=== PATIENT | male | born 1940 | race Caucasian/White ===

== ENCOUNTER → 2017-04-05 05:00 | Outpatient (REF) | payer SELFPAY ==
[2017-04-05 08:23] LABS: Hemoglobin 13.3 g/dl (13.0-16.5); Mean Corp Hgb Conc 31.7 g/gl (32-36); Mean Corpuscular Hgb 29.7 pg (27.0-32.0); Mean Corpuscular Volume 93.8 fL (80-94); Mean Platelet Vol. 12.3 fl (6.2-12.0); Platelet Count 166 K/mm3 (150-450); RBC Distribution Width CV 14.7 % (11.6-14.6); RBC Distribution Width SD 49.9 fl (35.1-43.9); Red Blood Count 4.48 M/mm3 (4.6-6.2); White Blood Count 7.1 K/mm3 (4.4-11.0)
[2017-04-05 08:24] LABS: Scan Indicated on CBC? Y/N NO
[2017-04-05 08:31] LABS: AST(SGOT) 10 U/L (15-37); Alanine Aminotransfer ALT/SGPT 22 U/L (16-61); Albumin, Serum 3.3 g/dL (3.2-5.0); Alkaline Phosphatase 69 U/L (45-117); Anion Gap 9 (5-15); BUN 22 mg/dL (7-18); BUN/Creat Ratio 21.8 RATIO (10-20); Bilirubin, Direct 0.09 mg/dL (0.00-0.30); Calcium,Total 8.2 mg/dL (8.5-10.1); Chloride 111 mmol/L (98-107); Creatinine, Serum 1.01 mg/dL (0.70-1.30); EST Glomerular Filtration Rate 76 mL/min (>60); Est Glom Filt Rate - Afr Amer 92 mL/min (>60); Globulin 3.5 g/dL (2.2-4.2); Glucose 91 mg/dL (74-106); Potassium 4.3 mmol/L (3.5-5.1); Protein, Total 6.8 g/dL (6.4-8.2); Sodium Level 148 mmol/L (136-145)
== END ==
LOC: OLS.DANBUR 05:00
DX: E78.5 Hyperlipidemia, unspecified (principal); F03.90 Unspecified dementia, unspecified severity, without behavioral disturbance, psychotic disturbance, mood disturbance, and anxiety
CPT/HCPCS: 36415; 80048; 80076; 85027

== ENCOUNTER → 2017-07-03 15:34 | Outpatient (CLI) | payer MEDICARE, SELFPAY ==
[2017-07-03 17:10] LABS: Absolute Lymphocyte Count 1.98 X10^3/ul (0.83-4.51); Absolute Neutrophil Count 6.4 X10^3/uL (2.0-7.7); Basophil# 0.02 X10^3/uL; Basophil% 0.2 % (0-1); Eosinophil# 0.03 X10^3/uL; Eosinophils% 0.3 % (0-5); Hematocrit 42.7 % (40-54); Hemoglobin 14.2 g/dl (13.0-16.5); Lymphocyte # 1.98 X10^3/ul (4.0); Lymphocyte % 20.5 % (19-41); Mean Corp Hgb Conc 33.3 g/gl (32-36); Mean Corpuscular Hgb 30.5 pg (27.0-32.0); Mean Corpuscular Volume 91.8 fL (80-94); Mean Platelet Vol. 12.1 fl (6.2-12.0); Monocyte# 1.21 X10^3/uL; Monocyte% 12.5 % (0-10); Neutrophil # 6.43 X10^3/uL (2.7-7.7); Neutrophil % 66.4 % (47-70); Platelet Count 186 K/mm3 (150-450); RBC Distribution Width CV 14.7 % (11.6-14.6); RBC Distribution Width SD 49.2 fl (35.1-43.9); Red Blood Count 4.65 M/mm3 (4.6-6.2); White Blood Count 9.7 K/mm3 (4.4-11.0)
[2017-07-03 17:23] LABS: POSITIVE COUNT NO; POSITIVE DIFFERENTIAL NO; POSITIVE MORPHOLOGY NO
[2017-07-03 18:37] LABS: ALB/GLOB Ratio 0.9 RATIO (0.9-2.4); AST(SGOT) 17 U/L (15-37); Alanine Aminotransfer ALT/SGPT 24 U/L (16-61); Albumin, Serum 3.6 g/dL (3.2-5.0); Alkaline Phosphatase 83 U/L (45-117); Anion Gap 9 (5-15); BUN 22 mg/dL (7-18); BUN/Creat Ratio 18.2 RATIO (10-20); Calcium,Total 8.8 mg/dL (8.5-10.1); Chloride 108 mmol/L (98-107); Creatinine, Serum 1.21 mg/dL (0.70-1.30); EST Glomerular Filtration Rate 62 mL/min (>60); Est Glom Filt Rate - Afr Amer 75 mL/min (>60); Globulin 3.9 g/dL (2.2-4.2); Glucose 98 mg/dL (74-106); Potassium 3.4 mmol/L (3.5-5.1); Protein, Total 7.5 g/dL (6.4-8.2); Sodium Level 144 mmol/L (136-145); Thyroid Stim Hormone (TSH) 1.14 uIU/mL (0.358-3.74)
[2017-07-04 08:50] LABS: Vitamin B12 409 pg/mL (211-911); Vitamin D,25 Hydroxy 25.1 ng/mL (29.95-100.01)
[2017-07-06 01:13] LABS: Rapid Plasmin Reagin (RPR) NONREACTIVE (NONREACTIVE)
== END ==
PROVIDERS: Visit Provider Family Medicine Geriatric Medicine
DX: E55.9 Vitamin D deficiency, unspecified (principal); F05 Delirium due to known physiological condition; R53.83 Other fatigue
CPT/HCPCS: 36415; 80053; 82306; 82607; 82746; 84443; 85025; 86592

== ENCOUNTER → 2017-07-12 05:00 | Outpatient (REF) | payer MEDICARE, SELFPAY ==
[2017-07-12 09:11] LABS: Anion Gap 8 (5-15); BUN 25 mg/dL (7-18); BUN/Creat Ratio 22.5 RATIO (10-20); Calcium,Total 8.5 mg/dL (8.5-10.1); Chloride 107 mmol/L (98-107); Creatinine, Serum 1.11 mg/dL (0.70-1.30); EST Glomerular Filtration Rate 69 mL/min (>60); Est Glom Filt Rate - Afr Amer 83 mL/min (>60); Glucose 89 mg/dL (74-106); Sodium Level 144 mmol/L (136-145)
== END ==
LOC: OLS.DANBUR 05:00
PROVIDERS: Visit Provider Family Medicine Geriatric Medicine
DX: E78.5 Hyperlipidemia, unspecified (principal)
CPT/HCPCS: 36415; 80048

== ENCOUNTER → 2018-03-19 17:00 | Outpatient (REF) | payer MEDICARE, SELFPAY ==
[2018-03-20 09:06] LABS: Color, Urine Yellow (Yellow); Glucose, Dipstick Normal (Normal); Ketone-Dipstick Negative (Negative); Leukocyte Esterase-Dipstick 500 /ul (Negative); Nitrite-Dipstick Positive (Negative); Occult Blood-Urine 25 /ul (Negative); Protein-Dipstick Negative (Negative); Urine Bilirubin Dipstick Negative (Negative); Urine Clarity Clear (Clear); Urine Urobilinogen Normal (Normal); Urine pH 6.5 (5.0 - 8.0)
--- OUTSIDE RECORDS SUMMARY | 2018-05-22 04:52 | XMS RPT_ITS ---
:1940 Author Organization OHIP Care Team Providers Name Role Phone Pavan, Eleazar Chi Attending Unavailable Oswaldo Crowder Attending Unavailable Pavan, Eleazar Chi Attending Unavailable Pavan, Eleazar Chi Attending Unavailable Pavan, Eleazar Chi Attending Unavailable PROBLEMS PROBLEMS DATE TYPE CONDITION / CODE ATTENDING STATUS SOURCE 09/21/2017 Unknown E78.5 - Pavan, Eleazar Chi Active [place] Hyperlipidemia, Community unspecified / Hospital E78.5(ICD-10) Repository 06/22/2017 Unknown F03.90 - Oswaldo Crowder Active [place] Unspecified Community dementia without Hospital behavioral Repository disturbance / F03.90(ICD-10) PROCEDURES PROCEDURES No Procedure Records FoundRESULTS RESULTS URINALYSIS, ROUTINE Collected: 03/19/2018 Status: F Source: [place] (DIPSTICK) 5:00 PM [facility] REPOSITORY Order Comment: How was Urine Obtained? CLEAN CATCH TYPE CODE TESTS RESULT OUT OF RANGE REFERENCE UNITS LAB L400.3000 Yellow COLOR Normal Yellow LAB L400.3050 Clear Normal CLARITY Clear LAB L400.3200 Normal mg/dl Normal GLUCOSE, UR Normal LAB L400.3300 Negative mg/dL Normal BILIRUBIN URINE Negative LAB L400.3400 Negative mg/dl Normal KETONE UR Negative LAB L400.3465 1.002-1.030 Normal SP.GR. DIPSTX 1.010 LAB L400.3550 5.0 - 8.0 pH UR Normal 6.5 LAB L400.3600 Negative mg/dl PROT Normal DIPSTX Negative LAB L400.3700 Normal mg/dl Normal UROBILI Normal LAB L400.3750 Negative High NITRITE UR Positive LAB L400.3780 Negative /ul High 25 OCCULT BLOOD-UR LAB L400.3800 Negative /ul High LEUK ESTERASE 500 Performed By: #### L400.2010 #### [facility] [address] [place], [address] Observed: 03/19/2018 Status: F Source: ZELIENOPLE CULTURE, URINE 5:00 PM [facility] REPOSITORY VERIFIED COLLECTION METHOD WITH NURSE Urine Culture Copy of report sent to Infection Control Printer [id number] 03/23/18 0651 RAHNUBIA. ORGANISM 1: Meth. resistant Staph. aureus Stephan Count 80,000-100,000 Meth. resistant Staph. aureus: REACTION Cefoxitin *NF POS Doxycline <=0.5 S Daptomycin $$ 0.25 S Inducable Clindamycin Resistan POS Gentamicin $ <=0.5 S Levofloxacin $ >=8 R Linezolid $$$$ 2 S Moxifloxicin *NF >=8 R Nitrofurantoin $ <=16 S Oxacillin NF R Rifampin $$ <=0.5 S Tetracycline NF <=1 S Trimethoprim/Sulfametho $ <=10 S Vancomycin $ <=0.5 S (NF) indicates non-formulary drug at [facility]. Approval by Infectious Disease Specialist required before non-formulary drugs may be ordered and/or dispensed. * CLSI guidelines does not recommend testing of cephalosporins. This interpretation is deduced from Beta-lactam/penicillin results. Performed By: #### M100.0650 #### [facility] [address] [place], [address] BASIC METABOLIC Collected: 07/12/2017 Status: F Source: [place] PROFILE (BMP) 7:10 AM [facility] REPOSITORY Order Comment: 273 TYPE CODE TESTS RESULT OUT OF RANGE REFERENCE UNITS LAB L501.0100 74-106 mg/dL Normal GLU 89 Result Comment: Please note revised GLUCOSE reference range effective 2017. LAB L501.1000 7-18 mg/dL High BUN 25 LAB L501.1100 0.70-1.30 mg/dL Normal CREAT,SERUM 1.11 Result Comment: The validity of the calculated GFR AND GFRAA in patients over 70 years has not been determined. Clinical correlation is essential. LAB L501.1110 >60 mL/min Normal EST GFR 69 Result Comment: Non- GFR Calc LAB L501.1115 >60 mL/min Normal EST GFR - AA 83 Result Comment: GFR Calc LAB L501.1300 10-20 RATIO High BUN/CRE 22.5 LAB L501.2200 8.5-10.1 mg/dL CA Normal 8.5 LAB L501.5300 136-145 mmol/L NA Normal 144 LAB L501.5600 3.5-5.1 mmol/L K Normal 4.0 LAB L501.5900 98-107 mmol/L CL Normal 107 LAB L501.6100 21.0-32.0 mmol/L Normal CO2 29.0 LAB L501.6200 5-15 Normal GAP 8 Performed By: #### L500.2500 #### [facility] [address] [place], [place], [id number] CBC W/DIFF, AUTOMATED Collected: 07/03/2017 Status: F Source: ZELIENOPLE 3:40 PM [facility] REPOSITORY TYPE CODE TESTS RESULT OUT OF RANGE REFERENCE UNITS LAB L100.1000 4.4-11.0 K/mm3 Normal WBC 9.7 LAB L100.1200 4.6-6.2 M/mm3 Normal RBC 4.65 LAB L100.1300 13.0-16.5 g/dl Normal HGB 14.2 LAB L100.1400 40-54 % Normal HCT 42.7 LAB L100.1500 80-94 fL Normal MCV 91.8 LAB L100.1600 27.0-32.0 pg Normal MCH 30.5 LAB L100.1700 32-36 g/gl Normal MCHC 33.3 LAB L100.1810 11.6-14.6 % High RDW CV 14.7 LAB L100.1820 35.1-43.9 fl High RDW SD 49.2 LAB L100.1900 150-450 K/mm3 Normal PLT 186 LAB L100.2000 6.2-12.0 fl High MPV 12.1 LAB L100.2100 47-70 % Normal NEUT% 66.4 LAB L100.2200 19-41 % Normal LY% 20.5 LAB L100.2300 0-10 % High MONO% 12.5 LAB L100.2400 0-5 % Normal EO% 0.3 LAB L100.2500 0-1 % Normal BASO% 0.2 LAB L100.2550 0.0-0.9 % Normal IM GRAN % 0.100 Result Comment: IG% - Immature Granulocytes (promyelocytes, myelocytes and metamyelocytes) > 1% indicates that a LEFT SHIFT is Present. LAB L100.2620 2.0-7.7 X10 3/uL Normal Absolute Neut 6.4 LAB L100.2720 0.83-4.51 X10 3/ul Normal Absolute Lymph 1.98 Performed By: #### L100.0100 #### [facility] [place], [address] COMPREHENSIVE METABOLIC Collected: 07/03/2017 Status: F Source: [place] WARREN 3:40 PM [facility] REPOSITORY Order Comment: Is Patient Taking Vitamins or Folic Acid Supplements? N TYPE CODE TESTS RESULT OUT OF RANGE REFERENCE UNITS LAB L501.0100 74-106 mg/dL Normal GLU 98 Result Comment: Please note revised GLUCOSE reference range effective 2017. LAB L501.1000 7-18 mg/dL High BUN 22 LAB L501.1100 0.70-1.30 mg/dL Normal CREAT,SERUM 1.21 Result Comment: The validity of the calculated GFR AND GFRAA in patients over 70 years has not been determined. Clinical correlation is essential. LAB L501.1110 >60 mL/min Normal EST GFR 62 Result Comment: Non- GFR Calc LAB L501.1115 >60 mL/min Normal EST GFR - AA 75 Result Comment: GFR Calc LAB L501.1300 10-20 RATIO Normal BUN/CRE 18.2 LAB L501.1500 6.4-8.2 g/dL T Normal PROT 7.5 LAB L501.1800 3.2-5.0 g/dL Normal ALB 3.6 LAB L501.1950 2.2-4.2 g/dL Normal GLOB 3.9 LAB L501.2000 0.9-2.4 RATIO Normal A/G 0.9 LAB L501.2200 8.5-10.1 mg/dL CA Normal 8.8 LAB L501.4100 15-37 U/L Normal AST 17 LAB L501.4305 45-117 U/L Normal ALK P 83 LAB L501.4405 16-61 U/L Normal ALT 24 LAB L501.4600 0.20-1.00 mg/dL T Normal BILI 0.40 LAB L501.5300 136-145 mmol/L NA Normal 144 LAB L501.5600 3.5-5.1 mmol/L Low K 3.4 LAB L501.5900 98-107 mmol/L High CL 108 LAB L501.6100 21.0-32.0 mmol/L Normal CO2 27.0 LAB L501.6200 5-15 Normal GAP 9 Performed By: #### L500.4050, L501.9520, L506.0250 #### [facility] [address] [place], [address] THYROID STIM HORMONE Collected: 07/03/2017 Status: F Source: [place] (TSH) 3:40 PM [facility] REPOSITORY Order Comment: Is Patient Taking Vitamins or Folic Acid Supplements? N TYPE CODE TESTS RESULT OUT OF RANGE REFERENCE UNITS LAB L501.9520 0.358-3.74 uIU/mL Normal TSH 1.14 Performed By: #### L500.4050, L501.9520, L506.0250 #### [facility] [address] [place], [address] FOLATES, (FOLIC ACID) Collected: 07/03/2017 Status: F Source: ZELIENOPLE 3:40 PM [facility] RE[facility]ITORY Order Comment: Is Patient Taking Vitamins or Folic Acid Supplements? N TYPE CODE TESTS RESULT OUT OF RANGE REFERENCE UNITS LAB L506.0250 3.1-55.4 ng/mL Normal FOLATES 35.40 Performed By: #### L500.4050, L501.9520, L506.0250 #### [facility] [address] [place], [address] VITAMIN B12 Collected: 07/03/2017 Status: F Source: ZELIENOPLE 3:40 PM [facility] RE[facility]ORY TYPE CODE TESTS RESULT OUT OF RANGE REFERENCE UNITS LAB L503.0105 211-911 pg/mL Normal Vitamin B12 409 Performed By: #### L503.0105, L506.1000 #### [facility] [address] [place], [address] VITAMIN D,25 HYDROXY Collected: 07/03/2017 Status: F Source: [place] 3:40 PM [facility] RE[facility]ORY TYPE CODE TESTS RESULT OUT OF REFERENCE UNITS RANGE LAB L506.1000 29.95-100.01 ng/mL Low Vitamin D 25.1 25-OH Result Comment: Vitamin D 25(OH) Status Range Deficiency <20 ng/mL (50nmol/L) Insuffciency 20 - 30 ng/mL (50 - 75 nmol/L) Sufficiency 30 - 100 ng/mL (75 - 250 nmol/L) Toxicity >100 ng/mL (>250 nmol/L) Performed By: #### L503.0105, L506.1000 #### [facility] [address] [place], [place], [address] RAPID PLASMIN REAGIN Collected: 07/03/2017 Status: F Source: [place] (RPR) 3:40 PM [facility] REPOSITORY TYPE CODE TESTS RESULT OUT OF REFERENCE UNITS RANGE LAB L700.5000 NONREACTIVE NONREACTIVE Normal RPR Performed By: #### L700.5000 #### [facility] [address] [place], [address] CBC-COMPLETE BLOOD CNT Collected: 04/05/2017 Status: F Source: [place] NO DIFF 7:10 AM [facility] REPOSITORY Order Comment: 273 TYPE CODE TESTS RESULT OUT OF RANGE REFERENCE UNITS LAB L100.1000 4.4-11.0 K/mm3 Normal WBC 7.1 LAB L100.1200 4.6-6.2 M/mm3 Low RBC 4.48 LAB L100.1300 13.0-16.5 g/dl Normal HGB 13.3 LAB L100.1400 40-54 % Normal HCT 42.0 LAB L100.1500 80-94 fL Normal MCV 93.8 LAB L100.1600 27.0-32.0 pg Normal MCH 29.7 LAB L100.1700 32-36 g/gl Low MCHC 31.7 LAB L100.1810 11.6-14.6 % High RDW CV 14.7 LAB L100.1820 35.1-43.9 fl High RDW SD 49.9 LAB L100.1900 150-450 K/mm3 Normal PLT 166 LAB L100.2000 6.2-12.0 fl High MPV 12.3 Performed By: #### L100.0500 #### [facility] [address] [place], [place], [id number] BASIC METABOLIC Collected: 04/05/2017 Status: F Source: [place] PROFILE (BMP) 7:10 AM [facility] REPOS[facility]ORY Order Comment: 273 TYPE CODE TESTS RESULT OUT OF RANGE REFERENCE UNITS LAB L501.0100 74-106 mg/dL Normal GLU 91 Result Comment: Please note revised GLUCOSE reference range effective 2017. LAB L501.1000 7-18 mg/dL High BUN 22 LAB L501.1100 0.70-1.30 mg/dL Normal CREAT,SERUM 1.01 Result Comment: The validity of the calculated GFR AND GFRAA in patients over 70 years has not been determined. Clinical correlation is essential. LAB L501.1110 >60 mL/min Normal EST GFR 76 Result Comment: Non- GFR Calc LAB L501.1115 >60 mL/min Normal EST GFR - AA 92 Result Comment: GFR Calc LAB L501.1300 10-20 RATIO High BUN/CRE 21.8 LAB L501.2200 8.5-10.1 mg/dL Low CA 8.2 LAB L501.5300 136-145 mmol/L High NA 148 LAB L501.5600 3.5-5.1 mmol/L K Normal 4.3 LAB L501.5900 98-107 mmol/L High CL 111 LAB L501.6100 21.0-32.0 mmol/L Normal CO2 28.0 LAB L501.6200 5-15 Normal GAP 9 Performed By: #### L500.2500, L500.3400 #### [facility] [address] [place], [address] LIVER PROFILE Collected: 04/05/2017 Status: F Source: [place] 7:10 AM [facility] REPOSITORY Order Comment: 273 TYPE CODE TESTS RESULT OUT OF RANGE REFERENCE UNITS LAB L501.1500 6.4-8.2 g/dL Normal T PROT 6.8 LAB L501.1800 3.2-5.0 g/dL Normal ALB 3.3 LAB L501.1950 2.2-4.2 g/dL Normal GLOB 3.5 LAB L501.4100 15-37 U/L Low AST 10 LAB L501.4305 45-117 U/L Normal ALK P 69 LAB L501.4405 16-61 U/L Normal ALT 22 Result Comment: Please note revised ALT reference range effective 2017. LAB L501.4600 0.20-1.00 mg/dL Normal T BILI 0.60 LAB L501.4700 0.00-0.30 mg/dL Normal D BILI 0.09 Performed By: #### L500.2500, L500.3400 #### [facility] [address] [place], [address] ALLERGIES ALLERGIES No Allergies Records FoundENCOUNTERS ENCOUNTERS ADMIT/DISCHARGE ACCOUNT ADMITTING ENCOUNTER LOCATION SOURCE NUMBER CLASS 03/19/[id number] ing:OLS.DANBU Repository R 07/12/[id number] ing:OLS.DANBU Repository R 07/12/[id number] ing:LAB.FUTUR Repository E 07/03/[id number] ing:POLAB3 Repository 04/05/[id number] ing:OLS.DANBU Repository R PAYERS PAYERS ENCOUNTER GUARANTOR PAYER SUBSCRIBER SOURCE 03/19/2018 ISAI [id number] [facility] [place] [facility]:SELF PAY [facility] [address]Oij: (330) Number: Effective Repository [phone] () Date:2018-03-19 07/12/2017 ISAI [id number] Primary [facility] [place] Insurance:AECALI ADAMSONOB: [facility] Number: [id number] Hospital [id number]: [phone]) [id number] Repository [phone] () Date:[id number] LEIGHANN 783629XEZACHARY LEROY [address]SR: 07/12/2017 Secondary NOT GIVENUNK [place] Insurance:SELF PAY [facility] Number: Effective Repository Date:2017-07-12 07/12/2017 Primary ISAI [place] Insurance:AETNA JUAN DIEGOOB: [facility] Number: [id number] Hospital [id number] Repository Date:[id number] [place] [address]UO: 07/12/2017 Secondary NOT GIVENUNK [place] Insurance:SELF PAY [facility] Number: Effective Repository Date:2017-07-10 07/03/2017 [id number] ISAI [place] Insurance:AETLELAND ASCENCIOSDOB: [facility] Number: [id number] Hospital [id number]: [phone]) [id number] Repository [phone] () Date:[id number] [address] [address]QL: 07/03/2017 Secondary NOT GIVENUNK [place] Insurance:SELF PAY [facility] Number: Effective Repository Date:2017-07-03 04/05/2017 [id number] NOT GIVENUNK [place] Insurance:SELF PAY [facility] [id number]: [phone]) Number: Effective Repository [phone] () Date:2017-04-05
== END ==
LOC: OLS.DANBUR 17:00
PROVIDERS: Visit Provider Family Medicine Geriatric Medicine
DX: N39.0 Urinary tract infection, site not specified (principal)
CPT/HCPCS: 81002; 87077; 87086; 87088; 87186

== ENCOUNTER 2018-05-25 22:44 | Inpatient (IN) | payer MEDICARE, SELFPAY ==
[2018-05-25 22:45] VITALS: BP 132/80; PULSE 107; RESP 18; TEMP 37.3; O2SAT 90; BMI 23.7
--- NOTE | 2018-05-25 23:28 | ED.RN ---
RN CALLED FOR EKG, NO OLD EKGS IN MUSE
--- NOTE | 2018-05-25 23:29 | RAD_ITS ---
STUDY: X-RAY CHEST REASON FOR EXAM: Male, 77 years old. Cough. TECHNIQUE: Single AP portable view of the chest. COMPARISON: Prior comparison studies are not available for review at this time. FINDINGS: The lungs are clear and expanded. There is no demonstrated pleural abnormality. There is borderline cardiomegaly. Normal mediastinum and alicia. Normal visualized pulmonary arteries. There is atherosclerotic calcification of the aortic arch with tortuosity. There are diffuse degenerative changes of the visualized thoracic spine. Normal visualized ribs, clavicles, and shoulders. There is no demonstrated abnormality of the visualized soft tissue structures of the upper abdomen. RAD/Chest 1 View (Portable) IMPRESSION: Borderline cardiomegaly without evidence of acute cardiopulmonary disease. Electronically Signed: Ariadna Deng MD at 0:34 EDT , Service support ,
--- NOTE | 2018-05-25 23:29 | EKG12_ITS ---
Test Reason : FALL Blood Pressure : / mmHG Vent. Rate : 084 BPM Atrial Rate : 084 BPM P-R Int : 176 ms QRS Dur : 124 ms QT Int : 360 ms P-R-T Axes : 046 -46 070 degrees QTc Int : 425 ms Normal sinus rhythm Left axis deviation Left ventricular hypertrophy with QRS widening and repolarization abnormality Anteroseptal infarct , age undetermined Abnormal ECG Confirmed by SHELBY HOPPER, SUDHAKAR ([id number]), make up editor CECY PAULA ([id number]) on 05/28/2018 1:11:26 PM Referred By: ALMAS Confirmed By:SUDHAKAR RYAN MD
[2018-05-25 23:58] LABS: Absolute Lymphocyte Count 0.59 X10^3/ul (0.83-4.51); Absolute Neutrophil Count 16.7 X10^3/uL (2.0-7.7); Basophil# 0.01 X10^3/uL; Hematocrit 38.2 % (40-54); Hemoglobin 12.9 g/dl (13.0-16.5); Lymphocyte # 0.59 X10^3/ul (4.0); Lymphocyte % 2.9 % (19-41); Mean Corp Hgb Conc 33.8 g/gl (32-36); Mean Corpuscular Hgb 30.5 pg (27.0-32.0); Mean Corpuscular Volume 90.3 fL (80-94); Mean Platelet Vol. 11.9 fl (6.2-12.0); Monocyte# 3.01 X10^3/uL; Monocyte% 14.8 % (0-10); Neutrophil # 16.66 X10^3/uL (2.7-7.7); Platelet Count 119 K/mm3 (150-450); RBC Distribution Width CV 15.4 % (11.6-14.6); RBC Distribution Width SD 50.3 fl (35.1-43.9); Red Blood Count 4.23 M/mm3 (4.6-6.2); White Blood Count 20.3 K/mm3 (4.4-11.0)
[2018-05-25 23:59] LABS: Differential Indicated SCAN CRITERIA MET; POSITIVE COUNT NO; POSITIVE DIFFERENTIAL YES; POSITIVE MORPHOLOGY YES
[2018-05-26] VITALS (10 sets, daily range): BP systolic 110–143; BP diastolic 54–83; PULSE 57–110; RESP 16–29; TEMP 36.8–38.3; O2SAT 91–97; BMI 24.4; BMI 24.5
[2018-05-26 00:07] LABS: International Normalized Ratio 1.2; Prothrombin Time (Protime)PT. 15.2 SECONDS (11.7-14.9)
[2018-05-26 00:16] LABS: ALB/GLOB Ratio 0.7 RATIO (0.9-2.4); AST(SGOT) 52 U/L (15-37); Alanine Aminotransfer ALT/SGPT 50 U/L (16-61); Albumin, Serum 2.9 g/dL (3.2-5.0); Alkaline Phosphatase 66 U/L (45-117); Anion Gap 5 (5-15); BUN 39 mg/dL (7-18); BUN/Creat Ratio 24.4 RATIO (10-20); Calcium,Total 8.1 mg/dL (8.5-10.1); Chloride 113 mmol/L (98-107); EST Glomerular Filtration Rate 45 mL/min (>60); Est Glom Filt Rate - Afr Amer 54 mL/min (>60); Estimated Creatinine Clearance 45.67 ml/min; Glucose 138 mg/dL (74-106); Potassium 4.3 mmol/L (3.5-5.1); Protein, Total 6.9 g/dL (6.4-8.2); Sodium Level 142 mmol/L (136-145)
[2018-05-26 00:29] LABS: Lactic Acid 1.3 mmol/L (0.4-2.0)
--- NOTE | 2018-05-26 00:57 | ED.RN ---
UNABLE TO OBTAIN URINE WITH A STRAIGHT CATH.
[2018-05-26] MEDS: 0.9% Normal Saline 1,000 ML 999 ML IV (01:43)
--- NOTE | 2018-05-26 02:11 | ED.VISSUMM ---
- ER Visit Summary Date of Service: 05/26/18 Chief Complaint: Fall History of Present Illness: The patient is a 77 M who presents after a fall. This is presumed to be a same level fall. It was not witnessed. He is from a nursing facility. They got him ready for bed when they went to check on him he was found laying on his back. He was also found to have fever elevated heart rate and low oxygen saturation. Family states that he had some weakness yesterday. However family otherwise is unaware of any recent illness. He has not been complaining of any pain. No nausea vomiting diarrhea. He was recently treated for a UTI. He does have a history of dementia. Physical Examination: Heart rate 107 pulse ox 90% on room air Heart is regular rhythm tachycardia Lungs clear Abdomen soft nontender Active full range of motion x4 extremities without pain Alert No focal or lateralizing neurological deficit Normal strength and sensation Test Results: EKG shows sinus rhythm at a rate of 84 with LVH. Labs are notable for white blood cell count 20.3, hemoglobin 12.9, platelets 119. BUN 39 and creatinine of 1.6 which is up from prior labs of 1.1. Hepatic function shows AST 52. INR normal 1.2. Lactic acid normal. Chest x-ray shows cardiomegaly. CT of the head shows chronic changes only. Urine and blood cultures were sent. Emergency Department Course and Treatment: Workup as above. We attempted straight catheterization but the patient's bladder is empty. Given that no urine output and elevated creatinine he does appear to have an acute kidney injury. Patient with history of recent UTI urine may be his source. We will hydrate with IV fluids and await urine output. He was empirically treated with IV Zosyn given fever and leukocytosis. Patient to be discussed with the hospitalist and admitted. Treatment Plan: [] Disposition: Admit Impression: Fever Acute kidney injury Leukocytosis This note was generated with [employer] dictation software. It may contain incorrect words, spelling, and punctuation that were not noted in review of the chart prior to signing ED Disposition - Plan for ED Patient: Referrals: Eleazar Browne Chi, MD [Primary Care Provider] -
--- NOTE | 2018-05-26 03:15 | ED.RN ---
vanc ordered by dr. cisneros, per dr. colin he doesnt not want vanc hung in the er due to ordering medication issues. Pharmacy made aware
[2018-05-26] MEDS: 0.9% Normal Saline 1,000 ML 100 ML IV ×2 (04:45→18:53)
--- NOTE | 2018-05-26 05:01 | PCM.HP.STD ---
Problem List (1) Fever Status: Acute Qualifiers: Fever type: unspecified Qualified Code(s): R50.9 - Fever, unspecified (2) Tachycardia Status: Acute (3) Change in mental status Status: Acute Qualifiers: Altered mental status type: somnolence Qualified Code(s): R40.0 - Somnolence History of Present Illness Date of Admission: 05/26/18 Chief Complaint: Fever, tachycardia, change of mental status The patient is a 77 year old M was seen in the emergency room at [facility] after being transported from an assisted living facility with change in mental status, fever, and tachycardia which started on 05/25/18. Patient has a history of Alzheimer's dementia and is unable to provide any information to this examiner, patient's family was in the room today in the emergency room during the time of my examination and provided medical information. They stated that the patient normally is active and today he was very inactive and seemed lethargic, it was noted by the assisted living staff that the patient was running a temperature today (daughter could not tell me how high the patient's temperature was) and that his heart rate had increased. Daughter states the patient is not having any diarrhea or cough. Workup in the emergency room included a chest x-ray which showed no acute pulmonary process, labs were drawn and the patient had an elevated white blood cell count at 20.3, hemoglobin was 12.9, platelet count was 119,000. Chemistry panel was abnormal for a creatinine of 1.6, BUN of 39, and glucose of 138. Patient's lactic acid was not elevated, AST was slightly elevated at 52. Urinalysis could not be obtained due to the fact that no urine was obtained on the patient's straight cath. Patient has a history of urinary tract infections, a urine culture on 03/19/18 grew out methicillin-resistant staph aureus. Blood cultures were obtained in the emergency room, patient had an influenza screen that was negative. Patient was given IV Zosyn and the patient was admitted to [place] [address] for acute sepsis felt to be secondary to acute cystitis and dehydration. Patient's antibiotic coverage will be changed to Rocephin and vancomycin. I talked to the patient's daughter and confirmed that the patient is a DNR CC arrest Past Medical History Allergies No Known Allergies Allergy (Verified 05/25/18 22:48) Home Medications: Ambulatory Orders Medication Instructions Recorded Acetaminophen [Tylenol] 650 mg PO Q8H PRN PRN 05/25/18 Aspirin [Aspirin, Baby] 81 mg PO DAILY@0800 05/25/18 Donepezil HCl 10 mg PO DAILY 05/25/18 Escitalopram Oxalate [Lexapro] 10 mg PO DAILY 05/25/18 Fexofenadine HCl [Lisbeth Allergy] 180 mg PO DAILY 05/25/18 Memantine HCl [Namenda] 10 mg PO BID 05/25/18 Multivitamin [Daily Multiple 1 each PO DAILY 05/25/18 Vitamin] Potassium Chloride [K-Dur] 10 meq PO DAILY 05/25/18 Surgical History: noncontributory Psychiatric History: - - Alzheimer's dementia Lives: - - Patient lives in assisted living Smoking Status: Never smoker Tobacco Use: Non-smoker Alcohol: None Drugs: None - *Family History Maternal History Items: No pertinent history Paternal History Items: No pertinent history Review of Systems Comment: Review of systems was unobtainable due to patient's dementia, medical information was obtained from the patient's family who were present during the time of my examination VTE Information - Inpt Only VTE Present on Admission: No VTE Mechan Device Prophylaxis: None VTE Pharm Prophylaxis ordered?: Yes Patient Problems: Active and Suspected Problems Fever (Acute) Tachycardia (Acute) Change in mental status (Acute) - Physical Exam General: Alert, No apparent distress, Well developed, Lethargic HEENT: Atraumatic, PERRLA, EOMI, Normocephalic Oral: Moist Mucosa Neck: Supple, No JVD, Negative Carotid Bruits, No Nuchal Rigidity, Trachea Midline, Thyroid Normal Size and Texture Lungs: Clear to auscultation, Normal air movement, No rhonchi, No wheeze, No rales Cardiovascular: Regular rate, Regular Rhythm, Normal S1, Normal S2, No murmurs, PMI Normal, No rub noted, No Gallop, - - Occasional ectopic beats were noted Abdomen: Bowel Sounds Present, Soft, Non Tender, Non-Distended, No hernias noted Extremities: No clubbing, No cyanosis, No edema, Capillary Refill Less than 3 Seconds Skin: No rashes Neurological: Cranial nerves II-XII grossly intact, Neuro grossly intact, Sensory exam intact to light touch and pain Psych/Mental Status: Flat Affect, - - Patient lethargic, he responds to some commands appropriately Vital Signs Temp Pulse Resp BP Pulse Ox 98.3 F 88 24 H 143/83 H 97 05/26/18 04:38 05/26/18 04:38 05/26/18 04:38 05/26/18 04:38 05/26/18 04:38 Oxygen Delivery Method Room Air Weight: 86.4 kg Body Mass Index (BMI) 24.4 Microbiology Past 72 Hours 05/25/18 23:35 Influenza Types A,B Direct FA (DELROY) - Final Mucosa - Nasopharyngeal Laboratory Tests Past 24 Hrs 05/25/18 05/25/18 05/25/18 23:45 23:45 23:45 WBC 20.3 H RBC 4.23 L Hgb 12.9 L Hct 38.2 L MCV 90.3 MCH 30.5 MCHC 33.8 RDW 15.4 H RDW Differential 50.3 H Plt Count 119 L MPV 11.9 Immature Gran % (Auto) 0.300 Neut % (Auto) 82.0 H Lymph % (Auto) 2.9 L Desha % (Auto) 14.8 H Eos % (Auto) 0.0 Baso % (Auto) 0.0 Absolute Neuts (auto) 16.7 H Absolute Lymphs (auto) 0.59 L Total Counted Not Reportable Diff Path Review May foll PT 15.2 H INR 1.2 Sodium 142 Potassium 4.3 Chloride 113 H Carbon Dioxide 24.0 Anion Gap 5 BUN 39 H Creatinine 1.60 H Estim Creat Clear Calc 45.67 Est GFR (MDRD) Af Amer 54 L Est GFR (MDRD) Non-Af 45 L BUN/Creatinine Ratio 24.4 H Glucose 138 H Lactic Acid Calcium 8.1 L Total Bilirubin 0.80 AST 52 H ALT 50 Alkaline Phosphatase 66 Total Protein 6.9 Albumin 2.9 L Globulin 4.0 Albumin/Globulin Ratio 0.7 L 05/25/18 23:45 WBC RBC Hgb Hct MCV MCH MCHC RDW RDW Differential Plt Count MPV Immature Gran % (Auto) Neut % (Auto) Lymph % (Auto) Desha % (Auto) Eos % (Auto) Baso % (Auto) Absolute Neuts (auto) Absolute Lymphs (auto) Total Counted Diff Path Review PT INR Sodium Potassium Chloride Carbon Dioxide Anion Gap BUN Creatinine Estim Creat Clear Calc Est GFR (MDRD) Af Amer Est GFR (MDRD) Non-Af BUN/Creatinine Ratio Glucose Lactic Acid 1.3 Calcium Total Bilirubin AST ALT Alkaline Phosphatase Total Protein Albumin Globulin Albumin/Globulin Ratio Assessment/Plan All Active Problems Fever (Acute) Tachycardia (Acute) Change in mental status (Acute) #1 acute sepsis-most likely secondary to acute cystitis-patient will be admitted to [facility], he will be placed on IV Rocephin and vancomycin, follow-up labs will be obtained. Urinalysis will be obtained. PT and OT will see the patient. #2 dehydration-patient will be given IV fluids #3 metabolic encephalopathy on a backdrop of Alzheimer's dementia #4 Alzheimer's dementia Patient is a DNR CC arrest Code Visit Inpatient E&M: 01108 Init Hosp L3
--- NOTE | 2018-05-26 05:53 | PCM.RX.CS ---
Consult Pharmacy has been consulted to manage selected antiobiotic: Vancomycin Type of Consult: New start Suspected Infection: Sepsis Labs: Sodium 142 mmol/L (136-145) 05/25/18 23:45 Potassium 4.3 mmol/L (3.5-5.1) 05/25/18 23:45 Chloride 113 mmol/L (98-107) H 05/25/18 23:45 Carbon Dioxide 24.0 mmol/L (21.0-32.0) 05/25/18 23:45 Anion Gap 5 (5-15) 05/25/18 23:45 BUN 39 mg/dL (7-18) H 05/25/18 23:45 Creatinine 1.60 mg/dL (0.70-1.30) H 05/25/18 23:45 Est GFR (MDRD) Af Amer 54 mL/min (>60) L 05/25/18 23:45 Est GFR (MDRD) Non-Af 45 mL/min (>60) L 05/25/18 23:45 BUN/Creatinine Ratio 24.4 RATIO (10-20) H 05/25/18 23:45 Glucose 138 mg/dL (74-106) H 05/25/18 23:45 Microbiology: Microbiology 05/25/18 23:35 Mucosa - Nasopharyngeal Influenza Types A,B Direct FA (DELROY) - Final Weight used for dosin.4 kg Estimated Creatinine Clearance: 45.67 Goal Trough: 10-15 mcg/mL Pharmacy Plan for Drug Dosing: Pharmacy Service will continue to monitor and adjust dosing as required. Medications Vancomycin HCl 1,250 mg/ (Sodium Chloride) 275 mls @ 167 mls/hr IV X1 ONE Stop: 05/26/18 06:38 Last Admin: 05/26/18 05:45 Dose: 167 mls/hr Vancomycin HCl 1,250 mg/ (Sodium Chloride) 275 mls @ 167 mls/hr IV Q24H [facility] Follow-Up Labs: Trough Vancomycin Labs to be done on [date and time ordered]: 05/28 @ 1625
--- NOTE | 2018-05-26 07:16 | PCM.PN.HOSP ---
Patient Problems: Active and Suspected Problems Fever (Acute) Tachycardia (Acute) Change in mental status (Acute) Subjective: The patient is a 77 y/o M w/ PMHx: Alzheimer's disease, Anxiety and Depression, Allergic Rhinitis who presents to the [facility] ED on 05/26/18 with history of fever, tachycardia and lethargy starting the day prior. Admitted to [place], UA requested immediately as not obtained in the ED and straight catheterized sample notable, pending UCx, CXR and CT Head unremarkable, LA normal, admission CBC w/ WBC 20.3 with L shift, continue IVFs, monitor I/Os, continued IV Rocephin and Vanc given history of MRSA UTIs w/ transition as able pending sensitivities and speciation. Bld cx x 2 obtained in the ED. Acute kidney injury, secondary to #1. Admission BUN/Cr 39/1.60, prior baseline creatinine noted to be 1.1. Will hydrate, hold nephrotoxic medications and repeat chemistry in AM. Patient with no acute events overnight since admission per nursing staff. Patient has severe dementia and oriented to self only. He is calm, seated upright in the bed, denies any acute complaints at this time. Patient had catheterized urine sample this morning and was remarkable therefore septic presentation felt secondary to acute completed urinary tract infection. Reviewed urine cultures prior and did have evidence of prior MRSA urine infection this year. Patient denies fevers, chills, nausea, emesis, abdominal pain, chest pain or dyspnea. Objective: Physical Examination: General: awake, alert, oriented to self only, calm, cooperative, seated upright in bed in no apparent distress. Skin: normal color, turgor, no icterus, cyanosis. HEENT: AT/NC, EOMI, PERRLA, mildly dry MM. Lungs: CTA bilaterally, moderate effort, mild decrease BL bases, no rales, ronchi or wheezing. Heart: Improved, regular rate and rhythm; no gallop, rub audible. Abdomen: soft, NTTP, no suprapubic TTP, ND, normal BS. Extremities: no cyanosis, clubbing, or edema. Neurological: patient awake, alert, oriented to self only; cognitive function ppor baseline, currently appears baseline intact; pupils equally reactive to light and accomodation; cranial nerves II-XII grossly normal, moving all 4 extremities, strength moderately to severely globally decreased secondary to acute presentation. Psychiatric: affect appears flat, no acute evidence of depressive or anxiety feelings. Vitals/I&O's: Vital Signs Temp Pulse Resp BP Pulse Ox 98.3 F 70 24 H 143/83 H 97 05/26/18 04:38 05/26/18 05:01 05/26/18 04:38 05/26/18 04:38 05/26/18 04:38 Oxygen Delivery Method Room Air Weight: 190 lb 7.67 oz Body Mass Index (BMI) 24.4 Microbiology Past 72 Hours 05/25/18 23:35 Mucosa - Nasopharyngeal Influenza Types A,B Direct FA (DELROY) - Final Laboratory Results 05/25/18 23:45: WBC 20.3 H, RBC 4.23 L, Hgb 12.9 L, Hct 38.2 L, MCV 90.3, MCH 30.5, MCHC 33.8, RDW 15.4 H, RDW Differential 50.3 H, Plt Count 119 L, MPV 11.9, Immature Gran % (Auto) 0.300, Neut % (Auto) 82.0 H, Lymph % (Auto) 2.9 L, [place] % (Auto) 14.8 H, Eos % (Auto) 0.0, Baso % (Auto) 0.0, Absolute Neuts (auto) 16.7 H, Absolute Lymphs (auto) 0.59 L, Total Counted Not Reportable, Diff Path Review June05/25/18 23:45: PT 15.2 H, INR 1.2 05/25/18 23:45: Sodium 142, Potassium 4.3, Chloride 113 H, Carbon Dioxide 24.0, Anion Gap 5, BUN 39 H, Creatinine 1.60 H, Estim Creat Clear Calc 45.67, Est GFR (MDRD) Af Amer 54 L, Est GFR (MDRD) Non-Af 45 L, BUN/Creatinine Ratio 24.4 H, Glucose 138 H, Calcium 8.1 L, Total Bilirubin 0.80, AST 52 H, ALT 50, Alkaline Phosphatase 66, Total Protein 6.9, Albumin 2.9 L, Globulin 4.0, Albumin/Globulin Ratio 0.7 L 05/25/18 23:45: Lactic Acid 1.3 Current Medications Acetaminophen (Tylenol) 650 mg PO Q6H PRN PRN PRN Reason: Mild Pain (1-3)/Temp > 100.7 F Aspirin (Aspirin, Baby) 81 mg PO DAILY@0800 [facility] Donepezil HCl (Aricept) 10 mg PO DAILY [facility] Enoxaparin Sodium (Lovenox) 40 mg SC DAILY@1000 [facility] Escitalopram Oxalate (Lexapro) 10 mg PO DAILY [facility] Sodium Chloride () 1,000 mls @ 100 mls/hr IV .Q10H [facility] Last Admin: 05/26/18 04:45 Dose: 100 mls/hr Ceftriaxone Sodium (Rocephin) 1 gm in 50 mls @ 100 mls/hr IV Q24 [facility] Vancomycin HCl 1,250 mg/ (Sodium Chloride) 275 mls @ 167 mls/hr IV PRN PRN; Protocol Vancomycin HCl 1,250 mg/ (Sodium Chloride) 275 mls @ 167 mls/hr IV Q24H [facility] Memantine (Namenda) 10 mg PO BID [facility] Multivitamins (Multivitamin) 1 tablet PO DAILY@0800 [facility] Nutritional Formula (Lactose Free) (Ensure Enlive) 120 ml PO 4X/DAY [facility] Potassium Chloride (K-Dur) 10 meq PO DAILY [facility] Sodium Chloride () 5 - 15 ml IV UD PRN PRN Reason: SALINE FLUSH Medical Necessity - Tobacco Use Smoking Status: Never smoker Tobacco Use: Non-smoker Assessment/Plan All Active Problems Fever (Acute) Tachycardia (Acute) Change in mental status (Acute) The patient is a 77 y/o M w/ PMHx: Alzheimer's disease, Anxiety and Depression, Allergic Rhinitis who presents to the [facility] ED on 05/26/18 with history of fever, tachycardia and lethargy starting the day prior. (1) Acute Encephalopathy (Metabolic, Infectious) secondary to Sepsis secondary to Acute Complicated Urinary Tract Infection: Admitted to [place], UA requested immediately as not obtained in the ED and straight catheterized sample notable, pending UCx, CXR and CT Head unremarkable, LA normal, admission CBC w/ WBC 20.3 with L shift, continue IVFs, monitor I/Os, continued IV Rocephin and Vanc given history of MRSA UTIs w/ transition as able pending sensitivities and speciation. Bld cx x 2 obtained in the ED. (2) Acute kidney injury: Secondary to #1. Admission BUN/Cr 39/1.60, prior baseline creatinine noted to be 1.1. Will hydrate, hold nephrotoxic medications and repeat chemistry in AM. If no improvement would plan FeNa and renal US assessment. (3) Alzheimer's disease: Complicates presentation, unclear behavioral disturbance history and onset history timeline, maintain on home namenda and donepezil. (4) Anxiety and Depression: Continue home lexapro, adjust dosing if renal function not improving. (5) DVT Prophylaxis: SCDs, lovenox renally dosed. (6) CODE status: DNR-CCA, no intubation. Code Visit Inpatient E&M: 00742 Subs Hosp L2
--- NOTE | 2018-05-26 07:23 | PN_ITS ---
Patient Problems: Active and Suspected Problems Fever (Acute) Tachycardia (Acute) Change in mental status (Acute) Subjective: The patient is a 77 y/o M w/ PMHx: Alzheimer's disease, Anxiety and Depression, Allergic Rhinitis who presents to the [facility] ED on 05/26/18 with history of fever, tachycardia and lethargy starting the day prior. Admitted to [place], UA requested immediately as not obtained in the ED and straight catheterized sample notable, pending UCx, CXR and CT Head unremarkable, LA normal, admission CBC w/ WBC 20.3 with L shift, continue IVFs, monitor I/Os, continued IV Rocephin and Vanc given history of MRSA UTIs w/ transition as able pending sensitivities and speciation. Bld cx x 2 obtained in the ED. Acute kidney injury, secondary to #1. Admission BUN/Cr 39/1.60, prior baseline creatinine noted to be 1.1. Will hydrate, hold nephrotoxic medications and repeat chemistry in AM. Patient with no acute events overnight since admission per nursing staff. Patient has severe dementia and oriented to self only. He is calm, seated upright in the bed, denies any acute complaints at this time. Patient had catheterized urine sample this morning and was remarkable therefore septic presentation felt secondary to acute completed urinary tract infection. Reviewed urine cultures prior and did have evidence of prior MRSA urine infection this year. Patient denies fevers, chills, nausea, emesis, abdominal pain, chest pain or dyspnea. Objective: Physical Examination: General: awake, alert, oriented to self only, calm, cooperative, seated upright in bed in no apparent distress. Skin: normal color, turgor, no icterus, cyanosis. HEENT: AT/NC, EOMI, PERRLA, mildly dry MM. Lungs: CTA bilaterally, moderate effort, mild decrease BL bases, no rales, ronchi or wheezing. Heart: Improved, regular rate and rhythm; no gallop, rub audible. Abdomen: soft, NTTP, no suprapubic TTP, ND, normal BS. Extremities: no cyanosis, clubbing, or edema. Neurological: patient awake, alert, oriented to self only; cognitive function ppor baseline, currently appears baseline intact; pupils equally reactive to light and accomodation; cranial nerves II-XII grossly normal, moving all 4 extremities, strength moderately to severely globally decreased secondary to acute presentation. Psychiatric: affect appears flat, no acute evidence of depressive or anxiety feelings. Vitals/I&O's: Vital Signs Temp Pulse Resp BP Pulse Ox 98.3 F 70 24 H 143/83 H 97 05/26/18 04:38 05/26/18 05:01 05/26/18 04:38 05/26/18 04:38 05/26/18 04:38 Oxygen Delivery Method Room Air Weight: 190 lb 7.67 oz Body Mass Index (BMI) 24.4 Microbiology Past 72 Hours 05/25/18 23:35 Mucosa - Nasopharyngeal Influenza Types A,B Direct FA (DELROY) - Final Laboratory Results 05/25/18 23:45: WBC 20.3 H, RBC 4.23 L, Hgb 12.9 L, Hct 38.2 L, MCV 90.3, MCH 30.5, MCHC 33.8, RDW 15.4 H, RDW Differential 50.3 H, Plt Count 119 L, MPV 11.9, Immature Gran % (Auto) 0.300, Neut % (Auto) 82.0 H, Lymph % (Auto) 2.9 L, [place] % (Auto) 14.8 H, Eos % (Auto) 0.0, Baso % (Auto) 0.0, Absolute Neuts (auto) 16.7 H , Absolute Lymphs (auto) 0.59 L, Total Counted Not Reportable, Diff Path Review June05/25/18 23:45: PT 15.2 H, INR 1.2 05/25/18 23:45: Sodium 142, Potassium 4.3, Chloride 113 H, Carbon Dioxide 24.0, Anion Gap 5, BUN 39 H, Creatinine 1.60 H, Estim Creat Clear Calc 45.67, Est GFR (MDRD) Af Amer 54 L, Est GFR (MDRD) Non-Af 45 L, BUN/Creatinine Ratio 24.4 H, Glucose 138 H, Calcium 8.1 L, Total Bilirubin 0.80, AST 52 H, ALT 50, Alkaline Phosphatase 66, Total Protein 6.9, Albumin 2.9 L, Globulin 4.0, Albumin/Globulin Ratio 0.7 L 05/25/18 23:45: Lactic Acid 1.3 Current Medications Acetaminophen (Tylenol) 650 mg PO Q6H PRN PRN PRN Reason: Mild Pain (1-3)/Temp > 100.7 F Aspirin (Aspirin, Baby) 81 mg PO DAILY@0800 [facility] Donepezil HCl (Aricept) 10 mg PO DAILY [facility] Enoxaparin Sodium (Lovenox) 40 mg SC DAILY@1000 [facility] Escitalopram Oxalate (Lexapro) 10 mg PO DAILY [facility] Sodium Chloride () 1,000 mls @ 100 mls/hr IV .Q10H [facility] Last Admin: 05/26/18 04:45 Dose: 100 mls/hr Ceftriaxone Sodium (Rocephin) 1 gm in 50 mls @ 100 mls/hr IV Q24 [facility] Vancomycin HCl 1,250 mg/ (Sodium Chloride) 275 mls @ 167 mls/hr IV PRN PRN; Protocol Vancomycin HCl 1,250 mg/ (Sodium Chloride) 275 mls @ 167 mls/hr IV Q24H [facility] Memantine (Namenda) 10 mg PO BID [facility] Multivitamins (Multivitamin) 1 tablet PO DAILY@0800 [facility] Nutritional Formula (Lactose Free) (Ensure Enlive) 120 ml PO 4X/DAY [facility] Potassium Chloride (K-Dur) 10 meq PO DAILY [facility] Sodium Chloride () 5 - 15 ml IV UD PRN PRN Reason: SALINE FLUSH Medical Necessity - Tobacco Use Smoking Status: Never smoker Tobacco Use: Non-smoker Assessment/Plan All Active Problems Fever (Acute) Tachycardia (Acute) Change in mental status (Acute) The patient is a 77 y/o M w/ PMHx: Alzheimer's disease, Anxiety and Depression, Allergic Rhinitis who presents to the [facility] ED on 05/26/18 with history of fever, tachycardia and lethargy starting the day prior. (1) Acute Encephalopathy (Metabolic, Infectious) secondary to Sepsis secondary to Acute Complicated Urinary Tract Infection: Admitted to [place], UA requested immediately as not obtained in the ED and straight catheterized sample notable, pending UCx, CXR and CT Head unremarkable, LA normal, admission CBC w/ WBC 20.3 with L shift, continue IVFs, monitor I/Os, continued IV Rocephin and Vanc given history of MRSA UTIs w/ transition as able pending sensitivities and speciation. Bld cx x 2 obtained in the ED. (2) Acute kidney injury: Secondary to #1. Admission BUN/Cr 39/1.60, prior baseline creatinine noted to be 1.1. Will hydrate, hold nephrotoxic medications and repeat chemistry in AM. If no improvement would plan FeNa and renal US assessment. (3) Alzheimer's disease: Complicates presentation, unclear behavioral disturbance history and onset history timeline, maintain on home namenda and donepezil. (4) Anxiety and Depression: Continue home lexapro, adjust dosing if renal function not improving. (5) DVT Prophylaxis: SCDs, lovenox renally dosed. (6) CODE status: DNR-CCA, no intubation. Code Visit Inpatient E&M: 42742 Subs Hosp L2
[2018-05-26 07:42] LABS: Absolute Lymphocyte Count 2.05 X10^3/ul (0.83-4.51); Absolute Neutrophil Count 16.1 X10^3/uL (2.0-7.7); Basophil# 0.02 X10^3/uL; Basophil% 0.1 % (0-1); Hematocrit 40.5 % (40-54); Hemoglobin 13.3 g/dl (13.0-16.5); Lymphocyte # 2.05 X10^3/ul (4.0); Lymphocyte % 10.2 % (19-41); Mean Corp Hgb Conc 32.8 g/gl (32-36); Mean Corpuscular Hgb 30.4 pg (27.0-32.0); Mean Corpuscular Volume 92.5 fL (80-94); Mean Platelet Vol. 11.9 fl (6.2-12.0); Monocyte# 1.93 X10^3/uL; Monocyte% 9.6 % (0-10); Neutrophil % 79.9 % (47-70); Platelet Count 122 K/mm3 (150-450); RBC Distribution Width CV 15.4 % (11.6-14.6); RBC Distribution Width SD 52.2 fl (35.1-43.9); Red Blood Count 4.38 M/mm3 (4.6-6.2); White Blood Count 20.1 K/mm3 (4.4-11.0)
[2018-05-26 07:43] LABS: POSITIVE COUNT NO; POSITIVE DIFFERENTIAL YES; POSITIVE MORPHOLOGY YES
[2018-05-26 07:44] LABS: Differential Indicated SCAN CRITERIA MET
[2018-05-26 07:56] LABS: Anion Gap 7 (5-15); BUN 33 mg/dL (7-18); Calcium,Total 8.1 mg/dL (8.5-10.1); Chloride 115 mmol/L (98-107); EST Glomerular Filtration Rate 48 mL/min (>60); Est Glom Filt Rate - Afr Amer 58 mL/min (>60); Estimated Creatinine Clearance 48.71 ml/min; Glucose 113 mg/dL (74-106); Magnesium 2.4 mg/dL (1.6-2.6); Potassium 3.8 mmol/L (3.5-5.1); Sodium Level 145 mmol/L (136-145)
[2018-05-26 08:03] LABS: Atypical Lymphocyte RARE %; Platelet Estimate ADEQUATE (ADEQ); Platelet Morphology LARGE
[2018-05-26 08:06] LABS: Mucous, Urine 0 SEEN /hpf (<or=2+); Squamous Epithelial Cells - UA 0 SEEN /hpf (0-5)
[2018-05-26 08:07] LABS: Color, Urine Yellow (Yellow); Glucose, Dipstick Normal (Normal); Ketone-Dipstick Negative (Negative); Leukocyte Esterase-Dipstick 500 /ul (Negative); Nitrite-Dipstick Positive (Negative); Occult Blood-Urine 250 /ul (Negative); Protein-Dipstick 100 mg/dl (Negative); Specific Gravity, Urine 1.015 (1.002-1.030); Urine Bilirubin Dipstick Negative (Negative); Urine Clarity Cloudy (Clear); Urine Urobilinogen Normal (Normal)
[2018-05-26 08:14] LABS: Amorphous Sediment 1+; Bacteria 2+ /hpf (None Seen); Red Blood Cells-Urine 5-10 SEEN /hpf (0-5); White Blood Cells 10-25 SEEN /hpf (0-5)
--- NOTE | 2018-05-26 08:48 | NURSING ---
Incont, changed and set up for breakfast.
[2018-05-26] MEDS: Ceftriaxone 1 GM/50 ML BAG IV (10:32)
[2018-05-26] MEDS: Aspirin 81 MG TAB.CHEW PO (10:35)
[2018-05-26] MEDS: Memantine Hydrochloride 10 MG Tablet PO ×2 (10:35→21:14)
[2018-05-26] MEDS: Escitalopram Oxalate 10 MG Tablet PO (10:35)
[2018-05-26] MEDS: Multivitamins,Therapeutic Tablet 1 TABLET PO (10:35)
[2018-05-26] MEDS: Donepezil HCl 10 MG Tablet PO (10:36)
[2018-05-26] MEDS: Acetaminophen 325 MG Tablet 650 MG PO (11:11)
[2018-05-26] MEDS: Enoxaparin 30 MG/0.3 ML Syringe SC (11:14)
[2018-05-26] MEDS: 0.9% NaCl Peripheral Flush Adult/Peds IV ×2 (18:53→21:16)
--- NOTE | 2018-05-26 23:29 | CT_ITS ---
STUDY: CT BRAIN WITHOUT CONTRAST REASON FOR EXAM: Male, 77 years old. Patient has history of dementia. Patient has a fever with recent fall. RADIATION DOSAGE (If Supplied By Facility): CTDIvol = ( 44.99 ) mGy, DLP = ( 880.47 ) mGycm TECHNIQUE: Transaxial CT imaging of the brain was performed without administration of intravenous contrast material. Multiplanar reformations are submitted for interpretation. Individualized dose optimization techniques were used for this CT. COMPARISON: No relevant priors. FINDINGS: Normal soft tissue structures. Normal calvarium. There is moderate cerebral atrophy with widening of the extra-axial spaces and ventricular dilatation. There are areas of decreased attenuation within the white matter tracts of the supratentorial brain, consistent with microvascular disease changes. Normal basal ganglia and thalami. Normal brainstem. There is mild cerebellar atrophy. There is no intracranial hemorrhage. There are no findings of an acute ischemic infarction. There is a large amount of soft tissue in the right maxillary sinus associated with thickened oconnell suggesting sequela of chronic infectious or inflammatory process. The paranasal sinuses are otherwise clear. CT/Brain/Head without Contrast IMPRESSION: 1. Chronic involutional changes of the brain. 2. No CT evidence of acute intracranial hemorrhage. Electronically Signed: Ariadna Deng MD at 1:16 EDT , Service support ,
[2018-05-27 03:05] VITALS: BP 137/74; PULSE 63; RESP 18; TEMP 36.9; O2SAT 95
[2018-05-27] MEDS: 0.9% Normal Saline 1,000 ML 100 ML IV ×3 (04:56→20:01)
[2018-05-27 06:17] LABS: Absolute Lymphocyte Count 1.38 X10^3/ul (0.83-4.51); Absolute Neutrophil Count 7.8 X10^3/uL (2.0-7.7); Basophil# 0.02 X10^3/uL; Basophil% 0.2 % (0-1); Eosinophil# 0.06 X10^3/uL; Eosinophils% 0.5 % (0-5); Hematocrit 34.6 % (40-54); Hemoglobin 11.6 g/dl (13.0-16.5); Lymphocyte # 1.38 X10^3/ul (4.0); Lymphocyte % 12.2 % (19-41); Mean Corp Hgb Conc 33.5 g/gl (32-36); Mean Corpuscular Hgb 30.3 pg (27.0-32.0); Mean Corpuscular Volume 90.3 fL (80-94); Mean Platelet Vol. 12.1 fl (6.2-12.0); Monocyte# 2.03 X10^3/uL; Monocyte% 17.9 % (0-10); Neutrophil # 7.83 X10^3/uL (2.7-7.7); Neutrophil % 68.9 % (47-70); Platelet Count 127 K/mm3 (150-450); RBC Distribution Width CV 15.3 % (11.6-14.6); RBC Distribution Width SD 50.2 fl (35.1-43.9); Red Blood Count 3.83 M/mm3 (4.6-6.2); White Blood Count 11.4 K/mm3 (4.4-11.0)
[2018-05-27 06:28] LABS: Differential Indicated SCAN CRITERIA MET; POSITIVE COUNT NO; POSITIVE DIFFERENTIAL YES; POSITIVE MORPHOLOGY NO
[2018-05-27 06:30] LABS: Anion Gap 5 (5-15); BUN 32 mg/dL (7-18); BUN/Creat Ratio 28.3 RATIO (10-20); Calcium,Total 7.6 mg/dL (8.5-10.1); Chloride 119 mmol/L (98-107); Creatinine, Serum 1.13 mg/dL (0.70-1.30); EST Glomerular Filtration Rate 67 mL/min (>60); Est Glom Filt Rate - Afr Amer 81 mL/min (>60); Estimated Creatinine Clearance 64.66 ml/min; Glucose 97 mg/dL (74-106); Potassium 3.6 mmol/L (3.5-5.1); Sodium Level 148 mmol/L (136-145)
[2018-05-27 07:00] LABS: Differential Comment SCANNED
[2018-05-27] MEDS: Aspirin 81 MG TAB.CHEW PO (07:43)
[2018-05-27] MEDS: Multivitamins,Therapeutic Tablet 1 TABLET PO (07:43)
[2018-05-27 07:47] VITALS: BP 122/65; PULSE 66; RESP 16; TEMP 37.2; O2SAT 93
[2018-05-27 07:48] VITALS: RESP 16
[2018-05-27] MEDS: Donepezil HCl 10 MG Tablet PO (10:04)
[2018-05-27] MEDS: Escitalopram Oxalate 10 MG Tablet PO (10:05)
[2018-05-27] MEDS: Memantine Hydrochloride 10 MG Tablet PO ×2 (10:06→21:01)
[2018-05-27] MEDS: Ceftriaxone 1 GM/50 ML BAG IV (10:06)
--- NOTE | 2018-05-27 10:07 | CASEMGMT ---
Addendum entered by Carol Hays 05/27/18 10:49: GAVIN reviewed notes. Pt has Alzheimer's Dementia and is alert to self only. GAVIN placed a call to pt's daughter May who confirms pt is from [facility] and the plan is for pt to return to [facility] once medically cleared. Original Note: Social Work Note Pt is listed as being from [facility]. GAVIN faxed updated clinicals to [facility]. Carol Hays MAIL MESSENGER, BELT MAKER HELPER
[2018-05-27] MEDS: Enoxaparin 30 MG/0.3 ML Syringe SC (10:14)
--- NOTE | 2018-05-27 10:42 | PCM.RX.CS ---
Consult Pharmacy has been consulted to manage selected antiobiotic: Vancomycin Type of Consult: Follow-up Suspected Infection: Sepsis Prior Doses of Antibiotics Received/Current Regimen: Vancomycin 1250mg IV on 05/26/18 at 0545, and on 05/27/18 at 0530. Labs: Sodium 148 mmol/L (136-145) H 05/27/18 05:40 Potassium 3.6 mmol/L (3.5-5.1) 05/27/18 05:40 Chloride 119 mmol/L (98-107) H 05/27/18 05:40 Carbon Dioxide 24.0 mmol/L (21.0-32.0) 05/27/18 05:40 Anion Gap 5 (5-15) 05/27/18 05:40 BUN 32 mg/dL (7-18) H 05/27/18 05:40 Creatinine 1.13 mg/dL (0.70-1.30) 05/27/18 05:40 Est GFR (MDRD) Af Amer 81 mL/min (>60) 05/27/18 05:40 Est GFR (MDRD) Non-Af 67 mL/min (>60) 05/27/18 05:40 BUN/Creatinine Ratio 28.3 RATIO (10-20) H 05/27/18 05:40 Glucose 97 mg/dL (74-106) 05/27/18 05:40 Microbiology: Microbiology 05/25/18 23:59 Blood Culture (Wb) - Right Hand Blood Culture - Preliminary Gram Positive Cocci 05/25/18 23:45 Blood Culture (Wb) - Left Forearm Bacteria Detection (PCR) - Final Staphylococcus aureus mecA Resistance Marker 05/25/18 23:45 Blood Culture (Wb) - Left Forearm Blood Culture - Preliminary Gram Positive Cocci 05/25/18 23:35 Mucosa - Nasopharyngeal Influenza Types A,B Direct FA (DELROY) - Final Weight used for dosin kg Estimated Creatinine Clearance: 64ml/min Goal Trough: 10-15 mcg/mL Pharmacy Plan for Drug Dosing: Pt had an initial SrCr of 1.60, which resulted in initial dosing of Vancomycin 1250mg IV q24h. Pt's SrCr has since improved, and is now 1.13 (CrCl of approx 64). The dose will be changed to 750mg IV q12h starting 05/27/18 at 1800. Trough level will be drawn on 05/28/18 at 1730. Pharmacy Service will continue to monitor and adjust dosing as required. Follow-Up Labs: Trough Vancomycin - 05/28/18 at 1730 Labs to be done on [date and time ordered]: vanc trough 05/27/18 at 1730
--- NOTE | 2018-05-27 11:07 | PCM.HP.ID ---
Reason for Consult: MRSA bacteremia History of Present Illness: The patient is a 77 year old M [] This is a 77-year-old gentleman with known history of Alzheimer's dementia who resides at an extended care facility and was admitted overnight with acute fever and tachycardia. Interestingly his admission blood cultures are growing MRSA. Patient is responsive but has underlying dementia and unable to give an adequate and reasonable history. Unfortunately the family is not in the room. History is obtained through review of the records. Patient is currently on parenteral vancomycin. Repeat blood cultures were being drawn this morning. Currently patient appears comfortable in no acute distress no cardiopulmonary distress. - Medical History Allergies/Adverse Reactions: Allergies No Known Allergies Allergy (Verified 05/25/18 22:48) Home Medications: Ambulatory Orders Medication Instructions Recorded Acetaminophen [Tylenol] 650 mg PO Q8H PRN PRN 05/25/18 Aspirin [Aspirin, Baby] 81 mg PO DAILY@0800 05/25/18 Donepezil HCl 10 mg PO DAILY 05/25/18 Escitalopram Oxalate [Lexapro] 10 mg PO DAILY 05/25/18 Fexofenadine HCl [Lisbeth Allergy] 180 mg PO DAILY 05/25/18 Memantine HCl [Namenda] 10 mg PO BID 05/25/18 Multivitamin [Daily Multiple 1 each PO DAILY 05/25/18 Vitamin] Potassium Chloride [K-Dur] 10 meq PO DAILY 05/25/18 Review of Systems Comment: Unable to be obtained because of the patient's underlying dementia Vital Signs Temp Pulse Resp BP Pulse Ox 99.0 F 66 16 122/65 H 93 05/27/18 07:47 05/27/18 07:47 05/27/18 07:48 05/27/18 07:47 05/27/18 07:47 Oxygen Delivery Method Room Air Weight: 86.4 kg Body Mass Index (BMI) 24.4 Microbiology Past 72 Hours 05/26/18 07:50 Urine Culture - Preliminary Urine Catheter - Catheter Gram positive organism 05/25/18 23:59 Blood Culture - Preliminary Blood Culture (Wb) - Right Hand Gram Positive Cocci 05/25/18 23:45 Bacteria Detection (PCR) - Final Blood Culture (Wb) - Left Forearm Staphylococcus aureus mecA Resistance Marker Blood Culture - Preliminary Gram Positive Cocci 05/25/18 23:35 Influenza Types A,B Direct FA (DELROY) - Final Mucosa - Nasopharyngeal Laboratory Tests Past 24 Hrs 05/27/18 05/27/18 05:40 05:40 WBC 11.4 H RBC 3.83 L Hgb 11.6 L Hct 34.6 L MCV 90.3 MCH 30.3 MCHC 33.5 RDW 15.3 H RDW Differential 50.2 H Plt Count 127 L MPV 12.1 H Immature Gran % (Auto) 0.300 Neut % (Auto) 68.9 Lymph % (Auto) 12.2 L [place] % (Auto) 17.9 H Eos % (Auto) 0.5 Baso % (Auto) 0.2 Absolute Neuts (auto) 7.8 H Absolute Lymphs (auto) 1.38 Total Counted Not Reportable Differential Comment SCANNED Sodium 148 H Potassium 3.6 Chloride 119 H Carbon Dioxide 24.0 Anion Gap 5 BUN 32 H Creatinine 1.13 Estim Creat Clear Calc 64.66 Est GFR (MDRD) Af Amer 81 Est GFR (MDRD) Non-Af 67 BUN/Creatinine Ratio 28.3 H Glucose 97 Calcium 7.6 L - Other Studies Radiology: [] Other Studies: [] Route of nutrition/ use of supplements: [] Nutritional Intake: [] IV Site: [] Welch Catheter: [] Patient appears comfortable. Lungs are clear heart exam S1-S2 I did not appreciate a murmur abdomen soft nontender. Rheumatological exam is unremarkable. No peripheral skin lesions noted. Conjunctival is pale but no hemorrhage. Oral mucosa is dry - Assessment/Plan Antibiotics: [] Assessment/Plan: [] Active and Suspected Problems Fever (Acute) Tachycardia (Acute) Change in mental status (Acute) MRSA bacteremia and an older gentleman from an extended care facility with underlying dementia. Source of his bacteremia is unclear. Patient does have a positive urine culture for Staphylococcus aureus and most likely hematogenously seeded his system. I agree with parenteral vancomycin and closely follow his repeat blood cultures and his clinical course. Most likely will need a 2D echocardiogram to further assess his heart valves.
--- NOTE | 2018-05-27 11:34 | PCM.PN.HOSP ---
Patient Problems: Active and Suspected Problems Fever (Acute) Tachycardia (Acute) Change in mental status (Acute) Subjective: States that he is doing well, but is extremely confused cannot tell me where he is or what year it is insistent with his baseline dementia Vitals/I&O's: Vital Signs Temp Pulse Resp BP Pulse Ox 99.0 F 66 16 122/65 H 93 05/27/18 07:47 05/27/18 07:47 05/27/18 07:48 05/27/18 07:47 05/27/18 07:47 Oxygen Delivery Method Room Air Weight: 190 lb 7.67 oz Body Mass Index (BMI) 24.4 Intake and Output for Last 24 Hours 05/25/18 05/26/18 05/27/18 23:59 23:59 23:59 Intake Total 2590 / 2590 712 / 712 Output Total 50 / 50 Balance 2540 / 2540 712 / 712 General: Cooperative, No apparent distress, Confused, Disoriented HEENT: Atraumatic, PERRLA, EOMI, Normocephalic Oral: Moist Mucosa Neck: Supple, No JVD Lungs: Clear to auscultation, Normal air movement, No rhonchi, No wheeze, No rales Cardiovascular: Regular rate, Regular Rhythm, Normal S1, Normal S2, No murmurs Abdomen: Soft, Non Tender, Non-Distended, No Hepato-splenomegaly Extremities: No edema, Capillary Refill Less than 3 Seconds Skin: No rashes, No breakdown Neurological: Neuro grossly intact, Sensory exam intact to light touch and pain Psych/Mental Status: Normal Affect, Appropriate Microbiology Past 72 Hours 05/26/18 07:50 Urine Catheter - Catheter Urine Culture - Preliminary Gram positive organism 05/25/18 23:59 Blood Culture (Wb) - Right Hand Blood Culture - Preliminary Gram Positive Cocci 05/25/18 23:45 Blood Culture (Wb) - Left Forearm Bacteria Detection (PCR) - Final Staphylococcus aureus mecA Resistance Marker 05/25/18 23:45 Blood Culture (Wb) - Left Forearm Blood Culture - Preliminary Gram Positive Cocci 05/25/18 23:35 Mucosa - Nasopharyngeal Influenza Types A,B Direct FA (DELROY) - Final Laboratory Results 05/27/18 05:40: Sodium 148 H, Potassium 3.6, Chloride 119 H, Carbon Dioxide 24.0, Anion Gap 5, BUN 32 H, Creatinine 1.13, Estim Creat Clear Calc 64.66, Est GFR (MDRD) Af Amer 81, Est GFR (MDRD) Non-Af 67, BUN/Creatinine Ratio 28.3 H, Glucose 97, Calcium 7.6 L 05/27/18 05:40: WBC 11.4 H, RBC 3.83 L, Hgb 11.6 L, Hct 34.6 L, MCV 90.3, MCH 30.3, MCHC 33.5, RDW 15.3 H, RDW Differential 50.2 H, Plt Count 127 L, MPV 12.1 H, Immature Gran % (Auto) 0.300, Neut % (Auto) 68.9, Lymph % (Auto) 12.2 L, [place] % (Auto) 17.9 H, Eos % (Auto) 0.5, Baso % (Auto) 0.2, Absolute Neuts (auto) 7.8 H, Absolute Lymphs (auto) 1.38, Total Counted Not Reportable, Differential Comment SCANNED Current Medications Acetaminophen (Tylenol) 650 mg PO Q6H PRN PRN PRN Reason: Mild Pain (1-3)/Temp > 100.7 F Last Admin: 05/26/18 11:11 Dose: 650 mg Aspirin (Aspirin, Baby) 81 mg PO DAILY@0800 [facility] Last Admin: 05/27/18 07:43 Dose: 81 mg Donepezil HCl (Aricept) 10 mg PO DAILY [facility] Last Admin: 05/27/18 10:04 Dose: 10 mg Enoxaparin Sodium (Lovenox) 30 mg SC DAILY@1000 [facility] Last Admin: 05/27/18 10:14 Dose: 30 mg Escitalopram Oxalate (Lexapro) 10 mg PO DAILY [facility] Last Admin: 05/27/18 10:05 Dose: 10 mg Sodium Chloride () 1,000 mls @ 100 mls/hr IV .Q10H [facility] Last Admin: 05/27/18 07:43 Dose: 100 mls/hr Vancomycin HCl 1,250 mg/ (Sodium Chloride) 275 mls @ 167 mls/hr IV PRN PRN; Protocol Vancomycin HCl 750 mg/ Sodium (Chloride) 265 mls @ 250 mls/hr IV Q12H [facility] Memantine (Namenda) 10 mg PO BID [facility] Last Admin: 05/27/18 10:06 Dose: 10 mg Multivitamins (Multivitamin) 1 tablet PO DAILY@0800 [facility] Last Admin: 05/27/18 07:43 Dose: 1 tablet Nutritional Formula (Lactose Free) (Ensure Enlive) 120 ml PO 4X/DAY [facility] Last Admin: 05/27/18 10:15 Dose: 120 ml Potassium Chloride (K-Dur) 10 meq PO DAILY [facility] Last Admin: 05/27/18 10:05 Dose: 10 meq Sodium Chloride () 5 - 15 ml IV UD PRN PRN Reason: SALINE FLUSH Last Admin: 05/26/18 21:16 Dose: 10 ml Medical Necessity - Tobacco Use Smoking Status: Never smoker Tobacco Use: Non-smoker Assessment/Plan All Active Problems Fever (Acute) Tachycardia (Acute) Change in mental status (Acute) 1. Sepsis secondary to urinary tract infection/metabolic encephalopathy/AK I -Urine is growing gram-positive cocci, and his blood is growing MRSA -Continue with IV vancomycin, consult to infectious disease for outpatient Vanco management -Repeat blood cultures today -We will obtain a transthoracic echo for evaluation of his valves -We will DC Rocephin -His AK I has resolved 2. Alzheimer's disease/anxiety/depression -Unsure if he is at baseline for his Alzheimer's disease but given the sepsis -Tinea with his home donepezil and Namenda -Continue with Lexapro DVT: Lovenox Code Visit Inpatient E&M: 95566 Subs Hosp L2
--- NOTE | 2018-05-27 11:39 | PN_ITS ---
Patient Problems: Active and Suspected Problems Fever (Acute) Tachycardia (Acute) Change in mental status (Acute) Subjective: States that he is doing well, but is extremely confused cannot tell me where he is or what year it is insistent with his baseline dementia Vitals/I&O's: Vital Signs Temp Pulse Resp BP Pulse Ox 99.0 F 66 16 122/65 H 93 05/27/18 07:47 05/27/18 07:47 05/27/18 07:48 05/27/18 07:47 05/27/18 07:47 Oxygen Delivery Method Room Air Weight: 190 lb 7.67 oz Body Mass Index (BMI) 24.4 Intake and Output for Last 24 Hours 05/25/18 05/26/18 05/27/18 23:59 23:59 23:59 Intake Total 2590 / 2590 712 / 712 Output Total 50 / 50 Balance 2540 / 2540 712 / 712 General: Cooperative, No apparent distress, Confused, Disoriented HEENT: Atraumatic, PERRLA, EOMI, Normocephalic Oral: Moist Mucosa Neck: Supple, No JVD Lungs: Clear to auscultation, Normal air movement, No rhonchi, No wheeze, No rales Cardiovascular: Regular rate, Regular Rhythm, Normal S1, Normal S2, No murmurs Abdomen: Soft, Non Tender, Non-Distended, No Hepato-splenomegaly Extremities: No edema, Capillary Refill Less than 3 Seconds Skin: No rashes, No breakdown Neurological: Neuro grossly intact, Sensory exam intact to light touch and pain Psych/Mental Status: Normal Affect, Appropriate Microbiology Past 72 Hours 05/26/18 07:50 Urine Catheter - Catheter Urine Culture - Preliminary Gram positive organism 05/25/18 23:59 Blood Culture (Wb) - Right Hand Blood Culture - Preliminary Gram Positive Cocci 05/25/18 23:45 Blood Culture (Wb) - Left Forearm Bacteria Detection (PCR) - Final Staphylococcus aureus mecA Resistance Marker 05/25/18 23:45 Blood Culture (Wb) - Left Forearm Blood Culture - Preliminary Gram Positive Cocci 05/25/18 23:35 Mucosa - Nasopharyngeal Influenza Types A,B Direct FA (DELROY) - Final Laboratory Results 05/27/18 05:40: Sodium 148 H, Potassium 3.6, Chloride 119 H, Carbon Dioxide 24.0, Anion Gap 5, BUN 32 H, Creatinine 1.13, Estim Creat Clear Calc 64.66, Est GFR (MDRD) Af Amer 81, Est GFR (MDRD) Non-Af 67, BUN/Creatinine Ratio 28.3 H, Glucose 97, Calcium 7.6 L 05/27/18 05:40: WBC 11.4 H, RBC 3.83 L, Hgb 11.6 L, Hct 34.6 L, MCV 90.3, MCH 30.3, MCHC 33.5, RDW 15.3 H, RDW Differential 50.2 H, Plt Count 127 L, MPV 12.1 H, Immature Gran % (Auto) 0.300, Neut % (Auto) 68.9, Lymph % (Auto) 12.2 L, [place] % (Auto) 17.9 H, Eos % (Auto) 0.5, Baso % (Auto) 0.2, Absolute Neuts (auto) 7.8 H, Absolute Lymphs (auto) 1.38, Total Counted Not Reportable, Differential Comment SCANNED Current Medications Acetaminophen (Tylenol) 650 mg PO Q6H PRN PRN PRN Reason: Mild Pain (1-3)/Temp > 100.7 F Last Admin: 05/26/18 11:11 Dose: 650 mg Aspirin (Aspirin, Baby) 81 mg PO DAILY@0800 [facility] Last Admin: 05/27/18 07:43 Dose: 81 mg Donepezil HCl (Aricept) 10 mg PO DAILY [facility] Last Admin: 05/27/18 10:04 Dose: 10 mg Enoxaparin Sodium (Lovenox) 30 mg SC DAILY@1000 [facility] Last Admin: 05/27/18 10:14 Dose: 30 mg Escitalopram Oxalate (Lexapro) 10 mg PO DAILY [facility] Last Admin: 05/27/18 10:05 Dose: 10 mg Sodium Chloride () 1,000 mls @ 100 mls/hr IV .Q10H [facility] Last Admin: 05/27/18 07:43 Dose: 100 mls/hr Vancomycin HCl 1,250 mg/ (Sodium Chloride) 275 mls @ 167 mls/hr IV PRN PRN; Protocol Vancomycin HCl 750 mg/ Sodium (Chloride) 265 mls @ 250 mls/hr IV Q12H [facility] Memantine (Namenda) 10 mg PO BID [facility] Last Admin: 05/27/18 10:06 Dose: 10 mg Multivitamins (Multivitamin) 1 tablet PO DAILY@0800 [facility] Last Admin: 05/27/18 07:43 Dose: 1 tablet Nutritional Formula (Lactose Free) (Ensure Enlive) 120 ml PO 4X/DAY [facility] Last Admin: 05/27/18 10:15 Dose: 120 ml Potassium Chloride (K-Dur) 10 meq PO DAILY [facility] Last Admin: 05/27/18 10:05 Dose: 10 meq Sodium Chloride () 5 - 15 ml IV UD PRN PRN Reason: SALINE FLUSH Last Admin: 05/26/18 21:16 Dose: 10 ml Medical Necessity - Tobacco Use Smoking Status: Never smoker Tobacco Use: Non-smoker Assessment/Plan All Active Problems Fever (Acute) Tachycardia (Acute) Change in mental status (Acute) 1. Sepsis secondary to urinary tract infection/metabolic encephalopathy/AK I -Urine is growing gram-positive cocci, and his blood is growing MRSA -Continue with IV vancomycin, consult to infectious disease for outpatient Vanco management -Repeat blood cultures today -We will obtain a transthoracic echo for evaluation of his valves -We will DC Rocephin -His AK I has resolved 2. Alzheimer's disease/anxiety/depression -Unsure if he is at baseline for his Alzheimer's disease but given the sepsis -Tinea with his home donepezil and Namenda -Continue with Lexapro DVT: Lovenox Code Visit Inpatient E&M: 88562 Subs Hosp L2
--- NOTE | 2018-05-27 11:40 | ECHOD_ITS ---
Reason For Study: Bacteremia Procedure This was a 2D Doppler, Color Flow transthoracic echocardiogram. Exam performed portable in patient room. Left Ventricle Normal LV size. Left ventricular systolic function is normal. The estimated ejection fraction is 55 %. Stage 1 diastolic dysfunction. No regional wall motion abnormalities noted. Right Ventricle Normal RV size. Normal systolic function. Atria The left atrium is mildly enlarged. Normal right atrium. Mitral Valve Normal mitral valve. Tricuspid Valve Normal tricuspid valve. Mild (1+) tricuspid valve insufficiency. Pulmonary artery systolic pressure is 36 mmHg. Aortic Valve The aortic valve is not well visualized. Pulmonic Valve The pulmonic valve is not well visualized. Great Vessels Normal aortic root. The pulmonary artery is normal size. Normal inferior vena cava. Pericardium/Pleural No pericardial effusion. MMode/2D Measurements & Calculations LVIDd: 5.7 cm IVSd: 1.2 cm Ao root diam: 3.9 cm LVIDs: 4.0 cm LVPWd: 0.72 cm LA dimension: 4.5 cm FS: 30.0 % LAV(MOD-bp): 73.2 ml LA A4 area: 22.1 cm2 RA A4 area: 18.1 cm2 LAV(MOD-sp2): 79.9 ml LAV(MOD-sp4): 67.6 ml Time Measurements MV dec time: 0.22 sec Doppler Measurements & Calculations MV E max tony: 74.6 cm/sec Lat Peak E' Tony: 9.4 cm/sec Med Peak E' Tony: 6.5 cm/sec MV A max tony: 96.0 cm/sec E/E' lat: 8.0 E/E' med: 11.4 MV E/A: 0.78 MV V2 max: 108.8 cm/sec MV P1/2t max tony: 78.0 cm/sec Ao V2 max: 154.8 cm/sec MV max P.7 mmHg MV P1/2t: 125.1 msec Ao max P.6 mmHg MV V2 mean: 55.7 cm/sec MV mean P.4 mmHg MV dec slope: 182.6 cm/sec2 MV V2 VTI: 37.9 cm MVA(P1/2t): 1.8 cm2 LV V1 max: 117.8 cm/sec PA V2 max: 86.4 cm/sec TR max tony: 283.0 cm/sec LV V1 max P.6 mmHg TR max P.0 mmHg Interpretation Summary Normal LV size. Left ventricular systolic function is normal. The estimated ejection fraction is 55 %. Stage 1 diastolic dysfunction. The left atrium is mildly enlarged. Mild (1+) tricuspid valve insufficiency. There is no evidence of a mass or vegetation. This does not rule out endocarditis. Ordering Physician: Maicol Ross Performed By: Trung Barnes RCS
--- NOTE | 2018-05-27 12:15 | CASEMGMT ---
Social Work Note Pt will likely need IV antibiotics at discharge. Due to likely needing IV antibiotics, pt will likely need SNF at discharge and need will be too great to return to [facility] from discharge at [facility]. SW will update pt's daughter May once it is confirmed pt will need IV antibiotics. Plan: Pt will likely need SNF at discharge if IV antibiotics are needed as needs will be too great to return [facility]. SW to continue to follow along to assist with discharge planning. Carol Hays [employer], [employer]
[2018-05-27 13:33] LABS: Pathologist Review Reviewed
[2018-05-27 13:34] LABS: Pathologist Review Reviewed
[2018-05-27 13:55] VITALS: BP 132/74; PULSE 61; RESP 16; TEMP 36.7; O2SAT 94
[2018-05-27] MEDS: 0.9% NaCl Peripheral Flush Adult/Peds IV (21:01)
[2018-05-27 21:07] VITALS: BP 147/73; PULSE 82; RESP 18; TEMP 36.2; O2SAT 97
[2018-05-28 03:00] VITALS: BP 133/88; PULSE 69; RESP 18; TEMP 36.8; O2SAT 94
[2018-05-28] MEDS: 0.9% Normal Saline 1,000 ML 100 ML IV (05:38)
[2018-05-28] MEDS: Multivitamins,Therapeutic Tablet 1 TABLET PO (08:02)
[2018-05-28] MEDS: Aspirin 81 MG TAB.CHEW PO (08:02)
[2018-05-28] MEDS: Donepezil HCl 10 MG Tablet PO (08:02)
[2018-05-28] MEDS: Escitalopram Oxalate 10 MG Tablet PO (08:03)
[2018-05-28] MEDS: Memantine Hydrochloride 10 MG Tablet PO ×2 (08:03→21:45)
--- NOTE | 2018-05-28 08:06 | PCA ---
RN IN WITH PT GETTING PT CLEANED UP
[2018-05-28] MEDS: Enoxaparin 30 MG/0.3 ML Syringe SC (08:07)
[2018-05-28 08:12] VITALS: BP 138/82; PULSE 61; RESP 16; TEMP 37.1; O2SAT 94
--- NOTE | 2018-05-28 10:31 | PCM.PN.HOSP ---
Patient Problems: Active and Suspected Problems Fever (Acute) Tachycardia (Acute) Change in mental status (Acute) Subjective: No issues overnight, still confused and appears to be at his baseline dementia Vitals/I&O's: Vital Signs Temp Pulse Resp BP Pulse Ox 98.7 F 61 16 138/82 H 94 05/28/18 08:12 05/28/18 08:12 05/28/18 08:12 05/28/18 08:12 05/28/18 08:12 Oxygen Delivery Method Room Air Weight: 190 lb 7.67 oz Body Mass Index (BMI) 24.4 Intake and Output for Last 24 Hours 05/26/18 05/27/18 05/28/18 23:59 23:59 23:59 Intake Total 2590 / 2590 2579 / 2579 554 / 554 Output Total 50 / 50 Balance 2540 / 2540 2579 / 2579 554 / 554 General: Cooperative, No apparent distress, Confused, Disoriented HEENT: Atraumatic, PERRLA, EOMI, Normocephalic Oral: Moist Mucosa Neck: Supple, No JVD Lungs: Clear to auscultation, Normal air movement, No rhonchi, No wheeze, No rales Cardiovascular: Regular rate, Regular Rhythm, Normal S1, Normal S2, No murmurs Abdomen: Soft, Non Tender, Non-Distended, No Hepato-splenomegaly Extremities: No edema, Capillary Refill Less than 3 Seconds Skin: No rashes, No breakdown Neurological: Neuro grossly intact, Sensory exam intact to light touch and pain Psych/Mental Status: Normal Affect, Appropriate Microbiology Past 72 Hours 05/26/18 07:50 Urine Catheter - Catheter Urine Culture - Final Meth. resistant Staph. aureus 05/25/18 23:59 Blood Culture (Wb) - Right Hand Blood Culture - Final Staphylococcus aureus 05/25/18 23:45 Blood Culture (Wb) - Left Forearm Bacteria Detection (PCR) - Final Staphylococcus aureus mecA Resistance Marker 05/25/18 23:45 Blood Culture (Wb) - Left Forearm Blood Culture - Final Meth. resistant Staph. aureus 05/25/18 23:35 Mucosa - Nasopharyngeal Influenza Types A,B Direct FA (DELROY) - Final Laboratory Results 05/25/18 23:45: Diff Path Review Reviewed 05/26/18 07:27: Diff Path Review Reviewed Current Medications Acetaminophen (Tylenol) 650 mg PO Q6H PRN PRN PRN Reason: Mild Pain (1-3)/Temp > 100.7 F Last Admin: 05/26/18 11:11 Dose: 650 mg Aspirin (Aspirin, Baby) 81 mg PO DAILY@0800 [facility] Last Admin: 05/28/18 08:02 Dose: 81 mg Donepezil HCl (Aricept) 10 mg PO DAILY [facility] Last Admin: 05/28/18 08:02 Dose: 10 mg Enoxaparin Sodium (Lovenox) 30 mg SC DAILY@1000 [facility] Last Admin: 05/28/18 08:07 Dose: 30 mg Escitalopram Oxalate (Lexapro) 10 mg PO DAILY [facility] Last Admin: 05/28/18 08:03 Dose: 10 mg Sodium Chloride () 1,000 mls @ 100 mls/hr IV .Q10H [facility] Last Admin: 05/28/18 05:38 Dose: 100 mls/hr Vancomycin HCl 1,250 mg/ (Sodium Chloride) 275 mls @ 167 mls/hr IV PRN PRN; Protocol Vancomycin HCl 750 mg/ Sodium (Chloride) 265 mls @ 250 mls/hr IV Q12H [facility] Last Admin: 05/28/18 05:38 Dose: 250 mls/hr Memantine (Namenda) 10 mg PO BID [facility] Last Admin: 05/28/18 08:03 Dose: 10 mg Multivitamins (Multivitamin) 1 tablet PO DAILY@0800 [facility] Last Admin: 05/28/18 08:02 Dose: 1 tablet Nutritional Formula (Lactose Free) (Ensure Enlive) 120 ml PO 4X/DAY [facility] Last Admin: 05/28/18 08:07 Dose: 120 ml Potassium Chloride (K-Dur) 10 meq PO DAILY [facility] Last Admin: 05/28/18 08:02 Dose: 10 meq Sodium Chloride () 5 - 15 ml IV UD PRN PRN Reason: SALINE FLUSH Last Admin: 05/27/18 21:01 Dose: 10 ml Medical Necessity - Tobacco Use Smoking Status: Never smoker Tobacco Use: Non-smoker Assessment/Plan All Active Problems Fever (Acute) Tachycardia (Acute) Change in mental status (Acute) 1. Sepsis secondary to urinary tract infection/metabolic encephalopathy/AK I -Urine is growing gram-positive cocci, and his blood is growing MRSA, repeat blood cultures pending, once clear can be discharged with IV vancomycin -Continue with IV vancomycin, consult to infectious disease for outpatient Vanco management -Repeat blood cultures today -Echo evaluation of his valves are unremarkable 2. Alzheimer's disease/anxiety/depression -Unsure if he is at baseline for his Alzheimer's disease but given the sepsis -Continue with his home donepezil and Namenda -Continue with Lexapro DVT: Lovenox Code Visit Inpatient E&M: 87185 Subs Hosp L2
--- NOTE | 2018-05-28 10:35 | PN_ITS ---
Patient Problems: Active and Suspected Problems Fever (Acute) Tachycardia (Acute) Change in mental status (Acute) Subjective: No issues overnight, still confused and appears to be at his baseline dementia Vitals/I&O's: Vital Signs Temp Pulse Resp BP Pulse Ox 98.7 F 61 16 138/82 H 94 05/28/18 08:12 05/28/18 08:12 05/28/18 08:12 05/28/18 08:12 05/28/18 08:12 Oxygen Delivery Method Room Air Weight: 190 lb 7.67 oz Body Mass Index (BMI) 24.4 Intake and Output for Last 24 Hours 05/26/18 05/27/18 05/28/18 23:59 23:59 23:59 Intake Total 2590 / 2590 2579 / 2579 554 / 554 Output Total 50 / 50 Balance 2540 / 2540 2579 / 2579 554 / 554 General: Cooperative, No apparent distress, Confused, Disoriented HEENT: Atraumatic, PERRLA, EOMI, Normocephalic Oral: Moist Mucosa Neck: Supple, No JVD Lungs: Clear to auscultation, Normal air movement, No rhonchi, No wheeze, No rales Cardiovascular: Regular rate, Regular Rhythm, Normal S1, Normal S2, No murmurs Abdomen: Soft, Non Tender, Non-Distended, No Hepato-splenomegaly Extremities: No edema, Capillary Refill Less than 3 Seconds Skin: No rashes, No breakdown Neurological: Neuro grossly intact, Sensory exam intact to light touch and pain Psych/Mental Status: Normal Affect, Appropriate Microbiology Past 72 Hours 05/26/18 07:50 Urine Catheter - Catheter Urine Culture - Final Meth. resistant Staph. aureus 05/25/18 23:59 Blood Culture (Wb) - Right Hand Blood Culture - Final Staphylococcus aureus 05/25/18 23:45 Blood Culture (Wb) - Left Forearm Bacteria Detection (PCR) - Final Staphylococcus aureus mecA Resistance Marker 05/25/18 23:45 Blood Culture (Wb) - Left Forearm Blood Culture - Final Meth. resistant Staph. aureus 05/25/18 23:35 Mucosa - Nasopharyngeal Influenza Types A,B Direct FA (DELROY) - Final Laboratory Results 05/25/18 23:45: Diff Path Review Reviewed 05/26/18 07:27: Diff Path Review Reviewed Current Medications Acetaminophen (Tylenol) 650 mg PO Q6H PRN PRN PRN Reason: Mild Pain (1-3)/Temp > 100.7 F Last Admin: 05/26/18 11:11 Dose: 650 mg Aspirin (Aspirin, Baby) 81 mg PO DAILY@0800 [facility] Last Admin: 05/28/18 08:02 Dose: 81 mg Donepezil HCl (Aricept) 10 mg PO DAILY [facility] Last Admin: 05/28/18 08:02 Dose: 10 mg Enoxaparin Sodium (Lovenox) 30 mg SC DAILY@1000 [facility] Last Admin: 05/28/18 08:07 Dose: 30 mg Escitalopram Oxalate (Lexapro) 10 mg PO DAILY [facility] Last Admin: 05/28/18 08:03 Dose: 10 mg Sodium Chloride () 1,000 mls @ 100 mls/hr IV .Q10H [facility] Last Admin: 05/28/18 05:38 Dose: 100 mls/hr Vancomycin HCl 1,250 mg/ (Sodium Chloride) 275 mls @ 167 mls/hr IV PRN PRN; Protocol Vancomycin HCl 750 mg/ Sodium (Chloride) 265 mls @ 250 mls/hr IV Q12H [facility] Last Admin: 05/28/18 05:38 Dose: 250 mls/hr Memantine (Namenda) 10 mg PO BID [facility] Last Admin: 05/28/18 08:03 Dose: 10 mg Multivitamins (Multivitamin) 1 tablet PO DAILY@0800 [facility] Last Admin: 05/28/18 08:02 Dose: 1 tablet Nutritional Formula (Lactose Free) (Ensure Enlive) 120 ml PO 4X/DAY [facility] Last Admin: 05/28/18 08:07 Dose: 120 ml Potassium Chloride (K-Dur) 10 meq PO DAILY [facility] Last Admin: 05/28/18 08:02 Dose: 10 meq Sodium Chloride () 5 - 15 ml IV UD PRN PRN Reason: SALINE FLUSH Last Admin: 05/27/18 21:01 Dose: 10 ml Medical Necessity - Tobacco Use Smoking Status: Never smoker Tobacco Use: Non-smoker Assessment/Plan All Active Problems Fever (Acute) Tachycardia (Acute) Change in mental status (Acute) 1. Sepsis secondary to urinary tract infection/metabolic encephalopathy/AK I -Urine is growing gram-positive cocci, and his blood is growing MRSA, repeat blood cultures pending, once clear can be discharged with IV vancomycin -Continue with IV vancomycin, consult to infectious disease for outpatient Vanco management -Repeat blood cultures today -Echo evaluation of his valves are unremarkable 2. Alzheimer's disease/anxiety/depression -Unsure if he is at baseline for his Alzheimer's disease but given the sepsis -Continue with his home donepezil and Namenda -Continue with Lexapro DVT: Lovenox Code Visit Inpatient E&M: 60183 Subs Hosp L2
[2018-05-28 11:43] VITALS: BP 141/77; PULSE 69; RESP 16; TEMP 36.8; O2SAT 96
--- NOTE | 2018-05-28 14:05 | CASEMGMT ---
Social Work Note GAVIN placed a call to [facility] and spoke with RN Marti who states they are unable to do IV antibiotics at [facility]. GAVIN informed Marti that pt will need IV antibiotics at discharge and will need to go to SNF then to receive IV antibiotics. GAVIN placed a call to pt's daughter May and updated that pt will need IV antibiotics at discharge and [facility] is unable to do those at facility. GAVIN informed May that pt will need SNF at discharge for IV antibiotics. Neisha states that [facility] or [facility] or any facility in [place]. GAVIN informed Hermelinda that this worker will check with [facility] and [facility] first and if unable to accept will look into other facilities in [place]. Hermelinda states understanding. GAVIN placed a call to Maricarmen at [facility] who states she is able to accept [facility] pending the plan that the pt has and requests referral be faxed over. GAVIN faxed referral to [facility]. Plan: [facility] pending acceptance and pre-cert Carol Hays COMMUNITY DEVELOPMENT DIRECTOR, TAX ASSOCIATE
[2018-05-28 16:19] VITALS: BP 152/75; PULSE 71; RESP 16; TEMP 36.8; O2SAT 96
--- NOTE | 2018-05-28 16:47 | CASEMGMT ---
Social Work Note SW received call from Maricarmen at [facility] who states they are not in network with pt's insurance. SW placed a call to Rain at [facility] who also states they are not in network with pt's insurance. SW placed a call to Lisbeth in TCU and left her a message providing referral. GAVIN will follow up with TCU tomorrow to determine if they are able to accept pt. Plan: SNF pending acceptance and pre-cert Carol Hays INSURANCE PRODUCER, PAIL TESTER
--- NOTE | 2018-05-28 19:22 | PCM.RX.CS ---
Consult Pharmacy has been consulted to manage selected antiobiotic: Vancomycin Type of Consult: Follow-up Suspected Infection: Sepsis, Other Prior Doses of Antibiotics Received/Current Regimen: Currently on vancomycin 750mg IV q12h with doses last given this morning at 0538 and this evening at 1802 Labs: Sodium 148 mmol/L (136-145) H 05/27/18 05:40 Potassium 3.6 mmol/L (3.5-5.1) 05/27/18 05:40 Chloride 119 mmol/L (98-107) H 05/27/18 05:40 Carbon Dioxide 24.0 mmol/L (21.0-32.0) 05/27/18 05:40 Anion Gap 5 (5-15) 05/27/18 05:40 BUN 32 mg/dL (7-18) H 05/27/18 05:40 Creatinine 1.13 mg/dL (0.70-1.30) 05/27/18 05:40 Est GFR (MDRD) Af Amer 81 mL/min (>60) 05/27/18 05:40 Est GFR (MDRD) Non-Af 67 mL/min (>60) 05/27/18 05:40 BUN/Creatinine Ratio 28.3 RATIO (10-20) H 05/27/18 05:40 Glucose 97 mg/dL (74-106) 05/27/18 05:40 Vancomycin Trough 10.0 ug/mL (5.0-15.0) 05/28/18 17:30 Microbiology: Microbiology 05/28/18 08:00 Stool C. difficile DNA Amplification - Final 05/26/18 07:50 Urine Catheter - Catheter Urine Culture - Final Meth. resistant Staph. aureus 05/25/18 23:59 Blood Culture (Wb) - Right Hand Blood Culture - Final Staphylococcus aureus 05/25/18 23:45 Blood Culture (Wb) - Left Forearm Bacteria Detection (PCR) - Final Staphylococcus aureus mecA Resistance Marker 05/25/18 23:45 Blood Culture (Wb) - Left Forearm Blood Culture - Final Meth. resistant Staph. aureus 05/25/18 23:35 Mucosa - Nasopharyngeal Influenza Types A,B Direct FA (DELROY) - Final Estimated Creatinine Clearance: 65 ml/min Goal Trough: 10-15 mcg/mL Pharmacy Plan for Drug Dosing: Trough drawn (12 hours after the previous dose) before this evening's dose came back as 10.0 mg/L which is within goal range. Plan to continue same dosage regimen, and obtain another trough on 05/30/18 to make sure it does not get any lower out of the desired range of 10-15. Also note that, upon the hospitalist's request, the solution for further doses was changed to D5W from normal saline due to the patient's Na increasing. Pharmacy Service will continue to monitor and adjust dosing as required. Follow-Up Labs: Trough Vancomycin Labs to be done on [date and time ordered]: 05/30/18 17:30
[2018-05-28 20:54] VITALS: BP 143/80; PULSE 65; RESP 16; TEMP 37.4; O2SAT 94
[2018-05-29 03:00] VITALS: BP 139/78; PULSE 68; RESP 16; TEMP 37.3; O2SAT 96
[2018-05-29 05:49] LABS: Absolute Neutrophil Count 6.7 X10^3/uL (2.0-7.7); Basophil# 0.08 X10^3/uL; Basophil% 0.8 % (0-1); Eosinophil# 0.24 X10^3/uL; Eosinophils% 2.3 % (0-5); Hematocrit 36.8 % (40-54); Hemoglobin 12.4 g/dl (13.0-16.5); Lymphocyte % 17.5 % (19-41); Mean Corp Hgb Conc 33.7 g/gl (32-36); Mean Corpuscular Hgb 30.5 pg (27.0-32.0); Mean Corpuscular Volume 90.4 fL (80-94); Mean Platelet Vol. 11.7 fl (6.2-12.0); Monocyte# 1.41 X10^3/uL; Monocyte% 13.7 % (0-10); Neutrophil # 6.73 X10^3/uL (2.7-7.7); Neutrophil % 65.2 % (47-70); Platelet Count 166 K/mm3 (150-450); RBC Distribution Width CV 15.1 % (11.6-14.6); RBC Distribution Width SD 49.9 fl (35.1-43.9); Red Blood Count 4.07 M/mm3 (4.6-6.2); White Blood Count 10.3 K/mm3 (4.4-11.0)
[2018-05-29 05:56] LABS: Anion Gap 7 (5-15); BUN 25 mg/dL (7-18); BUN/Creat Ratio 25.3 RATIO (10-20); Calcium,Total 8.2 mg/dL (8.5-10.1); Chloride 114 mmol/L (98-107); Creatinine, Serum 0.99 mg/dL (0.70-1.30); EST Glomerular Filtration Rate 78 mL/min (>60); Est Glom Filt Rate - Afr Amer 95 mL/min (>60); Glucose 95 mg/dL (74-106); Potassium 3.7 mmol/L (3.5-5.1); Sodium Level 146 mmol/L (136-145)
[2018-05-29 06:09] LABS: POSITIVE COUNT NO; POSITIVE DIFFERENTIAL NO; POSITIVE MORPHOLOGY NO
[2018-05-29 07:33] VITALS: BP 136/75; PULSE 60; RESP 15; TEMP 37.1; O2SAT 95
[2018-05-29] MEDS: Memantine Hydrochloride 10 MG Tablet PO ×2 (07:44→19:57)
[2018-05-29] MEDS: Multivitamins,Therapeutic Tablet 1 TABLET PO (07:44)
[2018-05-29] MEDS: Donepezil HCl 10 MG Tablet PO (07:44)
[2018-05-29] MEDS: Aspirin 81 MG TAB.CHEW PO (07:44)
[2018-05-29] MEDS: Escitalopram Oxalate 10 MG Tablet PO (07:44)
[2018-05-29] MEDS: Enoxaparin 30 MG/0.3 ML Syringe SC (07:45)
[2018-05-29 08:23] VITALS: PULSE 60; RESP 15; O2SAT 94
--- NOTE | 2018-05-29 10:08 | PCM.PN.ID ---
Patient Problems: Active and Suspected Problems Fever (Acute) Tachycardia (Acute) Change in mental status (Acute) Subjective: Patient appears to have an uneventful night. No fevers. Appears to be tolerating parenteral vancomycin. Patient does have underlying dementia. No cardiopulmonary distress. Echocardiogram report reviewed no valvular pathology noted Objective: Does not appear toxic lungs are clear heart exam S1-S2 abdomen soft nontender no peripheral skin lesions noted - Physical Exam Vital Signs Temp Pulse Resp BP Pulse Ox 98.7 F 60 15 136/75 H 94 05/29/18 07:33 05/29/18 08:23 05/29/18 08:23 05/29/18 07:33 05/29/18 08:23 Oxygen Delivery Method Room Air Weight: 86.4 kg Body Mass Index (BMI) 24.4 Intake and Output for Last 24 Hours 05/27/18 05/28/18 05/29/18 23:59 23:59 23:59 Intake Total 2579 / 2579 1804 / 1804 1412 / 1412 Balance 2579 / 2579 1804 / 1804 1412 / 1412 Microbiology Past 72 Hours 05/28/18 08:00 C. difficile DNA Amplification - Final Stool 05/26/18 07:50 Urine Culture - Final Urine Catheter - Catheter Meth. resistant Staph. aureus 05/25/18 23:59 Blood Culture - Final Blood Culture (Wb) - Right Hand Staphylococcus aureus 05/25/18 23:45 Bacteria Detection (PCR) - Final Blood Culture (Wb) - Left Forearm Staphylococcus aureus mecA Resistance Marker Blood Culture - Final Meth. resistant Staph. aureus Laboratory Tests Past 24 Hrs 05/28/18 05/29/18 05/29/18 17:30 05:15 05:15 WBC 10.3 RBC 4.07 L Hgb 12.4 L Hct 36.8 L MCV 90.4 MCH 30.5 MCHC 33.7 RDW 15.1 H RDW Differential 49.9 H Plt Count 166 MPV 11.7 Immature Gran % (Auto) 0.500 Neut % (Auto) 65.2 Lymph % (Auto) 17.5 L Alexander % (Auto) 13.7 H Eos % (Auto) 2.3 Baso % (Auto) 0.8 Absolute Neuts (auto) 6.7 Absolute Lymphs (auto) 1.80 Total Counted Not Reportable Sodium 146 H Potassium 3.7 Chloride 114 H Carbon Dioxide 25.0 Anion Gap 7 BUN 25 H Creatinine 0.99 Estim Creat Clear Calc 73.80 Est GFR (MDRD) Af Amer 95 Est GFR (MDRD) Non-Af 78 BUN/Creatinine Ratio 25.3 H Glucose 95 Calcium 8.2 L Vancomycin Trough 10.0 Medical Necessity - Tobacco Use Smoking Status: Never smoker Tobacco Use: Non-smoker Route of nutrition/ use of supplements: [] Nutritional Intake: [] IV Site: [] Welch Catheter: [] - Assessment/Plan MRSA bacteremia in an elderly man from an extended care facility. Repeat blood cultures remain sterile. Patient remains on parenteral vancomycin. Plan is 14-day course of IV vancomycin.
--- NOTE | 2018-05-29 10:26 | CASEMGMT ---
Social Work Note SW placed a call to [facility] in [facility]CU and left message asking if she is able to accept pt. Per ID notes, pt will be on IV vanco 14 days. Lisbeth in TCU updated on this. Plan: TCU pending acceptance and pre-cert Carol Hays RANGER AIDE, DOCTOR OF NURSING PRACTICE
--- NOTE | 2018-05-29 10:52 | PCM.PN.HOSP ---
Patient Problems: Active and Suspected Problems Fever (Acute) Tachycardia (Acute) Change in mental status (Acute) Subjective: Doing well, no issues overnight. His dementia appears to be at baseline Vitals/I&O's: Vital Signs Temp Pulse Resp BP Pulse Ox 98.7 F 60 15 136/75 H 94 05/29/18 07:33 05/29/18 08:23 05/29/18 08:23 05/29/18 07:33 05/29/18 08:23 Oxygen Delivery Method Room Air Weight: 190 lb 7.67 oz Body Mass Index (BMI) 24.4 Intake and Output for Last 24 Hours 05/27/18 05/28/18 05/29/18 23:59 23:59 23:59 Intake Total 2579 / 2579 1804 / 1804 1412 / 1412 Balance 2579 / 2579 1804 / 1804 1412 / 1412 General: Cooperative, No apparent distress, Confused, Disoriented HEENT: Atraumatic, PERRLA, EOMI, Normocephalic Oral: Moist Mucosa Neck: Supple, No JVD Lungs: Clear to auscultation, Normal air movement, No rhonchi, No wheeze, No rales Cardiovascular: Regular rate, Regular Rhythm, Normal S1, Normal S2, No murmurs Abdomen: Soft, Non Tender, Non-Distended, No Hepato-splenomegaly Extremities: No edema, Capillary Refill Less than 3 Seconds Skin: No rashes, No breakdown Neurological: Neuro grossly intact, Sensory exam intact to light touch and pain Psych/Mental Status: Normal Affect, Appropriate Microbiology Past 72 Hours 05/28/18 08:00 Stool C. difficile DNA Amplification - Final 05/26/18 07:50 Urine Catheter - Catheter Urine Culture - Final Meth. resistant Staph. aureus 05/25/18 23:59 Blood Culture (Wb) - Right Hand Blood Culture - Final Staphylococcus aureus 05/25/18 23:45 Blood Culture (Wb) - Left Forearm Bacteria Detection (PCR) - Final Staphylococcus aureus mecA Resistance Marker 05/25/18 23:45 Blood Culture (Wb) - Left Forearm Blood Culture - Final Meth. resistant Staph. aureus Laboratory Results 05/28/18 17:30: Vancomycin Trough 10.0 05/29/18 05:15: WBC 10.3, RBC 4.07 L, Hgb 12.4 L, Hct 36.8 L, MCV 90.4, MCH 30.5, MCHC 33.7, RDW 15.1 H, RDW Differential 49.9 H, Plt Count 166, MPV 11.7, Immature Gran % (Auto) 0.500, Neut % (Auto) 65.2, Lymph % (Auto) 17.5 L, [place] % (Auto) 13.7 H, Eos % (Auto) 2.3, Baso % (Auto) 0.8, Absolute Neuts (auto) 6.7, Absolute Lymphs (auto) 1.80, Total Counted Not Reportable 05/29/18 05:15: Sodium 146 H, Potassium 3.7, Chloride 114 H, Carbon Dioxide 25.0, Anion Gap 7, BUN 25 H, Creatinine 0.99, Estim Creat Clear Calc 73.80, Est GFR (MDRD) Af Amer 95, Est GFR (MDRD) Non-Af 78, BUN/Creatinine Ratio 25.3 H, Glucose 95, Calcium 8.2 L Current Medications Acetaminophen (Tylenol) 650 mg PO Q6H PRN PRN PRN Reason: Mild Pain (1-3)/Temp > 100.7 F Last Admin: 05/26/18 11:11 Dose: 650 mg Aspirin (Aspirin, Baby) 81 mg PO DAILY@0800 [facility] Last Admin: 05/29/18 07:44 Dose: 81 mg Donepezil HCl (Aricept) 10 mg PO DAILY [facility] Last Admin: 05/29/18 07:44 Dose: 10 mg Enoxaparin Sodium (Lovenox) 30 mg SC DAILY@1000 [facility] Last Admin: 05/29/18 07:45 Dose: 30 mg Escitalopram Oxalate (Lexapro) 10 mg PO DAILY [facility] Last Admin: 05/29/18 07:44 Dose: 10 mg Vancomycin HCl 1,250 mg/ (Sodium Chloride) 275 mls @ 167 mls/hr IV PRN PRN; Protocol Vancomycin HCl 750 mg/ (Dextrose) 265 mls @ 250 mls/hr IV Q12H [facility] Last Admin: 05/29/18 05:51 Dose: 250 mls/hr Memantine (Namenda) 10 mg PO BID [facility] Last Admin: 05/29/18 07:44 Dose: 10 mg Multivitamins (Multivitamin) 1 tablet PO DAILY@0800 [facility] Last Admin: 05/29/18 07:44 Dose: 1 tablet Nutritional Formula (Lactose Free) (Ensure Enlive) 120 ml PO 4X/DAY [facility] Last Admin: 05/29/18 07:44 Dose: 120 ml Potassium Chloride (K-Dur) 10 meq PO DAILY [facility] Last Admin: 05/29/18 07:44 Dose: 10 meq Sodium Chloride () 5 - 15 ml IV UD PRN PRN Reason: SALINE FLUSH Last Admin: 05/27/18 21:01 Dose: 10 ml Medical Necessity - Tobacco Use Smoking Status: Never smoker Tobacco Use: Non-smoker Assessment/Plan All Active Problems Fever (Acute) Tachycardia (Acute) Change in mental status (Acute) 1. Sepsis secondary to urinary tract infection/metabolic encephalopathy/AK I -Urine is growing gram-positive cocci, and his blood is growing MRSA, repeat blood cultures pending, once clear can be discharged with IV vancomycin -Continue with IV vancomycin, -Appreciate ID assistance -Repeat blood cultures pending, if negative then will dose vancomycin for 14 days after negative blood cultures -He will need PICC line placed -Echo evaluation of his valves are unremarkable 2. Alzheimer's disease/anxiety/depression -Unsure if he is at baseline for his Alzheimer's disease but given the sepsis -Continue with his home donepezil and Namenda -Continue with Lexapro DVT: Lovenox Code Visit Inpatient E&M: 67789 Subs Hosp L2
--- NOTE | 2018-05-29 10:55 | PN_ITS ---
Patient Problems: Active and Suspected Problems Fever (Acute) Tachycardia (Acute) Change in mental status (Acute) Subjective: Doing well, no issues overnight. His dementia appears to be at baseline Vitals/I&O's: Vital Signs Temp Pulse Resp BP Pulse Ox 98.7 F 60 15 136/75 H 94 05/29/18 07:33 05/29/18 08:23 05/29/18 08:23 05/29/18 07:33 05/29/18 08:23 Oxygen Delivery Method Room Air Weight: 190 lb 7.67 oz Body Mass Index (BMI) 24.4 Intake and Output for Last 24 Hours 05/27/18 05/28/18 05/29/18 23:59 23:59 23:59 Intake Total 2579 / 2579 1804 / 1804 1412 / 1412 Balance 2579 / 2579 1804 / 1804 1412 / 1412 General: Cooperative, No apparent distress, Confused, Disoriented HEENT: Atraumatic, PERRLA, EOMI, Normocephalic Oral: Moist Mucosa Neck: Supple, No JVD Lungs: Clear to auscultation, Normal air movement, No rhonchi, No wheeze, No rales Cardiovascular: Regular rate, Regular Rhythm, Normal S1, Normal S2, No murmurs Abdomen: Soft, Non Tender, Non-Distended, No Hepato-splenomegaly Extremities: No edema, Capillary Refill Less than 3 Seconds Skin: No rashes, No breakdown Neurological: Neuro grossly intact, Sensory exam intact to light touch and pain Psych/Mental Status: Normal Affect, Appropriate Microbiology Past 72 Hours 05/28/18 08:00 Stool C. difficile DNA Amplification - Final 05/26/18 07:50 Urine Catheter - Catheter Urine Culture - Final Meth. resistant Staph. aureus 05/25/18 23:59 Blood Culture (Wb) - Right Hand Blood Culture - Final Staphylococcus aureus 05/25/18 23:45 Blood Culture (Wb) - Left Forearm Bacteria Detection (PCR) - Final Staphylococcus aureus mecA Resistance Marker 05/25/18 23:45 Blood Culture (Wb) - Left Forearm Blood Culture - Final Meth. resistant Staph. aureus Laboratory Results 05/28/18 17:30: Vancomycin Trough 10.0 05/29/18 05:15: WBC 10.3, RBC 4.07 L, Hgb 12.4 L, Hct 36.8 L, MCV 90.4, MCH 30.5, MCHC 33.7, RDW 15.1 H, RDW Differential 49.9 H, Plt Count 166, MPV 11.7, Immature Gran % (Auto) 0.500, Neut % (Auto) 65.2, Lymph % (Auto) 17.5 L, Cobb % (Auto) 13.7 H, Eos % (Auto) 2.3, Baso % (Auto) 0.8, Absolute Neuts (auto) 6.7, Absolute Lymphs (auto) 1.80, Total Counted Not Reportable 05/29/18 05:15: Sodium 146 H, Potassium 3.7, Chloride 114 H, Carbon Dioxide 25.0, Anion Gap 7, BUN 25 H, Creatinine 0.99, Estim Creat Clear Calc 73.80, Est GFR (MDRD) Af Amer 95, Est GFR (MDRD) Non-Af 78, BUN/Creatinine Ratio 25.3 H, Glucose 95, Calcium 8.2 L Current Medications Acetaminophen (Tylenol) 650 mg PO Q6H PRN PRN PRN Reason: Mild Pain (1-3)/Temp > 100.7 F Last Admin: 05/26/18 11:11 Dose: 650 mg Aspirin (Aspirin, Baby) 81 mg PO DAILY@0800 [facility] Last Admin: 05/29/18 07:44 Dose: 81 mg Donepezil HCl (Aricept) 10 mg PO DAILY [facility] Last Admin: 05/29/18 07:44 Dose: 10 mg Enoxaparin Sodium (Lovenox) 30 mg SC DAILY@1000 [facility] Last Admin: 05/29/18 07:45 Dose: 30 mg Escitalopram Oxalate (Lexapro) 10 mg PO DAILY [facility] Last Admin: 05/29/18 07:44 Dose: 10 mg Vancomycin HCl 1,250 mg/ (Sodium Chloride) 275 mls @ 167 mls/hr IV PRN PRN; Protocol Vancomycin HCl 750 mg/ (Dextrose) 265 mls @ 250 mls/hr IV Q12H [facility] Last Admin: 05/29/18 05:51 Dose: 250 mls/hr Memantine (Namenda) 10 mg PO BID [facility] Last Admin: 05/29/18 07:44 Dose: 10 mg Multivitamins (Multivitamin) 1 tablet PO DAILY@0800 [facility] Last Admin: 05/29/18 07:44 Dose: 1 tablet Nutritional Formula (Lactose Free) (Ensure Enlive) 120 ml PO 4X/DAY [facility] Last Admin: 05/29/18 07:44 Dose: 120 ml Potassium Chloride (K-Dur) 10 meq PO DAILY [facility] Last Admin: 05/29/18 07:44 Dose: 10 meq Sodium Chloride () 5 - 15 ml IV UD PRN PRN Reason: SALINE FLUSH Last Admin: 05/27/18 21:01 Dose: 10 ml Medical Necessity - Tobacco Use Smoking Status: Never smoker Tobacco Use: Non-smoker Assessment/Plan All Active Problems Fever (Acute) Tachycardia (Acute) Change in mental status (Acute) 1. Sepsis secondary to urinary tract infection/metabolic encephalopathy/AK I -Urine is growing gram-positive cocci, and his blood is growing MRSA, repeat blood cultures pending, once clear can be discharged with IV vancomycin -Continue with IV vancomycin, -Appreciate ID assistance -Repeat blood cultures pending, if negative then will dose vancomycin for 14 days after negative blood cultures -He will need PICC line placed -Echo evaluation of his valves are unremarkable 2. Alzheimer's disease/anxiety/depression -Unsure if he is at baseline for his Alzheimer's disease but given the sepsis -Continue with his home donepezil and Namenda -Continue with Lexapro DVT: Lovenox Code Visit Inpatient E&M: 67020 Subs Hosp L2
[2018-05-29 11:32] VITALS: BP 110/55; PULSE 68; RESP 16; TEMP 36.5; O2SAT 92
--- NOTE | 2018-05-29 14:14 | CASEMGMT ---
Social Work Note SW received message from Lisbeth in TCU stating she doesn't have any beds until Sunday. Per previous conversation with pt's daughter, pt is ok with any facility in [place]. GAVIN placed a call to Estefania at [facility] and faxed referral. GAVIN spoke with Estefania at [facility] who states she is able to accept pt pending pre-cert. GAVIN explained that [facility] [employer] requires this worker to fax initial referral to get approval for the level of care and then Estefania at [facility] will need to submit for pre-cert. Estefania states understanding. GAVIN placed a call to pt's daughter May and updated her on acceptance to [facility] pending pre-cert. GAVIN faxed referral to [facility] and placed a call to [facility] [employer] in regards to referral. GAVIN waiting to hear from [facility] Medicare. Plan: [facility] pending pre-cert Carol Hays GAS MANAGER, IMPREGNATOR AND DRIER
--- NOTE | 2018-05-29 14:16 | NURSING ---
charting for student Nurse reviewed for educational learning purposes.
[2018-05-29 15:25] VITALS: BP 118/58; PULSE 65; RESP 16; TEMP 36.6; O2SAT 94
--- NOTE | 2018-05-29 15:35 | CASEMGMT ---
Social Work Note SW received message from Josselyn Marion at [facility] stating she is agreeable to pt going to SNF at discharge and the agreement is good for 4 days. GAVIN placed a call to [facility] and spoke with Davida and updated her on this. [facility] states she will submit for pre-cert. Plan: [facility] pending pre-cert Carol Hays QUALITY ASSURANCE/R&D LAB TECHNICIAN, SAFE DEPOSIT BOX RENTAL CLERK
[2018-05-29] MEDS: 0.9% NaCl Peripheral Flush Adult/Peds IV (18:04)
--- NOTE | 2018-05-29 18:21 | NURSING ---
Pt set off chair alarm- upon entry pt had pulled out his PICC line and peripherally IV. PICC line length did match insertion length of 45cm. No bleeding noted- small scabs over each insertion site. Pt instructed to sit in chair-- will attempt another IV.
[2018-05-29 19:59] VITALS: BP 143/91; PULSE 63; RESP 18; TEMP 37.1; O2SAT 96
[2018-05-30 06:03] VITALS: BP 141/71; PULSE 72; RESP 16; TEMP 37.2; O2SAT 97
[2018-05-30] MEDS: 0.9% NaCl Peripheral Flush Adult/Peds IV (06:05)
[2018-05-30] MEDS: Aspirin 81 MG TAB.CHEW PO (08:18)
[2018-05-30] MEDS: Multivitamins,Therapeutic Tablet 1 TABLET PO (08:18)
[2018-05-30] MEDS: Donepezil HCl 10 MG Tablet PO (08:35)
[2018-05-30] MEDS: Enoxaparin 30 MG/0.3 ML Syringe SC (08:37)
[2018-05-30] MEDS: Escitalopram Oxalate 10 MG Tablet PO (08:37)
[2018-05-30] MEDS: Memantine Hydrochloride 10 MG Tablet PO (08:37)
--- NOTE | 2018-05-30 09:55 | PCM.PN.ID ---
Patient Problems: Active and Suspected Problems Fever (Acute) Tachycardia (Acute) Change in mental status (Acute) Subjective: Patient is out of bed to a chair. Overall clinically stable with no fevers. Unfortunately because of his underlying dementia patient pulled his PICC line shortly after being placed yesterday. He is also pulled multiple peripheral IVs. His cardiopulmonary status appears stable. Repeat blood cultures are sterile currently on IV vancomycin. Objective: Alert does not appear toxic lungs are clear heart exam S1-S2 abdomen soft nontender - Physical Exam Vital Signs Temp Pulse Resp BP Pulse Ox 98.9 F 72 16 141/71 H 97 05/30/18 06:03 05/30/18 06:03 05/30/18 06:03 05/30/18 06:03 05/30/18 06:03 Oxygen Delivery Method Room Air Weight: 86.4 kg Body Mass Index (BMI) 24.4 Intake and Output for Last 24 Hours 05/28/18 05/29/18 05/30/18 23:59 23:59 23:59 Intake Total 1804 / 1804 1412 / 1412 Balance 1804 / 1804 1412 / 1412 Microbiology Past 72 Hours 05/27/18 11:00 Blood Culture - Preliminary Blood Culture (Wb) - Right Hand No growth in 48 hours. 05/27/18 10:55 Blood Culture - Preliminary Blood Culture (Wb) - Anticubital Right No growth in 48 hours. 05/28/18 08:00 C. difficile DNA Amplification - Final Stool 05/26/18 07:50 Urine Culture - Final Urine Catheter - Catheter Meth. resistant Staph. aureus 05/25/18 23:59 Blood Culture - Final Blood Culture (Wb) - Right Hand Staphylococcus aureus 05/25/18 23:45 Bacteria Detection (PCR) - Final Blood Culture (Wb) - Left Forearm Staphylococcus aureus mecA Resistance Marker Blood Culture - Final Meth. resistant Staph. aureus Medical Necessity - Tobacco Use Smoking Status: Never smoker Tobacco Use: Non-smoker Route of nutrition/ use of supplements: [] Nutritional Intake: [] IV Site: [] Welch Catheter: [] - Assessment/Plan MRSA bacteremia in an elderly man with underlying dementia. Repeat blood cultures were sterile. Clinically stable on parenteral vancomycin. 14-day course of antimicrobial therapy will be reasonable. Unfortunately the patient pulls his IVs and also pulled his PICC line yesterday. Another option will be Zyvox 600 mg p.o. twice daily as an alternative drug to vancomycin given his underlying dementia and pulling his IV access.
[2018-05-30 10:00] VITALS: BP 133/76; PULSE 92; RESP 16; TEMP 37; O2SAT 94
--- NOTE | 2018-05-30 10:58 | CASEMGMT ---
Addendum entered by Carol Hays 05/30/18 11:01: GAVIN spoke with Davida at [facility] and updated her that pt will now be going back to [facility]. Original Note: Social Work Note Per Physician pt is going to be discharged on PO antibiotics now and not IV. Since pt is able to discharge on PO antibiotics he is able to return to [facility] today. GAVIN placed a call to [facility] and spoke to IONA Simpson and updated her on PO antibiotics and that pt will be discharged back to [facility] today. GAVIN attempted to call pt's daughter May, there was no answer. This SW left message for May to give this worker a call when she is available. Plan: Return to [facility] today Carol Hays RN LABOR AND DELIVERY, CHAIRMAN [employer]
--- NOTE | 2018-05-30 11:26 | DCINST_ITS ---
- Discharge Diagnoses Current Active Problems: Current Active and Chronic Problems Fever (Acute) Tachycardia (Acute) Change in mental status (Acute) You will use the following diet at home:: Regular Your food should be the consistency of: Regular Your liquids should be the consistency of: Regular/Thin Discharge Activity: Return to Normal Activity Call your doctor if you observe: Fever of 101 or Higher, Shortness of breath, Dizziness, Fainting spells, Swelling in the ankles, Chest pain, Increased palpitations (irregular heartbeat) Allergies/Adverse Reactions: Allergies No Known Allergies Allergy (Verified 05/25/18 22:48) Medications to take at Discharge Acetaminophen [Tylenol] 650 mg PO Q8H PRN PRN 05/25/18 Aspirin [Aspirin, Baby] 81 mg PO DAILY@0800 05/25/18 Donepezil HCl 10 mg PO DAILY 05/25/18 Escitalopram Oxalate [Lexapro] 10 mg PO DAILY 05/25/18 Fexofenadine HCl [Lisbeth Allergy] 180 mg PO DAILY 05/25/18 Memantine HCl [Namenda] 10 mg PO BID 05/25/18 Multivitamin [Daily Multiple Vitamin] 1 each PO DAILY 05/25/18 Potassium Chloride [K-Dur] 10 meq PO DAILY 05/25/18 Linezolid [Zyvox] 600 mg PO Q12H #20 tablet 05/30/18 The following prescriptions were given: Linezolid [Zyvox] 600 mg PO Q12H #20 tablet Primary Care Physician: Eleazar Browne Chi, MD [Primary Care Provider] - Please follow up with your Primary Care Physician in: 3-5 days Test Results: Test results from this visit will be discussed in further detail at your follow- up appointment, if applicable.
--- NOTE | 2018-05-30 11:51 | DS.PCM_ITS ---
Discharge Date and Diagnosis - Problem List Patient Problems: Active and Suspected Problems Fever (Acute) Tachycardia (Acute) Change in mental status (Acute) Date of Admission: 05/26/18 Date of Discharge: 05/30/18 - Primary Discharge Diagnosis Active and Suspected Problems Fever (Acute) Tachycardia (Acute) Change in mental status (Acute) Hospital Course and Treatment Imaging Results: CT Brain: IMPRESSION: 1. Chronic involutional changes of the brain. 2. No CT evidence of acute intracranial hemorrhage. Consults: ID Procedures: 2-D Echocardiogram - Interpretation Summary Normal LV size. Left ventricular systolic function is normal. The estimated ejection fraction is 55 %. Stage 1 diastolic dysfunction. The left atrium is mildly enlarged. Mild (1+) tricuspid valve insufficiency. There is no evidence of a mass or vegetation. This does not rule out endocarditis. Summary of Care Provided: Per HPI: The patient is a 77 year old M was seen in the emergency room at [facility] after being transported from an assisted living facility with change in mental status, fever, and tachycardia which started on 05/25/18. Patient has a history of Alzheimer's dementia and is unable to provide any information to this examiner, patient's family was in the room today in the emergency room during the time of my examination and provided medical information. They stated that the patient normally is active and today he was very inactive and seemed lethargic, it was noted by the assisted living staff that the patient was running a temperature today (daughter could not tell me how high the patient's temperature was) and that his heart rate had increased. Daughter states the patient is not having any diarrhea or cough. Workup in the emergency room included a chest x-ray which showed no acute pulmonary process, labs were drawn and the patient had an elevated white blood cell count at 20.3, hemoglobin was 12.9, platelet count was 119,000. Chemistry panel was abnormal for a creatinine of 1.6, BUN of 39, and glucose of 138. Patient's lactic acid was not elevated, AST was slightly elevated at 52. Urinalysis could not be obtained due to the fact that no urine was obtained on the patient's straight cath. Patient has a history of urinary tract infections, a urine culture on 03/19/18 grew out methicillin-resistant staph aureus. Blood cultures were obtained in the emergency room, patient had an influenza screen that was negative. Patient was given IV Zosyn and the patient was admitted to [place] [id number] for acute sepsis felt to be secondary to acute cystitis and dehydration. Patient's antibiotic coverage will be changed to Rocephin and vancomycin. I talked to the patient's daughter and confirmed that the patient is a DNR CC arrest Hospital Course: 1. Sepsis secondary to urinary tract infection/metabolic encephalopathy/AK I- 77-year-old male living in a assisted secondary to dementia, presented to ER because of lethargy, and an elevated temperature. He was found to have a urinary tract infection that ultimately cultured out MRSA. He was on vancomycin at the time and his blood cultures also presented with MRSA. They did clear very quickly and an echo was obtained to rule out any valvular abnormalities. Unfortunately, he has removed over 7 IVs in the last 4 days and remove the PICC line within an hour or 2 of having it placed. Therefore in discussion with infectious disease we have decided to proceed with Zyvox 600 mg p.o. twice daily for the remaining 10 days of treatment. Of note he is on Lexapro and this will have to be decreased in dose by about 50% during his treatment course with Zyvox. He does have a baseline of Alzheimer's disease and it does appear that his metabolic encephalopathy has improved and his AK I has resolved. 2. His other medical diagnoses were evaluated and his home medications were continued where appropriate Patient Problems: Active and Suspected Problems Fever (Acute) Tachycardia (Acute) Change in mental status (Acute) Objective: General: Cooperative, No apparent distress, Confused, Disoriented HEENT: Atraumatic, PERRLA, EOMI, Normocephalic Oral: Moist Mucosa Neck: Supple, No JVD Lungs: Clear to auscultation, Normal air movement, No rhonchi, No wheeze, No rales Cardiovascular: Regular rate, Regular Rhythm, Normal S1, Normal S2, No murmurs Abdomen: Soft, Non Tender, Non-Distended, No Hepato-splenomegaly Extremities: No edema, Capillary Refill Less than 3 Seconds Skin: No rashes, No breakdown Neurological: Neuro grossly intact, Sensory exam intact to light touch and pain Psych/Mental Status: Normal Affect, Appropriate - Physical Exam Vital Signs Temp Pulse Resp BP Pulse Ox 98.6 F 92 16 133/76 H 94 05/30/18 10:00 05/30/18 10:00 05/30/18 10:00 05/30/18 10:00 05/30/18 10:00 Oxygen Delivery Method Room Air Weight: 190 lb 7.67 oz Body Mass Index (BMI) 24.4 Intake and Output for Last 24 Hours 05/28/18 05/29/18 05/30/18 23:59 23:59 23:59 Intake Total 1804 / 1804 1412 / 1412 Balance 1804 / 1804 1412 / 1412 Microbiology Past 72 Hours 05/27/18 11:00 Blood Culture - Preliminary Blood Culture (Wb) - Right Hand No growth in 48 hours. 05/27/18 10:55 Blood Culture - Preliminary Blood Culture (Wb) - Anticubital Right No growth in 48 hours. 05/28/18 08:00 C. difficile DNA Amplification - Final Stool 05/26/18 07:50 Urine Culture - Final Urine Catheter - Catheter Meth. resistant Staph. aureus 05/25/18 23:59 Blood Culture - Final Blood Culture (Wb) - Right Hand Staphylococcus aureus 05/25/18 23:45 Bacteria Detection (PCR) - Final Blood Culture (Wb) - Left Forearm Staphylococcus aureus mecA Resistance Marker Blood Culture - Final Meth. resistant Staph. aureus Discharge Activity: Return to Normal Activity Call your doctor if you observe: Fever of 101 or Higher, Shortness of breath, Dizziness, Fainting spells, Swelling in the ankles, Chest pain, Increased palpitations (irregular heartbeat) Home Medications: Medications to take at Discharge Acetaminophen [Tylenol] 650 mg PO Q8H PRN PRN 05/25/18 Aspirin [Aspirin, Baby] 81 mg PO DAILY@0800 05/25/18 Donepezil HCl 10 mg PO DAILY 05/25/18 Escitalopram Oxalate [Lexapro] 10 mg PO DAILY 05/25/18 Fexofenadine HCl [Lisbeth Allergy] 180 mg PO DAILY 05/25/18 Memantine HCl [Namenda] 10 mg PO BID 05/25/18 Multivitamin [Daily Multiple Vitamin] 1 each PO DAILY 05/25/18 Potassium Chloride [K-Dur] 10 meq PO DAILY 05/25/18 Linezolid [Zyvox] 600 mg PO Q12H #20 tablet 05/30/18 Following Prescrptions Were Given to Patient: Linezolid [Zyvox] 600 mg PO Q12H #20 tablet Primary Care Physician: Eleazar Browne Chi, MD [Primary Care Provider] - Please follow up with your Primary Care Physician in: 3-5 days Disposition: Asstd Living/Non-Skill NH Minutes spent on discharge:: 35 Patient Condition:: Stable Medical Necessity - Tobacco Use Smoking Status: Never smoker Tobacco Use: Non-smoker Meaningful Use Info Meaningful Use Diagnoses (Choose all that apply): None applicable Code Visit Inpatient E&M: 76503 Disch Hosp
--- NOTE | 2018-05-30 12:15 | CASEMGMT ---
Social Work Note Pt is being discharged back to [facility] today. GAVIN faxed discharge instructions and medication list to [facility]. GAVIN arranged transportation via cot through [facility] for 1:30pm. Transportation form on SNF folder and copy on pt's chart. GAVIN placed a call to pt's daughter May and updated her that pt will be discharged on PO antibiotics now and is able to return to [facility]. May states she will be able to transport pt. GAVIN placed a call to [place] and canceled transportation. GAVIN placed a call to [facility] and updated staff that pt will be discharged back to [place] and pt's daughter will be transported. Plan: Return to [facility] today with pt's daughter transporting Carol Hays DIRECTOR INVESTMENT BANKING, THREAD MARKER
== END 2018-05-30 13:06 | disposition home or self-care (01) | DRG 871 ==
LOC: ED 05-26 02:54 → MS3 05-26 04:05
PROVIDERS: Family Medicine; Admitting Provider Internal Medicine; Emergency Provider Emergency Medicine; Family Provider Family Medicine Geriatric Medicine; PCP Family Medicine Geriatric Medicine; Visit Provider Family Medicine
DX: A41.02 Sepsis due to Methicillin resistant Staphylococcus aureus (principal); G93.41 Metabolic encephalopathy; N39.0 Urinary tract infection, site not specified; N17.9 Acute kidney failure, unspecified; E86.0 Dehydration; G30.9 Alzheimer's disease, unspecified; F02.80 Dementia in other diseases classified elsewhere, unspecified severity, without behavioral disturbance, psychotic disturbance, mood disturbance, and anxiety; Z66 Do not resuscitate; Z86.14 Personal history of Methicillin resistant Staphylococcus aureus infection; Z87.440 Personal history of urinary (tract) infections
CPT/HCPCS: 36415; 36569; 70450; 71045; 80048; 80053; 80202; 81001; 83605; 83735; 85025; 85610; 87040; 87077; 87086; 87088; 87149; 87186; 87493; 87804; 93005; 93306; 97110; 97162; 97166; 97530; 97535; 97802; 99283; J7030; J7050; Q9957; A4216

== ENCOUNTER → 2018-06-24 20:00 | Outpatient (REF) | payer MEDICARE, SELFPAY ==
[2018-05-26 04:38] VITALS: BMI 24.4
[2018-06-25 08:24] LABS: Color, Urine Yellow (Yellow); Glucose, Dipstick Normal (Normal); Ketone-Dipstick Negative (Negative); Leukocyte Esterase-Dipstick 500 /ul (Negative); Nitrite-Dipstick Positive (Negative); Occult Blood-Urine 250 /ul (Negative); Protein-Dipstick 100 mg/dl (Negative); Urine Bilirubin Dipstick Negative (Negative); Urine Clarity Cloudy (Clear); Urine Urobilinogen 1 mg/dl (Normal)
== END ==
LOC: OLS.DANBUR 20:00
PROVIDERS: Visit Provider Family Medicine Geriatric Medicine
DX: N39.0 Urinary tract infection, site not specified (principal)
CPT/HCPCS: 81002; 87086; 87088; 87186

== ENCOUNTER → 2018-07-11 | Outpatient (CLI) | payer MEDICARE, SELFPAY ==
[2018-05-26 04:38] VITALS: BMI 24.4
[2018-07-11 12:47] LABS: Absolute Lymphocyte Count 1.51 X10^3/ul (0.83-4.51); Absolute Neutrophil Count 2.9 X10^3/uL (2.0-7.7); Basophil# 0.05 X10^3/uL; Basophil% 0.9 % (0-1); Eosinophils% 1.8 % (0-5); Hemoglobin 14.1 g/dl (13.0-16.5); Lymphocyte # 1.51 X10^3/ul (4.0); Lymphocyte % 27.1 % (19-41); Mean Corp Hgb Conc 32.8 g/gl (32-36); Mean Corpuscular Hgb 29.7 pg (27.0-32.0); Mean Corpuscular Volume 90.7 fL (80-94); Mean Platelet Vol. 11.8 fl (6.2-12.0); Monocyte# 0.99 X10^3/uL; Monocyte% 17.8 % (0-10); Neutrophil # 2.91 X10^3/uL (2.7-7.7); Neutrophil % 52.2 % (47-70); POSITIVE COUNT NO; POSITIVE DIFFERENTIAL NO; POSITIVE MORPHOLOGY NO; Platelet Count 204 K/mm3 (150-450); RBC Distribution Width CV 16.1 % (11.6-14.6); RBC Distribution Width SD 52.2 fl (35.1-43.9); Red Blood Count 4.74 M/mm3 (4.6-6.2); White Blood Count 5.6 K/mm3 (4.4-11.0)
[2018-07-11 13:02] LABS: Vitamin D,25 Hydroxy 20.1 ng/mL (29.95-100.01)
[2018-07-11 13:08] LABS: BUN 20 mg/dL (7-18); Creatinine, Serum 1.24 mg/dL (0.70-1.30); Glucose 69 mg/dL (74-106)
[2018-07-11 13:09] LABS: ALB/GLOB Ratio 0.7 RATIO (0.9-2.4); AST(SGOT) 16 U/L (15-37); Alanine Aminotransfer ALT/SGPT 27 U/L (16-61); Albumin, Serum 3.4 g/dL (3.2-5.0); Alkaline Phosphatase 120 U/L (45-117); Anion Gap 3 (5-15); BUN/Creat Ratio 16.1 RATIO (10-20); Calcium,Total 8.7 mg/dL (8.5-10.1); Chloride 110 mmol/L (98-107); EST Glomerular Filtration Rate 60 mL/min (>60); Est Glom Filt Rate - Afr Amer 73 mL/min (>60); Globulin 4.6 g/dL (2.2-4.2); Potassium 4.1 mmol/L (3.5-5.1); Sodium Level 142 mmol/L (136-145); Thyroid Stim Hormone (TSH) 1.04 uIU/mL (0.358-3.74)
== END | disposition home or self-care (01) ==
PROVIDERS: Family Provider Family Medicine Geriatric Medicine; PCP Family Medicine Geriatric Medicine; Visit Provider Family Medicine Geriatric Medicine
DX: E55.9 Vitamin D deficiency, unspecified (principal); R53.83 Other fatigue
CPT/HCPCS: 36415; 80053; 82306; 84443; 85025

== ENCOUNTER → 2019-08-14 06:15 | Outpatient (REF) | payer MEDICARE, SELFPAY ==
[2018-05-26 04:38] VITALS: BMI 24.4
[2019-08-14 07:39] LABS: Hemoglobin 14.2 g/dL (13.0-16.5); Mean Corp Hgb Conc 31.6 g/dL (32-36); Mean Corpuscular Hgb 30.1 pg (27.0-32.0); Mean Corpuscular Volume 95.3 fL (80-94); Mean Platelet Vol. 11.5 fl (6.2-12.0); Platelet Count 159 K/mm3 (150-450); RBC Distribution Width CV 14.6 % (11.6-14.6); RBC Distribution Width SD 51.3 fl (35.1-43.9); Red Blood Count 4.72 M/mm3 (4.6-6.2); White Blood Count 7.9 K/mm3 (4.4-11.0)
[2019-08-14 08:06] LABS: ALB/GLOB Ratio 0.8 RATIO (0.9-2.4); AST(SGOT) 14 U/L (15-37); Alanine Aminotransfer ALT/SGPT 30 U/L (16-61); Alkaline Phosphatase 79 U/L (45-117); Anion Gap 7 (5-15); BUN 30 mg/dL (7-18); BUN/Creat Ratio 25.6 RATIO (10-20); Calcium,Total 8.4 mg/dL (8.5-10.1); Chloride 110 mmol/L (98-107); Cholesterol 167 mg/dL (200); Creatinine, Serum 1.17 mg/dL (0.70-1.30); EST Glomerular Filtration Rate 64 mL/min (>60); Est Glom Filt Rate - Afr Amer 78 mL/min (>60); Glucose 84 mg/dL (74-106); High Density Lipoprotein 42 mg/dL; Potassium 4.2 mmol/L (3.5-5.1); Sodium Level 143 mmol/L (136-145); Thyroid Stim Hormone (TSH) 1.38 uIU/mL (0.358-3.74); Triglycerides 86 mg/dL; Very Low Density Lipoprotein 17 mg/dL (5-40)
== END ==
LOC: OLS.DANBUR 06:15
PROVIDERS: PCP Family Medicine Geriatric Medicine; Visit Provider Family Medicine Geriatric Medicine
DX: E78.5 Hyperlipidemia, unspecified (principal); G30.9 Alzheimer's disease, unspecified; E87.6 Hypokalemia
CPT/HCPCS: 36415; 80053; 80061; 84443; 85027

== ENCOUNTER → 2019-09-12 10:30 | Outpatient (REF) | payer MEDICARE, SELFPAY ==
[2018-05-26 04:38] VITALS: BMI 24.4
[2019-09-12 13:30] LABS: Color, Urine Yellow (Yellow); Glucose, Dipstick Normal (Normal); Ketone-Dipstick Negative (Negative); Leukocyte Esterase-Dipstick 500 /ul (Negative); Nitrite-Dipstick Negative (Negative); Occult Blood-Urine 250 /ul (Negative); Protein-Dipstick 100 mg/dl (Negative); Specific Gravity, Urine 1.015 (1.002-1.030); Urine Bilirubin Dipstick 1 mg/dL (Negative); Urine Clarity Sl. Cloudy (Clear); Urine Urobilinogen Normal (Normal); Urine pH 6.5 (5.0 - 8.0)
== END ==
LOC: OLS.DANBUR 10:30
PROVIDERS: PCP Family Medicine Geriatric Medicine; Visit Provider Family Medicine Geriatric Medicine
DX: N39.0 Urinary tract infection, site not specified (principal)
CPT/HCPCS: 81002; 87086; 87088; 87186

== ENCOUNTER → 2019-10-14 05:00 | Outpatient (REF) | payer MEDICARE, SELFPAY ==
[2018-05-26 04:38] VITALS: BMI 24.4
[2019-10-14 09:26] LABS: Color, Urine Yellow (Yellow); Glucose, Dipstick Normal (Normal); Ketone-Dipstick Negative (Negative); Leukocyte Esterase-Dipstick 500 /ul (Negative); Nitrite-Dipstick Positive (Negative); Occult Blood-Urine 25 /ul (Negative); Protein-Dipstick 15 mg/dl (Negative); Urine Bilirubin Dipstick Negative (Negative); Urine Clarity Sl. Cloudy (Clear); Urine Urobilinogen 1 mg/dl (Normal)
== END ==
LOC: OLS.DANBUR 05:00
PROVIDERS: PCP Family Medicine Geriatric Medicine; Visit Provider Family Medicine Geriatric Medicine
DX: N39.0 Urinary tract infection, site not specified (principal)
CPT/HCPCS: 81002; 87086; 87088; 87186

== ENCOUNTER → 2020-08-25 19:28 | Emergency (ER) | payer MEDICARE, SELFPAY ==
[2018-05-26 04:38] VITALS: BMI 24.4
[2020-08-25 19:28] VITALS: BP 93/71; PULSE 93; RESP 18; TEMP 37.1; O2SAT 94; BMI 25.0
--- NOTE | 2020-08-25 21:11 | EDS_ITS ---
HPI History of Present Illness Chief Complaint: Fall Narrative Narrative: [place] he apparently was trying to reach for something during a game he slid and fell forward into the chair in front of him injuring his chin. No neck pain head injury or any other injuries. Patient has dementia and cannot tell me a review of systems or any complaints. [facility] Medical History (Updated 08/25/20 @ 21:[address] lEier Blanco MD) Dementia Depression Home Medications acetaminophen [Tylenol] 650 mg PO Q8H PRN PRN 05/25/18 [History Last Taken Unknown] aspirin 81 mg PO DAILY@0800 05/25/18 [History Last Taken Unknown] donepezil 10 mg PO DAILY 05/25/18 [History Last Taken Unknown] escitalopram oxalate 10 mg PO DAILY 05/25/18 [History Last Taken Unknown] fexofenadine [Lisbeth Allergy] 180 mg PO DAILY 05/25/18 [History Last Taken Unknown] memantine [Namenda] 10 mg PO BID 05/25/18 [History Last Taken Unknown] multivitamin [Daily Multiple] 1 ea PO DAILY 05/25/18 [History Last Taken Unknown] potassium chloride 10 meq PO DAILY 05/25/18 [History Last Taken Unknown] linezolid 600 mg PO Q12H #20 tablet 05/30/18 [Rx Last Taken Unknown] linezolid 600 mg PO Q12H #20 tablet 05/30/18 [Rx Last Taken Unknown] Allergy/AdvReac Type Severity Reaction Status Date / Time No Known Allergies Allergy Verified 08/25/20 19:30 Social History Smoking Status: Never smoker ROS ROS ED ROS Narrative Past medical history: Reviewed, includes dementia, history of tachycardia otherwise overall unremarkable past history Medications: Reviewed Social history: ECF patient Review of systems: Unable secondary to patient's dementia EXAM Physical Exam Narrative Exam Narrative: Physical exam Vitals reviewed General: Does not appear in significant distress, no obvious injuries. He is pleasantly demented. HEENT: 4 cm chin laceration. He has a normal dental bite. He has a strong bite with no pain. No nasal septal hematoma or other signs of facial injury. Head: No head injury Eyes: Extraocular movements intact Neck: No C-spine tenderness with full range of motion Heart: Regular rate normal pulses Chest wall: No chest wall pain Lungs clear lungs bilaterally with normal inspiration and expiration without tachypnea GI: Abdomen is soft and nontender there is no mass no guarding no abdominal wall contusion : Stable pelvis Musculoskeletal: Moves all extremities without any signs of trauma Skin: No abrasions or laceration Neurological: Patient is alert, oriented to person only, with no focal deficits normal strength of the upper extremities. Normal sensation Const Vital Signs: 08/25/20 19:28 Temperature 98.7 F Temperature Source Temporal Pulse Rate 93 Respiratory Rate 18 Blood Pressure 93/71 Blood Pressure Mean 78 Pulse Ox 94 Oxygen Delivery Method Room Air PROC Procedures Lacerations Chin laceration: Comment: Verbal consent obtained from daughter. 1% lidocaine about 5 mL Total of 6 of the 5-0 nylon sutures were placed with good wound approximation. Patient tolerated procedure well. MDM MDM MDM Narrative Medical decision making narrative: Patient had a very short fall less than a foot, he did not fall on the ground he hit the chair in front of him therefore I do not believe he had any significant trauma to warrant any kind of imaging. He appears well he was sutured and I will discharge him in stable condition. Discharge Plan Triage Chief Complaint: Fall ED Provider: Elier Blanco Dx/Rx/DC Orders Clinical Impression: Chin laceration Instructions: ED Laceration Face Suture or ... Prescriptions: No Action multivitamin [Daily Multiple] 1 EACH tablet 1 ea PO DAILY RF: 0 donepezil 10 MG tablet 10 mg PO DAILY RF: 0 fexofenadine [Lisbeth Allergy] 180 MG tablet 180 mg PO DAILY RF: 0 aspirin 81 MG Tab.Chew 81 mg PO DAILY@0800 RF: 0 escitalopram oxalate 10 MG tablet 10 mg PO DAILY RF: 0 potassium chloride 10 MEQ tablet 10 meq PO DAILY RF: 0 memantine [Namenda] 10 MG tablet 10 mg PO BID RF: 0 acetaminophen [Tylenol] 325 MG capsule 650 mg PO Q8H PRN PRN (Reason: Pain) RF: 0 linezolid 600 MG tablet 600 mg PO Q12H Qty: 20 RF: 0 linezolid 600 MG tablet 600 mg PO Q12H Qty: 20 RF: 0 Primary Care Provider: Madhu Coughlin Referrals: Madhu Coughlin MD [Primary Care Provider] - (5 days for suture removal) Disposition Disposition: Home, Self Care
--- NOTE | 2020-08-25 21:55 | ED.RN ---
REPORT CALLED TO ANKIT ANGELO EDISON
== END | disposition home or self-care (01) ==
PROVIDERS: Emergency Provider Emergency Medicine; PCP Family Medicine
DX: S01.81XA Laceration without foreign body of other part of head, initial encounter (principal); F03.90 Unspecified dementia, unspecified severity, without behavioral disturbance, psychotic disturbance, mood disturbance, and anxiety; F32.9 Major depressive disorder, single episode, unspecified; Z79.899 Other long term (current) drug therapy; W26.8XXA Contact with other sharp object(s), not elsewhere classified, initial encounter; Y93.89 Activity, other specified; Y92.129 Unspecified place in nursing home as the place of occurrence of the external cause; Y99.8 Other external cause status
CPT/HCPCS: 12013; 99282

== ENCOUNTER → 2021-01-03 05:00 | Outpatient (REF) | payer MEDICARE, SELFPAY ==
[2021-01-03 07:36] LABS: Absolute Lymphocyte Count 1.75 X10^3/uL (0.83-4.51); Absolute Neutrophil Count 4.3 X10^3/uL (2.0-7.7); Basophil# 0.05 X10^3/uL; Basophil% 0.7 % (0-1); Eosinophils% 2.7 % (0-5); Hematocrit 42.4 % (40-54); Hemoglobin 13.9 g/dL (13.0-16.5); Lymphocyte # 1.75 X10^3/ul (0.83-4.51); Lymphocyte % 23.6 % (19-41); Mean Corp Hgb Conc 32.8 g/dL (32-36); Mean Corpuscular Hgb 29.9 pg (27.0-32.0); Mean Corpuscular Volume 91.2 fL (80-94); Mean Platelet Vol. 11.7 fl (6.2-12.0); Monocyte# 1.07 X10^3/uL; Monocyte% 14.5 % (0-10); NRBC Flagged by Analyzer 0 % (0-5); Neutrophil # 4.32 X10^3/uL (2.7-7.7); Neutrophil % 58.4 % (47-70); Platelet Count 158 K/mm3 (150-450); RBC Distribution Width CV 14.2 % (11.6-14.6); Red Blood Count 4.65 M/mm3 (4.6-6.2); White Blood Count 7.4 K/mm3 (4.4-11.0)
[2021-01-03 07:48] LABS: ALB/GLOB Ratio 0.7 RATIO (0.9-2.4); AST(SGOT) 18 U/L (15-37); Alanine Aminotransfer ALT/SGPT 30 U/L (16-61); Albumin, Serum 2.7 g/dL (3.2-5.0); Alkaline Phosphatase 82 U/L (45-117); Anion Gap 4 (5-15); BUN 16 mg/dL (7-18); BUN/Creat Ratio 14.2 RATIO (10-20); Calcium,Total 8.3 mg/dL (8.5-10.1); Chloride 113 mmol/L (98-107); Creatinine, Serum 1.13 mg/dL (0.70-1.30); EST Glomerular Filtration Rate 67 mL/min (>60); Est Glom Filt Rate - Afr Amer 80 mL/min (>60); Globulin 4.1 g/dL (2.2-4.2); Glucose 84 mg/dL (74-106); Potassium 4.4 mmol/L (3.5-5.1); Protein, Total 6.8 g/dL (6.4-8.2); Sodium Level 143 mmol/L (136-145)
== END ==
LOC: OLS.DANBUR 05:00
PROVIDERS: PCP Family Medicine; Visit Provider Family Medicine
DX: N39.0 Urinary tract infection, site not specified (principal); F03.90 Unspecified dementia, unspecified severity, without behavioral disturbance, psychotic disturbance, mood disturbance, and anxiety; E87.6 Hypokalemia
CPT/HCPCS: 36415; 80053; 85025

== ENCOUNTER 2021-05-18 05:00 | Outpatient (REF) | payer MEDICARE, SELFPAY ==
[2021-05-18 08:41] LABS: Hematocrit 41.5 % (40-54); Hemoglobin 13.9 g/dL (13.0-16.5); Mean Corp Hgb Conc 33.5 g/dL (32-36); Mean Corpuscular Hgb 30.4 pg (27.0-32.0); Mean Corpuscular Volume 90.8 fL (80-94); Mean Platelet Vol. 12.2 fl (6.2-12.0); Platelet Count 153 K/mm3 (150-450); RBC Distribution Width CV 15.6 % (11.6-14.6); RBC Distribution Width SD 51.4 fl (35.1-43.9); Red Blood Count 4.57 M/mm3 (4.6-6.2); White Blood Count 18.1 K/mm3 (4.4-11.0)
[2021-05-18 09:03] LABS: ALB/GLOB Ratio 0.5 RATIO (0.9-2.4); AST(SGOT) 17 U/L (15-37); Alanine Aminotransfer ALT/SGPT 17 U/L (16-61); Albumin, Serum 2.7 g/dL (3.2-5.0); Alkaline Phosphatase 80 U/L (45-117); Anion Gap 4 (5-15); BUN 34 mg/dL (7-18); BUN/Creat Ratio 21.8 RATIO (10-20); Chloride 109 mmol/L (98-107); Creatinine, Serum 1.56 mg/dL (0.70-1.30); EST Glomerular Filtration Rate 46 mL/min (>60); Est Glom Filt Rate - Afr Amer 55 mL/min (>60); Glucose 120 mg/dL (74-106); Potassium 3.7 mmol/L (3.5-5.1); Protein, Total 7.7 g/dL (6.4-8.2); Sodium Level 140 mmol/L (136-145)
== END 2021-05-18 23:59 | disposition home or self-care (01) ==
LOC: OLS.DANBUR 05:00
PROVIDERS: PCP Family Medicine; Visit Provider Family Medicine
DX: I10 Essential (primary) hypertension (principal); D64.9 Anemia, unspecified
CPT/HCPCS: 36415; 80053; 85027

== ENCOUNTER 2021-05-18 08:02 | Inpatient (IN) | payer MEDICARE, SELFPAY ==
[2021-05-18 08:03] VITALS: BP 154/97; PULSE 73; RESP 18; TEMP 37.2; O2SAT 94; BMI 32.2
--- NOTE | 2021-05-18 08:18 | RAD_ITS ---
STUDY: X-RAY CHEST REASON FOR EXAM: Male, 80 years old. Fall TECHNIQUE: Single AP portable view of the chest. COMPARISON: Comparison is made with prior study of 05/25/2018. FINDINGS: EKG electrodes are seen. Mild increased markings at the lung bases suggestive of bibasilar linear atelectasis. There is no demonstrated pleural abnormality. There is moderate cardiac enlargement. Normal mediastinum and alicia. Normal visualized pulmonary arteries. There is atherosclerotic tortuosity of the aortic arch and descending thoracic aorta. There are diffuse degenerative changes of the visualized thoracic spine. Normal visualized ribs, clavicles, and shoulders. There is no demonstrated abnormality of the visualized soft tissue structures of the upper abdomen. RAD/Chest 1 View (Portable) IMPRESSION: Cardiomegaly. Mild increased markings at the lung bases suggestive of linear atelectasis. Electronically Signed: Seng Avilez MD at 9:01 EDT ,
--- NOTE | 2021-05-18 08:18 | RAD_ITS ---
STUDY: X-RAY - PELVIS AND RIGHT HIP REASON FOR EXAM: Male, 80 years old. Fall TECHNIQUE: 4 views of the pelvis and hip. COMPARISON: None. FINDINGS: Large amount of fecal material is seen in the colon. There are multiple calcified phleboliths. Normal bilateral iliac wings, sacroiliac joints and visualized sacrum. Normal bilateral superior and inferior pubic rami. Normal pubic symphysis. Normal bilateral ischial tuberosities. Comminuted nondisplaced fracture of the intertrochanteric region of the proximal right femur. RAD/HIP, UNI W/ Pelvis 2-3 Views IMPRESSION: Nondisplaced comminuted fracture of the intertrochanteric region of the proximal right femur. Electronically Signed: Seng Avilez MD at 9:02 EDT ,
--- NOTE | 2021-05-18 08:18 | CT_ITS ---
STUDY: CT BRAIN WITHOUT CONTRAST REASON FOR EXAM: Male, 80 years old. An injury due to a fall. History of Alzheimer''s. RADIATION DOSAGE (If Supplied By Facility): CTDIvol = ( 44.99 ) mGy, DLP = ( 1659.71 ) mGycm TECHNIQUE: Transaxial CT imaging of the brain was performed without administration of intravenous contrast material. Individualized dose optimization techniques were used for this CT. COMPARISON: Comparison is made with prior study dated 05/26/2018. FINDINGS: Normal soft tissue structures. Normal calvarium. There is moderate cerebral atrophy with widening of the extra-axial spaces and ventricular dilatation. There are areas of decreased attenuation within the white matter tracts of the supratentorial brain, consistent with microvascular disease changes. Normal basal ganglia and thalami. Normal brainstem. There is moderate cerebellar atrophy. There is no intracranial hemorrhage. There are no findings of an acute ischemic infarction. Calcified plaques at the level of the cavernous portions of the internal carotid arteries bilaterally. Opacification of the right maxillary sinus. CT/Brain/Head without Contrast IMPRESSION: Chronic involutional changes of the brain. Electronically Signed: Seng Avilez MD at 8:56 EDT ,
--- NOTE | 2021-05-18 08:19 | EKG12_ITS ---
Test Reason : FALL Blood Pressure : / mmHG Vent. Rate : 068 BPM Atrial Rate : 068 BPM P-R Int : 164 ms QRS Dur : 158 ms QT Int : 434 ms P-R-T Axes : 050 -31 103 degrees QTc Int : 461 ms Normal sinus rhythm with sinus arrhythmia Left axis deviation Non-specific intra-ventricular conduction block Abnormal ECG Confirmed by EDWARD HOPPER, LAKEISHA ([id number]), continuity editor CECY PAULA ([id number]) on 05/20/2021 8:42:01 AM Referred By: HAILEY Confirmed By:LAKEISHA LEON MD
--- NOTE | 2021-05-18 08:21 | EDS_ITS ---
HPI History of Present Illness Chief Complaint: Lower Extremity Injury Informant: family, EMS and SNF Onset/Context/Timing Onset: Today Narrative Narrative: Patient presents after unwitnessed fall. Patient is currently at intermediate with a history of dementia. Patient reportedly had been seen this morning in his wheelchair. They found him on the ground between his wheelchair and sofa. They believe he try to self transfer and fell. Right leg is noted to be shortened and externally rotated. Per family he was to be started on a Z-Nick today secondary to upper respiratory infection. [facility] Medical History Alzheimer disease Dementia Depression Hyperlipidemia Osteoarthritis Home Medications acetaminophen [Tylenol] 650 mg PO Q8H PRN PRN 05/25/18 [History Last Taken Unknown] aspirin 81 mg PO DAILY@0800 05/25/18 [History Last Taken Unknown] donepezil 10 mg PO DAILY 05/25/18 [History Last Taken Unknown] escitalopram oxalate 10 mg PO DAILY 05/25/18 [History Last Taken Unknown] fexofenadine [Lisbeth Allergy] 60 mg PO DAILY 05/25/18 [History Last Taken Unknown] memantine [Namenda] 10 mg PO BID 05/25/18 [History Last Taken Unknown] potassium chloride 10 meq PO DAILY 05/25/18 [History Last Taken Unknown] azithromycin 250 mg PO DAILY 05/18/21 [History Last Taken Unknown] sennosides-docusate sodium [Senna-S] 1 tab PO BID 05/18/21 [History Last Taken Unknown] Allergy/AdvReac Type Severity Reaction Status Date / Time No Known Allergies Allergy Verified 05/18/21 08:03 Social History Smoking Status: Never smoker ROS ROS ED ROS Narrative Unable to obtain secondary to baseline dementia EXAM Physical Exam Const Vital Signs: 05/18/21 08:03 05/18/21 09:49 Temperature 99.0 F Temperature Source Temporal Pulse Rate 73 78 Respiratory Rate 18 16 Blood Pressure 154/97 H 131/66 H Blood Pressure Mean 116 87 Pulse Ox 94 96 Oxygen Delivery Method Room Air Room Air Positive well nourished and well developed General Appearance ED: well developed HEENT Reports moist mucous membranes Negative for trauma Eyes EOMs intact bilaterally Neck supple Chest Wall inspection of chest normal and palpation of chest normal Resp normal respiratory effort and clear to auscultation bilaterally Cardio regular rate and regular rhythm GI non-tender Palpation: soft Extremity Extremity Narrative: Right lower extremity slightly shortened and externally rotated. Mild tenderness of the right hip. Strong distal pulses. Neuro Sensorium / Orientation: alert Skin no rashes or lesions noted MDM MDM MDM Narrative Medical decision making narrative: Patient sent for head CT along with x-rays of the pelvis and right hip and chest x-ray. Lab work and urinalysis ordered. Lab Data Attestation: I reviewed the patient's lab results. Labs: Laboratory Results - last 24 hr 05/18/21 05/18/21 05/18/21 08:20 08:20 09:35 WBC 19.3 H RBC 4.51 L Hgb 13.7 Hct 39.9 L MCV 88.5 MCH 30.4 MCHC 34.3 RDW Std Deviation 49.8 H RDW Coeff of Anastacia 15.3 H Plt Count 152 MPV 12.0 Immature Gran % (Auto) 0.400 Neut % (Auto) 82.9 H Lymph % (Auto) 5.3 L [place] % (Auto) 11.1 H Eos % (Auto) 0.1 Baso % (Auto) 0.2 Absolute Neuts (auto) 16.1 H Absolute Lymphs (auto) 1.02 Nucleated RBC % 0 [address] Path Review May foll Sodium 143 Potassium 4.1 Chloride 109 H Carbon Dioxide 27.0 Anion Gap 7 BUN 36 H Creatinine 1.61 H Estim Creat Clear Calc 40.84 Est GFR (MDRD) Af Amer 53 L Est GFR (MDRD) Non-Af 44 L BUN/Creatinine Ratio 22.4 H Glucose 126 H Calcium 8.6 Urine Color Yellow Urine Clarity Clear Urine pH 5.0 Ur Specific [place] 1.020 Urine Protein 100 H Urine Glucose (UA) Normal Urine Ketones Negative Urine Occult Blood 250 H Urine Nitrite Positive H Urine Bilirubin Negative Urine Urobilinogen 1 H Ur Leukocyte Esterase 100 H Urine RBC 0-5 SEEN Urine WBC 10-25 SEEN Ur Squamous Epith Cells 0 SEEN Urine Bacteria 3+ Urine Mucus 0 SEEN Radiography Chest X-Ray - ED: 1 View, Read by ED Physician, Chronic Changes and No Infiltrates Diagnostic Testing: Clinical Impression(s) from Imaging Studies Brain CT 05/18/21 08:18 IMPRESSION: Chronic involutional changes of the brain. Electronically Signed: Seng Avilez MD at 8:56 EDT , Chest X-Ray 05/18/21 08:18 IMPRESSION: Cardiomegaly. Mild increased markings at the lung bases suggestive of linear atelectasis. Electronically Signed: Seng Avilez MD at 9:01 EDT , Hip/Pelvis X-Ray 05/18/21 08:18 IMPRESSION: Nondisplaced comminuted fracture of the intertrochanteric region of the proximal right femur. Electronically Signed: Seng Avilez MD at 9:02 EDT , EKG Initial EKG: Attestation: I personally reviewed and interpreted this EKG as follows: Interpretation: Sinus Rhythm (Sinus at 68 with sinus arrhythmia. Nonspecific lateral T wave flattening.) Treatment and Re-Evaluation Narrative: Patient's head CT is unremarkable. Chest x-ray per my interpretation reveals no infiltrate. Pelvis and right hip x-ray reveals a right intertrochanteric hip fracture. These test results are discussed with daughter at bedside and patient is given fentanyl and Zofran for pain. Lab work reveals elevated white count at 19.3. Urinalysis does show infection with 3+ bacteria. Blood and urine cultures have been obtained. Patient is ordered IV Rocephin. I will speak with both orthopedics and hospitalist regarding admission. Discharge Plan Triage Chief Complaint: Lower Extremity Injury ED Provider: Chelo Hay Dx/Rx/DC Orders Clinical Impression: Fracture of right hip, UTI (urinary tract infection) Prescriptions: No Action donepezil 10 MG tablet 10 mg PO DAILY RF: 0 fexofenadine [Lisbeth Allergy] 180 MG tablet 60 mg PO DAILY RF: 0 aspirin 81 MG tablet,chewable 81 mg PO DAILY@0800 RF: 0 escitalopram oxalate 10 MG tablet 10 mg PO DAILY RF: 0 potassium chloride 10 MEQ tablet 10 meq PO DAILY RF: 0 memantine [Namenda] 10 MG tablet 10 mg PO BID RF: 0 acetaminophen [Tylenol] 325 MG capsule 650 mg PO Q8H PRN PRN (Reason: Pain) RF: 0 azithromycin 250 mg tablet 250 mg PO DAILY RF: 0 sennosides-docusate sodium [Senna-S] 8.6-50 mg tablet 1 tab PO BID RF: 0 Primary Care Provider: Madhu Coughlin Referrals: Madhu Coughlin MD [Primary Care Provider] - Disposition Disposition: Acute Care Hospital [facility] [place]
[2021-05-18 08:29] LABS: Absolute Lymphocyte Count 1.02 X10^3/uL (0.83-4.51); Absolute Neutrophil Count 16.1 X10^3/uL (2.0-7.7); Basophil# 0.03 X10^3/uL; Basophil% 0.2 % (0-1); Eosinophil# 0.01 X10^3/uL; Eosinophils% 0.1 % (0-5); Hematocrit 39.9 % (40-54); Hemoglobin 13.7 g/dL (13.0-16.5); Lymphocyte # 1.02 X10^3/ul (0.83-4.51); Lymphocyte % 5.3 % (19-41); Mean Corp Hgb Conc 34.3 g/dL (32-36); Mean Corpuscular Hgb 30.4 pg (27.0-32.0); Mean Corpuscular Volume 88.5 fL (80-94); Monocyte# 2.14 X10^3/uL; Monocyte% 11.1 % (0-10); NRBC Flagged by Analyzer 0 % (0-5); Neutrophil # 16.06 X10^3/uL (2.7-7.7); Neutrophil % 82.9 % (47-70); POSITIVE DIFFERENTIAL YES; Platelet Count 152 K/mm3 (150-450); RBC Distribution Width CV 15.3 % (11.6-14.6); RBC Distribution Width SD 49.8 fl (35.1-43.9); Red Blood Count 4.51 M/mm3 (4.6-6.2); White Blood Count 19.3 K/mm3 (4.4-11.0)
[2021-05-18 08:36] LABS: Differential Indicated SCAN CRITERIA MET
[2021-05-18 08:47] LABS: Anion Gap 7 (5-15); BUN 36 mg/dL (7-18); BUN/Creat Ratio 22.4 RATIO (10-20); Calcium,Total 8.6 mg/dL (8.5-10.1); Chloride 109 mmol/L (98-107); Creatinine, Serum 1.61 mg/dL (0.70-1.30); EST Glomerular Filtration Rate 44 mL/min (>60); Est Glom Filt Rate - Afr Amer 53 mL/min (>60); Estimated Creatinine Clearance 40.84 ml/min; Glucose 126 mg/dL (74-106); Potassium 4.1 mmol/L (3.5-5.1); Sodium Level 143 mmol/L (136-145)
[2021-05-18] MEDS: Ondansetron 4 MG/2 ML Vial IV (09:16)
[2021-05-18] MEDS: fentaNYL 100 MCG/2 ML Ampul 25 MCG IV (09:16)
[2021-05-18] MEDS: 0.9% Normal Saline 1,000 ML 150 ML IV ×3 (09:19→21:42)
[2021-05-18 09:45] LABS: Mucous, Urine 0 SEEN /hpf (<or=2+); Squamous Epithelial Cells - UA 0 SEEN /hpf (0-5)
[2021-05-18 09:49] VITALS: BP 131/66; PULSE 78; RESP 16; O2SAT 96
[2021-05-18 09:53] LABS: Color, Urine Yellow (Yellow); Glucose, Dipstick Normal (Normal); Ketone-Dipstick Negative (Negative); Leukocyte Esterase-Dipstick 100 /ul (Negative); Nitrite-Dipstick Positive (Negative); Occult Blood-Urine 250 /ul (Negative); Protein-Dipstick 100 mg/dl (Negative); Urine Bilirubin Dipstick Negative (Negative); Urine Clarity Clear (Clear); Urine Urobilinogen 1 mg/dl (Normal)
[2021-05-18 10:18] LABS: Bacteria 3+ /hpf (None Seen); Red Blood Cells-Urine 0-5 SEEN /hpf (0-5); White Blood Cells 10-25 SEEN /hpf (0-5)
--- NOTE | 2021-05-18 11:00 | NURSING ---
HOSPITALIST FOR DR FAIR
[2021-05-18] MEDS: Ceftriaxone 1 GM/50 ML BAG IV (11:02)
--- NOTE | 2021-05-18 11:04 | NURSING ---
MED SURG TERELETSKY RT HIP FX, UTI
--- NOTE | 2021-05-18 11:22 | EKG12_ITS ---
Test Reason : Blood Pressure : / mmHG Vent. Rate : 108 BPM Atrial Rate : 093 BPM P-R Int : 000 ms QRS Dur : 152 ms QT Int : 378 ms P-R-T Axes : 000 -50 111 degrees QTc Int : 506 ms Atrial fibrillation Left axis deviation Left bundle branch block Abnormal ECG When compared with ECG of 18-MAY-2021 08:28, MANUAL COMPARISON REQUIRED, DATA IS UNCONFIRMED Confirmed by SHELBY HOPPER, SUDHAKAR ([id number]), staff editor CECY PAULA ([id number]) on 05/24/2021 11:16:18 AM Referred By: EDUIN Confirmed By:SUDHAKAR RYAN MD
[2021-05-18 11:26] VITALS: BP 137/84; PULSE 70; RESP 20; TEMP 36.6; O2SAT 94
[2021-05-18 11:50] VITALS: BMI 31.4
[2021-05-18 12:32] VITALS: BP 126/90; PULSE 90; RESP 16; TEMP 36.7; O2SAT 93
--- NOTE | 2021-05-18 12:43 | NURSING ---
called Oswaldo - request COVID, FLU and POA information to be faxed to [facility]. per Staff pt is a good eater may require some Assist with eating. mostly non-verbal will occasionally give Yes or No answers
--- NOTE | 2021-05-18 12:45 | HP.PCM.HOS_ITS ---
Documented by User: Man DURHAM 05/18/21 13:41 HPI - General General Date of Admission: 05/18/21 Date of Service: 05/18/21 Chief Complaint: Fall HPI Narrative ISAI FINNEY is a 80-year-old male who presents to the ED at [facility] on 05/18/2021 with a chief complaint of fall at assisted living facility. Patient suffers from Alzheimer's dementia and is not able to provide history, history obtained from ED physician and EMS squad. Patient was found lying on the floor at assisted living facility after patient suffered a fall out of his wheelchair, fall was not observed. It was believed that there was no loss of consciousness, however cannot be certain. Patient did not appear in a cute distress and did not verbalize any complaints. Vital signs are stable, patient is afebrile. CBC WBC is elevated at 19,000, hemoglobin is 13.7 and platelets are 152,000. BMP shows sodium at 143, potassium of 4.1, chloride at 109, bicarb at 27, creatinine at 1.61 and BUN of 36. UA obtained and demonstrated yellow clear urine with positive nitrites, 100 leukocyte esterase, 10-25 urine WBCs and 3+ bacteria. Chest x-ray obtained and demonstrates mild increased markings at the lung bases suggestive of linear atelectasis. X-ray of the hip/pelvis demonstrates nondisplaced comminuted fracture of the intertrochanteric region of the right proximal femur. Brain CT obtained and demonstrated chronic involutional changes of the brain, no acute trauma or bleed noted. Patient was given pain medications, fluids and initiated on empiric Rocephin in the ED. [facility] Medical History Alzheimer disease Dementia Depression Hyperlipidemia Osteoarthritis Home Medications acetaminophen [Tylenol] 650 mg PO Q8H PRN PRN 05/25/18 [History Last Taken U nknown] aspirin 81 mg PO DAILY@0800 05/25/18 [History Last Taken Unknown] donepezil 10 mg PO DAILY 05/25/18 [History Last Taken Unknown] escitalopram oxalate 10 mg PO DAILY 05/25/18 [History Last Taken Unknown] fexofenadine [Lisbeth Allergy] 60 mg PO DAILY 05/25/18 [History Last Taken Unknown] memantine [Namenda] 10 mg PO BID 05/25/18 [History Last Taken Unknown] potassium chloride 10 meq PO DAILY 05/25/18 [History Last Taken Unknown] azithromycin 250 mg PO DAILY 05/18/21 [History Last Taken Unknown] sennosides-docusate sodium [Senna-S] 1 tab PO BID 05/18/21 [History Last Taken Unknown] Allergy/AdvReac Type Severity Reaction Status Date / Time No Known Allergies Allergy Verified 05/18/21 08:03 Family History unable to obtain unable to obtain Surgical History unable to obtain unable to obtain Social History Smoking Status: Never smoker ROS Review of Systems ROS Unobtainable: due to mental status Vital Signs Vital Signs Vital Signs: 05/18/21 08:03 05/18/21 09:49 05/18/21 11:26 Temperature 99.0 F 98 F Temperature Source Temporal Temporal Pulse Rate 73 78 70 Respiratory Rate 18 16 20 H Blood Pressure 154/97 H 131/66 H 137/84 H Blood Pressure Mean 116 87 101 Blood Pressure Source Blood Pressure Position Blood Pressure Location Pulse Ox 94 96 94 Oxygen Delivery Method Room Air Room Air Room Air 05/18/21 12:32 Temperature 98.1 F Temperature Source Oral Pulse Rate 90 Respiratory Rate 16 Blood Pressure 126/90 H Blood Pressure Mean 102 Blood Pressure Source Monitor Blood Pressure Position Semi-Fowlers Blood Pressure Location Right Arm Pulse Ox 93 Oxygen Delivery Method Room Air Weight Weight: 232 lb Body Mass Index (BMI) 31.4 Physical Exam Const Constitutional Narrative: Patient suffers from Alzheimer's dementia and is aphasic at baseline. HEENT normocephalic and head/scalp atraumatic Eyes EOMs intact bilaterally and conjunctivae normal Neck no lymphadenopathy, supple and no JVD Resp normal respiratory effort, no retractions and no use of accessory muscles Cardio regular rate, regular rhythm and no JVD GI normal to inspection, nondistended, normoactive bowel sounds Extremity normal to inspection Skin no rashes or lesions noted Neuro CN's II-XII intact bilaterally Psych affect normal Results Lab / Micro Data Result Diagrams: 05/18/21 08:20 05/18/21 08:20 Labs: Laboratory Results - last 24 hr 05/18/21 08:20: WBC 19.3 H, RBC 4.51 L, Hgb 13.7, Hct 39.9 L, MCV 88.5, MCH 30.4, MCHC 34.3, RDW Std Deviation 49.8 H, RDW Coeff of Anastacia 15.3 H, Plt Count 152, MPV 12.0, Immature Gran % (Auto) 0.400, Neut % (Auto) 82.9 H, Lymph % (Auto) 5.3 L, [place] % (Auto) 11.1 H, Eos % (Auto) 0.1, Baso % (Auto) 0.2, Absolute Neuts (auto) 16.1 H, Absolute Lymphs (auto) 1.02, Nucleated RBC % 0, Diff Path Review June05/18/21 08:20: Sodium 143, Potassium 4.1, Chloride 109 H, Carbon Dioxide 27.0, Anion Gap 7, BUN 36 H, Creatinine 1.61 H, Estim Creat Clear Calc 40.84, Est GFR (MDRD) Af Amer 53 L, Est GFR (MDRD) Non-Af 44 L, BUN/Creatinine Ratio 22.4 H, Glucose 126 H, Calcium 8.6 05/18/21 09:35: Urine Color Yellow, Urine Clarity Clear, Urine pH 5.0, Ur Specific [place] 1.020, Urine Protein 100 H, Urine Glucose (UA) Normal, Urine Ketones Negative, Urine Occult Blood 250 H, Urine Nitrite Positive H, Urine Bilirubin Negative, Urine Urobilinogen 1 H, Ur Leukocyte Esterase 100 H, Urine RBC 0-5 SEEN, Urine WBC 10-25 SEEN, Ur Squamous Epith Cells 0 SEEN, Urine Bacteria 3+, Urine Mucus 0 SEEN Radiology Impression Brain CT 05/18/21 08:18 IMPRESSION: Chronic involutional changes of the brain. Electronically Signed: Seng Avilez MD at 8:56 EDT , Chest X-Ray 05/18/21 08:18 IMPRESSION: Cardiomegaly. Mild increased markings at the lung bases suggestive of linear atelectasis. Electronically Signed: Seng Avilez MD at 9:01 EDT , Hip/Pelvis X-Ray 05/18/21 08:18 IMPRESSION: Nondisplaced comminuted fracture of the intertrochanteric region of the proximal right femur. Electronically Signed: Seng Avilez MD at 9:02 EDT , Assessment & Plan Assessment/Plan (1) UTI (urinary tract infection): (2) Fracture of right hip: PLAN: Patient is a 80-year-old male who presents to the ED at [facility] on 05/18/2021 with a chief complaint of fall. Patient will be admitted for evaluation and management of right hip fracture secondary to fall. 1) fall with fracture of right hip Patient with unobserved fall out of wheelchair at assisted living facility. X- ray of the hip/pelvis demonstrated nondisplaced comminuted fracture of the intertrochanteric region of the right proximal femur. Chest x-ray and brain CT without any acute findings. Patient with an overall below average risk according to NSQIP surgical risk calculator. Plan; admit to [facility], orthopedic consulted in the ED surgery scheduled for 05/[address] Sevilla, PT/OT eval ordered, case management consult ordered, as needed medications ordered. 2) acute cystitis UA demonstrates yellow clear urine with positive nitrites, 250 leukocyte esterase, 10-25 urine WBCs and 3+ bacteria. Vital signs are stable and patient is afebrile. CBC was an elevated white count at 19,000. Will continue empiric Rocephin and obtain urine cultures. 3) LANDON on CKD stage IIIa Creatinine currently 1.6, likely due to dehydration, will initiate fluids and continue to monitor BMP. Medications not reconciled at time of dictation, charge nurse awaiting documentation from assisted living facility. We will reconcile medications when we have obtained appropriate documentation. CODE STATUS: DNRCC-A, no intubation. DVT prophylaxis - Heparin Patient seen by Man Avendaño PA-C, under the supervision of Dr. MalikZoila herring spent on patient care: 25 minutes. Documented by User: Dr. Jose Antonio Malik, 05/18/21 16:14 HPI - General General Date of Admission: 05/18/21 [facility] Medical History Alzheimer disease Dementia Depression Hyperlipidemia Osteoarthritis Home Medications acetaminophen [Tylenol] 650 mg PO Q8H PRN PRN 05/25/18 [History Last Taken Unknown] aspirin 81 mg PO DAILY@0800 05/25/18 [History Last Taken Unknown] donepezil 10 mg PO DAILY 05/25/18 [History Last Taken Unknown] escitalopram oxalate 10 mg PO DAILY 05/25/18 [History Last Taken Unknown] fexofenadine [Lisbeth Allergy] 60 mg PO DAILY 05/25/18 [History Last Taken Unknown] memantine [Namenda] 10 mg PO BID 05/25/18 [History Last Taken Unknown] potassium chloride 10 meq PO DAILY 05/25/18 [History Last Taken Unknown] azithromycin 250 mg PO DAILY 05/18/21 [History Last Taken Unknown] sennosides-docusate sodium [Senna-S] 1 tab PO BID 05/18/21 [History Last Taken Unknown] Allergy/AdvReac Type Severity Reaction Status Date / Time No Known Allergies Allergy Verified 05/18/21 08:03 Family History unable to obtain Surgical History unable to obtain Social History Smoking Status: Never smoker Results Lab / Micro Data Result Diagrams: 05/18/21 08:20 05/18/21 08:20 Charges/Coding Addendum Addendum: Patient was seen and examined independently of Man Avendaño, he was brought to the emergency room today for evaluation of right hip pain following an unwitnessed fall from his wheelchair at his assisted care facility. Patient has a history of Alzheimer's dementia and is nonverbal, medical information was obtained from patient's daughter. On examination he appeared older than his stated age, he was nonverbal, he was alert. Vital signs as documented. Skin warm and dry and without overt rashes. Neck without JVD, neck was supple, trachea midline, thyroid was normal. Lungs clear bilaterally, normal air movement was noted. Heart exam notable for regular rhythm, normal sounds and absence of murmurs, rubs or gallops. Abdomen unremarkable and without evidence of organomegaly, masses, or abdominal aortic enlargement. Bowel sounds are present, abdomen is not distended. Extremities nonedematous, no cyanosis was noted, no clubbing was noted. Neuro: Cranial nerves II through XII are grossly intact, no focal motor deficits were noted, sensation to light touch and pinprick intact, motor exam 5/5 throughout. Psych: Patient is alert, he is nonverbal and does not follow commands. Work-up in the emergency room included labs which showed an elevated white blood cell count at 19.3, chemistry profile revealed a creatinine of 1.61, BUN was 36, glucose was 126, and chloride was 109. Urinalysis indicated 10-25 WBCs and +3 bacteria, brain CT showed chronic involutional changes of the brain, chest x-ray showed mild increased markings at the lung bases suggestive of linear atelectasis, and x-ray of the hip and pelvis showed a nondisplaced comminuted fracture of the intertrochanteric region of the proximal right femur. Impression #1 intertrochanteric fracture of the right femur secondary to osteoporosis-patient will be admitted to [facility] 3, he will be seen in consultation by orthopedic surgery, I talked with Dr. Sevilla briefly about his care today. Patient will be seen by PT and OT #2 acute cystitis-patient was placed on IV Rocephin #3 stage IIIb chronic kidney disease-labs will be monitored #4 Alzheimer's dementia-complicates care and recovery #5 chronic depression-patient is on Lexapro I have reviewed Man Avendaño's history and physical including his medical assessment and plan of care and endorse it with the above additions. Total clinical time spent by myself addressing the patient's issues, reviewing the patient's medical data, and collaborating with the patient's care team: 45 minutes Visit Charges Inpatient E&M: [id number] Init Hosp L3
[2021-05-18] MEDS: Acetaminophen 325 MG Tablet 650 MG PO ×2 (12:51→19:56)
[2021-05-18] MEDS: Heparin Injection (Vial) 5,000 UNIT/ML VIAL 5000 UNIT SC ×2 (12:51→21:42)
[2021-05-18 15:41] VITALS: BP 113/62; PULSE 64; RESP 16; TEMP 37.2; O2SAT 94
[2021-05-18] MEDS: Bisacodyl 5 MG Tablet 10 MG PO (17:09)
--- NOTE | 2021-05-18 19:47 | NURSING ---
Spoke with Neisha patients daughter and updated her on POC. This RN asked with orthopedic had talked with her yet and she said no. Supplemental surgical history completed at this time.
[2021-05-18 19:53] VITALS: BP 145/98; PULSE 72; RESP 18; TEMP 37.9; O2SAT 100
[2021-05-18] MEDS: Memantine Hydrochloride 10 MG Tablet PO (21:42)
[2021-05-19] VITALS (15 sets, daily range): BP systolic 79–155; BP diastolic 60–103; PULSE 60–115; RESP 16–18; TEMP 36.3–37.5; O2SAT 92–100; BMI 31.4
[2021-05-19] MEDS: 0.9% Normal Saline 1,000 ML 150 ML IV ×4 (04:27→23:21)
[2021-05-19] MEDS: Acetaminophen 325 MG Tablet 650 MG PO ×2 (05:54→20:35)
[2021-05-19 06:36] LABS: Absolute Lymphocyte Count 1.15 X10^3/uL (0.83-4.51); Absolute Neutrophil Count 8.5 X10^3/uL (2.0-7.7); Basophil# 0.02 X10^3/uL; Basophil% 0.2 % (0-1); Eosinophil# 0.01 X10^3/uL; Eosinophils% 0.1 % (0-5); Hematocrit 32.2 % (40-54); Hemoglobin 10.7 g/dL (13.0-16.5); Lymphocyte # 1.15 X10^3/ul (0.83-4.51); Lymphocyte % 10.1 % (19-41); Mean Corp Hgb Conc 33.2 g/dL (32-36); Mean Corpuscular Volume 90.2 fL (80-94); Mean Platelet Vol. 12.5 fl (6.2-12.0); Monocyte# 1.74 X10^3/uL; Monocyte% 15.2 % (0-10); NRBC Flagged by Analyzer 0 % (0-5); Neutrophil # 8.46 X10^3/uL (2.7-7.7); Neutrophil % 73.9 % (47-70); POSITIVE DIFFERENTIAL YES; Platelet Count 124 K/mm3 (150-450); RBC Distribution Width CV 15.4 % (11.6-14.6); RBC Distribution Width SD 51.2 fl (35.1-43.9); Red Blood Count 3.57 M/mm3 (4.6-6.2); White Blood Count 11.4 K/mm3 (4.4-11.0)
[2021-05-19 06:45] LABS: Differential Indicated SCAN CRITERIA MET
[2021-05-19 07:01] LABS: Anion Gap 3 (5-15); BUN 28 mg/dL (7-18); BUN/Creat Ratio 21.2 RATIO (10-20); Calcium,Total 7.8 mg/dL (8.5-10.1); Chloride 114 mmol/L (98-107); Creatinine, Serum 1.32 mg/dL (0.70-1.30); EST Glomerular Filtration Rate 56 mL/min (>60); Est Glom Filt Rate - Afr Amer 67 mL/min (>60); Estimated Creatinine Clearance 49.81 ml/min; Glucose 131 mg/dL (74-106); Potassium 3.8 mmol/L (3.5-5.1); Sodium Level 142 mmol/L (136-145)
[2021-05-19] MEDS: Ceftriaxone 1 GM/50 ML BAG IV (09:54)
--- NOTE | 2021-05-19 10:45 | CASEMGMT ---
Social Work Note GAVIN reviewed chart. Pt is listed as being from [facility]. GAVIN in to speak with pt and pt's daughter Neisha present in room. GAVIN introduced self and role at [facility]. May confirms pt is from [facility] and has had recent falls. GAVIN spoke with May that pt will likely need SNF at discharge. Neisha was provided a list of SNF providers including quality and resource use data and consistent with the patient?s preferred geographic region, medical needs, and insurance network. May states she would like pt to stay in [place] [employer] and preferred provider is [facility]. SW explained referral process. May states that she has also began the process of moving pt out of [facility] to a different [facility]. 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 May states pt would need another Memory Care Unit. SW informed May that if she wants pt to move to another [facility] then May will need to arrange that as pt's belongings will need to be moved. GAVIN explained that SW could begin looking into Memory Care Units at [facility]. May agreeable to this worker calling [facility] and putting pt on list for their Memory Care Unit. May states that she would also like information on [facility] Memory [facility] Unit. GAVIN spoke with May about how pt will need to go to SNF first and then could transition to [facility]/ECF. May states understanding. GAVIN placed a call to Marla with [facility] and provided referral. TCU is able to accept pt. Pt to have surgery today. GAVIN will update May after pt's surgery and will provide May with information on [facility] Memory Care Unit. SW to continue to follow. Carol Hays [employer], [employer]
--- NOTE | 2021-05-19 11:03 | PN.HOSP_ITS ---
Documented by User: Oneyda Bello COMPLIANCE PROJECT MANAGER, COMPLIANCE PROJECT MANAGER-C 05/19/21 11:23 Subjective Subjective Patient seen and examined. Resting comfortably in bed. Denies significant pain. Discussed plan of care. Objective Data Objective Data Vital Signs: Vital Signs Temp Pulse Resp BP Pulse Ox 99.5 F H 77 16 135/88 H 92 05/19/21 07:55 05/19/21 07:55 05/19/21 07:55 05/19/21 07:55 05/19/21 07:55 Oxygen Delivery Method Room Air Weight: 232 lb Body Mass Index (BMI) 31.4 Intake & Output: Intake and Output for Last 24 Hours 05/17/21 05/18/21 05/19/21 23:59 23:59 23:59 Intake Total 2207.5 / 2207.5 1875 / 1875 Output Total 500 / 800 450 / 450 Balance 1707.5 / 1407.5 1425 / 1425 Lab / Micro Data Result Diagrams: 05/20/21 05:52 05/20/21 05:52 Labs: Laboratory Results - last 24 hr 05/19/21 05:45: WBC 11.4 H, RBC 3.57 L, Hgb 10.7 L, Hct 32.2 L, MCV 90.2, MCH 30.0, MCHC 33.2, RDW Std Deviation 51.2 H, RDW Coeff of Anastacia 15.4 H, Plt Count 124 L, MPV 12.5 H, Immature Gran % (Auto) 0.500, Neut % (Auto) 73.9 H, Lymph % (Auto) 10.1 L, [place] % (Auto) 15.2 H, Eos % (Auto) 0.1, Baso % (Auto) 0.2, Absolute Neuts (auto) 8.5 H, Absolute Lymphs (auto) 1.15, Nucleated RBC % 0 05/19/21 05:45: Sodium 142, Potassium 3.8, Chloride 114 H, Carbon Dioxide 25.0, Anion Gap 3 L, BUN 28 H, Creatinine 1.32 H, Estim Creat Clear Calc 49.81, Est GFR (MDRD) Af Amer 67, Est GFR (MDRD) Non-Af 56 L, BUN/Creatinine Ratio 21.2 H, Glucose 131 H, Calcium 7.8 L 05/19/21 05:45: Blood Type B POSITIVE, Antibody Screen NEGATIVE Physical Exam Const alert and no apparent distress Constitutional Narrative: Alert to self only at baseline. Orientation / Consciousness: awake and oriented to person HEENT normocephalic Mouth: dry mucous membranes Eyes PERRL, EOMs intact bilaterally and conjunctivae normal Neck no lymphadenopathy Resp normal respiratory effort and clear to auscultation bilaterally Cardio regular rate, regular rhythm and no murmurs Peripheral Pulses: pulses 2+ throughout GI normal to inspection, nondistended, normoactive bowel sounds, non-tender and non-distended Extremity normal to inspection Skin no rashes or lesions noted Lesions: no lesions Rashes: no rashes Trauma: no lacerations or abrasions Neuro CN's II-XII intact bilaterally, no focal motor deficits, no sensory deficits noted and deep tendon reflexes 2+ bilaterally Psych mental status grossly normal and affect normal Assessment & Plan Assessment/Plan (1) Fracture of right hip: PLAN: 1. Traumatic right hip fracture secondary to mechanical fall- orthopedic medicine consulted. Cleared medically to proceed with the OR. PT/OT. As needed pain regimen. Case management consult for discharge planning/placement. 2. Acute cystitis-IV Rocephin pending culture. 3. Acute kidney injury on chronic kidney disease stage IIIa-clinically dehydrated on admission. IV fluids, trend BMP. Improving. 4. Alzheimer's disease, unclear behavioral disturbance history-on donepezil, Namenda. 5. Anxiety/depression-continue escitalopram. DVT prophylaxis- SCDs. Pharmacologic prophylaxis per surgery This patient was seen by LATOYA Combs under the supervision of Dr. Malik. Time spent examining patient, reviewing data and subsequent management of care: 12 Minutes Documented by User: Dr. Jose Antonio Malik DO 05/20/21 09:14 Objective Data Lab / Micro Data Result Diagrams: 05/20/21 05:52 05/20/21 05:52 Charges/Coding Addendum Addendum: Patient was seen and examined on 05/19/2021 independently of Oneyda Bello, he appears stable for surgery today, he was taken to surgery but during the induction of anesthesia, patient went into atrial fibrillation at a rapid ventricular rate of approximately 1 30-1 40, patient's blood pressure also declined and according to anesthesia at one point was in the 70s systolic. Patient was taken back to recovery and he was seen by myself, it was decided he would be better served to go to PCU for closer monitoring. On PCU, he was seen in consultation by cardiology, patient's cardiac enzymes are elevated and it was felt that he had a non-STEMI, patient's echocardiogram was performed yesterday- this was a limited study but showed normal LV function. Cardiology agreed that the patient's rate could be controlled with rate limiting medications, he was given IV digoxin and placed on a beta-riki. Hopefully he will be stable for surgery tomorrow. On examination he appeared older than his stated age, patient is nonverbal. Vital signs as documented. Skin warm and dry and without overt rashes. Neck without JVD, neck was supple, trachea midline, thyroid was normal. Lungs clear bilaterally, normal air movement was noted. Heart exam notable for irregular rhythm, normal sounds and absence of murmurs, rubs or gallops. Abdomen unremarkable and without evidence of organomegaly, masses, or abdominal aortic enlargement. Bowel sounds are present, abdomen is not distended. Extremities nonedematous, no cyanosis was noted, no clubbing was noted. Neuro: Cranial nerves II through XII are grossly intact, no focal motor deficits were noted, sensation to light touch and pinprick intact, motor exam 5/5 throughout. Psych: Patient is alert, he is nonverbal. #1 intertrochanteric fracture of the right femur secondary to osteoporosis- patient is now on PCU, his heart rate will be stabilized and hopefully he will be stable for surgery tomorrow #2 acute cystitis-patient remains on Rocephin #3 stage IIIb chronic kidney disease-labs will be monitored #4 Alzheimer's dementia-complicates care and recovery #5 chronic depression-patient is on Lexapro #6 new onset atrial fibrillation-patient was placed on rate control medication #7 [id number] saw the patient today, his LV function is normal, cardiology told this examiner that he felt the patient was stable for surgery tomorrow if his rate was controlled. I reviewed Oneyda Bello's progress note including her medical assessment and plan of care and with the above additions endorse it. Total clinical time spent by myself addressing the patient's issues, reviewing the patient's medical data, and collaborating with the patient's caregivers: 30 minutes Visit Charges Inpatient E&M: 04452 Subs Hosp L3
--- NOTE | 2021-05-19 13:22 | CON.PCM_ITS ---
Assessment & Plan Assessment/Plan (1) Fracture of right hip: PLAN: Natural history of the disease process and treatment options were discussed with the patient and his daughter who is at bedside. Treatment options include nonoperative treatment, plate and screw fixation, cephalomedullary nail and arthroplasty. At this time I recommended a cephalomedullary nail as appropriate treatment option for this patient. Risks of surgery intra and postoperatively were discussed the patient family/power of deputy commonwealth's attorney/daughter. These include but were not limited to blood loss, DVTs, PEs, nervous damage, infection, the risk of anesthesia including loss of life. We also discussed nonunion, malunion and hardware failure. After thorough discussion of this as well as postoperative expectations we have agreed to proceed with the surgical intervention. Antibiotics on-call to the operating room. Patient is n.p.o. We will proceed with surgery this afternoon. [facility] Office: (2) Dementia: PLAN: Per primary service HPI Consult Data Date of Consult: 05/19/21 HPI Narrative Reason for Consultation: right hip pain HPI Narrative: ISAI FINNEY, is a 80 M who presents today with a history of severe dementia and complaints of right hip pain. Patient is essentially nonverbal due to his dementia. His daughter is at bedside and gives the majority of the history. Patient's daughter notes patient lives in [facility] here in [facility]. He was found down in his chair yesterday. He was brought to the emergency department after he was unable to bear weight. He grimaces with pain. Daughter notes that he typically uses a wheelchair for transportation and ambulates minimally. There were no witnesses to the fall. He was admitted overnight and cleared for surgery by medicine. [facility] Medical History Alzheimer disease Dementia Depression Hyperlipidemia Osteoarthritis Home Medications acetaminophen [Tylenol] 650 mg PO Q8H PRN PRN 05/25/18 [History Last Taken Unknown] aspirin 81 mg PO DAILY@0800 05/25/18 [History Last Taken Unknown] donepezil 10 mg PO DAILY 05/25/18 [History Last Taken Unknown] escitalopram oxalate 10 mg PO DAILY 05/25/18 [History Last Taken Unknown] fexofenadine [Lisbeth Allergy] 60 mg PO DAILY 05/25/18 [History Last Taken Unknown] memantine [Namenda] 10 mg PO BID 05/25/18 [History Last Taken Unknown] potassium chloride 10 meq PO DAILY 05/25/18 [History Last Taken Unknown] azithromycin 250 mg PO DAILY 05/18/21 [History Last Taken Unknown] sennosides-docusate sodium [Senna-S] 1 tab PO BID 05/18/21 [History Last Taken Unknown] Allergy/AdvReac Type Severity Reaction Status Date / Time No Known Allergies Allergy Verified 05/19/21 12:51 Family History unable to obtain unable to obtain Surgical History unable to obtain unable to obtain Social History Smoking Status: Never smoker ROS Review of Systems ROS Unobtainable: due to mental status Physical Exam Const Constitutional Narrative: Severe dementia, nonverbal. HEENT normocephalic Eyes PERRL Neck no JVD Resp normal respiratory effort GI non-distended Extremity Extremity Narrative: Right lower extremity: Skin clean, dry, and intact. Limb is shortened and externally rotated Motor is intact dorsiflexion, EHL and plantar flexion. Sensation is intact to light touch saphenous, zuleika,l superficial peroneal, deep peroneal and tibial distributions. Calves are soft and supple. Lab / Micro Data Result Diagrams: 05/19/21 05:45 05/19/21 05:45 Labs: Laboratory Results - last 24 hr 05/19/21 05:45: WBC 11.4 H, RBC 3.57 L, Hgb 10.7 L, Hct 32.2 L, MCV 90.2, MCH 30.0, MCHC 33.2, RDW Std Deviation 51.2 H, RDW Coeff of Anastacia 15.4 H, Plt Count 124 L, MPV 12.5 H, Immature Gran % (Auto) 0.500, Neut % (Auto) 73.9 H, Lymph % (Auto) 10.1 L, [place] % (Auto) 15.2 H, Eos % (Auto) 0.1, Baso % (Auto) 0.2, Absolute Neuts (auto) 8.5 H, Absolute Lymphs (auto) 1.15, Nucleated RBC % 0 05/19/21 05:45: Sodium 142, Potassium 3.8, Chloride 114 H, Carbon Dioxide 25.0, Anion Gap 3 L, BUN 28 H, Creatinine 1.32 H, Estim Creat Clear Calc 49.81, Est GFR (MDRD) Af Amer 67, Est GFR (MDRD) Non-Af 56 L, BUN/Creatinine Ratio 21.2 H, Glucose 131 H, Calcium 7.8 L 05/19/21 05:45: Blood Type B POSITIVE, Antibody Screen NEGATIVE Micro: Microbiology 05/18/21 09:35 Urine Catheter - Welch Urine Culture - Preliminary Presumptive E. coli
[2021-05-19 14:06] LABS: Pathologist Review Reviewed
[2021-05-19] MEDS: 0.9% Normal Saline 1,000 ML 999 ML IV (14:12)
[2021-05-19 14:33] LABS: Absolute Lymphocyte Count 1.23 X10^3/uL (0.83-4.51); Absolute Neutrophil Count 7.8 X10^3/uL (2.0-7.7); Basophil# 0.04 X10^3/uL; Basophil% 0.4 % (0-1); Eosinophil# 0.04 X10^3/uL; Eosinophils% 0.4 % (0-5); Hematocrit 30.5 % (40-54); Hemoglobin 10.2 g/dL (13.0-16.5); Lymphocyte # 1.23 X10^3/ul (0.83-4.51); Lymphocyte % 11.2 % (19-41); Mean Corp Hgb Conc 33.4 g/dL (32-36); Mean Corpuscular Hgb 30.8 pg (27.0-32.0); Mean Corpuscular Volume 92.1 fL (80-94); Monocyte# 1.73 X10^3/uL; Monocyte% 15.8 % (0-10); NRBC Flagged by Analyzer 0 % (0-5); Neutrophil # 7.84 X10^3/uL (2.7-7.7); Neutrophil % 71.7 % (47-70); POSITIVE DIFFERENTIAL YES; Platelet Count 121 K/mm3 (150-450); RBC Distribution Width CV 15.7 % (11.6-14.6); RBC Distribution Width SD 52.7 fl (35.1-43.9); Red Blood Count 3.31 M/mm3 (4.6-6.2); White Blood Count 10.9 K/mm3 (4.4-11.0)
[2021-05-19 14:35] LABS: Differential Indicated SCAN CRITERIA MET
--- NOTE | 2021-05-19 14:35 | ECHOL_ITS ---
Reason For Study: AFIB/FLUTTER Procedure This was a limited 2D transthoracic echocardiogram. The study was technically difficult. Due to ARRHYTHMIA. Exam performed supine due to RT hip fracture. Exam performed portable in patient room. Left Ventricle Normal left ventricle. The estimated ejection fraction is 55-60 %. Right Ventricle Normal right ventricle. Normal systolic function. Atria The left atrium is moderately enlarged. Normal right atrium. Mitral Valve There is mild mitral annular calcification. Tricuspid Valve Normal tricuspid valve. Aortic Valve Normal aortic valve. Pulmonic Valve The pulmonic valve is not well visualized. Great Vessels Mildly dilated aortic root. Pericardium/Pleural No pericardial effusion. MMode/2D Measurements & Calculations LVIDd: 4.9 cm IVSd: 1.1 cm Ao root diam: 4.1 cm LVIDs: 3.3 cm LVPWd: 1.2 cm RVDd: 2.5 cm FS: 32.5 % LAV(MOD-bp): 81.9 ml LA A4 area: 24.7 cm2 LA dimension(2D): 4.9 cm LAV(MOD-bp) Indexed: 36.9 ml/m2 LAV(MOD-sp2): 71.0 ml LAV(MOD-sp4): 80.9 ml RA A4 area: 16.1 cm2 ECHO/Echo, Limited Study Interpretation Summary The estimated ejection fraction is 55-60 %. Normal LV systolic functiion. No significant changes from prior echo in 05/27/2018 Ordering Physician: Jose Antonio Malik Referring Physician: Madhu Coughlin Performed By: Liyah Bear, KIRSTIN, RVT
[2021-05-19 14:42] LABS: Anion Gap 2 (5-15); BUN 25 mg/dL (7-18); BUN/Creat Ratio 19.7 RATIO (10-20); Calcium,Total 7.2 mg/dL (8.5-10.1); Chloride 116 mmol/L (98-107); Creatinine, Serum 1.27 mg/dL (0.70-1.30); EST Glomerular Filtration Rate 58 mL/min (>60); Est Glom Filt Rate - Afr Amer 70 mL/min (>60); Estimated Creatinine Clearance 51.77 ml/min; Glucose 109 mg/dL (74-106); Sodium Level 144 mmol/L (136-145)
[2021-05-19 15:25] LABS: Troponin-I HS 393 pg/mL (3.0-78.0)
[2021-05-19] MEDS: Donepezil HCl 10 MG Tablet PO (17:02)
[2021-05-19] MEDS: Memantine Hydrochloride 10 MG Tablet PO ×2 (17:02→20:35)
[2021-05-19] MEDS: Metoprolol Tartrate 25 MG Tablet PO (17:03)
[2021-05-19] MEDS: Digoxin 250 MCG/ML Ampul 500 MCG IV (17:03)
[2021-05-19] MEDS: Escitalopram Oxalate 10 MG Tablet PO (17:06)
--- NOTE | 2021-05-19 17:10 | CON.PCM.CA_ITS ---
Assessment & Plan Assessment/Plan (1) Dementia: (2) Fracture of right hip: PLAN: Active problems; 1. Atrial fibrillation with rapid ventricular rate, no bundle-branch block 2. Fracture of right hip 3. Chronic persistent problem/patient has a history of Alzheimer dementia/lives in assisted living facility History from daughter patient had a fall in assisted living facility and sustained right hip fracture Evidently was taken this afternoon, for a plate and screw fixation of the right hip Noted on the monitor and EKG patient had underlying left bundle branch block with A. fib and RVR and plan was set up for tomorrow for hip fixation Cardiac care and recommendation 1. Rate control with digoxin and beta-riki/metoprolol tartrate And continue to monitor on cardiac telemetry calcium channel riki Cardizem CD 120 mg, if needed we will add 2. Review of the echocardiogram LV function preserved, noted patient had elevated cardiac marker with a troponin 393 Clinical impression; 1. Non-ST elevation IL with A. fib/RVR. We will continue low-dose aspirin in addition to beta-riki and digoxin Not a candidate for invasive evaluation, LV function is still preserved by echocardiogram/limited study We will continue beta-riki digoxin, not a candidate for anticoagulation due to the risk of recurrent fall risk of cerebral bleed We will continue to monitor and follow-up clinically. Overall guarded prognosis due to the history of Alzheimer dementia and recurrent fall HPI Consult Data Date of Consult: 05/19/21 HPI Narrative Reason for Consultation: A. fib with RVR/Right hip fracture HPI Narrative: ISAI FINNEY, is a 80 M who presents COUNTS INCLUDE 234 BEDS AT THE [facility] Medical History Alzheimer disease Dementia Depression Hyperlipidemia Osteoarthritis Home Medications acetaminophen [Tylenol] 650 mg PO Q8H PRN PRN 05/25/18 [History Last Taken Unknown] aspirin 81 mg PO DAILY@0800 05/25/18 [History Last Taken Unknown] donepezil 10 mg PO DAILY 05/25/18 [History Last Taken Unknown] escitalopram oxalate 10 mg PO DAILY 05/25/18 [History Last Taken Unknown] fexofenadine [Lisbeth Allergy] 60 mg PO DAILY 05/25/18 [History Last Taken Unknown] memantine [Namenda] 10 mg PO BID 05/25/18 [History Last Taken Unknown] potassium chloride 10 meq PO DAILY 05/25/18 [History Last Taken Unknown] azithromycin 250 mg PO DAILY 05/18/21 [History Last Taken Unknown] sennosides-docusate sodium [Senna-S] 1 tab PO BID 05/18/21 [History Last Taken Unknown] Allergy/AdvReac Type Severity Reaction Status Date / Time No Known Allergies Allergy Verified 05/19/21 12:51 Family History unable to obtain Surgical History unable to obtain Social History Smoking Status: Never smoker Physical Exam Narrative Patient seen and evaluated at bedside Along with the nursing staff and daughter/have power of real estate attorney at bedside Patient with history of Alzheimer dementia Review of cardiac telemetry underlying atrial fibrillation with rapid ventricular rate Patient has a fall in assisted living facility and sustained right hip fracture Cardiac examination; S1-S2 is irregular soft systolic murmur heard in the aortic valve area There is no diastolic murmur, no pericardial rub Chest examination diminished air entry bilateral. Examination lower extremity mild lower extremity bilateral edema. Risk Stratification Risk Stratification Applicable: Yes Age >/= 65: Yes >/= 3 CAD Risk Factors (HTN, HLD, DM, family hx of CAD, or current smoker): No Aspirin Use in the Past 7 Days: No Severe Angina (>/= episodes in 24 hours): No EKG ST Changes >/= 0.5mm: No Positive Cardiac Marker: Yes SULAIMAN Risk Stratification Score: 2 SULAIMAN % Risk: 8% Risk Objective Data Vital Signs: Vital Signs Temp Pulse Resp BP Pulse Ox 97.3 F L 96 18 130/90 H 95 05/19/21 15:55 05/19/21 15:55 05/19/21 15:55 05/19/21 15:55 05/19/21 15:55 Oxygen Flow Rate (L/min) 4 Oxygen Delivery Method Room Air Weight: 232 lb Body Mass Index (BMI) 31.4 Intake & Output: Intake and Output for Last 24 Hours 05/17/21 05/18/21 05/19/21 23:59 23:59 23:59 Intake Total 2207.5 / 2207.5 3522.5 / 3522.5 Output Total 500 / 800 900 / 900 Balance 1707.5 / 1407.5 2622.5 / 2622.5 Lab / Micro Data Result Diagrams: 05/19/21 14:17 05/19/21 14:17 Labs: Laboratory Results - last 24 hr 05/18/21 08:20: Diff Path Review Reviewed 05/19/21 05:45: WBC 11.4 H, RBC 3.57 L, Hgb 10.7 L, Hct 32.2 L, MCV 90.2, MCH 30.0, MCHC 33.2, RDW Std Deviation 51.2 H, RDW Coeff of Anastacia 15.4 H, Plt Count 124 L, MPV 12.5 H, Immature Gran % (Auto) 0.500, Neut % (Auto) 73.9 H, Lymph % (Auto) 10.1 L, [place] % (Auto) 15.2 H, Eos % (Auto) 0.1, Baso % (Auto) 0.2, Absolute Neuts (auto) 8.5 H, Absolute Lymphs (auto) 1.15, Nucleated RBC % 0 05/19/21 05:45: Sodium 142, Potassium 3.8, Chloride 114 H, Carbon Dioxide 25.0, Anion Gap 3 L, BUN 28 H, Creatinine 1.32 H, Estim Creat Clear Calc 49.81, Est GFR (MDRD) Af Amer 67, Est GFR (MDRD) Non-Af 56 L, BUN/Creatinine Ratio 21.2 H, Glucose 131 H, Calcium 7.8 L 05/19/21 05:45: Blood Type B POSITIVE, Antibody Screen NEGATIVE 05/19/21 14:17: WBC 10.9, RBC 3.31 L, Hgb 10.2 L, Hct 30.5 L, MCV 92.1, MCH 30.8, MCHC 33.4, RDW Std Deviation 52.7 H, RDW Coeff of Anastacia 15.7 H, Plt Count 121 L, MPV 12.0, Immature Gran % (Auto) 0.500, Neut % (Auto) 71.7 H, Lymph % (Auto) 11.2 L, [place] % (Auto) 15.8 H, Eos % (Auto) 0.4, Baso % (Auto) 0.4, Absolute Neuts (auto) 7.8 H, Absolute Lymphs (auto) 1.23, Nucleated RBC % 0, Differential Comment COMMENT 05/19/21 14:17: Sodium 144, Potassium 4.0, Chloride 116 H, Carbon Dioxide 26.0, Anion Gap 2 L, BUN 25 H, Creatinine 1.27, Estim Creat Clear Calc 51.77, Est GFR (MDRD) Af Amer 70, Est GFR (MDRD) Non-Af 58 L, BUN/Creatinine Ratio 19.7, Glucose 109 H, Calcium 7.2 L 05/19/21 14:17: Troponin I High Sens 393 H* Micro: Microbiology 05/18/21 09:35 Urine Catheter - Welch Urine Culture - Preliminary Presumptive E. coli Cardiology Labs/Tests 05/19/21 05:45: WBC 11.4 H, RBC 3.57 L, Hgb 10.7 L, Hct 32.2 L, MCV 90.2, MCH 30.0, MCHC 33.2, Plt Count 124 L, MPV 12.5 H, Immature Gran % (Auto) 0.500, Neut % (Auto) 73.9 H, Lymph % (Auto) 10.1 L, [place] % (Auto) 15.2 H, Eos % (Auto) 0.1, Baso % (Auto) 0.2, Absolute Neuts (auto) 8.5 H, Nucleated RBC % 0 05/19/21 05:45: Sodium 142, Potassium 3.8, Chloride 114 H, Carbon Dioxide 25.0, Anion Gap 3 L, BUN 28 H, Creatinine 1.32 H, Est GFR (MDRD) Af Amer 67, Est GFR (MDRD) Non-Af 56 L, BUN/Creatinine Ratio 21.2 H, Glucose 131 H, Calcium 7.8 L 05/19/21 14:17: WBC 10.9, RBC 3.31 L, Hgb 10.2 L, Hct 30.5 L, MCV 92.1, MCH 30.8, MCHC 33.4, Plt Count 121 L, MPV 12.0, Immature Gran % (Auto) 0.500, Neut % (Auto) 71.7 H, Lymph % (Auto) 11.2 L, [place] % (Auto) 15.8 H, Eos % (Auto) 0.4, Baso % (Auto) 0.4, Absolute Neuts (auto) 7.8 H, Nucleated RBC % 0 05/19/21 14:17: Sodium 144, Potassium 4.0, Chloride 116 H, Carbon Dioxide 26.0, Anion Gap 2 L, BUN 25 H, Creatinine 1.27, Est GFR (MDRD) Af Amer 70, Est GFR (MDRD) Non-Af 58 L, BUN/Creatinine Ratio 19.7, Glucose 109 H, Calcium 7.2 L Rhythm: Atrial fibrillation with rapid ventricular rate EKG: Left axis deviation deviation, low bundle branch block, A. fib with RVR ECHO: LV function preserved, limited study Radiography Diagnostic Testing: Radiology Impression Echocardiogram 05/19/21 14:35 Interpretation Summary The estimated ejection fraction is 55-60 %. Normal LV systolic functiion. No significant changes from prior echo in 05/27/2018 Ordering Physician: Jose Antonio Malik Referring Physician: Madhu Coughlin Performed By: Liyah Bear, KARRIECS, RVT
[2021-05-19 18:20] LABS: Troponin-I HS 379 pg/mL (3.0-78.0)
[2021-05-19] MEDS: Metoprolol Tartrate 50 MG Tablet PO (20:36)
[2021-05-19] MEDS: Heparin Injection (Vial) 5,000 UNIT/ML VIAL 5000 UNIT SC (20:42)
[2021-05-19 21:43] LABS: Troponin-I HS 372 pg/mL (3.0-78.0)
[2021-05-20] VITALS (20 sets, daily range): BP systolic 113–137; BP diastolic 65–104; PULSE 63–115; RESP 16–22; TEMP 35.8–37.1; O2SAT 92–99
[2021-05-20 00:13] LABS: Pathologist Review May foll
[2021-05-20] MEDS: Acetaminophen 325 MG Tablet 650 MG PO ×2 (02:46→19:00)
--- NOTE | 2021-05-20 05:00 | EKG12_ITS ---
Test Reason : AM EKG Blood Pressure : / mmHG Vent. Rate : 100 BPM Atrial Rate : 111 BPM P-R Int : 000 ms QRS Dur : 156 ms QT Int : 320 ms P-R-T Axes : 000 -41 136 degrees QTc Int : 412 ms Atrial Flutter with variable block Left axis deviation Left bundle branch block Abnormal ECG When compared with ECG of 19-MAY-2021 14:09, MANUAL COMPARISON REQUIRED, DATA IS UNCONFIRMED Confirmed by SHELBY HOPPER, SUDHAKAR ([id number]), index editor CECY PAULA ([id number]) on 05/23/2021 10:47:35 AM Referred By: DR FISCHER Confirmed By:SUDHAKAR RYAN MD
[2021-05-20 06:00] LABS: Absolute Lymphocyte Count 1.72 X10^3/uL (0.83-4.51); Absolute Neutrophil Count 5.9 X10^3/uL (2.0-7.7); Basophil# 0.03 X10^3/uL; Basophil% 0.3 % (0-1); Eosinophil# 0.08 X10^3/uL; Eosinophils% 0.9 % (0-5); Hematocrit 34.9 % (40-54); Hemoglobin 11.8 g/dL (13.0-16.5); Lymphocyte # 1.72 X10^3/ul (0.83-4.51); Mean Corp Hgb Conc 33.8 g/dL (32-36); Mean Corpuscular Hgb 30.8 pg (27.0-32.0); Mean Corpuscular Volume 91.1 fL (80-94); Mean Platelet Vol. 10.8 fl (6.2-12.0); Monocyte# 1.27 X10^3/uL; NRBC Flagged by Analyzer 0 % (0-5); Neutrophil # 5.94 X10^3/uL (2.7-7.7); Neutrophil % 65.5 % (47-70); Platelet Count 139 K/mm3 (150-450); RBC Distribution Width CV 15.3 % (11.6-14.6); RBC Distribution Width SD 50.9 fl (35.1-43.9); Red Blood Count 3.83 M/mm3 (4.6-6.2); White Blood Count 9.1 K/mm3 (4.4-11.0)
[2021-05-20] MEDS: 0.9% Normal Saline 1,000 ML 150 ML IV ×2 (06:01→17:25)
[2021-05-20 06:26] LABS: Anion Gap 3 (5-15); BUN 19 mg/dL (7-18); BUN/Creat Ratio 18.4 RATIO (10-20); Calcium,Total 7.6 mg/dL (8.5-10.1); Chloride 113 mmol/L (98-107); Creatinine, Serum 1.03 mg/dL (0.70-1.30); EST Glomerular Filtration Rate 74 mL/min (>60); Est Glom Filt Rate - Afr Amer 89 mL/min (>60); Estimated Creatinine Clearance 63.83 ml/min; Glucose 101 mg/dL (74-106); Potassium 3.9 mmol/L (3.5-5.1); Sodium Level 140 mmol/L (136-145)
[2021-05-20] MEDS: Metoprolol Tartrate 25 MG Tablet PO (07:57)
[2021-05-20] MEDS: Digoxin 250 MCG/ML Ampul IV (07:58)
[2021-05-20] MEDS: Escitalopram Oxalate 10 MG Tablet PO (08:02)
[2021-05-20] MEDS: Ceftriaxone 1 GM/50 ML BAG IV (09:24)
[2021-05-20] MEDS: Donepezil HCl 10 MG Tablet PO (09:26)
[2021-05-20] MEDS: Memantine Hydrochloride 10 MG Tablet PO ×2 (09:26→21:34)
--- NOTE | 2021-05-20 11:06 | PN.HOSP_ITS ---
Documented by User: Oneyda Bello NP, MANAGER WOUND CARE-C 05/20/21 11:16 Subjective Subjective Patient seen and examined. Heart rate currently controlled. No acute events overnight per nursing report. Plan for OR this afternoon. Objective Data Objective Data Vital Signs: Vital Signs Temp Pulse Resp BP Pulse Ox 97.3 F L 108 H 18 113/82 H 98 05/20/21 08:30 05/20/21 08:30 05/20/21 08:30 05/20/21 08:30 05/20/21 08:30 Oxygen Flow Rate (L/min) 2 Oxygen Delivery Method Nasal Cannula Weight: 232 lb Body Mass Index (BMI) 31.4 Intake & Output: Intake and Output for Last 24 Hours 05/18/21 05/19/21 05/20/21 23:59 23:59 23:59 Intake Total 2207.5 / 2207.5 4522.5 / 4522.5 1562.5 / 1562.5 Output Total 500 / 800 1700 / 1700 550 / 550 Balance 1707.5 / 1407.5 2822.5 / 2822.5 1012.5 / 1012.5 Lab / Micro Data Result Diagrams: 05/21/21 08:00 05/21/21 08:00 Labs: Laboratory Results - last 24 hr 05/18/21 08:20: Diff Path Review Reviewed 05/19/21 05:45: Diff Path Review May 05/19/21 14:17: WBC 10.9, RBC 3.31 L, Hgb 10.2 L, Hct 30.5 L, MCV 92.1, MCH 30.8, MCHC 33.4, RDW Std Deviation 52.7 H, RDW Coeff of Anastacia 15.7 H, Plt Count 121 L, MPV 12.0, Immature Gran % (Auto) 0.500, Neut % (Auto) 71.7 H, Lymph % (Auto) 11.2 L, Mobile % (Auto) 15.8 H, Eos % (Auto) 0.4, Baso % (Auto) 0.4, Absolute Neuts (auto) 7.8 H, Absolute Lymphs (auto) 1.23, Nucleated RBC % 0, Differential Comment COMMENT 05/19/21 14:17: Sodium 144, Potassium 4.0, Chloride 116 H, Carbon Dioxide 26.0, Anion Gap 2 L, BUN 25 H, Creatinine 1.27, Estim Creat Clear Calc 51.77, Est GFR (MDRD) Af Amer 70, Est GFR (MDRD) Non-Af 58 L, BUN/Creatinine Ratio 19.7, Glucose 109 H, Calcium 7.2 L 05/19/21 14:17: Troponin I High Sens 393 H* 05/19/21 17:00: Troponin I High Sens 379 H* 05/19/21 20:47: Troponin I High Sens 372 H* 05/20/21 05:52: WBC 9.1, RBC 3.83 L, Hgb 11.8 L, Hct 34.9 L, MCV 91.1, MCH 30.8, MCHC 33.8, RDW Std Deviation 50.9 H, RDW Coeff of Anastacia 15.3 H, Plt Count 139 L, MPV 10.8, Immature Gran % (Auto) 0.300, Neut % (Auto) 65.5, Lymph % (Auto) 19.0, Mobile % (Auto) 14.0 H, Eos % (Auto) 0.9, Baso % (Auto) 0.3, Absolute Neuts (auto) 5.9, Absolute Lymphs (auto) 1.72, Nucleated RBC % 0 05/20/21 05:52: Sodium 140, Potassium 3.9, Chloride 113 H, Carbon Dioxide 24.0, Anion Gap 3 L, BUN 19 H, Creatinine 1.03, Estim Creat Clear Calc 63.83, Est GFR (MDRD) Af Amer 89, Est GFR (MDRD) Non-Af 74, BUN/Creatinine Ratio 18.4, Glucose 101, Calcium 7.6 L Micro: Microbiology 05/18/21 09:10 Blood Culture (Wb) - Anticubital Left Bacteria Detection (PCR) - Final Coag Negative Staph 05/18/21 09:10 Blood Culture (Wb) - Anticubital Left Blood Culture - Preliminary Coag Negative Staph 05/18/21 09:35 Urine Catheter - Welch Urine Culture - Final Presumptive E. coli Radiography Diagnostic Testing: Radiology Impression Echocardiogram 05/19/21 14:35 Interpretation Summary The estimated ejection fraction is 55-60 %. Normal LV systolic functiion. No significant changes from prior echo in 05/27/2018 Ordering Physician: Jose Antonio Malik Referring Physician: Madhu Coughlin Performed By: Liyah Bear RDCS, RVT Physical Exam Const alert and no apparent distress Orientation / Consciousness: awake HEENT normocephalic Mouth: dry mucous membranes Eyes PERRL, EOMs intact bilaterally and conjunctivae normal Neck no lymphadenopathy Resp normal respiratory effort and clear to auscultation bilaterally Cardio Cardio Narrative: Atrial fibrillation, rate controlled Peripheral Pulses: pulses 2+ throughout GI normal to inspection, nondistended, normoactive bowel sounds, non-tender and non-distended Extremity normal to inspection Skin no rashes or lesions noted Lesions: no lesions Rashes: no rashes Trauma: no lacerations or abrasions Neuro CN's II-XII intact bilaterally, no focal motor deficits, no sensory deficits noted and deep tendon reflexes 2+ bilaterally Psych mental status grossly normal Mood & Affect: flat affect Assessment & Plan Assessment/Plan (1) Fracture of right hip: PLAN: 1. Traumatic right hip fracture secondary to mechanical fall-orthopedic medicine consulted. PT/OT. As needed pain regimen. Case management consult for discharge planning/placement. Plan for TCU at discharge. 2. New onset atrial fibrillation-noted preoperatively. OR postponed. Initiated on digoxin and metoprolol. Rate now controlled. Echo with EF 55 to 60%. Not a candidate for anticoagulation due to significant fall risk. Okay to proceed with OR. 3. NSTEMI-demand ischemia secondary to #2. Cardiology following. Continue aspirin, metoprolol. 4. Acute cystitis-IV Rocephin. Urine culture growing E. coli. May transition to oral agent following surgery. 5. Acute kidney injury on chronic kidney disease stage IIIa-acute kidney injury resolved with IV fluids. Trend BMP. 6. Alzheimer's disease, unclear behavioral disturbance history-on donepezil, Namenda. 7. Anxiety/depression-continue escitalopram. DVT prophylaxis- SCDs, heparin sc This patient was seen by Oneyda Bello NP-C under the supervision of Dr. Malik. Time spent examining patient, reviewing data and subsequent management of care: 12 Minutes Documented by User: Dr. Jose Antonio Malik, 05/21/21 12:30 Objective Data Lab / Micro Data Result Diagrams: 05/21/21 08:00 05/21/21 08:00 Charges/Coding Addendum Addendum: Patient was seen and examined today independently of Oneyda Bello, patient appeared stable to go to surgery for ORIF of the right hip. Patient's heart rate appears to be under adequate control at this time, I gave the patient an extra dose of dig this morning and metoprolol this morning. On examination he appeared older than his stated age, he has obvious cognitive impairment. Vital signs as documented. Skin warm and dry and without overt rashes. Neck without JVD, neck was supple, trachea midline, thyroid was normal. Lungs clear bilaterally, normal air movement was noted. Heart exam notable for irregular rhythm, normal sounds and absence of murmurs, rubs or gallops. Abdomen unremarkable and without evidence of organomegaly, masses, or abdominal aortic enlargement. Bowel sounds are present, abdomen is not distended. Extremities nonedematous, no cyanosis was noted, no clubbing was noted. Neuro: Cranial nerves II through XII are grossly intact, no focal motor deficits were noted, sensation to light touch and pinprick intact, motor exam 5/5 throughout. Patient is nonverbal. Psych: Patient is alert, he shows signs of cognitive impairment. #1 intertrochanteric fracture of the right femur secondary to osteoporosis- patient is stable for surgery #2 acute cystitis-patient remains on Rocephin #3 stage IIIb chronic kidney disease-labs will be monitored #4 Alzheimer's dementia-complicates care and recovery #5 chronic depression-patient is on Lexapro #6 new onset atrial fibrillation-patient's heart rate appears to be adequately controlled for surgery today #7 [id number]-ohgzebth present medications, patient appears stable for surgery at this time. I have reviewed Oneyda Bello's progress note including her medical assessment and plan of care and with the above additions endorse it. Total c linical time spent by myself addressing the patient's issues, reviewing the patient's medical data, and collaborating with the patient's care team: 25 minutes Visit Charges Inpatient E&M: 31944 Subs Hosp L2
[2021-05-20] MEDS: Metoprolol Tartrate 50 MG Tablet PO ×2 (11:39→21:33)
--- NOTE | 2021-05-20 12:03 | PCM.PN.CARD ---
Subjective Subjective Seen and evaluated today and bus monitor reviewed No event from last night Objective Data Vital Signs: Vital Signs Temp Pulse Resp BP Pulse Ox 98.3 F 103 H 18 127/90 H 99 05/20/21 11:35 05/20/21 11:39 05/20/21 11:35 05/20/21 11:39 05/20/21 11:35 Oxygen Flow Rate (L/min) 2 Oxygen Delivery Method Nasal Cannula Weight: 232 lb Body Mass Index (BMI) 31.4 Intake & Output: Intake and Output for Last 24 Hours 05/18/21 05/19/21 05/20/21 23:59 23:59 23:59 Intake Total 2207.5 / 2207.5 4522.5 / 4522.5 1562.5 / 1562.5 Output Total 500 / 800 1700 / 1700 1450 / 1450 Balance 1707.5 / 1407.5 2822.5 / 2822.5 112.5 / 112.5 Lab / Micro Data Result Diagrams: 05/20/21 05:52 05/20/21 05:52 Labs: Laboratory Results - last 24 hr 05/18/21 08:20: Diff Path Review Reviewed 05/19/21 05:45: Diff Path Review May 05/19/21 14:17: WBC 10.9, RBC 3.31 L, Hgb 10.2 L, Hct 30.5 L, MCV 92.1, MCH 30.8, MCHC 33.4, RDW Std Deviation 52.7 H, RDW Coeff of Anastacia 15.7 H, Plt Count 121 L, MPV 12.0, Immature Gran % (Auto) 0.500, Neut % (Auto) 71.7 H, Lymph % (Auto) 11.2 L, Calhoun % (Auto) 15.8 H, Eos % (Auto) 0.4, Baso % (Auto) 0.4, Absolute Neuts (auto) 7.8 H, Absolute Lymphs (auto) 1.23, Nucleated RBC % 0, Differential Comment COMMENT 05/19/21 14:17: Sodium 144, Potassium 4.0, Chloride 116 H, Carbon Dioxide 26.0, Anion Gap 2 L, BUN 25 H, Creatinine 1.27, Estim Creat Clear Calc 51.77, Est GFR (MDRD) Af Amer 70, Est GFR (MDRD) Non-Af 58 L, BUN/Creatinine Ratio 19.7, Glucose 109 H, Calcium 7.2 L 05/19/21 14:17: Troponin I High Sens 393 H* 05/19/21 17:00: Troponin I High Sens 379 H* 05/19/21 20:47: Troponin I High Sens 372 H* 05/20/21 05:52: WBC 9.1, RBC 3.83 L, Hgb 11.8 L, Hct 34.9 L, MCV 91.1, MCH 30.8, MCHC 33.8, RDW Std Deviation 50.9 H, RDW Coeff of Anastacia 15.3 H, Plt Count 139 L, MPV 10.8, Immature Gran % (Auto) 0.300, Neut % (Auto) 65.5, Lymph % (Auto) 19.0, Calhoun % (Auto) 14.0 H, Eos % (Auto) 0.9, Baso % (Auto) 0.3, Absolute Neuts (auto) 5.9, Absolute Lymphs (auto) 1.72, Nucleated RBC % 0 05/20/21 05:52: Sodium 140, Potassium 3.9, Chloride 113 H, Carbon Dioxide 24.0, Anion Gap 3 L, BUN 19 H, Creatinine 1.03, Estim Creat Clear Calc 63.83, Est GFR (MDRD) Af Amer 89, Est GFR (MDRD) Non-Af 74, BUN/Creatinine Ratio 18.4, Glucose 101, Calcium 7.6 L Micro: Microbiology 05/18/21 09:10 Blood Culture (Wb) - Anticubital Left Bacteria Detection (PCR) - Final Coag Negative Staph 05/18/21 09:10 Blood Culture (Wb) - Anticubital Left Blood Culture - Preliminary Coag Negative Staph 05/18/21 09:02 Blood Culture (Wb) - Anticubital Right Blood Culture - Preliminary No growth in 48 hours. 05/18/21 09:35 Urine Catheter - Welch Urine Culture - Final Presumptive E. coli Cardiology Labs/Tests 05/19/21 14:17: WBC 10.9, RBC 3.31 L, Hgb 10.2 L, Hct 30.5 L, MCV 92.1, MCH 30.8, MCHC 33.4, Plt Count 121 L, MPV 12.0, Immature Gran % (Auto) 0.500, Neut % (Auto) 71.7 H, Lymph % (Auto) 11.2 L, Calhoun % (Auto) 15.8 H, Eos % (Auto) 0.4, Baso % (Auto) 0.4, Absolute Neuts (auto) 7.8 H, Nucleated RBC % 0 05/19/21 14:17: Sodium 144, Potassium 4.0, Chloride 116 H, Carbon Dioxide 26.0, Anion Gap 2 L, BUN 25 H, Creatinine 1.27, Est GFR (MDRD) Af Amer 70, Est GFR (MDRD) Non-Af 58 L, BUN/Creatinine Ratio 19.7, Glucose 109 H, Calcium 7.2 L 05/20/21 05:52: WBC 9.1, RBC 3.83 L, Hgb 11.8 L, Hct 34.9 L, MCV 91.1, MCH 30.8, MCHC 33.8, Plt Count 139 L, MPV 10.8, Immature Gran % (Auto) 0.300, Neut % (Auto) 65.5, Lymph % (Auto) 19.0, Calhoun % (Auto) 14.0 H, Eos % (Auto) 0.9, Baso % (Auto) 0.3, Absolute Neuts (auto) 5.9, Nucleated RBC % 0 05/20/21 05:52: Sodium 140, Potassium 3.9, Chloride 113 H, Carbon Dioxide 24.0, Anion Gap 3 L, BUN 19 H, Creatinine 1.03, Est GFR (MDRD) Af Amer 89, Est GFR (MDRD) Non-Af 74, BUN/Creatinine Ratio 18.4, Glucose 101, Calcium 7.6 L Rhythm: EKG: ECHO: Stress Test: Cardiac Cath: PCI: CT Surgery: Holter monitor: EPS: PPM: CXR: Chest CT Scan: Radiography Diagnostic Testing: Radiology Impression Echocardiogram 05/19/21 14:35 Interpretation Summary The estimated ejection fraction is 55-60 %. Normal LV systolic functiion. No significant changes from prior echo in 05/27/2018 Ordering Physician: Jose Antonio Malik Referring Physician: Madhu Coughlin Performed By: Liyah Bear RDCS, RVT Physical Exam Narrative Patient with severe Alzheimer's dementia Cardiac exam; S1-S2 is irregular with underlying atrial fibrillation Chest exam clear to auscultation bilateral. Assessment & Plan Assessment/Plan (1) Paroxysmal atrial fibrillation: PLAN: This patient had traumatic right hip fracture secondary to mechanical fall seen and evaluated with orthopedic We were consulted because of new onset atrial fibrillation started on treatment with a beta-riki and digoxin Cardiac telemetry showed A. fib with controlled ventricular rate And evaluation of echocardiogram LV function is preserved. I did discuss with the daughter the patient had severe Alzheimer dementia with recurrent fall and he is not a candidate for anticoagulation Risk and benefit explained in detail. Cardiac care plan recommendations; 1. Patient is cleared to undergo surgery from cardiac standpoint with intermediate risk for cardiopulmonary event due to underlying cardiac condition 2. We will continue on digoxin metoprolol and low-dose aspirin 3. We will continue to monitor and follow-up clinically.
--- NOTE | 2021-05-20 13:30 | RAD_ITS ---
STUDY: FLUOROSCOPIC LATERAL VIEW OF THE RIGHT HIP IN THE OPERATING ROOM OF 1315 HOURS ON 05/20/2021 REASON FOR STUDY: 80-year-old male with a comminuted right intertrochanteric hip fracture. TECHNIQUE: One fluoroscopic view of the right hip. COMPARISON: 0846 hours on 05/18/2021, which demonstrated a comminuted intertrochanteric hip fracture. FINDINGS: The tip of a surgical probe is noted overlying the comminuted intertrochanteric right hip fracture. RAD/Femur Min 2 Views IMPRESSION: Tip of the surgical probe is noted overlying the comminuted intertrochanteric right hip fracture. Electronically Signed: Tony Sims MD at 17:09 EDT ,
--- NOTE | 2021-05-20 13:45 | PCM.PN.BLA ---
Progress Note Patient hadNew onset atrial fibrillation will be taken back to the operating room yesterday. Surgery was canceled yesterday with plans to return today if stabilized. He has been seen by cardiology as well as the primary service. His rate is controlled at this time. He has been sufficiently optimized. The plan is to proceed with surgery today. [facility] Office:
[2021-05-20] MEDS: Cefazolin 2 GM in 0.9% Normal Saline 100 ML IV (13:50)
--- NOTE | 2021-05-20 14:38 | OP.PCM_ITS ---
Report of Operation Date of Procedure: 05/20/21 Pre-Operative Diagnosis: Right intertrochanteric hip fracture Post-Operative Diagnosis: Right intertrochanteric hip fracture Surgery/Procedure Performed:: Right hip cephalomedullary nail Description of Surgical Findings:: Stable reduction Surgeon: Sanford Sevilla exhibition specialist: Antonio Tapia Type of Anesthesia: General Anesthesiologist: Kelvin Weldon Special Medications: Ancef Estimated Blood Loss (mL): 150 Fluids Replaced: 500 mL crystalloid Description of Procedure: Components used: 1. [employer] InterTAN 11 mm x 42 cm nail 2. [employer] InterTAN lag screw 105 mm 3. [employer] 45 millimeter interlocking screw Brief history operative indications: 80-year-old male with history of severe dementia presented with intertrochanteric right hip fracture. His daughter was at bedside and help make clinical decisions. After extensive discussion including risk and benefits which include but are not limited to blood loss, PEs, DVTs, neurovascular damage, nonunions, malunions and screw cut out patient's POA has elected to proceed with a right cephalo-medullary nail. Procedure: On the date of the procedure the patient's Right hip was marked in the preoper ative area and patient was taken back to the operating room. Anesthetic was administered and patient was transferred to the table were all bony prominence identified well-padded and the ipsilateral arm was placed across the chest. Patient was then translated down to the perineal post and the operative leg was placed in the boot while the nonoperative leg was lowered and secured. The operative leg was placed in traction and internal rotation and live fluoroscopy was used to verify adequate reduction. The operative leg was then prepped in a sterile fashion with chlorhexidine while the surgeon scrubbed. Upon reentering the room the operative extremity was draped in the standard orthopedic fashion. Skin incision was marked and a timeout was called. Everyone agreed upon the side, the site, the procedure be performed, patient's identity, and antibiotics given. Skin incision was made and the position of the entry guidepin was verified using live fluoroscopy. Once we were satisfied with our position the pin was advanced in the soft tissue protector was placed over the pin. The entry reamer was then advanced into the proximal portion of the femur. Guidewire was inserted. Distal x-rays were taken and an appropriate size was selected. Canal was reamed to 13.5 mm. A [employer] short InterTAN 11.5 mm 42 cm, 125 degree neck angle hip nail was selected. The nail was then attached to the millinery department manager and inserted into the intramedullary canal. The appropriate depth was verified and the skin incision for the lag screw was made. The lag screw guidepin was then placed under live fluoroscopy and when a satisfactory position was obtained the length of the screw was measured and the standard technique to drill for the lag screws was performed. The anti-rotation bar was used. At this time a 105mm lag screw was selected with its corresponding compression screw. The lag screw was then passed and traction was left off the leg. The compression screw was then passed and the fracture was compressed. The final position of the lag screw was verified under fluoroscopy. Attention was then turned to the distal portion of the nail and a perfect lower elwha technique was used to locate the distal interlocking screw and a 45mm distal interlocking screw was placed using this technique. Live fluoroscopy was used to verify the position of the interlocking screw and the final position of the hip components. Once we were satisfied with our positioning the wounds were copiously irrigated out with normal saline skin was closed with 2-0 Vicryl and guru for final skin closure. A sterile dressing was placed with Xeroform. Patient was then awakened by anesthesia transferred from the fracture table back to their hospital bed and transferred to the PACU for recovery. Postoperative plan: Patient will be weight-bear as tolerated. Xarelto 10 mg daily for DVT prophylaxis with thigh-high stockings, as patient is felt to be a significant fall risk and poor candidate for potent anticoagulation would consider aspirin 81 mg twice daily. Follow up in the office in 2 weeks. Complications none Admit VTE Documentation VTE Present on Admission: No VTE Mechan Device Prophylaxis: SCD's and Thigh High JAIMIE Hose VTE Pharm Prophylaxis ordered?: Yes
--- NOTE | 2021-05-20 15:45 | RAD_ITS ---
HISTORY: Post Op -- AP both hips on single ronald/lateral of op hip PACU. TECHNIQUE: XR Hip Unilateral with Pelvis when performed; 2-3 Views. Number of images including paperwork: 5. COMPARISON: 05/18/2021. FINDINGS: OSSEOUS STRUCTURES: Gamma nail fixation of the comminuted intertrochanteric femur fracture. Decreased displacement of fracture fragments. Mild sclerosis in the intertrochanteric region again seen. JOINT SPACES: Mild degenerative changes of the hips. No dislocation. SOFT TISSUES: Large amount of stool dilating the rectum again seen. RAD/Hip Min 2 Views (Portable) IMPRESSION: Decreased displacement of right femoral intertrochanteric fracture status post internal fixation. at 1542 Reported and signed by: Jami Agrawal MD Electronically Signed: Jami Agrawal MD at 15:40 EDT ,
[2021-05-20] MEDS: Ensure Surgery 237 ML LIQUID PO (17:32)
[2021-05-20] MEDS: Senna/Docusate Sodium 1 Tablet 2 TABLET PO (21:34)
[2021-05-21] VITALS (13 sets, daily range): BP systolic 117–138; BP diastolic 68–90; PULSE 53–92; RESP 14–18; TEMP 36.3–37.1; O2SAT 93–97
[2021-05-21] MEDS: 0.9% Normal Saline 1,000 ML 150 ML IV ×4 (00:05→20:28)
[2021-05-21] MEDS: oxyCODONE 5 MG Tablet PO (00:26)
[2021-05-21] MEDS: Acetaminophen 325 MG Tablet 650 MG PO ×2 (03:56→22:33)
[2021-05-21] MEDS: Rivaroxaban 10 MG Tablet PO (06:44)
--- NOTE | 2021-05-21 07:38 | PN.ORTHO_ITS ---
Subjective Subjective The patient was sitting in bed upon examination. Due to patient's mental status and underlying dementia/Alzheimer's in which she is nonverbal unable to answer basic questions. Patient appears to be in no acute distress. No overnight complications from nursing. Plan is for patient to go to transitional care unit . Case management is involved. Objective Data Objective Data Vital Signs: Vital Signs Temp Pulse Resp BP Pulse Ox 97.3 F L 53 L 16 137/72 H 93 05/21/21 06:30 05/21/21 06:30 05/21/21 06:30 05/21/21 06:30 05/21/21 06:30 Oxygen Flow Rate (L/min) 2 Oxygen Delivery Method Room Air Weight: 105.233 kg Body Mass Index (BMI) 31.4 Intake & Output: Intake and Output for Last 24 Hours 05/19/21 05/20/21 05/21/21 23:59 23:59 23:59 Intake Total 4522.5 / 4522.5 2810.0 / 2810.0 2197.5 / 2197.5 Output Total 1700 / 1700 3350 / 3350 300 / 300 Balance 2822.5 / 2822.5 -540.0 / -540.0 1897.5 / 1897.5 Lab / Micro Data Result Diagrams: 05/20/21 05:52 05/20/21 05:52 Micro: Microbiology 05/18/21 09:10 Blood Culture (Wb) - Anticubital Left Bacteria Detection (PCR) - Final Coag Negative Staph 05/18/21 09:10 Blood Culture (Wb) - Anticubital Left Blood Culture - Pre liminary Coag Negative Staph 05/18/21 09:02 Blood Culture (Wb) - Anticubital Right Blood Culture - Preliminary No growth in 48 hours. 05/18/21 09:35 Urine Catheter - Welch Urine Culture - Final Presumptive E. coli Radiography Diagnostic Testing: Radiology Impression Femur X-Ray 05/20/21 13:30 IMPRESSION: Tip of the surgical probe is noted overlying the comminuted intertrochanteric right hip fracture. Electronically Signed: Tony Sims MD at 17:09 EDT , Hip X-Ray 05/20/21 15:45 IMPRESSION: Decreased displacement of right femoral intertrochanteric fracture status post internal fixation. at 1542 Reported and signed by: Jami Agrawal MD Electronically Signed: Jami Agrawal MD at 15:40 EDT , Physical Exam Narrative Vital signs stable and afebrile. SCDs and JAIMIE hose are in place Patient is able to plantarflex and dorsiflex actively. Sensation is intact to light touch to saphenous, sural, superficial and deep peroneal, and tibial distribution. Dressing is with moderate discharge with dried blood. Area has been marked on dressing Negative Homans bilaterally, negative signs and symptoms of DVT. Const alert and no apparent distress Assessment & Plan Assessment/Plan (1) Fracture of right hip: PLAN: 1. S/P right hip cephalomedullary nail POD #1 2. Continue Pain Medications: Currently on Tylenol and oxycodone as needed for pain. 3. DVT Prophylaxis: Xarelto 10 mg daily for 2 weeks postoperatively with thigh- high stockings. Patient is felt to be a significant fall risk and poor candidate for potent anticoagulation would consider aspirin 81 mg twice daily if needed. After 2 weeks of Xarelto would recommend additional 2 weeks of aspirin 81 mg twice daily. 4. PT/OT: Weightbearing as tolerated with walker 5. H & H: Labs were drawn but currently not available 6. Encouraged Incentive Spirometry 7. Continue postoperative medical management per medicine 8. Disposition: Overall orthopedically patient is stable. Case was discussed with medicine. Case management is involved and plan is for transitional care u nit. Will most likely not be discharged until Sunday. Would continue to follow above recommendations for DVT prophylaxis, pain, and PT/OT. At this time orthopedics will sign off. If there are any concerns or questions please contact orthopedics over the weekend. Patient will require 2-week postoperative follow-up with Dr. Sanford Sevilla with x-rays on arrival at our office and incision check. Continue with dressings and if needed Daily dressing change number operator the next 1 week. Continue with JAIMIE parr for 2 weeks postoperatively.
[2021-05-21] MEDS: Ensure Surgery 237 ML LIQUID PO ×2 (08:05→11:45)
[2021-05-21 08:17] LABS: Absolute Lymphocyte Count 1.73 X10^3/uL (0.83-4.51); Absolute Neutrophil Count 5.7 X10^3/uL (2.0-7.7); Basophil# 0.05 X10^3/uL; Basophil% 0.6 % (0-1); Eosinophil# 0.09 X10^3/uL; Hematocrit 35.6 % (40-54); Hemoglobin 11.9 g/dL (13.0-16.5); Lymphocyte # 1.73 X10^3/ul (0.83-4.51); Lymphocyte % 19.1 % (19-41); Mean Corp Hgb Conc 33.4 g/dL (32-36); Mean Corpuscular Hgb 30.6 pg (27.0-32.0); Mean Corpuscular Volume 91.5 fL (80-94); Mean Platelet Vol. 12.9 fl (6.2-12.0); Monocyte# 1.39 X10^3/uL; Monocyte% 15.3 % (0-10); NRBC Flagged by Analyzer 0 % (0-5); Neutrophil # 5.74 X10^3/uL (2.7-7.7); Neutrophil % 63.3 % (47-70); Platelet Count 125 K/mm3 (150-450); RBC Distribution Width CV 15.3 % (11.6-14.6); RBC Distribution Width SD 50.9 fl (35.1-43.9); Red Blood Count 3.89 M/mm3 (4.6-6.2); White Blood Count 9.1 K/mm3 (4.4-11.0)
[2021-05-21 08:44] LABS: Anion Gap 4 (5-15); BUN 19 mg/dL (7-18); BUN/Creat Ratio 19.9 RATIO (10-20); Calcium,Total 7.3 mg/dL (8.5-10.1); Chloride 113 mmol/L (98-107); Creatinine, Serum 0.96 mg/dL (0.70-1.30); EST Glomerular Filtration Rate 81 mL/min (>60); Est Glom Filt Rate - Afr Amer 97 mL/min (>60); Estimated Creatinine Clearance 68.48 ml/min; Glucose 99 mg/dL (74-106); Sodium Level 139 mmol/L (136-145)
--- NOTE | 2021-05-21 09:37 | PCM.PN.HOSP ---
Documented by User: Oneyda Bello NP, COUGAR HUNTER-C 05/21/21 09:48 Subjective Subjective Patient seen and examined. No acute events overnight. Resting comfortably in bed. Heart rate significantly improved. Objective Data Objective Data Vital Signs: Vital Signs Temp Pulse Resp BP Pulse Ox 97.3 F L 65 16 137/72 H 93 05/21/21 06:30 05/21/21 07:00 05/21/21 06:30 05/21/21 06:30 05/21/21 08:21 Oxygen Flow Rate (L/min) 2 Oxygen Delivery Method Room Air Weight: 232 lb Body Mass Index (BMI) 31.4 Intake & Output: Intake and Output for Last 24 Hours 05/19/21 05/20/21 05/21/21 23:59 23:59 23:59 Intake Total 4522.5 / 4522.5 2810.0 / 2810.0 2197.5 / 2197.5 Output Total 1700 / 1700 3350 / 3350 300 / 300 Balance 2822.5 / 2822.5 -540.0 / -540.0 1897.5 / 1897.5 Lab / Micro Data Result Diagrams: 05/21/21 08:00 05/21/21 08:00 Labs: Laboratory Results - last 24 hr 05/21/21 08:00: WBC 9.1, RBC 3.89 L, Hgb 11.9 L, Hct 35.6 L, MCV 91.5, MCH 30.6, MCHC 33.4, RDW Std Deviation 50.9 H, RDW Coeff of [place] 15.3 H, Plt Count 125 L, MPV 12.9 H, Immature Gran % (Auto) 0.700, Neut % (Auto) 63.3, Lymph % (Auto) 19.1, [place] % (Auto) 15.3 H, Eos % (Auto) 1.0, Baso % (Auto) 0.6, Absolute Neuts (auto) 5.7, Absolute Lymphs (auto) 1.73, Nucleated RBC % 0 05/21/21 08:00: Sodium 139, Potassium 4.0, Chloride 113 H, Carbon Dioxide 22.0, Anion Gap 4 L, BUN 19 H, Creatinine 0.96, Estim Creat Clear Calc 68.48, Est GFR (MDRD) Af Amer 97, Est GFR (MDRD) Non-Af 81, BUN/Creatinine Ratio 19.9, Glucose 99, Calcium 7.3 L Micro: Microbiology 05/18/21 09:10 Blood Culture (Wb) - Anticubital Left Bacteria Detection (PCR) - Final Coag Negative Staph 05/18/21 09:10 Blood Culture (Wb) - Anticubital Left Blood Culture - Preliminary Coag Negative Staph 05/18/21 09:02 Blood Culture (Wb) - Anticubital Right Blood Culture - Preliminary No growth in 48 hours. 05/18/21 09:35 Urine Catheter - Welch Urine Culture - Final Presumptive E. coli Radiography Diagnostic Testing: Radiology Impression Femur X-Ray 05/20/21 13:30 IMPRESSION: Tip of the surgical probe is noted overlying the comminuted intertrochanteric right hip fracture. Electronically Signed: Tony Sims MD at 17:09 EDT , Hip X-Ray 05/20/21 15:45 IMPRESSION: Decreased displacement of right femoral intertrochanteric fracture status post internal fixation. at 1542 Reported and signed by: Jami Agrawal MD Electronically Signed: Jami Agrawal MD at 15:40 EDT , Physical Exam Const alert and no apparent distress Orientation / Consciousness: awake and oriented to person HEENT normocephalic and moist oral mucous membranes Eyes PERRL, EOMs intact bilaterally and conjunctivae normal Neck no lymphadenopathy Resp normal respiratory effort and clear to auscultation bilaterally Cardio regular rate, regular rhythm and no murmurs Peripheral Pulses: pulses 2+ throughout GI normal to inspection, nondistended, normoactive bowel sounds, non-tender and non-distended Extremity normal to inspection Skin no rashes or lesions noted Lesions: no lesions Rashes: no rashes Trauma: no lacerations or abrasions Neuro CN's II-XII intact bilaterally, no focal motor deficits, no sensory deficits noted and deep tendon reflexes 2+ bilaterally Psych mental status grossly normal and affect normal Assessment & Plan Assessment/Plan (1) Fracture of right hip: (2) Paroxysmal atrial fibrillation: PLAN: 1. Traumatic right hip fracture secondary to mechanical fall-orthopedic medicine consulted. PT/OT. As needed pain regimen. Case management consult for discharge planning/placement. Plan for TCU at discharge. 2. New onset atrial fibrillation-Rate now controlled. Continue metoprolol. Echo with EF 55 to 60%. Not a candidate for anticoagulation due to significant fall risk. 3. NSTEMI-demand ischemia secondary to #2. Cardiology consulted during admission. Continue aspirin, metoprolol. 4. Acute cystitis-DC IV Rocephin. Urine culture growing E. coli. Transition to oral keflex to complete course. 5. Acute kidney injury on chronic kidney disease stage IIIa-acute kidney injury resolved with IV fluids. Trend BMP. 6. Alzheimer's disease, unclear behavioral disturbance history-on donepezil, Namenda. 7. Anxiety/depression-continue escitalopram. DVT prophylaxis- SCDs, Xarelto for 2 weeks postoperatively Discharge plan: TCU pending approval This patient was seen by Oneyda Bello NP-Nataliia under the supervision of Dr. Malik. Time spent examining patient, reviewing data and subsequent management of care: 10 Minutes Documented by User: Dr. Jose Antonio Malik, 05/21/21 11:18 Objective Data Lab / Micro Data Result Diagrams: 05/21/21 08:00 05/21/21 08:00 Charges/Coding Addendum Addendum: Patient was seen and examined independently of Oneyda Bello today, he was able to say okay to be today when I ask him how he was doing. Patient's hemoglobin today was 11.9, patient had an intramedullary nail inserted into the left hip to stabilize left hip fracture yesterday. Patient remains in atrial fib today with well-controlled ventricular response. I talked briefly with the orthopedic surgery PA concerning the patient today. On examination he appeared older than his stated age, he has cognitive impairment. Vital signs as documented. Skin warm and dry and without overt rashes. Neck without JVD, neck was supple, trachea midline, thyroid was normal. Lungs clear bilaterally, normal air movement was noted. Heart exam notable for irregular rhythm, normal sounds and absence of murmurs, rubs or gallops. Abdomen unremarkable and without evidence of organomegaly, masses, or abdominal aortic enlargement. Bowel sounds are present, abdomen is not distended. Extremities nonedematous, no cyanosis was noted, no clubbing was noted. Neuro: Cranial nerves II through XII are grossly intact, no focal motor deficits were noted, sensation to light touch and pinprick intact, motor exam 5/5 throughout. Psych: Patient is alert, he has obvious cognitive impairment 1 intertrochanteric fracture of the right femur secondary to osteoporosis-Postop day #1 right gamma nail insertion, continue PT and OT, patient will need placement in a [place] [facility] facility #2 acute cystitis-patient will be transitioned to oral antibiotics, Rocephin will be stopped #3 stage IIIb chronic kidney disease-currently, patient's creatinine is normalized, he does not appear at this time to be in stage III chronic kidney disease. #4 Alzheimer's dementia-complicates care and recovery #5 chronic depression-patient is on Lexapro #6 new onset atrial fibrillation-patient's rate remains controlled on current rate control medication #7 [id number] remained stable at this time, no work-up is considered at this time for heart disease. Patient will remain on current medications with the addition of an DAPHNE inhibitor and a statin. I reviewed Oneyda Bello's progress note including her medical assessment and plan of care with the above additions endorse it. Total clinical time spent by myself addressing the patient's issues, reviewing the patient's medical data, and collaborating with the patient's care team: 25 minutes Visit Charges Inpatient E&M: 163[address] [facility] Hosp L3
[2021-05-21] MEDS: Senna/Docusate Sodium 1 Tablet 2 TABLET PO ×2 (11:39→22:33)
[2021-05-21] MEDS: Metoprolol Tartrate 50 MG Tablet PO ×2 (11:40→22:32)
[2021-05-21] MEDS: Memantine Hydrochloride 10 MG Tablet PO ×2 (11:40→22:32)
[2021-05-21] MEDS: Donepezil HCl 10 MG Tablet PO (11:41)
[2021-05-21] MEDS: Aspirin 81 MG TAB.CHEW PO (11:41)
[2021-05-21] MEDS: Escitalopram Oxalate 10 MG Tablet PO (11:41)
[2021-05-21] MEDS: Cephalexin 500 MG Capsule PO ×2 (11:45→17:09)
--- NOTE | 2021-05-21 14:24 | PN.CARD_ITS ---
Subjective Subjective No event from last night Review of cardiac telemetry showed sinus rhythm with sinus bradycardia Objective Data Vital Signs: Vital Signs Temp Pulse Resp BP Pulse Ox 97.8 F 74 18 117/88 H 94 05/21/21 09:30 05/21/21 11:40 05/21/21 09:30 05/21/21 11:40 05/21/21 09:30 Oxygen Flow Rate (L/min) 2 Oxygen Delivery Method Room Air Weight: 232 lb Body Mass Index (BMI) 31.4 Intake & Output: Intake and Output for Last 24 Hours 05/19/21 05/20/21 05/21/21 23:59 23:59 23:59 Intake Total 4522.5 / 4522.5 2810.0 / 2810.0 3677.5 / 3677.5 Output Total 1700 / 1700 3350 / 3350 900 / 900 Balance 2822.5 / 2822.5 -540.0 / -540.0 2777.5 / 2777.5 Lab / Micro Data Result Diagrams: 05/21/21 08:00 05/21/21 08:00 Labs: Laboratory Results - last 24 hr 05/21/21 08:00: WBC 9.1, RBC 3.89 L, Hgb 11.9 L, Hct 35.6 L, MCV 91.5, MCH 30.6, MCHC 33.4, RDW Std Deviation 50.9 H, RDW Coeff of Anastacia 15.3 H, Plt Count 125 L, MPV 12.9 H, Immature Gran % (Auto) 0.700, Neut % (Auto) 63.3, Lymph % (Auto) 19.1, [place] % (Auto) 15.3 H, Eos % (Auto) 1.0, Baso % (Auto) 0.6, Absolute Neuts (auto) 5.7, Absolute Lymphs (auto) 1.73, Nucleated RBC % 0 05/21/21 08:00: Sodium 139, Potassium 4.0, Chloride 113 H, Carbon Dioxide 22.0, Anion Gap 4 L, BUN 19 H, Creatinine 0.96, Estim Creat Clear Calc 68.48, Est GFR (MDRD) Af Amer 97, Est GFR (MDRD) Non-Af 81, BUN/Creatinine Ratio 19.9, Glucose 99, Calcium 7.3 L Micro: Microbiology 05/18/21 09:10 Blood Culture (Wb) - Anticubital Left Bacteria Detection (PCR) - Final Coag Negative Staph 05/18/21 09:10 Blood Culture (Wb) - Anticubital Left Blood Culture - Preliminary Coag Negative Staph 05/18/21 09:02 Blood Culture (Wb) - Anticubital Right Blood Culture - Preliminary No growth in 48 hours. Cardiology Labs/Tests 05/21/21 08:00: WBC 9.1, RBC 3.89 L, Hgb 11.9 L, Hct 35.6 L, MCV 91.5, MCH 30.6, MCHC 33.4, Plt Count 125 L, MPV 12.9 H, Immature Gran % (Auto) 0.700, Neut % (Auto) 63.3, Lymph % (Auto) 19.1, [place] % (Auto) 15.3 H, Eos % (Auto) 1.0, Baso % (Auto) 0.6, Absolute Neuts (auto) 5.7, Nucleated RBC % 0 05/21/21 08:00: Sodium 139, Potassium 4.0, Chloride 113 H, Carbon Dioxide 22.0, Anion Gap 4 L, BUN 19 H, Creatinine 0.96, Est GFR (MDRD) Af Amer 97, Est GFR (MDRD) Non-Af 81, BUN/Creatinine Ratio 19.9, Glucose 99, Calcium 7.3 L Rhythm: EKG: ECHO: Stress Test: Cardiac Cath: PCI: CT Surgery: Holter monitor: EPS: PPM: CXR: Chest CT Scan: Radiography Diagnostic Testing: Radiology Impression Femur X-Ray 05/20/21 13:30 IMPRESSION: Tip of the surgical probe is noted overlying the comminuted intertrochanteric right hip fracture. Electronically Signed: Tony Sims MD at 17:09 EDT , Hip X-Ray 05/20/21 15:45 IMPRESSION: Decreased displacement of right femoral intertrochanteric fracture status post internal fixation. at 1542 Reported and signed by: Jami Agrawal MD Electronically Signed: Jami Agrawal MD at 15:40 EDT , Assessment & Plan Assessment/Plan (1) Fracture of right hip: (2) Paroxysmal atrial fibrillation: PLAN: 79 plan and recommendations; Patient with history of Alzheimer dementia Admitted with mechanical fall and sustained traumatic fracture Underwent right hip cephalomedullary nail On review of his cardiac telemetry today had sinus rhythm/converted from A. fib. Cardiac care and recommendations; Echocardiographic evaluation showed LV function preserved ejection fraction 55- 60% We will continue current medical treatment. I discussed with the daughter long-term cardiac care plan in particular not a candidate for long-term anticoagulation due to the recurrent fall and risk of cerebral bleed.
[2021-05-22] VITALS (13 sets, daily range): BP systolic 123–148; BP diastolic 76–92; PULSE 50–93; RESP 18; TEMP 36.4–36.6; O2SAT 94–97
[2021-05-22] MEDS: Cephalexin 500 MG Capsule PO ×4 (00:38→16:54)
[2021-05-22] MEDS: 0.9% Normal Saline 1,000 ML 150 ML IV ×3 (03:12→17:03)
[2021-05-22] MEDS: Rivaroxaban 10 MG Tablet PO (05:26)
[2021-05-22] MEDS: Acetaminophen 325 MG Tablet 650 MG PO (10:09)
[2021-05-22] MEDS: Metoprolol Tartrate 50 MG Tablet PO (10:10)
[2021-05-22] MEDS: Senna/Docusate Sodium 1 Tablet 2 TABLET PO ×2 (10:10→22:09)
[2021-05-22] MEDS: Aspirin 81 MG TAB.CHEW PO (10:11)
[2021-05-22] MEDS: Donepezil HCl 10 MG Tablet PO (10:11)
[2021-05-22] MEDS: Memantine Hydrochloride 10 MG Tablet PO ×2 (10:11→22:10)
[2021-05-22] MEDS: Escitalopram Oxalate 10 MG Tablet PO (10:11)
--- NOTE | 2021-05-22 11:41 | PN.HOSP_ITS ---
Documented by User: Oneyda Bello NP, REAL ESTATE BROKER ASSOCIATE-C 05/22/21 11:52 Subjective Subjective Patient seen and examined. Resting in bed. Appears comfortable. No acute events overnight per nursing report. Objective Data Objective Data Vital Signs: Vital Signs Temp Pulse Resp BP Pulse Ox 97.8 F 50 L 18 123/83 H 97 05/22/21 09:15 05/22/21 11:00 05/22/21 09:15 05/22/21 10:10 05/22/21 09:15 Oxygen Flow Rate (L/min) 2 Oxygen Delivery Method Room Air Weight: 232 lb Body Mass Index (BMI) 31.4 Intake & Output: Intake and Output for Last 24 Hours 05/20/21 05/21/21 05/22/21 23:59 23:59 23:59 Intake Total 2810.0 / 2810.0 5037.5 / 5037.5 2240 / 2240 Output Total 3350 / 3350 1450 / 1700 1150 / 1150 Balance -540.0 / -540.0 3587.5 / 3337.5 1090 / 1090 Lab / Micro Data Result Diagrams: 05/21/21 08:00 05/21/21 08:00 Micro: Microbiology 05/18/21 09:10 Blood Culture (Wb) - Anticubital Left Bacteria Detection (PCR) - Final Coag Negative Staph 05/18/21 09:10 Blood Culture (Wb) - Anticubital Left Blood Culture - Preliminary Coag Negative Staph 05/18/21 09:02 Blood Culture (Wb) - Anticubital Right Blood Culture - Preliminary No growth in 48 hours. 05/18/21 09:35 Urine Catheter - Welch Urine Culture - Final Presumptive E. coli Physical Exam Const alert and no apparent distress Orientation / Consciousness: awake and oriented to person HEENT normocephalic and moist oral mucous membranes Eyes PERRL, EOMs intact bilaterally and conjunctivae normal Neck no lymphadenopathy Resp normal respiratory effort and clear to auscultation bilaterally Cardio regular rate, regular rhythm and no murmurs Peripheral Pulses: pulses 2+ throughout GI normal to inspection, nondistended, normoactive bowel sounds, non-tender and non-distended Extremity normal to inspection Skin no rashes or lesions noted Skin Narrative: Postop dressing intact. Lesions: no lesions Rashes: no rashes Trauma: no lacerations or abrasions Neuro CN's II-XII intact bilaterally, no focal motor deficits, no sensory deficits noted and deep tendon reflexes 2+ bilaterally Psych Mood & Affect: flat affect Assessment & Plan Assessment/Plan (1) Paroxysmal atrial fibrillation: (2) Fracture of right hip: PLAN: 1. Traumatic right hip fracture secondary to mechanical fall- orthopedic medicine consulted. PT/OT. As needed pain regimen. Case management consult for discharge planning/placement. Plan for TCU at discharge. 2. New onset atrial fibrillation-Rate now controlled. Continue metoprolol. Echo with EF 55 to 60%. Not a candidate for anticoagulation due to significant fall risk. 3. NSTEMI-demand ischemia secondary to #2. Cardiology consulted during admission. Continue aspirin, metoprolol. 4. Acute cystitis- Urine culture growing E. coli. Transitioned to oral keflex to complete course. 5. Acute kidney injury on chronic kidney disease stage IIIa-acute kidney injury resolved with IV fluids. Trend BMP. 6. Alzheimer's disease, unclear behavioral disturbance history-on donepezil, Namenda. 7. Anxiety/depression-continue escitalopram. DVT prophylaxis- SCDs, Xarelto for 2 weeks postoperatively Discharge plan: TCU pending approval This patient was seen by LATOYA Combs under the supervision of Dr. Malik. Time spent examining patient, reviewing data and subsequent management of care: 10 Minutes Documented by User: Dr. Jose Antonio Malik, 05/22/21 12:16 Objective Data Lab / Micro Data Result Diagrams: 05/21/21 08:00 05/21/21 08:00 Charges/Coding Addendum Addendum: Patient was seen and examined today, he attempted to carry on a conversation with me but he had expressive aphasia. Patient is not appear to be in any distress at this time. On examination he appeared older than his stated age, he has cognitive impairment. Vital signs as documented. Skin warm and dry and without overt rashes. Neck without JVD, neck was supple, trachea midline, thyroid was normal. Lungs clear bilaterally, normal air movement was noted. Heart exam notable for irregular rhythm, normal sounds and absence of murmurs, rubs or gallops. Abdomen unremarkable and without evidence of organomegaly, masses, or abdominal aortic enlargement. Bowel sounds are present, abdomen is not distended. Extremities nonedematous, no cyanosis was noted, no clubbing was noted. Neuro: Cranial nerves II through XII are grossly intact, no focal motor deficits were noted, sensation to light touch and pinprick intact, motor exam 5/5 throughout. Psych: Patient is alert, he has obvious cognitive impairment 1 intertrochanteric fracture of the right femur secondary to osteoporosis-Postop day #2 right gamma nail insertion, continue PT and OT, patient will need placement in a group home facility #2 acute cystitis-patient currently on oral antibiotics #3 stage IIIb chronic kidney disease-currently, patient's creatinine is normalized, he does not appear at this time to be in stage III chronic kidney disease. #4 Alzheimer's dementia-complicates care and recovery #5 chronic depression-patient is on Lexapro #6 new onset atrial fibrillation-patient's rate remains controlled on current rate control medication #7 [id number] remained stable at this time, no work-up is considered at this time for heart disease. Patient will remain on current medications with the addition of an DAPHNE inhibitor and a statin. I have reviewed Oneyda Bello's progress note including her medical assessment and plan of care and with the above additions endorse it. Total clinical time spent by myself addressing the patient's issues, reviewing the patient's medical data, and collaborating with the patient's care team: 22 minutes Visit Charges Inpatient E&M: 44037 Subs Hosp L2
[2021-05-22] MEDS: Lisinopril 5 MG Tablet PO (12:56)
[2021-05-22] MEDS: Ensure Surgery 237 ML LIQUID PO (16:54)
[2021-05-22] MEDS: oxyCODONE 5 MG Tablet PO (19:54)
[2021-05-22 21:56] LABS: Potassium 3.4 mmol/L (3.5-5.1)
[2021-05-22] MEDS: Atorvastatin Calcium 20 MG Tablet PO (22:08)
[2021-05-22] MEDS: Metoprolol Tartrate 25 MG Tablet 12.5 MG PO (22:09)
[2021-05-23] VITALS (11 sets, daily range): BP systolic 138–165; BP diastolic 70–82; PULSE 58–70; RESP 15–17; TEMP 36.6–37.1; O2SAT 91–98
[2021-05-23] MEDS: 0.9% Normal Saline 1,000 ML 150 ML IV ×4 (00:24→20:10)
[2021-05-23] MEDS: Cephalexin 500 MG Capsule PO ×4 (00:25→17:27)
[2021-05-23] MEDS: Potassium Chloride Oral Tablet 20 MEQ 40 MEQ PO (06:21)
[2021-05-23] MEDS: Rivaroxaban 10 MG Tablet PO (06:21)
[2021-05-23] MEDS: Escitalopram Oxalate 10 MG Tablet PO (08:08)
[2021-05-23] MEDS: Aspirin 81 MG TAB.CHEW PO (08:08)
[2021-05-23] MEDS: Memantine Hydrochloride 10 MG Tablet PO ×2 (08:09→22:16)
[2021-05-23] MEDS: Donepezil HCl 10 MG Tablet PO (08:09)
[2021-05-23] MEDS: Ensure Surgery 237 ML LIQUID PO ×3 (08:09→17:28)
[2021-05-23] MEDS: Lisinopril 5 MG Tablet PO (08:10)
[2021-05-23] MEDS: Senna/Docusate Sodium 1 Tablet 2 TABLET PO ×2 (08:10→22:17)
[2021-05-23] MEDS: Metoprolol Tartrate 25 MG Tablet 12.5 MG PO ×2 (08:11→22:17)
[2021-05-23] MEDS: Acetaminophen 325 MG Tablet 650 MG PO (08:19)
--- NOTE | 2021-05-23 09:29 | CASEMGMT ---
GAVIN faxed clinicals to [employer] to obtain permission to proceed with SNF request. Await response then GAVIN will notify Marla so she can start the pre-cert request. Vanessa WHITE
--- NOTE | 2021-05-23 11:58 | PN.HOSP_ITS ---
Documented by User: Oneyda Bello NP, GENERAL INTERNAL MEDICINE DOCTOR-C 05/23/21 12:03 Subjective Subjective Patient seen and examined. No acute events overnight. Patient appears comfortable. Awaiting approval to TCU. Objective Data Objective Data Vital Signs: Vital Signs Temp Pulse Resp BP Pulse Ox 98.2 F 58 L 15 138/82 H 93 05/23/21 07:58 05/23/21 08:11 05/23/21 07:58 05/23/21 08:11 05/23/21 07:58 Oxygen Flow Rate (L/min) 2 Oxygen Delivery Method Room Air Weight: 232 lb Body Mass Index (BMI) 31.4 Intake & Output: Intake and Output for Last 24 Hours 05/21/21 05/22/21 05/23/21 23:59 23:59 23:59 Intake Total 5037.5 / 5037.5 4425 / 4425 1385 / 1385 Output Total 1450 / 1700 1750 / 2775 2725 / 2725 Balance 3587.5 / 3337.5 2675 / 1650 -1340 / -1340 Lab / Micro Data Result Diagrams: 05/21/21 08:00 05/22/21 17:38 Labs: Laboratory Results - last 24 hr 05/22/21 17:38: Potassium 3.4 L, Magnesium 2.0 Micro: Microbiology 05/18/21 09:02 Blood Culture (Wb) - Anticubital Right Blood Culture - Final No growth in 5 days. 05/18/21 09:10 Blood Culture (Wb) - Anticubital Left Bacteria Detection (PCR) - Final Coag Negative Staph 05/18/21 09:10 Blood Culture (Wb) - Anticubital Left Blood Culture - Final Coag Negative Staph 05/18/21 09:35 Urine Catheter - Welch Urine Culture - Final Presumptive E. coli Physical Exam Const alert and no apparent distress Orientation / Consciousness: awake and oriented to person HEENT normocephalic and moist oral mucous membranes Eyes PERRL, EOMs intact bilaterally and conjunctivae normal Neck no lymphadenopathy Resp normal respiratory effort and clear to auscultation bilaterally Cardio regular rate, regular rhythm and no murmurs Peripheral Pulses: pulses 2+ throughout GI normal to inspection, nondistended, normoactive bowel sounds, non-tender and non-distended Extremity normal to inspection Skin no rashes or lesions noted Lesions: no lesions Rashes: no rashes Trauma: no lacerations or abrasions Neuro CN's II-XII intact bilaterally, no focal motor deficits, no sensory deficits noted and deep tendon reflexes 2+ bilaterally Neuro Narrative: Aphasic at baseline Psych Mood & Affect: flat affect Assessment & Plan Assessment/Plan (1) Fracture of right hip: PLAN: 1. Traumatic right hip fracture secondary to mechanical fall- orthopedic medicine consulted. PT/OT. As needed pain regimen. Case management consult for discharge planning/placement. Plan for TCU at discharge. 2. New onset atrial fibrillation-converted to sinus rhythm. Continue metoprolo l. Echo with EF 55 to 60%. Not a candidate for anticoagulation due to significant fall risk. 3. NSTEMI-demand ischemia secondary to #2. Cardiology consulted during admission. Continue aspirin, metoprolol. 4. Acute cystitis-DC IV Rocephin. Urine culture growing E. coli. Transitioned to oral keflex to complete course. 5. Acute kidney injury on chronic kidney disease stage IIIa-acute kidney injury resolved with IV fluids. Trend BMP. 6. Alzheimer's disease, unclear behavioral disturbance history-on donepezil, Namenda. 7. Anxiety/depression-continue escitalopram. DVT prophylaxis- SCDs, Xarelto for 2 weeks postoperatively Discharge plan: TCU pending approval This patient was seen by LATOYA Combs under the supervision of Dr. Thakkar. Time spent examining patient, reviewing data and subsequent management of care: 10 Minutes Documented by User: Dr. Jesus Thakkar, 05/23/21 14:58 Subjective Subjective No events. Objective Data Lab / Micro Data Result Diagrams: 05/21/21 08:00 05/22/21 17:38 Physical Exam Const alert Constitutional Narrative: eye contact. afebrile. minimally verbal. Resp normal respiratory effort, no retractions, no use of accessory muscles and clear to auscultation bilaterally Cardio regular rate, regular rhythm, S1 normal heart sound and S2 normal heart sound GI normal to inspection, nondistended, normoactive bowel sounds, soft to palpation, non-tender and non-distended Assessment & Plan Assessment/Plan (1) Fracture of right hip: (2) Paroxysmal atrial fibrillation: PLAN: Patient seen and examined independently. Data and vitals reviewed. I agree with the above note by the nurse practitioner. 1. Traumatic right hip fracture: Status post mechanical fall. Status post right hip cephalomedullary nail on the . Follow-up with orthopedics 2. Atrial fibrillation: New onset. Currently normal sinus rhythm. Poor candidate for anticoagulation given high risk for falls. 3. Non-STEMI Likely type II event Cardiology following. No intervention necessary at this time. 2D echocardiogram showed an EF of 55 to 60%. 4. Acute kidney injury Resolved 5. UTI Secondary to E. coli On ceftriaxone 6. chronic conditions * Alzheimer's disease * Anxiety/depression 7. VTE prophylaxis with rivaroxaban for 2 weeks postoperative. Greater than 25 minutes of which greater than 50% of time was reviewing data, evaluating patient at bedside. Charges/Coding Visit Charges Inpatient E&M: 41346 Subs Hosp L2
--- NOTE | 2021-05-23 13:52 | CASEMGMT ---
GAVIN has not heard anything from [facility]. GAVIN called and left a message for the case management dept regarding the fax. Await return call. Vanessa Morse MSW CHRISTOPHER
--- NOTE | 2021-05-23 13:55 | CASEMGMT ---
SW spoke with patient's daughter. SW answered her questions. She asked if patient will have to go to assisted living or intermediate after TCU. SW told her that depends on how he does with therapy. Vanessa Morse TRANSFER STATION ATTENDANT CHRISTOPHER
--- NOTE | 2021-05-23 14:48 | CASEMGMT ---
GAVIN re-faxed clinicals to [facility]. Vanessa Morse VULCANIZER CHRISTOPHER
--- NOTE | 2021-05-23 15:05 | CASEMGMT ---
GAVIN spoke with Marla and she will start the pre-cert. Vanessa Morse SUGAR SAMPLER CHRISTOPHER
[2021-05-23] MEDS: oxyCODONE 5 MG Tablet PO ×2 (15:59→22:24)
[2021-05-23] MEDS: Atorvastatin Calcium 20 MG Tablet PO (22:17)
[2021-05-24] VITALS (7 sets, daily range): BP systolic 128–148; BP diastolic 65–103; PULSE 48–95; RESP 18; TEMP 36.4–37.1; O2SAT 93–96
[2021-05-24] MEDS: Cephalexin 500 MG Capsule PO ×3 (00:36→11:23)
[2021-05-24] MEDS: 0.9% Normal Saline 1,000 ML 150 ML IV ×2 (03:11→09:30)
[2021-05-24 06:13] LABS: Anion Gap 7 (5-15); BUN 17 mg/dL (7-18); BUN/Creat Ratio 18.5 RATIO (10-20); Calcium,Total 7.4 mg/dL (8.5-10.1); Chloride 112 mmol/L (98-107); Creatinine, Serum 0.92 mg/dL (0.70-1.30); EST Glomerular Filtration Rate 84 mL/min (>60); Est Glom Filt Rate - Afr Amer 102 mL/min (>60); Estimated Creatinine Clearance 71.46 ml/min; Glucose 110 mg/dL (74-106); Potassium 3.5 mmol/L (3.5-5.1); Sodium Level 141 mmol/L (136-145)
[2021-05-24] MEDS: Rivaroxaban 10 MG Tablet PO (06:44)
--- NOTE | 2021-05-24 07:36 | CASEMGMT ---
GAVIN received a voice mail from Shayla nurse reviewer with [facility]. Shayla indicates the case will likely get denied. She is sending it on to the physician for further review. Vanessa WHITE
--- NOTE | 2021-05-24 08:02 | CASEMGMT ---
SW received a call from Shayla with [facility]. Patient has been denied for SNF level of care. Peer to peer is an option. This must be done by the end of the day 05-26. Phone number is Option 1 and then Option 1 again. Per Shayla same day peer to peers cannot be completed. Vanessa Morse SPLUNK DASHBOARD DEVELOPER CHRISTOPHER
[2021-05-24] MEDS: Ensure Surgery 237 ML LIQUID PO ×2 (09:12→11:23)
[2021-05-24] MEDS: Metoprolol Tartrate 25 MG Tablet 12.5 MG PO (09:13)
[2021-05-24] MEDS: Memantine Hydrochloride 10 MG Tablet PO (09:13)
[2021-05-24] MEDS: Aspirin 81 MG TAB.CHEW PO (09:13)
[2021-05-24] MEDS: Donepezil HCl 10 MG Tablet PO (09:13)
[2021-05-24] MEDS: Escitalopram Oxalate 10 MG Tablet PO (09:13)
[2021-05-24] MEDS: Senna/Docusate Sodium 1 Tablet 2 TABLET PO (09:14)
[2021-05-24] MEDS: Lisinopril 5 MG Tablet PO (09:15)
--- NOTE | 2021-05-24 09:53 | CASEMGMT ---
SW spoke with Nurse Practitioner and therapy. It is felt the peer to peer is not necessary as patient is not able to follow commands for rehab. GAVIN called patient's daughter Neisha. GAVIN let Neisha know that insurance has denied care home facility. They do not feel he is able to be rehabbed as he is not able to follow commands. Neisha was not sure what to do next. GAVIN told her SW can check with [facility] or she can look at some of the other facilities. GAVIN let Neisha know that [facility], [facility] [place], and [facility] D[facility] units. Neisha asked GAVIN to send a referral to [facility]. GAVIN let Neisha know that someone from [facility] will likely call her to discuss finances since he will be private pay. She verbalized understanding. GAVIN called [facility] regarding referral and also faxed information. Await response. Vanessa Morse TRAINING AND QUALITY MANAGER CHRISTOPHER
--- NOTE | 2021-05-24 10:37 | CASEMGMT ---
GAVIN received a call from Garfield at [facility]. They are able to accept patient. Garfield said patient will need to pay 30 days up front which would be $7350. GAVIN called patient's daughter Neisha. GAVIN let Neisha know this information. Neisha said that is $1,000 more than what they are paying at [facility]. Neisha was going to talk with her brother. She asked GAVIN to call [facility] to see if the hickey will go up now since he will be more care. GAVIN called [facility] and they were in morning meeting. Teresa will call GAVIN back when out of the meeting. Vanessa Morse MEDICAL TECHNICIANS CHRISTOPHER
--- NOTE | 2021-05-24 10:51 | CASEMGMT ---
Teresa called GAVIN back. GAVIN explained patient was denied by insurance for rehab. Patient's daughter May would like to know if they can take him back and if so would the cost go up. Teresa asked GAVIN to fax information. Teresa said the cost would go up and if May would like to call her she can tell her the exact cost. GAVIN faxed information to [facility]. Vanessa Morse MSW CHRISTOPHER
--- NOTE | 2021-05-24 12:17 | CASEMGMT ---
GAVIN called patient's daughter May. GAVIN let Neisha know GAVIN spoke with Teresa at [facility]. GAVIN faxed them patient's information. Teresa said the hickey will go up and if she wants to call Teresa she can tell her the cost. Neisha said she will call Teresa and then call GAVIN back. Vanessa WHITE
--- NOTE | 2021-05-24 12:38 | PCM.TXEXTCAR ---
Documented by User: Oneyda Bello NP, HOSPICE CARE TRANSITIONS COORDINATOR-C 05/24/21 12:53 Diet 05/21/21 14:22 Diet: Regular - General Is pt able to select menu?: No Diet Comments: Deliver tray to desk, patient is a total feed. Routine Orders/Code Status Enema Type: Fleetz Enema Frequency: Daily PRN Suppository Type: Dulcolax 10mg Suppository Frequency: Daily PRN Routine Lab Work: - (Weekly CBC, BMP) Code Status: DNRCC-A (No intubation) Wound(s) RIGHT HIP: Wound Type: Surgical Incision Suggestions for Active Care Change Position every (hours): 2 Times a day to sit in chair: 3 Therapies Weight Bearing: Weight bearing as tolerated Physical Therapy: Eval and Treat Occupational Therapy: Eval and Treat Problem/Diagnosis (1) Fracture of right hip: Status: Acute (2) Paroxysmal atrial fibrillation: Status: Acute Allergies/Procedures Done in Hospital Allergies No Known Allergies Allergy (Verified 05/19/21 12:51) Procedures: - (Right hip cephalomedullary nail 05/20/21) Type of Care/Length of Stay Estimated LOS: More Than 30 Days Type of Care Needed: Intermediate Rehab Potential: Poor Prognosis: Fair Additional Orders/Day of Discharge H&P will serve as current which was dated: 05/18/21 Day of Discharge: 05/24/21 Dietary and Speech Recommendations Dietitian Recommendations/Changes: Continue regular diet and ensure surgery w/ medpass as ordered. Additional ONS as needed if PO fails at [facility]. Discharge Plan Admission Admit Date/Time: 05/18/21 11:32 Primary Reason for Your Visit: Right hip fracture Attending Provider: Jesus Thakkar Primary Care Provider: Madhu Coughlin Consulting Providers: Nano Randall ; Sanford Sevilla Instructions Additional Instructions / Restrictions: Xarelto DVT prophylaxis stop date 06/03/2021 then aspirin 81 mg twice daily for 2 weeks. Following completion will resume aspirin 81 mg daily. Continue thigh-high JAIMIE hose. Discharge Orders/Prescriptions Prescriptions: New atorvastatin 20 mg Tablet 20 mg PO QHS Qty: 0 RF: 0 cephalexin 500 mg Capsule 500 mg PO Q6 2 Days Qty: 8 RF: 0 lisinopril 5 mg Tablet 5 mg PO DAILY Qty: 0 RF: 0 metoprolol tartrate 25 mg Tablet 12.5 mg PO BID Qty: 0 RF: 0 Xarelto 10 mg Tablet 10 mg PO 0600 Qty: 0 RF: 0 Continued donepezil 10 MG tablet 10 mg PO DAILY RF: 0 fexofenadine [Lisbeth Allergy] 180 MG tablet 60 mg PO DAILY RF: 0 escitalopram oxalate 10 MG tablet 10 mg PO DAILY RF: 0 potassium chloride 10 MEQ tablet 10 meq PO DAILY RF: 0 memantine [Namenda] 10 MG tablet 10 mg PO BID RF: 0 acetaminophen [Tylenol] 325 MG capsule 650 mg PO Q8H PRN PRN (Reason: Pain) RF: 0 sennosides-docusate sodium [Senna-S] 8.6-50 mg tablet 1 tab PO BID RF: 0 Held aspirin 81 MG tablet,chewable 81 mg PO DAILY@0800 RF: 0 Hold Instructions: Resume on 06/03/21. Discontinued azithromycin 250 mg tablet 250 mg PO DAILY RF: 0 Referrals / Follow Up: Madhu Coughlin MD [Primary Care Provider] - In 1 Week Sanford Sevilla MD [STAFF PHYSICIAN] - Within 2 Weeks Marti Chandler PA [PHYSICIAN ANESTHESIA ASSISTANT] - See Referral Note ([facility] HOSPICE CARE TRANSITIONS COORDINATOR/PA follow-up in 2 weeks) Disposition Disposition (needs filled in before D/C Order can be placed): [facility] Documented by User: Dr. Jesus Thakkar, 05/24/21 13:38 Allergies/Procedures Done in Hospital Allergies No Known Allergies Allergy (Verified 05/19/21 12:51) Discharge Plan Admission Admit Date/Time: 05/18/21 11:32 Primary Reason for Your Visit: Right hip fracture Attending Provider: Jesus Thakkar Primary Care Provider: Madhu Coughlin Consulting Providers: Nano Randall ; Sanford Sevilla Instructions Additional Instructions / Restrictions: Xarelto DVT prophylaxis stop date 06/03/2021 then aspirin 81 mg twice daily for 2 weeks. Following completion will resume aspirin 81 mg daily. Continue thigh-high JAIMIE hose. Discharge Orders/Prescriptions Prescriptions: New atorvastatin 20 mg Tablet 20 mg PO QHS Qty: 0 RF: 0 cephalexin 500 mg Capsule 500 mg PO Q6 2 Days Qty: 8 RF: 0 lisinopril 5 mg Tablet 5 mg PO DAILY Qty: 0 RF: 0 metoprolol tartrate 25 mg Tablet 12.5 mg PO BID Qty: 0 RF: 0 Xarelto 10 mg Tablet 10 mg PO 0600 Qty: 0 RF: 0 Continued donepezil 10 MG tablet 10 mg PO DAILY RF: 0 fexofenadine [Lisbeth Allergy] 180 MG tablet 60 mg PO DAILY RF: 0 escitalopram oxalate 10 MG tablet 10 mg PO DAILY RF: 0 potassium chloride 10 MEQ tablet 10 meq PO DAILY RF: 0 memantine [Namenda] 10 MG tablet 10 mg PO BID RF: 0 acetaminophen [Tylenol] 325 MG capsule 650 mg PO Q8H PRN PRN (Reason: Pain) RF: 0 sennosides-docusate sodium [Senna-S] 8.6-50 mg tablet 1 tab PO BID RF: 0 Held aspirin 81 MG tablet,chewable 81 mg PO DAILY@0800 RF: 0 Hold Instructions: Resume on 06/03/21. Discontinued azithromycin 250 mg tablet 250 mg PO DAILY RF: 0 Referrals / Follow Up: Madhu Coughlin MD [Primary Care Provider] - In 1 Week Sanford Sevilla MD [STAFF PHYSICIAN] - Within 2 Weeks Marti Chandler PA [PHYSICIAN ANESTHESIA ASSISTANT] - See Referral Note ([facility] HOSPICE CARE TRANSITIONS COORDINATOR/PA follow-up in 2 weeks) Disposition Disposition (needs filled in before D/C Order can be placed): [facility]
--- NOTE | 2021-05-24 12:54 | PCM.DC.SUM ---
Documented by User: Oneyda Bello NP, ETL DATABASE DEVELOPER-C 05/24/21 13:03 Providers Date of Admission: 05/18/21 Date of Discharge: 05/24/21 Primary Care Physician: Dr. Madhu Coughlin MD Consultations 05/18/21 11:37 Consult: Orthopedics Routine Consulting Provider: Sanford Sevilla Reason for Consult: Hip fracture, consulted in ED. EMERGENT Consult: No MD Notified: Yes Date Notified: 05/18/21 Time Notified: 11:37 Method of Notification: Provider Initiated 05/19/21 15:38 Consult: Cardiology Routine Consulting Provider: Nano Randall Reason for Consult: Elevated trop, new onset afib, preop clearance EMERGENT Consult: No MD Notified: Yes Date Notified: 05/19/21 Time Notified: 16:05 Method of Notification: Text Reason For Visit: RIGHT HIP FX, UTI Diagnosis Discharge Diagnosis (1) Fracture of right hip: Status: Acute Code(s): S72.001A - Fracture of unspecified part of neck of right femur, initial encounter for closed fracture (2) Paroxysmal atrial fibrillation: Status: Acute Code(s): I48.0 - Paroxysmal atrial fibrillation Medications at Discharge Home Medications acetaminophen [Tylenol] 650 mg PO Q8H PRN PRN 05/25/18 aspirin 81 mg PO DAILY@0800 05/25/18 donepezil 10 mg PO DAILY 05/25/18 escitalopram oxalate 10 mg PO DAILY 05/25/18 fexofenadine [Lisbeth Allergy] 60 mg PO DAILY 05/25/18 memantine [Namenda] 10 mg PO BID 05/25/18 potassium chloride 10 meq PO DAILY 05/25/18 sennosides-docusate sodium [Senna-S] 1 tab PO BID 05/18/21 atorvastatin 20 mg PO QHS #0 tab 05/24/21 cephalexin 500 mg PO Q6 2 Days #8 cap 05/24/21 lisinopril 5 mg PO DAILY #0 tab 05/24/21 metoprolol tartrate 12.5 mg PO BID #0 tab 05/24/21 rivaroxaban [Xarelto] 10 mg PO 0600 #0 tab 05/24/21 Hospital Course Operations - (Right hip cephalomedullary nailing 05/20/2021) Procedures 2-D Echocardiogram Summary of Care Provided Hospital Course: Patient is a 80-year-old male admitted 05/18/2021 due to fall with hip pain. 1. Traumatic right hip fracture secondary to mechanical fall-status post right hip cephalomedullary nailing 05/20/2021. PT/OT. As needed pain regimen. SNF at discharge for intermediate care. Follow-up with orthopedic medicine in 2 weeks. Xarelto 10 mg daily for 2 weeks with stop date 06/03/2021 then aspirin 81 mg twice daily for 2 weeks. 2. New onset atrial fibrillation-converted to sinus rhythm. Continue metoprolol. Echo with EF 55 to 60%. Not a candidate for anticoagulation due to significant fall risk. Continue daily aspirin 81 mg following completion of DVT prophylaxis. 3. NSTEMI-demand ischemia secondary to #2. Cardiology consulted during admission. Continue aspirin, metoprolol. Has remained stable. Continue outpatient follow-up. 4. Acute cystitis-DC IV Rocephin. Urine culture growing E. coli. Transitioned to oral keflex to complete course with stop date 05/26/2021. 5. Acute kidney injury on chronic kidney disease stage IIIa-acute kidney injury resolved with IV fluids. 6. Alzheimer's disease, unclear behavioral disturbance history-on donepezil, Namenda. 7. Anxiety/depression-continue escitalopram. Physical Exam Const alert and no apparent distress Orientation / Consciousness: awake and oriented to person HEENT normocephalic and moist oral mucous membranes Eyes PERRL, EOMs intact bilaterally and conjunctivae normal Neck no lymphadenopathy Resp normal respiratory effort and clear to auscultation bilaterally Cardio regular rate, regular rhythm and no murmurs Peripheral Pulses: pulses 2+ throughout GI normal to inspection, nondistended, normoactive bowel sounds, non-tender and non-distended Extremity normal to inspection Skin no rashes or lesions noted Lesions: no lesions Rashes: no rashes Trauma: no lacerations or abrasions Neuro CN's II-XII intact bilaterally, no focal motor deficits, no sensory deficits noted and deep tendon reflexes 2+ bilaterally Neuro Narrative: Aphasic at baseline Psych Mood & Affect: flat affect Patient seen and examined prior to discharge. Physical assessment as noted above. Patient is stable for discharge with follow up recommendations as noted above. This patient was seen by LATOYA Combs under the supervision of Dr. Thakkar. Time spent examining patient, reviewing data and subsequent management of care: 16 Minutes Weight / BMI Weight Weight: 231 lb 15.985 oz Body Mass Index (BMI) 31.4 ABG / Lab / Microbiology Data Result Diagrams: 05/21/21 08:00 05/24/21 05:39 Laboratory: Laboratory Results - last 24 hr 05/24/21 05:39: Sodium 141, Potassium 3.5, Chloride 112 H, Carbon Dioxide 22.0, Anion Gap 7, BUN 17, Creatinine 0.92, Estim Creat Clear Calc 71.46, Est GFR (MDRD) Af Amer 102, Est GFR (MDRD) Non-Af 84, BUN/Creatinine Ratio 18.5, Glucose 110 H, Calcium 7.4 L Microbiology: Microbiology 05/18/21 09:02 Blood Culture (Wb) - Anticubital Right Blood Culture - Final No growth in 5 days. 05/18/21 09:10 Blood Culture (Wb) - Anticubital Left Bacteria Detection (PCR) - Final Coag Negative Staph 05/18/21 09:10 Blood Culture (Wb) - Anticubital Left Blood Culture - Final Coag Negative Staph 05/18/21 09:35 Urine Catheter - Welch Urine Culture - Final Presumptive E. coli Meaningful Use Info Meaningful Use Diagnoses (Choose all that apply): AMI AMI/Post PCI/Angioplasty Aspirin given w/in 24hrs of arrival?: Yes ASA at discharge?: Yes Statins at discharge?: Yes Solitario/ARB at discharge?: Yes Beta Jami at discharge?: Yes Done w/ Acute WI measure.: Yes Discharge Plan Admission Admit Date/Time: 05/18/21 11:32 Primary Reason for Your Visit: Right hip fracture Attending Provider: Jesus Thakkar Primary Care Provider: Madhu Coughlin Consulting Providers: Nano Randall ; Sanford Sevilla Instructions Additional Instructions / Restrictions: Xarelto DVT prophylaxis stop date 06/03/2021 then aspirin 81 mg twice daily for 2 weeks. Following completion will resume aspirin 81 mg daily. Continue thigh-high JAIMIE hose. Discharge Orders/Prescriptions Prescriptions: New atorvastatin 20 mg Tablet 20 mg PO QHS Qty: 0 RF: 0 cephalexin 500 mg Capsule 500 mg PO Q6 2 Days Qty: 8 RF: 0 lisinopril 5 mg Tablet 5 mg PO DAILY Qty: 0 RF: 0 metoprolol tartrate 25 mg Tablet 12.5 mg PO BID Qty: 0 RF: 0 Xarelto 10 mg Tablet 10 mg PO 0600 Qty: 0 RF: 0 Continued donepezil 10 MG tablet 10 mg PO DAILY RF: 0 fexofenadine [Lisbeth Allergy] 180 MG tablet 60 mg PO DAILY RF: 0 escitalopram oxalate 10 MG tablet 10 mg PO DAILY RF: 0 potassium chloride 10 MEQ tablet 10 meq PO DAILY RF: 0 memantine [Namenda] 10 MG tablet 10 mg PO BID RF: 0 acetaminophen [Tylenol] 325 MG capsule 650 mg PO Q8H PRN PRN (Reason: Pain) RF: 0 sennosides-docusate sodium [Senna-S] 8.6-50 mg tablet 1 tab PO BID RF: 0 Held aspirin 81 MG tablet,chewable 81 mg PO DAILY@0800 RF: 0 Hold Instructions: Resume on 06/03/21. Discontinued azithromycin 250 mg tablet 250 mg PO DAILY RF: 0 Referrals / Follow Up: Madhu Coughlin MD [Primary Care Provider] - In 1 Week Sanford Sevilla MD [STAFF PHYSICIAN] - Within 2 Weeks Marti Chandler PA [PHYSICIAN CONVENTION SERVICES DIRECTOR] - See Referral Note ([facility] ETL DATABASE DEVELOPER/PA follow-up in 2 weeks) Disposition Disposition (needs filled in before D/C Order can be placed): [facility] Facility Documented by User: Dr. Jesus Thakkar DO 05/24/21 15:45 Providers Date of Admission: 05/18/21 Reason For Visit: RIGHT HIP FX, UTI Medications at Discharge Home Medications acetaminophen [Tylenol] 650 mg PO Q8H PRN PRN 05/25/18 aspirin 81 mg PO DAILY@0800 05/25/18 donepezil 10 mg PO DAILY 05/25/18 escitalopram oxalate 10 mg PO DAILY 05/25/18 fexofenadine [Lisbeth Allergy] 60 mg PO DAILY 05/25/18 memantine [Namenda] 10 mg PO BID 05/25/18 potassium chloride 10 meq PO DAILY 05/25/18 sennosides-docusate sodium [Senna-S] 1 tab PO BID 05/18/21 atorvastatin 20 mg PO QHS #0 tab 05/24/21 cephalexin 500 mg PO Q6 2 Days #8 cap 05/24/21 lisinopril 5 mg PO DAILY #0 tab 05/24/21 metoprolol tartrate 12.5 mg PO BID #0 tab 05/24/21 rivaroxaban [Xarelto] 10 mg PO 0600 #0 tab 05/24/21 Hospital Course Operations - (Right hip cephalomedullary nail) Procedures None Summary of Care Provided Minutes Spent on Discharge: 28 Hospital Course: Patient seen and examined independently. Data and vitals reviewed. I agree with the above note by the nurse practitioner. This is a 80-year-old male with a severe dementia presents with a intertrochanteric right hip fracture. Decision was made to proceed with surgery and that was performed on where the patient had a right hip 7 medullary nail performed by Dr. Sevilla. Patient due to his severe dementia cannot follow commands is not a candidate for longterm facility. Patient will be discharged back to [facility] in stable condition. Physical Exam Const Constitutional Narrative: confused. afebrile. ABG / Lab / Microbiology Data Result Diagrams: 05/21/21 08:00 05/24/21 05:39 Discharge Plan Admission Admit Date/Time: 05/18/21 11:32 Primary Reason for Your Visit: Right hip fracture Attending Provider: Jesus Thakkar Primary Care Provider: Madhu Coughlin Consulting Providers: Nano Randall ; Sanford Sevilla Instructions Additional Instructions / Restrictions: Xarelto DVT prophylaxis stop date 06/03/2021 then aspirin 81 mg twice daily for 2 weeks. Following completion will resume aspirin 81 mg daily. Continue thigh-high JAIMIE hose. Discharge Orders/Prescriptions Prescriptions: New atorvastatin 20 mg Tablet 20 mg PO QHS Qty: 0 RF: 0 cephalexin 500 mg Capsule 500 mg PO Q6 2 Days Qty: 8 RF: 0 lisinopril 5 mg Tablet 5 mg PO DAILY Qty: 0 RF: 0 metoprolol tartrate 25 mg Tablet 12.5 mg PO BID Qty: 0 RF: 0 Xarelto 10 mg Tablet 10 mg PO 0600 Qty: 0 RF: 0 Continued donepezil 10 MG tablet 10 mg PO DAILY RF: 0 fexofenadine [Lisbeth Allergy] 180 MG tablet 60 mg PO DAILY RF: 0 escitalopram oxalate 10 MG tablet 10 mg PO DAILY RF: 0 potassium chloride 10 MEQ tablet 10 meq PO DAILY RF: 0 memantine [Namenda] 10 MG tablet 10 mg PO BID RF: 0 acetaminophen [Tylenol] 325 MG capsule 650 mg PO Q8H PRN PRN (Reason: Pain) RF: 0 sennosides-docusate sodium [Senna-S] 8.6-50 mg tablet 1 tab PO BID RF: 0 Held aspirin 81 MG tablet,chewable 81 mg PO DAILY@0800 RF: 0 Hold Instructions: Resume on 06/03/21. Discontinued azithromycin 250 mg tablet 250 mg PO DAILY RF: 0 Referrals / Follow Up: Madhu Coughlin MD [Primary Care Provider] - In 1 Week Sanford Sevilla MD [STAFF PHYSICIAN] - Within 2 Weeks Marti Chandler PA [PHYSICIAN CONVENTION SERVICES DIRECTOR] - See Referral Note ([facility] ETL DATABASE DEVELOPER/PA follow-up in 2 weeks) Disposition Disposition (needs filled in before D/C Order can be placed): [facility] Charges/Coding Visit Charges Inpatient E&M: 57817 Disch Hosp
--- NOTE | 2021-05-24 15:05 | CASEMGMT ---
GAVIN received a call from patient's daughter May and she would like to send patient to [facility]. May is aware patient will go today. May was going to contact [facility] and work on payment. GAVIN notified physician and Nurse Practitioner. SW obtained orders and negative COVID test. GAVIN arranged for patient to get picked up at 1600 via cot. GAVIN faxed orders, negative COVID, and vegetable picker time to [facility]. GAVIN also called [facility] and notified [place]. GAVIN notified RN, accredited legal secretary, and patient's daughter via voice mail about vegetable picker time. GAVIN completed a PASRR on [employer] system as patient will be prison at [facility]. 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 [facility] will transport patient via cot at 1600. Vanessa WHITE
== END 2021-05-24 16:42 | disposition skilled nursing facility (03) | DRG 480 ==
LOC: ED 11:02 → MS3 12:14 → PCU 05-19 14:34
PROVIDERS: Anesthesiology; Internal Medicine Interventional Cardiology; Nurse Practitioner Family; Physician Assistant; Specialist; Admitting Provider Internal Medicine; Emergency Provider Emergency Medicine; PCP Family Medicine
PROC: 0QS606Z Reposition Right Upper Femur with Intramedullary Internal Fixation Device, Open Approach (ICD-10-PCS; CPT 27245; principal; 2021-05-20 13:00)
DX: M80.051A Age-related osteoporosis with current pathological fracture, right femur, initial encounter for fracture (principal); I21.A1 Myocardial infarction type 2; N17.9 Acute kidney failure, unspecified; R47.01 Aphasia; N30.00 Acute cystitis without hematuria; I48.0 Paroxysmal atrial fibrillation; E78.5 Hyperlipidemia, unspecified; D64.9 Anemia, unspecified; F02.80 Dementia in other diseases classified elsewhere, unspecified severity, without behavioral disturbance, psychotic disturbance, mood disturbance, and anxiety; G30.9 Alzheimer's disease, unspecified; N18.31 Chronic kidney disease, stage 3a; B96.20 Unspecified Escherichia coli [E. coli] as the cause of diseases classified elsewhere; F41.9 Anxiety disorder, unspecified; I12.9 Hypertensive chronic kidney disease with stage 1 through stage 4 chronic kidney disease, or unspecified chronic kidney disease; J06.9 Acute upper respiratory infection, unspecified; F32.A Depression, unspecified; Z66 Do not resuscitate; Z79.82 Long term (current) use of aspirin; Z79.899 Other long term (current) drug therapy; Y92.099 Unspecified place in other non-institutional residence as the place of occurrence of the external cause
CPT/HCPCS: 36415; 70450; 71045; 73502; 73552; 76000; 80048; 80053; 81001; 83735; 84132; 84484; 85025; 85027; 86850; 86900; 86901; 87040; 87086; 87088; 87149; 87186; 87426; 93005; 93308; 97110; 97161; 97166; 97530; 97535; 99251; 99285; C1776; J7030; A4216; G0463; J2405

== ENCOUNTER → 2021-05-25 | Outpatient (REF) | payer MEDICARE, SELFPAY ==
[2021-05-25 08:19] LABS: Thyroid Stim Hormone (TSH) 1.78 uIU/mL (0.358-3.74)
[2021-05-25 08:38] LABS: Vitamin B12 270 pg/mL (211-911); Vitamin D,25 Hydroxy 15.8 ng/mL
== END | disposition home or self-care (01) ==
LOC: OLS.SW1020 05:00
PROVIDERS: PCP Family Medicine; Visit Provider Internal Medicine
DX: Z02.2 Encounter for examination for admission to residential institution (principal)
CPT/HCPCS: 36415; 82306; 82607; 84443

== ENCOUNTER → 2021-05-30 | Outpatient (REF) | payer MEDICARE, SELFPAY ==
[2021-05-30 07:33] LABS: Absolute Lymphocyte Count 1.84 X10^3/uL (0.83-4.51); Basophil# 0.04 X10^3/uL; Basophil% 0.4 % (0-1); Eosinophil# 0.19 X10^3/uL; Hematocrit 34.3 % (40-54); Hemoglobin 10.9 g/dL (13.0-16.5); Lymphocyte # 1.84 X10^3/ul (0.83-4.51); Lymphocyte % 19.1 % (19-41); Mean Corp Hgb Conc 31.8 g/dL (32-36); Mean Corpuscular Hgb 29.1 pg (27.0-32.0); Mean Corpuscular Volume 91.5 fL (80-94); Mean Platelet Vol. 11.3 fl (6.2-12.0); Monocyte# 1.54 X10^3/uL; NRBC Flagged by Analyzer 0 % (0-5); Neutrophil # 5.98 X10^3/uL (2.7-7.7); Neutrophil % 62.1 % (47-70); POSITIVE DIFFERENTIAL YES; Platelet Count 424 K/mm3 (150-450); RBC Distribution Width CV 16.5 % (11.6-14.6); RBC Distribution Width SD 54.1 fl (35.1-43.9); Red Blood Count 3.75 M/mm3 (4.6-6.2); White Blood Count 9.6 K/mm3 (4.4-11.0)
[2021-05-30 07:34] LABS: Differential Indicated SCAN CRITERIA MET
[2021-05-30 07:48] LABS: Anion Gap 6 (5-15); BUN 24 mg/dL (7-18); BUN/Creat Ratio 23.5 RATIO (10-20); Chloride 110 mmol/L (98-107); Creatinine, Serum 1.02 mg/dL (0.70-1.30); EST Glomerular Filtration Rate 75 mL/min (>60); Est Glom Filt Rate - Afr Amer 90 mL/min (>60); Glucose 81 mg/dL (74-106); Magnesium 2.2 mg/dL (1.6-2.6); Potassium 3.8 mmol/L (3.5-5.1); Sodium Level 140 mmol/L (136-145)
== END | disposition home or self-care (01) ==
LOC: OLS.SW1020 04:00
PROVIDERS: PCP Family Medicine; Visit Provider Internal Medicine
DX: Z02.2 Encounter for examination for admission to residential institution (principal)
CPT/HCPCS: 36415; 80048; 83735; 85025

== ENCOUNTER → 2021-05-30 | Outpatient (REF) | payer MEDICARE, SELFPAY | LOC: OLS.SW1020 04:00 | PROVIDERS: PCP Family Medicine; Referring Provider Internal Medicine; Visit Provider Internal Medicine | DX: Z00.00 Encounter for general adult medical examination without abnormal findings (principal) | CPT/HCPCS: 36415; 80048; 83735; 85025 ==

== ENCOUNTER → 2021-06-06 | Outpatient (REF) | payer MEDICARE, SELFPAY ==
[2021-06-06 09:11] LABS: Absolute Lymphocyte Count 1.04 X10^3/uL (0.83-4.51); Absolute Neutrophil Count 2.9 X10^3/uL (2.0-7.7); Basophil# 0.03 X10^3/uL; Basophil% 0.6 % (0-1); Eosinophil# 0.07 X10^3/uL; Eosinophils% 1.3 % (0-5); Hematocrit 38.6 % (40-54); Hemoglobin 12.1 g/dL (13.0-16.5); Lymphocyte # 1.04 X10^3/ul (0.83-4.51); Lymphocyte % 19.6 % (19-41); Mean Corp Hgb Conc 31.3 g/dL (32-36); Mean Corpuscular Hgb 29.1 pg (27.0-32.0); Mean Corpuscular Volume 92.8 fL (80-94); Mean Platelet Vol. 11.7 fl (6.2-12.0); Monocyte# 1.25 X10^3/uL; Monocyte% 23.6 % (0-10); NRBC Flagged by Analyzer 0 % (0-5); Neutrophil # 2.89 X10^3/uL (2.7-7.7); Neutrophil % 54.5 % (47-70); Platelet Count 265 K/mm3 (150-450); RBC Distribution Width CV 16.7 % (11.6-14.6); Red Blood Count 4.16 M/mm3 (4.6-6.2); White Blood Count 5.3 K/mm3 (4.4-11.0)
[2021-06-06 09:51] LABS: Anion Gap 6 (5-15); BUN 35 mg/dL (7-18); Calcium,Total 8.2 mg/dL (8.5-10.1); Chloride 118 mmol/L (98-107); EST Glomerular Filtration Rate 76 mL/min (>60); Est Glom Filt Rate - Afr Amer 93 mL/min (>60); Glucose 79 mg/dL (74-106); Magnesium 1.9 mg/dL (1.6-2.6); Potassium 3.7 mmol/L (3.5-5.1); Sodium Level 147 mmol/L (136-145)
== END | disposition home or self-care (01) ==
LOC: OLS.SW1020 04:00
PROVIDERS: PCP Family Medicine; Referring Provider Internal Medicine; Visit Provider Internal Medicine
DX: Z02.2 Encounter for examination for admission to residential institution (principal); N17.9 Acute kidney failure, unspecified; I48.91 Unspecified atrial fibrillation; S72.141D Displaced intertrochanteric fracture of right femur, subsequent encounter for closed fracture with routine healing
CPT/HCPCS: 36415; 80048; 83735; 85025

== ENCOUNTER 2021-07-16 20:47 | Inpatient (IN) | payer MEDICARE, SELFPAY ==
[2021-07-16] VITALS (7 sets, daily range): BP systolic 67–115; BP diastolic 45–84; PULSE 125–143; RESP 16–31; TEMP 36.8–37.9; O2SAT 93–98; BMI 27.1
--- NOTE | 2021-07-16 21:11 | EKG12_ITS ---
Test Reason : ALT LOC Blood Pressure : / mmHG Vent. Rate : 141 BPM Atrial Rate : 070 BPM P-R Int : 000 ms QRS Dur : 146 ms QT Int : 382 ms P-R-T Axes : 000 -49 145 degrees QTc Int : 585 ms Atrial fibrillation with premature ventricular or aberrantly conducted complexes Left axis deviation Non-specific intra-ventricular conduction block Abnormal ECG Confirmed by SHELBY HOPPER, SUDHAKAR ([id number]), online content editor YADIEL GUZMAN ([id number]) on 07/18/2021 11:42:15 AM Referred By: BRITTANY Confirmed By:SUDHAKAR RYAN MD
--- NOTE | 2021-07-16 21:12 | CT_ITS ---
EXAM: CT HEAD WITHOUT INTRAVENOUS CONTRAST CLINICAL INDICATION: Altered mental status TECHNIQUE: Multiple axial images were obtained of the head without intravenous contrast. This CT exam was performed using one or more of the following dose reduction techniques: automated exposure control, adjustment of the mA and/or kV according to patient size, and/or use of iterative reconstruction technique. This report was created using [employer] report generation technology. RADIATION DOSE: CTDIvol = 44.99 mGy, DLP = 1659.71 mGy-cm COMPARISON: May 18, 2021. FINDINGS: BRAIN AND EXTRA-AXIAL SPACES: Moderate-marked cerebral volume loss. Mild cerebellar volume loss. Mild low-attenuation deep periventricular chronic white matter change. Moderate ventriculomegaly. No intra- or extra-axial hemorrhage. No evidence of acute infarct. No intracranial mass or mass effect. There is preservation of the maldonado/white matter interface. Basal cisterns are patent. BONES/JOINTS: Unremarkable. No discrete lytic or blastic abnormalities. VASCULATURE: Mild cavernous carotid calcifications. SINUSES: Opacification of most of the partially included right maxillary sinus with sclerotic margins again noted, otherwise unremarkable partially included paranasal sinuses. MASTOID AIR CELLS: Unremarkable. Clear. ORBITS: Visualized globes, extraocular muscles, optic nerves and retrobulbar fat appear unremarkable. CT/Brain/Head without Contrast IMPRESSION: Advanced chronic changes for age. Right maxillary sinusitis again noted. No acute intracranial abnormality identified. Electronically Signed: Nia Ragsdale MD at 22:22 EDT ,
[2021-07-16 21:16] LABS: Bedside Glucose 119 mg/dL (74-106)
[2021-07-16] MEDS: 0.9% Normal Saline 1,000 ML 999 ML IV (21:19)
[2021-07-16 21:29] LABS: Absolute Lymphocyte Count 1.62 X10^3/uL (0.83-4.51); Absolute Neutrophil Count 11.2 X10^3/uL (2.0-7.7); Basophil# 0.03 X10^3/uL; Basophil% 0.2 % (0-1); Eosinophil# 0.01 X10^3/uL; Eosinophils% 0.1 % (0-5); Hematocrit 37.7 % (40-54); Hemoglobin 11.6 g/dL (13.0-16.5); Lymphocyte # 1.62 X10^3/ul (0.83-4.51); Lymphocyte % 11.3 % (19-41); Mean Corp Hgb Conc 30.8 g/dL (32-36); Mean Corpuscular Hgb 29.2 pg (27.0-32.0); Monocyte# 1.44 X10^3/uL; Monocyte% 10.1 % (0-10); NRBC Flagged by Analyzer 0 % (0-5); Neutrophil # 11.16 X10^3/uL (2.7-7.7); Neutrophil % 77.9 % (47-70); POSITIVE COUNT YES; Platelet Count 74 K/mm3 (150-450); RBC Distribution Width CV 18.5 % (11.6-14.6); RBC Distribution Width SD 64.5 fl (35.1-43.9); Red Blood Count 3.97 M/mm3 (4.6-6.2); White Blood Count 14.3 K/mm3 (4.4-11.0)
--- NOTE | 2021-07-16 21:30 | RAD_ITS ---
ACR Level 3 findings have been noted. An addendum which confirms receipt of the report will follow. EXAM: XR CHEST, 1 VIEW CLINICAL INDICATION: Fever TECHNIQUE: Frontal view of the chest. This report was created using [employer] report generation technology. COMPARISON: May 18, 2021, May 25, 2018. FINDINGS: LIMITATIONS: The patient is rotated, mild limitation due to positioning. LUNGS AND PLEURAL SPACES: Unremarkable. No consolidation or edema. No pneumothorax. No effusion. HEART: Unremarkable. Cardiac silhouette not enlarged. MEDIASTINUM: Central airways and mediastinal contour are unremarkable. BONES/JOINTS: There is new wedge-shaped opacity in the retrocardiac left lung base with obscured visualization of a roughly 5.2 cm segment of the left hemidiaphragm and slight elevation of the left lateral hemidiaphragm at the costophrenic angle. New from prior exams. SOFT TISSUES: Unremarkable. RAD/Chest 1 View (Portable) IMPRESSION: Moderate wedge-shaped left retrocardiac consolidation, new. The primary considerations include atelectasis, pneumonia and infarct. Probably less likely due to postobstructive pneumonitis but follow-up until resolution will be needed. Consider short-term follow-up in 4-6 weeks if further imaging is not performed at this time. Electronically Signed: Nia Ragsdale MD at 21:57 EDT ,
[2021-07-16 21:34] LABS: Differential Indicated SCAN CRITERIA MET
[2021-07-16 21:55] LABS: Lactic Acid 1.6 mmol/L (0.4-1.9)
[2021-07-16 22:02] LABS: Anisocytosis 2+; Platelet Estimate MOD DEC (ADEQ)
[2021-07-16 22:03] LABS: Differential Comment SCANNED
[2021-07-16 22:19] LABS: ALB/GLOB Ratio 0.5 RATIO (0.9-2.4); AST(SGOT) 19 U/L (15-37); Alanine Aminotransfer ALT/SGPT 13 U/L (16-61); Albumin, Serum 2.1 g/dL (3.2-5.0); Alkaline Phosphatase 120 U/L (45-117); Anion Gap 6 (5-15); BUN 37 mg/dL (7-18); BUN/Creat Ratio 26.4 RATIO (10-20); Calcium,Total 8.3 mg/dL (8.5-10.1); Chloride 131 mmol/L (98-107); EST Glomerular Filtration Rate 52 mL/min (>60); Est Glom Filt Rate - Afr Amer 63 mL/min (>60); Estimated Creatinine Clearance 48.35 ml/min; Globulin 4.6 g/dL (2.2-4.2); Glucose 119 mg/dL (74-106); Potassium 3.4 mmol/L (3.5-5.1); Protein, Total 6.7 g/dL (6.4-8.2); Sodium Level 160 mmol/L (136-145); Troponin-I HS 95 pg/mL (3.0-78.0)
[2021-07-16 22:23] LABS: Mucous, Urine 0 SEEN /hpf (<or=2+); Red Blood Cells-Urine 0 SEEN /hpf (0-5); Squamous Epithelial Cells - UA 0 SEEN /hpf (0-5)
[2021-07-16 22:32] LABS: Color, Urine Yellow (Yellow); Glucose, Dipstick Normal (Normal); Ketone-Dipstick 5 mg/dl (Negative); Leukocyte Esterase-Dipstick 500 /ul (Negative); Nitrite-Dipstick Negative (Negative); Occult Blood-Urine 50 /ul (Negative); Protein-Dipstick 30 mg/dl (Negative); Specific Gravity, Urine 1.025 (1.002-1.030); Urine Bilirubin Dipstick Negative (Negative); Urine Clarity Clear (Clear); Urine Urobilinogen 1 mg/dl (Normal)
[2021-07-16 22:41] LABS: Bacteria 2+ /hpf (None Seen); White Blood Cells 10-25 SEEN /hpf (0-5)
--- NOTE | 2021-07-16 23:44 | EDS_ITS ---
HPI History of Present Illness Chief Complaint: Alt LOC Informant: family and SNF Onset/Context/Timing Onset: Today Context: Gradual Onset Timing: Continuous Quality: Altered mental status, fever Location: Generalized Worsened by: Nothing Relieved by: Tylenol Narrative Narrative: Patient presents with altered mental status that became worse today at the detention. intermediate staff reports that the patient has been running a fever. intermediate staff has been giving the patient Tylenol for the fever. Patient is completely nonverbal and is a poor historian. Family presented to the emergency department states that patient is acting like his normal self but may be slightly decreased with his mental status. Family states he is normally nonverbal and has a history of dementia. [facility] Medical History Alzheimer disease Dementia Dementia Depression Expressive aphasia Hyperlipidemia Osteoarthritis Home Medications acetaminophen [Tylenol] 650 mg PO Q8H PRN PRN 05/25/18 [History Last Taken Unknown] aspirin 81 mg PO DAILY@0800 05/25/18 [History Last Taken Unknown] donepezil 10 mg PO DAILY 05/25/18 [History Last Taken Unknown] escitalopram oxalate 10 mg PO DAILY 05/25/18 [History Last Taken Unknown] fexofenadine [Lisbeth Allergy] 60 mg PO DAILY 05/25/18 [History Last Taken Unknown] memantine [Namenda] 10 mg PO BID 05/25/18 [History Last Taken Unknown] potassium chloride 10 meq PO DAILY 05/25/18 [History Last Taken Unknown] sennosides-docusate sodium [Senna-S] 1 tab PO BID 05/18/21 [History Last Taken Unknown] atorvastatin 20 mg PO QHS #0 tab 05/24/21 [Rx Last Taken Unknown] lisinopril 5 mg PO DAILY #0 tab 05/24/21 [Rx Last Taken Unknown] metoprolol tartrate 12.5 mg PO BID #0 tab 05/24/21 [Rx Last Taken Unknown] Allergy/AdvReac Type Severity Reaction Status Date / Time No Known Allergies Allergy Verified 07/16/21 20:48 Family History unable to obtain Social History Smoking Status: Never smoker ROS ROS ED Review of Systems ROS Unobtainable: due to mental condition and due to mental status EXAM Physical Exam Const Vital Signs: 07/16/21 20:47 07/16/21 20:48 07/16/21 20:55 Temperature 100.2 F H Temperature Source Axillary Pulse Rate 143 H 140 H Respiratory Rate 28 H 31 H Respiratory Effort Normal Respiratory Pattern Tachypnea Blood Pressure 84/57 L 84/57 L Blood Pressure Mean 66 66 Pulse Ox 93 93 Oxygen Delivery Method Room Air Room Air Oxygen Flow Rate (L/min) Fraction of Inspired Oxygen (FIO2) 07/16/21 21:17 07/16/21 21:22 07/16/21 22:20 Temperature 98.8 F 98.8 F Temperature Source Axillary Axillary Pulse Rate 139 H 130 H Respiratory Rate 23 H 24 H Respiratory Effort Respiratory Pattern Blood Pressure 67/45 L 115/84 H Blood Pressure Mean 52 94 Pulse Ox 96 95 98 Oxygen Delivery Method Nasal Cannula Nasal Cannula Nasal Cannula Oxygen Flow Rate (L/min) 4 4 4 Fraction of Inspired Oxygen (FIO2) 100 07/16/21 23:15 07/16/21 23:54 Temperature 98.6 F 98.3 F Temperature Source Axillary Axillary Pulse Rate 125 H 136 H Respiratory Rate 16 24 H Respiratory Effort Respiratory Pattern Blood Pressure 95/84 H 97/69 Blood Pressure Mean 87 78 Pulse Ox 95 96 Oxygen Delivery Method Nasal Cannula Nasal Cannula Oxygen Flow Rate (L/min) 4 4 Fraction of Inspired Oxygen (FIO2) 100 100 Positive well nourished, well developed and obese General Appearance ED: well developed Nutritional Appearance: obese HEENT Reports dry mucous membranes Mouth ED: Yes dry mucous membranes Mouth: dry mucous membranes Neck supple and no JVD Resp normal respiratory effort Auscultation: diminished lung sounds diffuse Cardio Rate: tachycardic Rhythm: abnormal rhythm irregularly irregular GI non-tender Palpation: soft Neuro no sensory deficits noted Sensorium / Orientation: orientation impaired Motor Exam: strength 5/5 throughout MDM MDM MDM Narrative Medical decision making narrative: Patient was given IV fluids. EKG was obtained. On my interpretation, it shows atrial fibrillation with a rate of 141. There is a left bundle branch block pattern noted. There are no acute ST or T wave changes noted. CT scan of the brain was obtained. There is no acute intracranial abnormality. There are chronic changes noted. This was interpreted by the radiologist and reviewed by myself. Portable chest x-ray was obtained. There is 1 view. On my interpretation, there is a retrocardiac consolidation. Bony thorax is normal. There is no cardiomegaly. Radiologist also interpreted the x-ray and agrees. CBC shows a leukocytosis of 14.3. Hemoglobin was 11.6 and hematocrit was 37.7. Platelets were 74. Comprehensive metabolic profile showed a sodium of 116 and a chloride of 131. BUN was 37 and creatinine was 1.4. Lactate was normal. High-sensitivity troponin was 95. Urinalysis shows a leukocyte esterases of 500 with 10-25 white blood cells and 2+ bacteria. Urine culture was ordered. Blood cultures were ordered. Patient was started on Zosyn. Case was discussed with the hospitalist. He will admit the patient to his service. Family understands and is agreeable with the plan. All questions were answered. Lab Data Labs: Laboratory Results - last 24 hr 07/16/21 07/16/21 07/16/21 20:55 20:55 20:55 WBC 14.3 H RBC 3.97 L Hgb 11.6 L Hct 37.7 L MCV 95.0 H MCH 29.2 MCHC 30.8 L RDW Std Deviation 64.5 H RDW Coeff of Anastacia 18.5 H Plt Count 74 L MPV TNP Immature Gran % (Auto) 0.400 Neut % (Auto) 77.9 H Lymph % (Auto) 11.3 L [place] % (Auto) 10.1 H Eos % (Auto) 0.1 Baso % (Auto) 0.2 Absolute Neuts (auto) 11.2 H Absolute Lymphs (auto) 1.62 Nucleated RBC % 0 Differential Comment SCANNED Platelet Estimate MOD DEC Anisocytosis 2+ Sodium 160 H Potassium 3.4 L Chloride 131 H* Carbon Dioxide 23.0 Anion Gap 6 BUN 37 H Creatinine 1.40 H Estim Creat Clear Calc 48.35 Est GFR (MDRD) Af Amer 63 Est GFR (MDRD) Non-Af 52 L BUN/Creatinine Ratio 26.4 H Glucose 119 H Lactic Acid 1.6 Calcium 8.3 L Total Bilirubin 0.90 AST 19 ALT 13 L Alkaline Phosphatase 120 H Troponin I High Sens 95 H Total Protein 6.7 Albumin 2.1 L Globulin 4.6 H Albumin/Globulin Ratio 0.5 L Urine Color Urine Clarity Urine pH Ur Specific [place] Urine Protein Urine Glucose (UA) Urine Ketones Urine Occult Blood Urine Nitrite Urine Bilirubin Urine Urobilinogen Ur Leukocyte Esterase Urine RBC Urine WBC Ur Squamous Epith Cells Urine Bacteria Urine Mucus POC Glucose 07/16/21 07/16/21 21:06 22:18 WBC RBC Hgb Hct MCV MCH MCHC RDW Std Deviation RDW Coeff of Anastacia Plt Count MPV Immature Gran % (Auto) Neut % (Auto) Lymph % (Auto) [place] % (Auto) Eos % (Auto) Baso % (Auto) Absolute Neuts (auto) Absolute Lymphs (auto) Nucleated RBC % Differential Comment Platelet Estimate Anisocytosis Sodium Potassium Chloride Carbon Dioxide Anion Gap BUN Creatinine Estim Creat Clear Calc Est GFR (MDRD) Af Amer Est GFR (MDRD) Non-Af BUN/Creatinine Ratio Glucose Lactic Acid Calcium Total Bilirubin AST ALT Alkaline Phosphatase Troponin I High Sens Total Protein Albumin Globulin Albumin/Globulin Ratio Urine Color Yellow Urine Clarity Clear Urine pH 6.0 Ur Specific [place] 1.025 Urine Protein 30 H Urine Glucose (UA) Normal Urine Ketones 5 H Urine Occult Blood 50 H Urine Nitrite Negative Urine Bilirubin Negative Urine Urobilinogen 1 H Ur Leukocyte Esterase 500 H Urine RBC 0 SEEN Urine WBC 10-25 SEEN Ur Squamous Epith Cells 0 SEEN Urine Bacteria 2+ Urine Mucus 0 SEEN POC Glucose 119 H Radiography Diagnostic Testing: Clinical Impression(s) from Imaging Studies Brain CT 07/16/21 21:12 IMPRESSION: Advanced chronic changes for age. Right maxillary sinusitis again noted. No acute intracranial abnormality identified. Electronically Signed: Nia Ragsdale MD at 22:22 EDT Reading Location ID and State: [facility] / [place] Tel , Service support , Chest X-Ray 07/16/21 21:30 IMPRESSION: Moderate wedge-shaped left retrocardiac consolidation, new. The primary considerations include atelectasis, pneumonia and infarct. Probably less likely due to postobstructive pneumonitis but follow-up until resolution will be needed. Consider short-term follow-up in 4-6 weeks if further imaging is not performed at this time. Electronically Signed: Nia Ragsdale MD at 21:57 EDT , ADDENDUM: 07/16/212217 IMPRESSION: Moderate wedge-shaped left retrocardiac consolidation, new. The primary considerations include atelectasis, pneumonia and infarct. Probably less likely due to postobstructive pneumonitis but follow-up until resolution will be needed. Consider short-term follow-up in 4-6 weeks if further imaging is not performed at this time. N.B. : FER reid, confirmed on 07/16/2021 22:11:56 (ET) that the healthcare facility has received the radiology report. Electronically Signed: Nia Ragsdale MD at 21:57 EDT , Discharge Plan Dx/Rx/DC Orders Clinical Impression: Pneumonia, Urinary tract infection, Acute dehydration, Atrial fibrillation with rapid ventricular response, Thrombocytopenia Disposition Disposition: Acute Care Hospital [facility]
[2021-07-17] VITALS (20 sets, daily range): BP systolic 82–175; BP diastolic 52–143; PULSE 62–135; RESP 16–18; TEMP 36.4–37.6; O2SAT 94–98; BMI 26.6
[2021-07-17 00:10] LABS: International Normalized Ratio 1.4; Prothrombin Time (Protime)PT. 17.1 SECONDS (11.7-14.9)
[2021-07-17 00:11] LABS: Partial Thromboplast Time 35.5 Seconds (24.1-36.2)
[2021-07-17 00:33] LABS: Troponin-I HS 99 pg/mL (3.0-78.0)
--- NOTE | 2021-07-17 00:50 | PCM.HP.STD ---
HPI - General General Date of Admission: 07/17/21 Date of Service: 07/17/21 Chief Complaint: Decreased level of consciousness HPI Narrative ISAI FINNEY, is a 80 M who presents to the 0 at [facility] for evaluation due to lethargy and decreased level of consciousness and a care home facility at which she resides currently. Patient has a long history of dementia-according to the family approximately 10 years-according to the daughter, he has not been eating or drinking well for the past few days. Patient sustained a hip fracture at the end of April 2021 and he had been residing in assisted living before that time, he has been at the correction since April 2021 when he was discharged from the hospital here. Review of systems is unobtainable from the patient due to the fact he is not talking and he is only responding to tactile stimulation by withdrawing. Work-up in the emergency room included a chest x-ray which showed the presence of an infiltrate in the retrocardiac area of the left lung, labs were obtained which showed an elevated white blood cell count of 14.3, hemoglobin was 11.6, chemistry profile was abnormal for a sodium of 160, chloride of 131, potassium of 3.4, creatinine of 1.4, and a BUN of 37. Patient's troponin was elevated at 95. Urinalysis showed 10-25 WBCs and +2 bacteria along with positive urine leukocyte esterase. No red blood cells were noted. Patient appeared to be in atrial fib on the monitor with a heart rate of approximately 120-130, there is noted to be a left bundle branch block. Patient was given IV antibiotics in the emergency room along with fluids, I had a discussion with the daughter who is the patient's POA and confirmed that the patient is a DNR CC arrest without intubation, I told her that I would advise us to admit him on MedSurg and not place him on telemetry, I think his tachycardia is due in part to his infection and severe dehydration. Patient's daughter does not want a feeding tube inserted, I told her that she might want to think about palliative care or hospice due to the fact the patient has been declining over the past few months. COUNT INCLUDES THE [facility] Medical History Alzheimer disease Dementia Dementia Depression Expressive aphasia Hyperlipidemia Osteoarthritis Home Medications acetaminophen [Tylenol] 650 mg PO Q8H PRN PRN 05/25/18 [History Last Taken Unknown] aspirin 81 mg PO DAILY@0800 05/25/18 [History Last Taken Unknown] donepezil 10 mg PO DAILY 05/25/18 [History Last Taken Unknown] escitalopram oxalate 10 mg PO DAILY 05/25/18 [History Last Taken Unknown] fexofenadine [Lisbeth Allergy] 60 mg PO DAILY 05/25/18 [History Last Taken Unknown] memantine [Namenda] 10 mg PO BID 05/25/18 [History Last Taken Unknown] sennosides-docusate sodium [Senna-S] 1 tab PO BID 05/18/21 [History Last Taken Unknown] atorvastatin 20 mg PO QHS #0 tab 05/24/21 [Rx Last Taken Unknown] lisinopril 5 mg PO DAILY #0 tab 05/24/21 [Rx Last Taken Unknown] metoprolol tartrate 12.5 mg PO BID #0 tab 05/24/21 [Rx Last Taken Unknown] aluminum-magnesium hydroxide [Antacid] 30 ml PO Q4H PRN 07/17/21 [History Last Taken Unknown] cholecalciferol (vitamin D3) 1,250 mcg PO QWEEK 07/17/21 [History Last Taken Unknown] cyanocobalamin (vitamin B-12) 500 mcg PO DAILY 07/17/21 [History Last Taken Unknown] guaifenesin 100 mg PO Q4H PRN 07/17/21 [History Last Taken Unknown] Allergy/AdvReac Type Severity Reaction Status Date / Time No Known Allergies Allergy Verified 07/16/21 20:48 Family History unable to obtain Social History Smoking Status: Never smoker ROS ROS Narrative Review of systems unable be obtained due to patient's underlying dementia and current medical issues. Vital Signs Vital Signs Vital Signs: 07/16/21 20:47 07/16/21 20:48 07/16/21 20:55 Temperature 100.2 F H Temperature Source Axillary Pulse Rate 143 H 140 H Respiratory Rate 28 H 31 H Respiratory Effort Normal Respiratory Pattern Tachypnea Blood Pressure 84/57 L 84/57 L Blood Pressure Mean 66 66 Pulse Ox 93 93 Oxygen Delivery Method Room Air Room Air Oxygen Flow Rate (L/min) Fraction of Inspired Oxygen (FIO2) 07/16/21 21:17 07/16/21 21:22 07/16/21 22:20 Temperature 98.8 F 98.8 F Temperature Source Axillary Axillary Pulse Rate 139 H 130 H Respiratory Rate 23 H 24 H Respiratory Effort Respiratory Pattern Blood Pressure 67/45 L 115/84 H Blood Pressure Mean 52 94 Pulse Ox 96 95 98 Oxygen Delivery Method Nasal Cannula Nasal Cannula Nasal Cannula Oxygen Flow Rate (L/min) 4 4 4 Fraction of Inspired Oxygen (FIO2) 100 07/16/21 23:15 07/16/21 23:54 Temperature 98.6 F 98.3 F Temperature Source Axillary Axillary Pulse Rate 125 H 136 H Respiratory Rate 16 24 H Respiratory Effort Respiratory Pattern Blood Pressure 95/84 H 97/69 Blood Pressure Mean 87 78 Pulse Ox 95 96 Oxygen Delivery Method Nasal Cannula Nasal Cannula Oxygen Flow Rate (L/min) 4 4 Fraction of Inspired Oxygen (FIO2) 100 100 Weight Weight: 93.2 kg Body Mass Index (BMI) 27.1 Physical Exam Const Constitutional Narrative: Patient appears older than his stated age, he appears debilitated, he does not respond to verbal stimuli, he responds to tactile stimuli by withdrawing General Appearance: well kempt and well developed Orientation / Consciousness: awake, oriented to person, oriented to place and oriented to time HEENT normocephalic and head/scalp atraumatic HEENT Narrative: Dry mucous membranes Neck nuchal rigidity, no JVD, thyroid normal and no carotid bruits General: trachea midline Resp normal respiratory effort, no retractions, no use of accessory muscles and clear to auscultation bilaterally Auscultation: Negative for rales, rhonchi or wheezes Cardio S1 normal heart sound, S2 normal heart sound, no murmurs, no rub and no gallops Cardio Narrative: Heart rate and rhythm is irregular and tachycardic GI normal to inspection, nondistended, normoactive bowel sounds, soft to palpation, non-tender and non-distended Extremity normal to inspection and no clubbing, cyanosis or edema Skin no rashes or lesions noted General Skin Exam: no breakdown Neuro CN's II-XII intact bilaterally and no sensory deficits noted Neuro Narrative: Patient is lethargic, he responds to tactile stimuli by withdrawing, he does not respond to verbal commands or stimuli Psych Psych Narrative: Patient is lethargic and somnolent, he does not respond to verbal stimuli, he does respond to tactile stimuli by withdrawing. Results Lab / Micro Data Result Diagrams: 07/16/21 20:55 07/16/21 20:55 Labs: Laboratory Results - last 24 hr 07/16/21 20:55: WBC 14.3 H, RBC 3.97 L, Hgb 11.6 L, Hct 37.7 L, MCV 95.0 H, MCH 29.2, MCHC 30.8 L, RDW Std Deviation 64.5 H, RDW Coeff of Anastacia 18.5 H, Plt Count 74 L, MPV TNP, Immature Gran % (Auto) 0.400, Neut % (Auto) 77.9 H, Lymph % (Auto) 11.3 L, [place] % (Auto) 10.1 H, Eos % (Auto) 0.1, Baso % (Auto) 0.2, Absolute Neuts (auto) 11.2 H, Absolute Lymphs (auto) 1.62, Nucleated RBC % 0, Differential Comment SCANNED, Platelet Estimate MOD DEC, Anisocytosis 2+ 07/16/21 20:55: PT 17.1 H, INR 1.4, APTT 35.5 07/16/21 20:55: Sodium 160 H, Potassium 3.4 L, Chloride 131 H*, Carbon Dioxide 23.0, Anion Gap 6, BUN 37 H, Creatinine 1.40 H, Estim Creat Clear Calc 48.35, Est GFR (MDRD) Af Amer 63, Est GFR (MDRD) Non-Af 52 L, BUN/Creatinine Ratio 26.4 H, Glucose 119 H, Calcium 8.3 L, Total Bilirubin 0.90, AST 19, ALT 13 L, Alkaline Phosphatase 120 H, Troponin I High Sens 95 H, Total Protein 6.7, Albumin 2.1 L, Globulin 4.6 H, Albumin/Globulin Ratio 0.5 L 07/16/21 20:55: Lactic Acid 1.6 07/16/21 21:06: POC Glucose 119 H 07/16/21 22:18: Urine Color Yellow, Urine Clarity Clear, Urine pH 6.0, Ur Specific [place] 1.025, Urine Protein 30 H, Urine Glucose (UA) Normal, Urine Ketones 5 H, Urine Occult Blood 50 H, Urine Nitrite Negative, Urine Bilirubin Negative, Urine Urobilinogen 1 H, Ur Leukocyte Esterase 500 H, Urine RBC 0 SEEN, Urine WBC 10-25 SEEN, Ur Squamous Epith Cells 0 SEEN, Urine Bacteria 2+, Urine Mucus 0 SEEN Radiology Impression Brain CT 07/16/21 21:12 IMPRESSION: Advanced chronic changes for age. Right maxillary sinusitis again noted. No acute intracranial abnormality identified. Electronically Signed: Nia Ragsdale MD at 22:22 EDT , Chest X-Ray 07/16/21 21:30 IMPRESSION: Moderate wedge-shaped left retrocardiac consolidation, new. The primary considerations include atelectasis, pneumonia and infarct. Probably less likely due to postobstructive pneumonitis but follow-up until resolution will be needed. Consider short-term follow-up in 4-6 weeks if further imaging is not performed at this time. Electronically Signed: Nia Ragsdale MD at 21:57 EDT , ADDENDUM: 07/16/21 2218 IMPRESSION: Moderate wedge-shaped left retrocardiac consolidation, new. The primary considerations include atelectasis, pneumonia and infarct. Probably less likely due to postobstructive pneumonitis but follow-up until resolution will be needed. Consider short-term follow-up in 4-6 weeks if further imaging is not performed at this time. N.B. : FER reid, confirmed on 07/16/2021 22:11:56 (ET) that the healthcare facility has received the radiology report. Electronically Signed: Nia Ragsdale MD at 21:57 EDT , Assessment & Plan Assessment/Plan (1) Pneumonia: PLAN: 1. Left-sided pneumonia-patient will be admitted to [facility] 3, he will be placed on IV Zosyn, prognosis is overall poor due to the patient's severe dementia and concurrent medical conditions. #2 acute urinary tract infection--patient will be given IV Zosyn #3 Alzheimer's dementia-complicates care and recovery and prognosis #4 severe dehydration-patient's sodium is elevated and chloride is elevated, he will be given IV fluids, labs will be monitored #5 hypokalemia-patient will be given IV potassium, labs will be monitored #6 atrial fibrillation with poorly controlled ventricular response-patient's tachycardia in part may be due to his dehydration and infection, I have decided at this time not to place the patient on telemetry, he be monitored, hopefully his heart rate will decrease. Patient will not be able to take oral medication at this time, he is on rate limiting medications at the correction, this may need to be given to him IV until he is able to take p.o. medication. #7 severe debility secondary to multiple medical problems including longstanding Alzheimer's disease-prognosis, recovery, and care is difficult #8 thrombocytopenia-etiology unclear, CBC will be monitored Charges/Coding Visit Charges Inpatient E&M: 26977 Init Hosp L3
[2021-07-17] MEDS: KCL 20MEQ in 0.9% NS 20 MEQ/1,000 ML IV.SOLN. 125 MEQ IV (02:04)
[2021-07-17] MEDS: 0.9% Saline Lock 10 ML Syringe IV (02:04)
[2021-07-17] MEDS: Metoprolol Tartrate 5 MG/5 ML Vial IV ×3 (02:55→11:50)
[2021-07-17] MEDS: Menthol/Lanolin/Calamine/Znox 113 GM Tube 1 APPLIC TOPICAL ×2 (06:01→22:30)
[2021-07-17 06:28] LABS: Magnesium 2.3 mg/dL (1.6-2.6)
--- NOTE | 2021-07-17 09:21 | PN.HOSP_ITS ---
Subjective Subjective Since since admission with mild improvement in his rate on IV Lopressor. Patient with on ability to safely swallow therefore transition to n.p.o. status awaiting speech therapy evaluation. Patient very lethargic still and will only intermittently respond. Patient unable to give ROS however no evidence of significant fevers, chills, nausea, emesis, abdominal pain, chest pain or dyspnea. Objective Data Objective Data Vital Signs: Vital Signs Temp Pulse Resp BP Pulse Ox 99.2 F H 117 H 18 112/77 98 07/17/21 08:30 07/17/21 08:53 07/17/21 08:30 07/17/21 08:30 07/17/21 08:30 Oxygen Flow Rate (L/min) 3 Oxygen Delivery Method Nasal Cannula Weight: 201 lb 15.095 oz Body Mass Index (BMI) 26.6 Intake & Output: Intake and Output for Last 24 Hours 07/15/21 07/16/21 07/17/21 23:59 23:59 23:59 Intake Total 1000 / 1000 600 / 600 Output Total 100 / 100 Balance 1000 / 1000 500 / 500 Lab / Micro Data Result Diagrams: 07/16/21 20:55 07/16/21 20:55 Labs: Laboratory Results - last 24 hr 07/16/21 20:55: WBC 14.3 H, RBC 3.97 L, Hgb 11.6 L, Hct 37.7 L, MCV 95.0 H, MCH 29.2, MCHC 30.8 L, RDW Std Deviation 64.5 H, RDW Coeff of Anastacia 18.5 H, Plt Count 74 L, MPV TNP, Immature Gran % (Auto) 0.400, Neut % (Auto) 77.9 H, Lymph % (Auto) 11.3 L, [place] % (Auto) 10.1 H, Eos % (Auto) 0.1, Baso % (Auto) 0.2, Absolute Neuts (auto) 11.2 H, Absolute Lymphs (auto) 1.62, Nucleated RBC % 0, Differential Comment SCANNED, Platelet Estimate MOD DEC, Anisocytosis 2+ 07/16/21 20:55: PT 17.1 H, INR 1.4, APTT 35.5 07/16/21 20:55: Sodium 160 H, Potassium 3.4 L, Chloride 131 H*, Carbon Dioxide 23.0, Anion Gap 6, BUN 37 H, Creatinine 1.40 H, Estim Creat Clear Calc 48.35, Est GFR (MDRD) Af Amer 63, Est GFR (MDRD) Non-Af 52 L, BUN/Creatinine Ratio 26.4 H, Glucose 119 H, Calcium 8.3 L, Total Bilirubin 0.90, AST 19, ALT 13 L, Alkaline Phosphatase 120 H, Troponin I High Sens 95 H, Total Protein 6.7, Albumin 2.1 L, Globulin 4.6 H, Albumin/Globulin Ratio 0.5 L 07/16/21 20:55: Lactic Acid 1.6 07/16/21 20:55: Magnesium 2.3 07/16/21 21:06: POC Glucose 119 H 07/16/21 22:18: Urine Color Yellow, Urine Clarity Clear, Urine pH 6.0, Ur Specific [place] 1.025, Urine Protein 30 H, Urine Glucose (UA) Normal, Urine Ketones 5 H, Urine Occult Blood 50 H, Urine Nitrite Negative, Urine Bilirubin Negative, Urine Urobilinogen 1 H, Ur Leukocyte Esterase 500 H, Urine RBC 0 SEEN, Urine WBC 10-25 SEEN, Ur Squamous Epith Cells 0 SEEN, Urine Bacteria 2+, Urine Mucus 0 SEEN 07/17/21 00:08: Troponin I High Sens 99 H Micro: Microbiology 07/17/21 07:55 Urine Catheter - Catheter Legionella Antigen - Final 07/17/21 07:55 Urine Catheter - Catheter Streptococcus pneumoniae Antigen (M - Final Radiography Diagnostic Testing: Radiology Impression Brain CT 07/16/21 21:12 IMPRESSION: Advanced chronic changes for age. Right maxillary sinusitis again noted. No acute intracranial abnormality identified. Electronically Signed: Nia Ragsdale MD at 22:22 EDT , Chest X-Ray 07/16/21 21:30 IMPRESSION: Moderate wedge-shaped left retrocardiac consolidation, new. The primary considerations include atelectasis, pneumonia and infarct. Probably less likely due to postobstructive pneumonitis but follow-up until resolution will be needed. Consider short-term follow-up in 4-6 weeks if further imaging is not performed at this time. Electronically Signed: Nia Ragsdale MD at 21:57 EDT , ADDENDUM: 07/16/212217 IMPRESSION: Moderate wedge-shaped left retrocardiac consolidation, new. The primary considerations include atelectasis, pneumonia and infarct. Probably less likely due to postobstructive pneumonitis but follow-up until resolution will be needed. Consider short-term follow-up in 4-6 weeks if further imaging is not performed at this time. N.B. : [facility] reid, confirmed on 07/16/2021 22:11:56 (ET) that the healthcare facility has received the radiology report. Electronically Signed: Nia Ragsdale MD at 21:57 EDT , Physical Exam Narrative Physical Examination: General: Awakens to some stimuli, not alert, not answering any orientation questions but per discussion with facility patient minimally responsive, laying in the MedSurg bed, fatigued. Skin: Normal color, normal turgor, no icterus, no cyanosis. HEENT: AT/NC, EOM unable to be assessed as will not follow commands, PERRLA, dry MM. Lungs: Significantly diminished, greater bilateral bases, left greater than right, mildly increased respiratory rate, no rales, ronchi or wheezing. Heart: Irregular irregular; no gallop, rub audible. Abdomen: Soft, NTTP, ND, mildly hyperactive BS. Extremities: No cyanosis, clubbing, or edema. Neurological: Awakens to some stimuli, not alert, not answering any orientation questions but per discussion with facility patient minimally responsive, laying in the MedSurg bed, fatigued, cognitive function decreased baseline with often no interactive status, currently suspect decreased from this given acute infection as more lethargic; pupils equally reactive to light and accommodation, cranial nerves difficult to assess given not following commands but appear grossly normal, moving all extremities during evaluation, strength severely global decreased. Psychiatric: Affect appears flat, lethargic, no acute evidence of depressive or anxiety feelings. Assessment & Plan Assessment/Plan (1) Pneumonia: QUALIFIERS: Pneumonia type: due to unspecified organism Laterality: left Lung location: unspecified part of lung Qualified Code(s): J18.9 - Pneumonia, unspecified organism (2) Urinary tract infection: QUALIFIERS: Urinary tract infection type: acute cystitis Hematuria presence: without hematuria Qualified Code(s): N30.00 - Acute cys titis without hematuria (3) Acute dehydration: (4) Atrial fibrillation with rapid ventricular response: PLAN: The patient is a 80 y/o M w/ PMHx: Chronic anemia, CKD stage III unclear subtype, Alzheimer's Dementia, Depression and Anxiety, HTN, HLD who presents to the [facility] ED on 07/17/21 with history of increased lethargy with decreased level of consciousness at his alf facility where he will resides with a longstanding dementia history for nearly 10 years with decreased oral intake over the last 2 to 3 days noted to have declined more prominently following a hip fracture 04/2021 prompting ED evaluation. #1. Acute Hypoxia secondary to Acute Left-sided pneumonia, possibly aspiration: Work-up in the ED included T1 100.2, heart rate 140, BP initially 84/57, respiratory rate 31, 93% on room air eventually transition to 4 L nasal cannula noted to be 96% with most recent vital signs 07/17/2021 T99.2, heart rate down to 117, BP 112/77, respiratory rate 18, 98% on 3 L nasal cannula, CBC with WC 14.3, hemoglobin 11.6, MCV 95, platelets 74 with left shift, coags with PT 17.1, INR 1.4, PTT 35.5, CMP with sodium 160, potassium 3.4, chloride 131, BUN/creat 37/1.40, glucose 119, lactic acid 1.6, total bili 0.9, AST/ALT 19/13, alk phos 120, troponin trending 07/16/2294 with most recent repeat 99 however 05/19/2021 had been up to 393, urinalysis with elevated specific IV 1.025, negative nitrite, 500 leukocyte esterase, 10-25 urine WBCs, 2+ urine bacteria, chest x- ray with moderate wedge-shaped left retrocardiac consolidation suspicious for pneumonia, CT of the brain with advanced chronic changes for age, right maxillary sinusitis, no acute intracranial finding, EKG with atrial fibrillation with RVR. In the ED patient ministered normal saline bolus as well as Zosyn therapy. Patient admitted to medical surgical floor given family preference for no aggressive interventions, maintain on oxygen with wean as tolerated to room air, PRN albuterol, maintained on IV Zosyn, HOB, IS parameters w/ pending sputum cultures and urine antigens. Bld cx x 2 obtained in the ED. Currently unsafe oral intake, NPO status, pending ST evaluation. #2. Possible Acute Complicated Urinary Tract Infection: UA upon ED evaluation remarkable, pending UCx, continue IVFs, monitor I/Os, continue IV Zosyn w/ transition as able pending sensitivities and speciation. Bld cx x 2 obtained in the ED. #3. Suspected New Onset Paroxsymal atrial fibrillation w/ RVR with indet erminate cardiac enzyme: EKG in ED w/ atrial fibrillation w/ RVR suspected secondary to acute presentation #1. Patient maintained on telemetry on MedSurg unit, cardiac enzymes only minimally elevated and remained stable with initial 95 and repeat 99, given concerns for oral intake safely patient currently on IV Lopressor, magnesium 2.3, TSH requested. Given significant fall risk patient felt an appropriate candidate for anticoagulant therapy, maintain on MD ASA while unsafe oral intake, temporarily holding patient statin therapy and as noted beta-riki with transition to IV Lopressor. ECHO requested. #4. Hyponatremia, hypovolemic: Patient with significantly elevated sodium and chloride, evidence of significant dehydration, continue judicious hydration with trending of labs. #5. Hypokalemia: Admission K+ 3.4, magnesium level normal, supplementation given, repeat level in AM. #6. Thrombocytopenia, acute, likely infection related: Admission platelets 74, previous has been normal however during acute presentations has been low, suspect from acute presentation, continue to trend. #7. Mild Acute Renal Insufficiency on Chronic Kidney Disease Stage III, unclear subtype: Admission BUN/Cr 37/1.40, baseline renal function primarily 0.9-1.2, repeat BMP in AM. #8. Chronic anemia, macrocytic: Admission hemoglobin 11.6, baseline appears primarily 10-12, stable, trend. #9. Failure to thrive, adult: Complicated presentation, significant dementia with presentation inclusive of pneumonia, possible UTI, atrial fibrillation with RVR and severe electrolyte disturbances secondary to significant dehydration, continue evaluations as noted, maintain on fall and aspiration precautions. #10. Dementia, Alzheimer's dementia, potentially some mild behavioral disturbance history: Once oral intake safe we will continue patient home donepezil as well as memantine regimen. Therapies consulted as noted, case management consulted for discharge planning. #11. Hypertension: Currently being maintained on IV Lopressor, unable to give lisinopril and oral beta-riki secondary to aspiration concerns with dysphagia awaiting speech therapy, in the interim as noted on IV Lopressor and will have IV PRN hydralazine. #12. Hyperlipidemia: Temporarily holding patient oral statin therapy, add back once oral intake safe #13. DVT prophylaxis: SCDs, Lovenox. #14 CODE STATUS: DNR CCA, no intubation, no aggressive interventions. Charges/Coding Procedures Hospitalists Procedures: Other Procedure - See Report (Admitted same day, unable to bill: [id number])
[2021-07-17] MEDS: 0.9% Normal Saline 1,000 ML 100 ML IV ×2 (10:00→21:10)
[2021-07-17 11:41] LABS: Anion Gap 2 (5-15); BUN 36 mg/dL (7-18); BUN/Creat Ratio 25.2 RATIO (10-20); Calcium,Total 7.9 mg/dL (8.5-10.1); Chloride 134 mmol/L (98-107); Creatinine, Serum 1.43 mg/dL (0.70-1.30); EST Glomerular Filtration Rate 51 mL/min (>60); Est Glom Filt Rate - Afr Amer 62 mL/min (>60); Estimated Creatinine Clearance 47.34 ml/min; Glucose 96 mg/dL (74-106); Potassium 4.6 mmol/L (3.5-5.1); Sodium Level 160 mmol/L (136-145)
[2021-07-17] MEDS: Aspirin 300 MG Suppository RC (13:10)
[2021-07-17] MEDS: Metoprolol Tartrate 25 MG Tablet PO ×2 (14:17→22:34)
[2021-07-17] MEDS: Atorvastatin Calcium 20 MG Tablet PO (22:34)
[2021-07-17] MEDS: Memantine Hydrochloride 10 MG Tablet PO (22:36)
[2021-07-17] MEDS: Mirtazapine 15 MG Tablet 7.5 MG PO (22:36)
[2021-07-18] VITALS (11 sets, daily range): BP systolic 93–138; BP diastolic 61–87; PULSE 64–122; RESP 16–18; TEMP 36.4–36.9; O2SAT 91–98
[2021-07-18] MEDS: Enoxaparin 40 MG/0.4 ML Syringe SC (06:02)
[2021-07-18 06:09] LABS: Absolute Lymphocyte Count 1.54 X10^3/uL (0.83-4.51); Absolute Neutrophil Count 6.3 X10^3/uL (2.0-7.7); Basophil# 0.02 X10^3/uL; Basophil% 0.2 % (0-1); Eosinophil# 0.17 X10^3/uL; Eosinophils% 1.9 % (0-5); Hematocrit 32.1 % (40-54); Hemoglobin 9.7 g/dL (13.0-16.5); Lymphocyte # 1.54 X10^3/ul (0.83-4.51); Mean Corp Hgb Conc 30.2 g/dL (32-36); Mean Corpuscular Hgb 29.5 pg (27.0-32.0); Mean Corpuscular Volume 97.6 fL (80-94); Mean Platelet Vol. 14.6 fl (6.2-12.0); Monocyte# 0.97 X10^3/uL; Monocyte% 10.7 % (0-10); NRBC Flagged by Analyzer 0 % (0-5); Neutrophil # 6.34 X10^3/uL (2.7-7.7); Neutrophil % 69.9 % (47-70); POSITIVE COUNT YES; POSITIVE MORPHOLOGY YES; Platelet Count 75 K/mm3 (150-450); RBC Distribution Width CV 18.7 % (11.6-14.6); RBC Distribution Width SD 66.6 fl (35.1-43.9); Red Blood Count 3.29 M/mm3 (4.6-6.2); White Blood Count 9.1 K/mm3 (4.4-11.0)
[2021-07-18 06:18] LABS: Differential Indicated SCAN CRITERIA MET
[2021-07-18 06:41] LABS: Differential Comment SCANNED
[2021-07-18 06:52] LABS: ALB/GLOB Ratio 0.4 RATIO (0.9-2.4); AST(SGOT) 24 U/L (15-37); Alanine Aminotransfer ALT/SGPT 15 U/L (16-61); Albumin, Serum 1.7 g/dL (3.2-5.0); Alkaline Phosphatase 101 U/L (45-117); Anion Gap 3 (5-15); BUN 35 mg/dL (7-18); BUN/Creat Ratio 24.3 RATIO (10-20); Calcium,Total 7.7 mg/dL (8.5-10.1); Chloride 136 mmol/L (98-107); Creatinine, Serum 1.44 mg/dL (0.70-1.30); EST Glomerular Filtration Rate 50 mL/min (>60); Est Glom Filt Rate - Afr Amer 61 mL/min (>60); Estimated Creatinine Clearance 47.01 ml/min; Globulin 4.3 g/dL (2.2-4.2); Glucose 98 mg/dL (74-106); Potassium 3.1 mmol/L (3.5-5.1); Sodium Level 162 mmol/L (136-145)
[2021-07-18] MEDS: Aspirin 81 MG TAB.CHEW PO (09:31)
[2021-07-18] MEDS: Escitalopram Oxalate 10 MG Tablet PO (09:32)
[2021-07-18] MEDS: Menthol/Lanolin/Calamine/Znox 113 GM Tube 1 APPLIC TOPICAL ×2 (09:32→22:44)
[2021-07-18] MEDS: Donepezil HCl 10 MG Tablet PO (09:32)
[2021-07-18] MEDS: Metoprolol Tartrate 25 MG Tablet PO ×2 (09:32→22:44)
[2021-07-18] MEDS: Lisinopril 5 MG Tablet PO (09:36)
[2021-07-18] MEDS: Memantine Hydrochloride 10 MG Tablet PO ×2 (09:46→22:45)
--- NOTE | 2021-07-18 10:46 | PCM.PN.HOSP ---
Documented by User: Oneyda Bello RN ENDOSCOPY, RN ENDOSCOPY-C 07/18/21 11:36 Subjective Subjective Patient seen and examined. Patient alert, patient unable to follow commands or answer questions appropriately due to underlying severe dementia. No acute distress. Objective Data Objective Data Vital Signs: Vital Signs Temp Pulse Resp BP Pulse Ox 97.6 F L 64 16 96/61 97 07/18/21 09:59 07/18/21 09:59 07/18/21 09:59 07/18/21 09:59 07/18/21 09:59 Oxygen Flow Rate (L/min) 2 Oxygen Delivery Method Nasal Cannula Weight: 201 lb 15.095 oz Body Mass Index (BMI) 26.6 Intake & Output: Intake and Output for Last 24 Hours 07/16/21 07/17/21 07/18/21 23:59 23:59 23:59 Intake Total 1000 / 1000 3099.25 / 3099.25 1100 / 1100 Output Total 100 / 100 Balance 1000 / 1000 2999.25 / 2999.25 1100 / 1100 Medical Nutrition Assessment Dietitian: Malnutrition Criteria Met Start: 07/17/21 12:14 Freq: Status: Active Protocol: Document 07/17/21 12:14 RMA (Rec: 07/17/21 12:14 RMA [id number]) Nutrition Malnutrition Evidence of Malnutrition Exists Yes Malnutrition (severe): Chronic Evidenced By Suboptimal Energy Intake ( Severe),Weight Loss (Severe) Clinical Problem Chronic Disease or Condition Related Malnutrition Etiology Severe protein-calorie malnutrition in the context of chronic disease related to swallowing difficulty and inadequate oral intake Signs/Symptoms as evidenced by ~12% wt loss x past 2 months, need for mechanically altered food and PO meeting less than 50% estimated nutrition needs Status Active Problem Recommendation Dietitian Recommendations/Changes Continue liberalized regular diet with consistency as per [employer]LE[employer]; currently pureed food and thin liquids as tolerated. Will add ensure pudding BID with lunch and dinner as tolerated. Will add 120 ml ensure enlive 4 times per day w/ medpass. May need to consider TF support if PO remains inadequate and weight continues to decline. Lab / Micro Data Result Diagrams: 07/18/21 05:55 07/18/21 05:55 Labs: Laboratory Results - last 24 hr 07/17/21 10:00: Sodium 160 H, Potassium 4.6, Chloride 134 H*, Carbon Dioxide 24.0, Anion Gap 2 L, BUN 36 H, Creatinine 1.43 H, Estim Creat Clear Calc 47.34, Est GFR (MDRD) Af Amer 62, Est GFR (MDRD) Non-Af 51 L, BUN/Creatinine Ratio 25.2 H, Glucose 96, Calcium 7.9 L 07/18/21 05:55: WBC 9.1, RBC 3.29 L, Hgb 9.7 L, Hct 32.1 L, MCV 97.6 H, MCH 29.5, MCHC 30.2 L, RDW Std Deviation 66.6 H, RDW Coeff of Anastacia 18.7 H, Plt Count 75 L, MPV 14.6 H, Immature Gran % (Auto) 0.300, Neut % (Auto) 69.9, Lymph % (Auto) 17.0 L, [place] % (Auto) 10.7 H, Eos % (Auto) 1.9, Baso % (Auto) 0.2, Absolute Neuts (auto) 6.3, Absolute Lymphs (auto) 1.54, Nucleated RBC % 0, Differential Comment SCANNED 07/18/21 05:55: Sodium 162 H*, Potassium 3.1 L, Chloride 136 H*, Carbon Dioxide 23.0, Anion Gap 3 L, BUN 35 H, Creatinine 1.44 H, Estim Creat Clear Calc 47.01, Est GFR (MDRD) Af Amer 61, Est GFR (MDRD) Non-Af 50 L, BUN/Creatinine Ratio 24.3 H, Glucose 98, Calcium 7.7 L, Total Bilirubin 0.40, AST 24, ALT 15 L, Alkaline Phosphatase 101, Total Protein 6.0 L, Albumin 1.7 L, Globulin 4.3 H, Albumin/Globulin Ratio 0.4 L, TSH 1.50 Micro: Microbiology 07/16/21 22:18 Urine Catheter - Catheter Urine Culture - Preliminary Escherichia coli 07/17/21 07:55 Urine Catheter - Catheter Legionella Antigen - Final 07/17/21 07:55 Urine Catheter - Catheter Streptococcus pneumoniae Antigen (M - Final Physical Exam Const alert Constitutional Narrative: Dementia at baseline. HEENT normocephalic Mouth: dry mucous membranes Eyes PERRL, EOMs intact bilaterally and conjunctivae normal Neck no lymphadenopathy Resp clear to auscultation bilaterally Auscultation: diminished lung sounds Cardio Cardio Narrative: Atrial fibrillation, rate controlled Peripheral Pulses: pulses 2+ throughout GI normal to inspection, nondistended, normoactive bowel sounds, non-tender and non-distended Extremity normal to inspection Extremity Narrative: Generalized weakness, no unilateral or focal deficits Skin no rashes or lesions noted Lesions: no lesions Rashes: no rashes Trauma: no lacerations or abrasions Neuro CN's II-XII intact bilaterally, no focal motor deficits, no sensory deficits noted and deep tendon reflexes 2+ bilaterally Psych mental status grossly normal Mood & Affect: flat affect Assessment & Plan Assessment/Plan (1) Urinary tract infection: QUALIFIERS: Hematuria presence: without hematuria Urinary tract infection type: acute cystitis Qualified Code(s): N30.00 - Acute cystitis without hematuria (2) Pneumonia: QUALIFIERS: Laterality: left Lung location: unspecified part of lung Pneumonia type: due to unspecified organism Qualified Code(s): J18.9 - Pneumonia, unspecified organism PLAN: 1. Acute ESBL + UTI-ID consult. IV meropenem. 2. Acute hypoxia secondary to left-sided pneumonia-IV meropenem per above. Blood cultures pending. Albuterol and DuoNeb aerosols. Continue supplemental oxygen to maintain O2 at or above 90%. Wean as tolerated. Speech therapy evaluation to assess for aspiration risk. 3. Metabolic/infectious encephalopathy-complicated by underlying severe dementia. Unclear baseline. Continue treatment of underlying processes including UTI, pneumonia, hyponatremia, LANDON. 4. Suspected new onset paroxysmal atrial fibrillation with RVR with associated demand ischemia- rate controlled. Continue oral metoprolol. Due to fall risk/debility/severe dementia, not a candidate for anticoagulation. Echocardiogram pending. 5. Severe Hypovolemic hyponatremia-IV fluids, trend BMP. Transition from normal saline to dextrose. 6. Hypokalemia- replace per protocol. Trend BMP. 7. Thrombocytopenia-likely related to infection. Trend CBC. 8. LANDON-no evidence of CKD. Likely due to dehydration. IV fluids, trend BMP. 9. Chronic macrocytic anemia-stable. 10. Hypertension-on lisinopril, metoprolol. 11. Hyperlipidemia-on statin. 12. Alzheimer's dementia, unknown behavioral disturbance history-continue home donepezil, memantine. Resides at SNF. Will discuss with family ongoing plan of care. DVT prophylaxis-Lovenox subcu This patient was seen by Oneyda Ace, RN ENDOSCOPY-C under the supervision of Dr. Avitia. Documented by User: Dr. Radha Avitia DO 07/18/21 16:07 Subjective Subjective Patient was seen in conjunction with Oneyda Bello NP. The following represents my independent history and physical examination. Please see below for addendum the above. No issues overnight. The patient remains confused and unable to follow commands consistently. It appears that this this may be his baseline. He is awake and says hello but is unable to answer any questions. We have tried to get in contact with some family to have further discussion regarding goals of care but have been unable to get a hold of anybody as of yet. Objective Data Lab / Micro Data Result Diagrams: 07/18/21 05:55 07/18/21 05:55 Physical Exam Const alert Constitutional Narrative: Pleasant but extremely confused older, white male sitting up in bed, nursing at bedside, patient is unable to interact and follow commands or converse Exam Limitations: other limitations HEENT head/scalp atraumatic and moist oral mucous membranes Head and Scalp: normocephalic Resp normal respiratory effort, no retractions, no use of accessory muscles and clear to auscultation bilaterally Resp Narrative: Diminished at bases however patient is not taking deep breaths on command Auscultation: Negative for crackles, rales, rhonchi or wheezes Cardio regular rate, regular rhythm, S1 normal heart sound, S2 normal heart sound, no murmurs, no rub, no gallops, no clicks and no JVD GI normal to inspection, nondistended, normoactive bowel sounds, soft to palpation, non-tender and non-distended; Negative for hepatosplenomegaly Extremity no clubbing, cyanosis or edema Peripheral Pulses: Yes pulses 2+ throughout Neuro oriented x3 Neuro Narrative: Spontaneously moves all extremities however does not follow commands Sensorium / Orientation: awake and alert Assessment & Plan Assessment/Plan (1) Urinary tract infection: QUALIFIERS: Hematuria presence: without hematuria Urinary tract infection type: acute cystitis Qualified Code(s): N30.00 - Acute cystitis without hematuria (2) Acute dehydration: (3) Hypernatremia: (4) Thrombocytopenia: (5) Hyperchloremia: (6) Hypokalemia: (7) LANDON (acute kidney injury): PLAN: Assessment: Acute UTI with ESBL producing organism Acute hypoxic respiratory failure secondary to pneumonia Metabolic encephalopathy PAF Hypernatremia secondary to hypovolemia Hyperchloremia Hypokalemia LANDON Thrombocytopenia Hypertension Hyperlipidemia Alzheimer's type dementia Chronic macrocytic anemia Plan: -ID consult with ESBL producing organism in urine -We will switch to meropenem -Potassium replacement -Continue IV fluids but will change to D5W at 100 cc/h given hypernatremia -Repeat BMP in a.m. -Serum creatinine appears to be stable -Unclear of what mental status is at baseline however the patient remains fairly alert but not able to follow commands or interact verbally -Given patient's underlying disease processes and overall presentation I suspect his overall life expectancy is extremely poor and I do think we need to discuss overall goals of care. I suspect that this will be an overall persistent issue with him especially since his p.o. intake has been poor and he would most likely qualify for hospice--> we have thus far been unable to get in contact with the family -Speech therapy did evaluate the patient and recommended pur?ed thin liquid diet. Charges/Coding Visit Charges Inpatient E&M: 13307 Subs Hosp L2
--- NOTE | 2021-07-18 13:27 | PCM.CONS.GEN ---
Assessment & Plan Assessment/Plan (1) Pneumonia: QUALIFIERS: Pneumonia type: due to unspecified organism Laterality: left Lung location: unspecified part of lung Qualified Code(s): J18.9 - Pneumonia, unspecified organism PLAN: Treating for pneumonia and esbl uti with meropenem. Wbc improved. Will follow, thank you (2) Urinary tract infection: QUALIFIERS: Urinary tract infection type: acute cystitis Hematuria presence: without hematuria Qualified Code(s): N30.00 - Acute cystitis without hematuria HPI Consult Data Date of Consult: 07/18/21 HPI Narrative HPI Narrative: ISAI FINNEY, is a 80 M who presented 07/16 to ED from [facility] with several days worsened mental status and poor po intake. Admitted, now on meropenem. Pt unable to provide history or ROS due to dementia and encephalopathy. [facility] Medical History Alzheimer disease Dementia Dementia Depression Expressive aphasia Hyperlipidemia Osteoarthritis Medical History unable to obtain Home Medications acetaminophen [Tylenol] 650 mg PO Q4H PRN PRN 05/25/18 [History Last Taken Unknown] aspirin 81 mg PO DAILY@0800 05/25/18 [History Last Taken Unknown] donepezil 10 mg PO DAILY 05/25/18 [History Last Taken Unknown] escitalopram oxalate 10 mg PO DAILY 05/25/18 [History Last Taken Unknown] fexofenadine [Lisbeth Allergy] 60 mg PO DAILY 05/25/18 [History Last Taken Unknown] memantine [Namenda] 10 mg PO BID 05/25/18 [History Last Taken Unknown] sennosides-docusate sodium [Senna-S] 1 tab PO BID 05/18/21 [History Last Taken Unknown] atorvastatin 20 mg PO QHS #0 tab 05/24/21 [Rx Last Taken Unknown] lisinopril 5 mg PO DAILY #0 tab 05/24/21 [Rx Last Taken Unknown] metoprolol tartrate 12.5 mg PO BID #0 tab 05/24/21 [Rx Last Taken Unknown] aluminum-magnesium hydroxide [Antacid] 30 ml PO Q4H PRN 07/17/21 [History Last Taken Unknown] cholecalciferol (vitamin D3) 1,250 mcg PO QWEEK 07/17/21 [History Last Taken Unknown] cyanocobalamin (vitamin B-12) 500 mcg PO DAILY 07/17/21 [History Last Taken Unknown] guaifenesin 100 mg PO Q4H PRN 07/17/21 [History Last Taken Unknown] hydrocodone-acetaminophen 1 tab PO Q8H PRN PRN 07/17/21 [History Last Taken Unknown] mirtazapine 7.5 mg PO QHS 07/17/21 [History Last Taken Unknown] multivitamin [Multi-Vitamin] 1 tab PO DAILY 07/17/21 [History Last Taken Unknown] potassium chloride 10 meq PO DAILY 07/17/21 [History Last Taken Unknown] Allergy/AdvReac Type Severity Reaction Status Date / Time No Known Allergies Allergy Verified 07/16/21 20:48 Family History unable to obtain Social History Smoking Status: Never smoker Physical Exam Const no apparent distress General Appearance: lethargic Orientation / Consciousness: confused HEENT normocephalic and head/scalp atraumatic Eyes PERRL and EOMs intact bilaterally Neck supple and No nodes Resp clear to auscultation bilaterally Auscultation: diminished lung sounds Cardio regular rate and regular rhythm GI soft to palpation, non-tender and non-distended Extremity no clubbing, cyanosis or edema Skin no rashes or lesions noted Neuro CN's II-XII intact bilaterally Medical Records Data Medical Nutrition Assessment Dietitian: Malnutrition Criteria Met Start: 07/17/21 12:14 Freq: Status: Active Protocol: Document 07/17/21 12:14 RMA (Rec: 07/17/21 12:14 RMA [id number]) Nutrition Malnutrition Evidence of Malnutrition Exists Yes Malnutrition (severe): Chronic Evidenced By Suboptimal Energy Intake ( Severe),Weight Loss (Severe) Clinical Problem Chronic Disease or Condition Related Malnutrition Etiology Severe protein-calorie malnutrition in the context of chronic disease related to swallowing difficulty and inadequate oral intake Signs/Symptoms as evidenced by ~12% wt loss x past 2 months, need for mechanically altered food and PO meeting less than 50% estimated nutrition needs Status Active Problem Recommendation Dietitian Recommendations/Changes Continue liberalized regular diet with consistency as per SLIVER LAP TENDER; currently pureed food and thin liquids as tolerated. Will add ensure pudding BID with lunch and dinner as tolerated. Will add 120 ml ensure enlive 4 times per day w/ medpass. May need to consider TF support if PO remains inadequate and weight continues to decline. Lab / Micro Data Result Diagrams: 07/18/21 05:55 07/18/21 05:55 Labs: Laboratory Results - last 24 hr 07/18/21 05:55: WBC 9.1, RBC 3.29 L, Hgb 9.7 L, Hct 32.1 L, MCV 97.6 H, MCH 29.5, MCHC 30.2 L, RDW Std Deviation 66.6 H, RDW Coeff of Anastacia 18.7 H, Plt Count 75 L, MPV 14.6 H, Immature Gran % (Auto) 0.300, Neut % (Auto) 69.9, Lymph % (Auto) 17.0 L, Livingston % (Auto) 10.7 H, Eos % (Auto) 1.9, Baso % (Auto) 0.2, Absolute Neuts (auto) 6.3, Absolute Lymphs (auto) 1.54, Nucleated RBC % 0, Differential Comment SCANNED 07/18/21 05:55: Sodium 162 H*, Potassium 3.1 L, Chloride 136 H*, Carbon Dioxide 23.0, Anion Gap 3 L, BUN 35 H, Creatinine 1.44 H, Estim Creat Clear Calc 47.01, Est GFR (MDRD) Af Amer 61, Est GFR (MDRD) Non-Af 50 L, BUN/Creatinine Ratio 24.3 H, Glucose 98, Calcium 7.7 L, Total Bilirubin 0.40, AST 24, ALT 15 L, Alkaline Phosphatase 101, Total Protein 6.0 L, Albumin 1.7 L, Globulin 4.3 H, Albumin/Globulin Ratio 0.4 L, TSH 1.50 Micro: Microbiology 07/16/21 22:18 Urine Catheter - Catheter Urine Culture - Preliminary Escherichia coli
--- NOTE | 2021-07-18 15:27 | CASEMGMT ---
Social Work Pt is from [facility]. Phone call to pt lala and KIMBER left requesting return call. Phone call to Betty at [facility] and KIMBER left. Clinical updates faxed to [facility]. SEBASTIAN Alba
[2021-07-18] MEDS: 0.9% Saline Lock 10 ML Syringe IV (22:44)
[2021-07-18] MEDS: Atorvastatin Calcium 20 MG Tablet PO (22:44)
[2021-07-18] MEDS: Mirtazapine 15 MG Tablet 7.5 MG PO (22:45)
[2021-07-19 02:00] VITALS: BP 107/64; PULSE 67; RESP 18; TEMP 36.8; O2SAT 93
[2021-07-19 05:05] LABS: Absolute Lymphocyte Count 1.61 X10^3/uL (0.83-4.51); Absolute Neutrophil Count 4.5 X10^3/uL (2.0-7.7); Basophil# 0.02 X10^3/uL; Basophil% 0.3 % (0-1); Eosinophil# 0.22 X10^3/uL; Hematocrit 30.8 % (40-54); Hemoglobin 9.3 g/dL (13.0-16.5); Lymphocyte # 1.61 X10^3/ul (0.83-4.51); Lymphocyte % 21.8 % (19-41); Mean Corp Hgb Conc 30.2 g/dL (32-36); Mean Corpuscular Hgb 28.7 pg (27.0-32.0); Mean Corpuscular Volume 95.1 fL (80-94); Monocyte# 0.98 X10^3/uL; Monocyte% 13.3 % (0-10); NRBC Flagged by Analyzer 0 % (0-5); Neutrophil # 4.52 X10^3/uL (2.7-7.7); Neutrophil % 61.3 % (47-70); POSITIVE COUNT YES; Platelet Count 82 K/mm3 (150-450); RBC Distribution Width CV 18.6 % (11.6-14.6); RBC Distribution Width SD 64.5 fl (35.1-43.9); Red Blood Count 3.24 M/mm3 (4.6-6.2); White Blood Count 7.4 K/mm3 (4.4-11.0)
[2021-07-19 05:57] LABS: Anion Gap 5 (5-15); BUN 26 mg/dL (7-18); BUN/Creat Ratio 25.2 RATIO (10-20); Calcium,Total 7.2 mg/dL (8.5-10.1); Chloride 128 mmol/L (98-107); Creatinine, Serum 1.03 mg/dL (0.70-1.30); EST Glomerular Filtration Rate 74 mL/min (>60); Est Glom Filt Rate - Afr Amer 89 mL/min (>60); Estimated Creatinine Clearance 65.72 ml/min; Glucose 117 mg/dL (74-106); Sodium Level 155 mmol/L (136-145)
[2021-07-19] MEDS: Enoxaparin 40 MG/0.4 ML Syringe SC (06:38)
--- NOTE | 2021-07-19 08:05 | CASEMGMT ---
Social Work Return call from Betty at [facility] who states pt is a assisted pt and can return to [facility] when medically ready. Plan: [facility], when medically ready SEBASTIAN Alba
[2021-07-19 09:37] VITALS: BP 118/75; PULSE 65; RESP 16; TEMP 36.6; O2SAT 92
[2021-07-19 09:50] VITALS: PULSE 65
[2021-07-19] MEDS: Aspirin 81 MG TAB.CHEW PO (09:50)
[2021-07-19] MEDS: Metoprolol Tartrate 25 MG Tablet PO ×2 (09:50→22:11)
[2021-07-19] MEDS: Lisinopril 5 MG Tablet PO (09:50)
[2021-07-19] MEDS: Donepezil HCl 10 MG Tablet PO (09:51)
[2021-07-19] MEDS: Menthol/Lanolin/Calamine/Znox 113 GM Tube 1 APPLIC TOPICAL ×2 (09:51→22:09)
[2021-07-19] MEDS: Escitalopram Oxalate 10 MG Tablet PO (09:52)
[2021-07-19] MEDS: Memantine Hydrochloride 10 MG Tablet PO ×2 (09:52→22:10)
[2021-07-19] MEDS: Potassium Chloride Oral Soln 20 MEQ/15 ML UDC 40 MEQ PO ×2 (09:52→16:27)
--- NOTE | 2021-07-19 10:56 | PN.ID_ITS ---
Physical Exam Narrative No fever, no events overnight Const General Appearance: cooperative Resp Auscultation: diminished lung sounds Cardio regular rate and regular rhythm GI soft to palpation, non-tender and non-distended Skin no rashes or lesions noted ID ID: Route of nutrition/ use of supplements: [] Nutritional Intake: [] IV Site: [] Welch Catheter: [] Assessment & Plan Assessment/Plan (1) Pneumonia: QUALIFIERS: Pneumonia type: due to unspecified organism Lateral ity: left Lung location: unspecified part of lung Qualified Code(s): J18.9 - Pneumonia, unspecified organism PLAN: Treating for pneumonia and esbl uti with meropenem. Wbc improved. Plan on discharge on 4 more days macrobid and omnicef 300mg bid. Will follow (2) Urinary tract infection: QUALIFIERS: Urinary tract infection type: acute cystitis Hematuria presence: without hematuria Qualified Code(s): N30.00 - Acute cystitis without hematuria
--- NOTE | 2021-07-19 11:42 | PN.HOSP_ITS ---
Documented by User: Oneyda Bello NP, CAMERA STORAGE CLERK-C 07/19/21 12:11 Subjective Subjective Patient seen and examined. No acute events overnight per nursing report. Patient appears resting comfortably in bed. Discussed with daughter hospice consult as patient has had declining functional status and oral intake in the setting of severe dementia. Daughter amendable to hospice consult for ongoing management at SNF. Objective Data Objective Data Vital Signs: Vital Signs Temp Pulse Resp BP Pulse Ox 97.8 F 65 16 118/75 92 07/19/21 09:37 07/19/21 09:50 07/19/21 09:37 07/19/21 09:37 07/19/21 09:37 Oxygen Flow Rate (L/min) 2 Oxygen Delivery Method Nasal Cannula Weight: 201 lb 15.095 oz Body Mass Index (BMI) 26.6 Intake & Output: Intake and Output for Last 24 Hours 07/17/21 07/18/21 07/19/21 23:59 23:59 23:59 Intake Total 3099.25 / 3099.25 2165 / 2285 1231.67 / 1231.67 Output Total 100 / 100 350 / 350 Balance 2999.25 / 2999.25 2165 / 2285 881.67 / 881.67 Medical Nutrition Assessment Dietitian: Malnutrition Criteria Met Start: 07/17/21 12:14 Freq: Status: Active Protocol: Document 07/17/21 12:14 RMA (Rec: 07/17/21 12:14 RMA [id number]) Nutrition Malnutrition Evidence of Malnutrition Exists Yes Malnutrition (severe): Chronic Evidenced By Suboptimal Energy Intake ( Severe),Weight Loss (Severe) Clinical Problem Chronic Disease or Condition Related Malnutrition Etiology Severe protein-calorie malnutrition in the context of chronic disease related to swallowing difficulty and inadequate oral intake Signs/Symptoms as evidenced by ~12% wt loss x past 2 months, need for mechanically altered food and PO meeting less than 50% estimated nutrition needs Status Active Problem Recommendation Dietitian Recommendations/Changes Continue liberalized regular diet with consistency as per DIRECT MARKETING MANAGER; currently pureed food and thin liquids as tolerated. Will add ensure pudding BID with lunch and dinner as tolerated. Will add 120 ml ensure enlive 4 times per day w/ medpass. May need to consider TF support if PO remains inadequate and weight continues to decline. Lab / Micro Data Result Diagrams: 07/19/21 04:51 07/19/21 04:51 Labs: Laboratory Results - last 24 hr 07/19/21 04:51: WBC 7.4, RBC 3.24 L, Hgb 9.3 L, Hct 30.8 L, MCV 95.1 H, MCH 28.7, MCHC 30.2 L, RDW Std Deviation 64.5 H, RDW Coeff of Anastacia 18.6 H, Plt Count 82 L, Immature Gran % (Auto) 0.300, Neut % (Auto) 61.3, Lymph % (Auto) 21.8, M troy % (Auto) 13.3 H, Eos % (Auto) 3.0, Baso % (Auto) 0.3, Absolute Neuts (auto) 4.5, Absolute Lymphs (auto) 1.61, Nucleated RBC % 0 07/19/21 04:51: Sodium 155 H, Potassium 3.0 L, Chloride 128 H*, Carbon Dioxide 22.0, Anion Gap 5, BUN 26 H, Creatinine 1.03, Estim Creat Clear Calc 65.72, Est GFR (MDRD) Af Amer 89, Est GFR (MDRD) Non-Af 74, BUN/Creatinine Ratio 25.2 H, Glucose 117 H, Calcium 7.2 L Micro: Microbiology 07/16/21 22:18 Urine Catheter - Catheter Urine Culture - Final Escherichia coli 07/16/21 22:07 Blood Culture (Wb) - Left Hand Blood Culture - Preliminary No growth in 48 hours. 07/16/21 20:55 Blood Culture (Wb) - Right Forearm Blood Culture - Preliminary No growth in 48 hours. 07/17/21 07:55 Urine Catheter - Catheter Legionella Antigen - Final 07/17/21 07:55 Urine Catheter - Catheter Streptococcus pneumoniae Antigen (M - Final Physical Exam Const alert Nutritional Appearance: cachectic HEENT normocephalic Mouth: dry mucous membranes Eyes PERRL, EOMs intact bilaterally and conjunctivae normal Neck no lymphadenopathy Resp normal respiratory effort and clear to auscultation bilaterally Cardio regular rate, regular rhythm and no murmurs Peripheral Pulses: pulses 2+ throughout GI normal to inspection, nondistended, normoactive bowel sounds, non-tender and non-distended Extremity normal to inspection Skin no rashes or lesions noted Lesions: no lesions Rashes: no rashes Trauma: no lacerations or abrasions Neuro CN's II-XII intact bilaterally, no focal motor deficits, no sensory deficits noted and deep tendon reflexes 2+ bilaterally Psych mental status grossly normal Mood & Affect: flat affect Assessment & Plan Assessment/Plan (1) LANDON (acute kidney injury): (2) Hypernatremia: PLAN: 1. Acute ESBL + UTI-ID consult. IV meropenem. Transition to Macrobid and Omnicef at discharge per ID recommendations. 2. Acute hypoxia secondary to left-sided pneumonia-acute hypoxic respiratory failure ruled out. IV meropenem per above. Blood cultures with no growth. Albuterol and DuoNeb aerosols. Continue supplemental oxygen to maintain O2 at o r above 90%. Wean as tolerated. Speech therapy evaluation to assess for aspiration risk. Continue dietary modifications per speech therapy recommendations. 3. Metabolic/infectious encephalopathy-complicated by underlying severe dementia. Continue treatment of underlying processes including UTI, pneumonia, hypernatremia, LANDON. 4. Paroxysmal atrial fibrillation with RVR with associated demand ischemia-not new onset, documented prior history of A. fib. Rate controlled. Continue oral metoprolol. Due to fall risk/debility/severe dementia, not a candidate for anticoagulation. Recent echocardiogram 05/19/2021 demonstrated an EF of 55 to 60%. 5. Severe Hypovolemic hypernatremia-IV fluids, trend BMP. Transitioned from normal saline to dextrose 07/18/21. Improving. 6. Hypokalemia- replaced per protocol. Trend BMP. 7. Thrombocytopenia-likely related to infection. Improving, trend CBC. 8. LANDON-no evidence of CKD. Likely due to dehydration. Resolved with IV fluids. 9. Chronic macrocytic anemia-stable. 10. Hypertension-on lisinopril, metoprolol. 11. Hyperlipidemia-on statin. 12. Alzheimer's dementia, unknown behavioral disturbance history-continue home donepezil, memantine. Resides at SNF. 13. Severe protein calorie malnutrition-as evidenced by cachectic appearance, r ecent ongoing weight loss and poor oral intake. Continue dietary supplementation per nutrition recommendations. 14. Failure to thrive-daughter reports patient has declined over the past 6 months. Patient was admitted April 2021 for traumatic hip fracture and underwent right hip nailing. Patient has further declined at SNF since that time. Discussed with daughter ongoing plan of care as patient has had functional decline, poor oral intake in the setting of worsening Alzheimer's dementia. Daughter amendable to hospice services upon discharge at SNF. DVT prophylaxis-Lovenox subcu This patient was seen by Oneyda Bello NP-C under the supervision of Dr. Avitia. Documented by User: Dr. Radha Avitia DO 07/19/21 15:19 Subjective Subjective In conjunction with Oneyda Bello NP. The following represents my independent history and physical examination. Please see below for addendum the above. No significant issues overnight. The patient is sleeping this morning upon my evaluation. His sodium and chloride continue to improve. Objective Data Lab / Micro Data Result Diagrams: 07/19/21 04:51 07/19/21 04:51 Physical Exam Const Constitutional Narrative: Elderly sleeping white male, appears comfortable, does awaken slightly to tactile stimuli however falls back to sleep, unable to follow commands consistently which appears to be his baseline General Appearance: well kempt and well developed Orientation / Consciousness: awake, oriented to person, oriented to place and oriented to time Exam Limitations: other limitations Nutritional Appearance: thin HEENT normocephalic and head/scalp atraumatic HEENT Narrative: Temporal wasting Head and Scalp: normocephalic Neck nuchal rigidity and thyroid normal General: trachea midline Resp normal respiratory effort, no retractions, no use of accessory muscles and clear to auscultation bilaterally Resp Narrative: Diminished at bases however patient is not taking deep breaths on command Auscultation: diminished lung sounds; Negative for crackles, rales, rhonchi or wheezes Cardio regular rate, regular rhythm, S1 normal heart sound, S2 normal heart sound, no murmurs, no rub, no gallops, no clicks and no JVD Peripheral Pulses: pulses 2+ throughout GI normal to inspection, nondistended, normoactive bowel sounds, soft to palpation, non-tender and non-distended; Negative for hepatosplenomegaly Extremity no clubbing, cyanosis or edema Peripheral Pulses: Yes pulses 2+ throughout Skin General Skin Exam: no breakdown Lesions: no lesions Rashes: no rashes Trauma: no lacerations or abrasions Neuro deep tendon reflexes 2+ bilaterally Neuro Narrative: Patient sleeping upon my examination however he does move all extremities spontaneously while sleeping Psych mental status grossly normal Mood & Affect: flat affect Assessment & Plan Assessment/Plan (1) LANDON (acute kidney injury): (2) Hypernatremia: (3) Hypokalemia: (4) Hyperchloremia: (5) Urinary tract infection: QUALIFIERS: Urinary tract infection type: acute cystitis Hematuria presence: without hematuria Qualified Code(s): N30.00 - Acute cystitis without hematuria (6) Acute dehydration: (7) Thrombocytopenia: (8) Change in mental status: QUALIFIERS: Altered mental status type: somnolence Qualified Code(s): R40.0 - Somnolence (9) Pneumonia: QUALIFIERS: Pneumonia type: due to unspecified organism Laterality: left Lung location: unspecified part of lung Qualified Code(s): J18.9 - Pneumonia, unspecified organism PLAN: Assessment: Acute UTI with ESBL producing organism Acute hypoxic respiratory failure secondary to pneumonia Metabolic encephalopathy PAF Hypernatremia secondary to hypovolemia Hyperchloremia Hypokalemia LANDON Thrombocytopenia Hypertension Hyperlipidemia Alzheimer's type dementia Chronic macrocytic anemia Plan: -ID has seen the patient and recommends upon discharge 4 more days of Macrobid a nd Omnicef 300 mg twice daily -Continue meropenem for now -Repeat potassium replacement -Continue D5W as sodium and chloride are improving slowly -Repeat BMP in a.m. -Serum creatinine appears to be stable -Plan is to discharge back to a skilled facility once his sodium and chloride are further improved with a consultation to hospice upon arrival per discussion with the daughter earlier today. Patient's undergone a significant functional decline with poor oral intake and worsening Alzheimer's dementia. Charges/Coding Visit Charges Inpatient E&M: 55432 Subs Hosp L2
--- NOTE | 2021-07-19 12:00 | CASEMGMT ---
Social Work Pt dgt May visiting with pt. GAVIN updated KIRSTEN Call of May's arrival. KIRSTEN Call spoke with May and informed SW dgt is agreeable to hospice. GAVIN met with dgt May and discussed hospice services and ECF. May confirms plan to return to [facility] private pay and to meet with [facility]. Support provided. GAVIN made referral to Richard at [facility] and updated clinicals faxed. [facility] will reach out to May to set appointment for initial consultation. Plan: Return to [facility] when medically ready, hospice referral. SEBASTIAN Alab
[2021-07-19 15:23] VITALS: BP 120/65; PULSE 68; RESP 16; TEMP 36.6; O2SAT 93
--- NOTE | 2021-07-19 15:30 | CASEMGMT ---
Social Work [facility] states there is an appointment with pt dgt and hospice tomorrow at 3:30 in pt room. SEBASTIAN Alba
[2021-07-19 21:30] VITALS: BP 118/54; PULSE 66; RESP 18; TEMP 38; O2SAT 96
[2021-07-19] MEDS: Mirtazapine 15 MG Tablet 7.5 MG PO (22:10)
[2021-07-19 22:11] VITALS: BP 118/54; PULSE 66
[2021-07-19] MEDS: Atorvastatin Calcium 20 MG Tablet PO (22:11)
[2021-07-20] VITALS (8 sets, daily range): BP systolic 100–122; BP diastolic 61–86; PULSE 61–78; RESP 16–18; TEMP 36.5–37.7; O2SAT 93–98
[2021-07-20 05:20] LABS: Absolute Lymphocyte Count 1.79 X10^3/uL (0.83-4.51); Absolute Neutrophil Count 4.3 X10^3/uL (2.0-7.7); Basophil# 0.02 X10^3/uL; Basophil% 0.3 % (0-1); Eosinophil# 0.28 X10^3/uL; Eosinophils% 3.8 % (0-5); Hematocrit 33.3 % (40-54); Hemoglobin 10.1 g/dL (13.0-16.5); Lymphocyte # 1.79 X10^3/ul (0.83-4.51); Lymphocyte % 24.5 % (19-41); Mean Corp Hgb Conc 30.3 g/dL (32-36); Mean Corpuscular Hgb 29.4 pg (27.0-32.0); Mean Corpuscular Volume 96.8 fL (80-94); Mean Platelet Vol. 13.5 fl (6.2-12.0); Monocyte# 0.91 X10^3/uL; Monocyte% 12.5 % (0-10); NRBC Flagged by Analyzer 0 % (0-5); Neutrophil # 4.28 X10^3/uL (2.7-7.7); Neutrophil % 58.6 % (47-70); POSITIVE MORPHOLOGY YES; Platelet Count 101 K/mm3 (150-450); RBC Distribution Width CV 18.4 % (11.6-14.6); RBC Distribution Width SD 65.1 fl (35.1-43.9); Red Blood Count 3.44 M/mm3 (4.6-6.2); White Blood Count 7.3 K/mm3 (4.4-11.0)
[2021-07-20 05:22] LABS: Differential Indicated SCAN CRITERIA MET
[2021-07-20] MEDS: Enoxaparin 40 MG/0.4 ML Syringe SC (05:29)
[2021-07-20 05:39] LABS: Anisocytosis 1+; Differential Comment SCANNED
[2021-07-20 05:43] LABS: Anion Gap 4 (5-15); BUN 25 mg/dL (7-18); BUN/Creat Ratio 21.7 RATIO (10-20); Calcium,Total 7.5 mg/dL (8.5-10.1); Chloride 119 mmol/L (98-107); Creatinine, Serum 1.15 mg/dL (0.70-1.30); EST Glomerular Filtration Rate 65 mL/min (>60); Est Glom Filt Rate - Afr Amer 79 mL/min (>60); Estimated Creatinine Clearance 58.86 ml/min; Glucose 127 mg/dL (74-106); Magnesium 2.3 mg/dL (1.6-2.6); Potassium 3.7 mmol/L (3.5-5.1); Sodium Level 148 mmol/L (136-145)
[2021-07-20] MEDS: Memantine Hydrochloride 10 MG Tablet PO ×2 (09:17→20:54)
[2021-07-20] MEDS: Donepezil HCl 10 MG Tablet PO (09:17)
[2021-07-20] MEDS: Potassium Chloride Oral Soln 20 MEQ/15 ML UDC 40 MEQ PO (09:17)
[2021-07-20] MEDS: Aspirin 81 MG TAB.CHEW PO (09:17)
[2021-07-20] MEDS: Menthol/Lanolin/Calamine/Znox 113 GM Tube 1 APPLIC TOPICAL ×2 (09:17→20:42)
[2021-07-20] MEDS: Escitalopram Oxalate 10 MG Tablet PO (09:18)
[2021-07-20] MEDS: Lisinopril 5 MG Tablet PO (09:18)
[2021-07-20] MEDS: Metoprolol Tartrate 25 MG Tablet PO ×2 (09:18→20:54)
--- NOTE | 2021-07-20 11:42 | PCM.TXEXTCAR ---
Documented by User: Oneyda Bello NP, CHIEF ARCHITECT-C 07/20/21 12:15 Diet 07/17/21 12:16 Diet: Regular - General Food consistency:: Mechanical (Minced/Moist) Liquid Consistency:: Regular/Thin Type of Dietary Supplement:: Ensure Pudding BID w/ L/D Is pt able to select menu?: No Diet Comments: no straws, 1:1 supervised feed. Routine Orders/Code Status Enema Type: Fleetz Enema Frequency: Daily PRN Suppository Type: Dulcolax 10mg Suppository Frequency: Daily PRN O2 Liters per Minute: 2 O2 Frequency: PRN Keep PO Greater than or Equal to (%): 90 Code Status: DNRCC-A (no intubation) Wound(s) left heel: Wound Type: blister Problem/Diagnosis (1) LANDON (acute kidney injury): Status: Acute (2) Hypernatremia: Status: Acute (3) Hypokalemia: Status: Acute (4) Hyperchloremia: Status: Acute (5) Urinary tract infection: Status: Acute (6) Acute dehydration: Status: Acute (7) Thrombocytopenia: Status: Acute (8) Change in mental status: Status: Acute (9) Pneumonia: Status: Acute Allergies/Procedures Done in Hospital Allergies No Known Allergies Allergy (Verified 07/16/21 20:48) Procedures: None Type of Care/Length of Stay Estimated LOS: More Than 30 Days Type of Care Needed: Intermediate Rehab Potential: Poor Prognosis: Poor Additional Orders/Day of Discharge H&P will serve as current which was dated: 07/17/21 Day of Discharge: 07/20/21 Dietary and Speech Recommendations Dietitian Recommendations/Changes: Continue liberalized regular diet with consistency as per THREAD TWISTER; currently mechanical (minced/moist) and thin liquids as tolerated. Continue ensure pudding BID with lunch and dinner as tolerated. Continue 120 ml ensure enlive 4 times per day w/ medpass. May need to consider TF support if PO remains inadequate and weight continues to decline. Hospice referral noted. Discharge Plan Admission Admit Date/Time: 07/17/21 01:31 Primary Reason for Your Visit: ESBL UTI, Pneumonia Attending Provider: Rahda Avitia Primary Care Provider: Madhu Coughlin Consulting Providers: Jose Antonio Malik ; Polly Anguiano ; Bala Ring ; Sherita Tovar ; Shamar Hancock ; Kary Monzon ; Sejal Canales ; Agnieszka Castillo ; Caitlyn Grimm NP Discharge Orders/Prescriptions Prescriptions: New cefdinir 300 mg Capsule 300 mg PO Q12 4 Days Qty: 0 RF: 0 metoprolol tartrate 25 mg Tablet 25 mg PO BID Qty: 0 RF: 0 nitrofurantoin monohyd/m-cryst 100 mg Capsule 100 mg PO BID 4 Days Qty: 8 RF: 0 Continued donepezil 10 MG tablet 10 mg PO DAILY RF: 0 fexofenadine [Lisbeth Allergy] 180 MG tablet 60 mg PO DAILY RF: 0 aspirin 81 MG tablet,chewable 81 mg PO DAILY@0800 RF: 0 Hold Instructions: Resume on 06/03/21. escitalopram oxalate 10 MG tablet 10 mg PO DAILY RF: 0 memantine [Namenda] 10 MG tablet 10 mg PO BID RF: 0 acetaminophen [Tylenol] 325 MG capsule 650 mg PO Q4H PRN PRN (Reason: Pain) RF: 0 sennosides-docusate sodium [Senna-S] 8.6-50 mg tablet 1 tab PO BID RF: 0 atorvastatin 20 mg Tablet 20 mg PO QHS Qty: 0 RF: 0 lisinopril 5 mg Tablet 5 mg PO DAILY Qty: 0 RF: 0 cyanocobalamin (vitamin B-12) 500 mcg Tablet 500 mcg PO DAILY RF: 0 aluminum-magnesium hydroxide 225-200 mg/5 mL Suspension 30 ml PO Q4H PRN (Reason: Heartburn) RF: 0 cholecalciferol (vitamin D3) 1,250 mcg (50,000 unit) Capsule 1,250 mcg PO QWEEK RF: 0 guaifenesin 50 mg/5 mL Liquid 100 mg PO Q4H PRN (Reason: Cough) RF: 0 multivitamin Tablet 1 tab PO DAILY RF: 0 hydrocodone-acetaminophen 5-325 mg tablet 1 tab PO Q8H PRN PRN (Reason: Pain) RF: 0 potassium chloride 10 mEq tablet,ER particles/crystals 10 meq PO DAILY RF: 0 mirtazapine 7.5 mg tablet 7.5 mg PO QHS RF: 0 Discontinued metoprolol tartrate 25 mg Tablet 12.5 mg PO BID Qty: 0 RF: 0 Referrals / Follow Up: Madhu Coughlin MD [Primary Care Provider] - See Referral Note (As needed) Disposition Disposition (needs filled in before D/C Order can be placed): Hospice in Medical Facility Documented by User: Dr. Radha Avitia DO 07/20/21 12:17 Allergies/Procedures Done in Hospital Allergies No Known Allergies Allergy (Verified 07/16/21 20:48) Discharge Plan Admission Admit Date/Time: 07/17/21 01:31 Primary Reason for Your Visit: ESBL UTI, Pneumonia Attending Provider: Radha Avitia Primary Care Provider: Madhu Coughlin Consulting Providers: Jose Antonio Malik ; Polly Anguiano ; Bala Ring ; Sherita Tovar ; Shamar Hancock ; Kary Monzon ; Sejal Canales ; Agnieszka Castillo ; Caitlyn Grimm CHIEF ARCHITECT Discharge Orders/Prescriptions Prescriptions: New cefdinir 300 mg Capsule 300 mg PO Q12 4 Days Qty: 0 RF: 0 metoprolol tartrate 25 mg Tablet 25 mg PO BID Qty: 0 RF: 0 nitrofurantoin monohyd/m-cryst 100 mg Capsule 100 mg PO BID 4 Days Qty: 8 RF: 0 Continued donepezil 10 MG tablet 10 mg PO DAILY RF: 0 fexofenadine [Lisbeth Allergy] 180 MG tablet 60 mg PO DAILY RF: 0 aspirin 81 MG tablet,chewable 81 mg PO DAILY@0800 RF: 0 Hold Instructions: Resume on 06/03/21. escitalopram oxalate 10 MG tablet 10 mg PO DAILY RF: 0 memantine [Namenda] 10 MG tablet 10 mg PO BID RF: 0 acetaminophen [Tylenol] 325 MG capsule 650 mg PO Q4H PRN PRN (Reason: Pain) RF: 0 sennosides-docusate sodium [Senna-S] 8.6-50 mg tablet 1 tab PO BID RF: 0 atorvastatin 20 mg Tablet 20 mg PO QHS Qty: 0 RF: 0 lisinopril 5 mg Tablet 5 mg PO DAILY Qty: 0 RF: 0 cyanocobalamin (vitamin B-12) 500 mcg Tablet 500 mcg PO DAILY RF: 0 aluminum-magnesium hydroxide 225-200 mg/5 mL Suspension 30 ml PO Q4H PRN (Reason: Heartburn) RF: 0 cholecalciferol (vitamin D3) 1,250 mcg (50,000 unit) Capsule 1,250 mcg PO QWEEK RF: 0 guaifenesin 50 mg/5 mL Liquid 100 mg PO Q4H PRN (Reason: Cough) RF: 0 multivitamin Tablet 1 tab PO DAILY RF: 0 hydrocodone-acetaminophen 5-325 mg tablet 1 tab PO Q8H PRN PRN (Reason: Pain) RF: 0 potassium chloride 10 mEq tablet,ER particles/crystals 10 meq PO DAILY RF: 0 mirtazapine 7.5 mg tablet 7.5 mg PO QHS RF: 0 Discontinued metoprolol tartrate 25 mg Tablet 12.5 mg PO BID Qty: 0 RF: 0 Referrals / Follow Up: Madhu Coughlin MD [Primary Care Provider] - See Referral Note (As needed) Disposition Disposition (needs filled in before D/C Order can be placed): Hospice in Medical Facility
--- NOTE | 2021-07-20 12:15 | DS.PCM_ITS ---
Documented by User: Oneyda Bello NP, ASSET PROTECTION DETECTIVE-C 07/20/21 12:20 Providers Date of Admission: 07/17/21 Date of Discharge: 07/20/21 Primary Care Physician: Dr. Madhu Coughlin MD Consultations 07/18/21 08:24 Consult: Infectious Disease Routine Consulting Provider: Bala Ring Reason for Consult: ESBL + UTI EMERGENT Consult: No MD Notified: Yes Date Notified: 07/18/21 Time Notified: 10:04 Method of Notification: Text 07/19/21 12:02 Consult: Hospice / Palliative Care Routine Consulting Provider: [facility] Reason for Consult: Declining functional status and oral intake in severe dementia EMERGENT Consult: No MD Notified: Yes Date Notified: 07/19/21 Time Notified: 12:02 Method of Notification: office Method of Consult:: In-Person Comments:: TC to Hospice by SW Reason For Visit: PNEUMONIA, UTI, DEHYDRATION, HYPOXIA Diagnosis Discharge Diagnosis (1) LANDON (acute kidney injury): Status: Acute Code(s): N17.9 - Acute kidney failure, unspecified (2) Hypernatremia: Status: Acute Code(s): E87.0 - Hyperosmolality and hypernatremia (3) Hypokalemia: Status: Acute Code(s): E87.6 - Hypokalemia (4) Hyperchloremia: Status: Acute Code(s): E87.8 - Other disorders of electrolyte and fluid balance, not elsewhere classified (5) Urinary tract infection: Status: Acute Code(s): N39.0 - Urinary tract infection, site not specified Qualifiers: Hematuria presence: without hematuria Urinary tract infection type: acute cystitis Qualified Code(s): N30.00 - Acute cystitis without hematuria (6) Acute dehydration: Status: Acute Code(s): E86.0 - Dehydration (7) Thrombocytopenia: Status: Acute Code(s): D69.6 - Thrombocytopenia, unspecified (8) Change in mental status: Status: Acute Code(s): R41.82 - Altered mental status, unspecified Qualifiers: Altered mental status type: somnolence Qualified Code(s): R40.0 - Somnolence (9) Pneumonia: Status: Acute Code(s): J18.9 - Pneumonia, unspecified organism Qualifiers: Laterality: left Lung location: unspecified part of lung Pneumonia type: due to unspecified organism Qualified Code(s): J18.9 - Pneumonia, unspecified organism Medications at Discharge Home Medications acetaminophen [Tylenol] 650 mg PO Q4H PRN PRN 05/25/18 aspirin 81 mg PO DAILY@0800 05/25/18 donepezil 10 mg PO DAILY 05/25/18 escitalopram oxalate 10 mg PO DAILY 05/25/18 fexofenadine [Lisbeth Allergy] 60 mg PO DAILY 05/25/18 memantine [Namenda] 10 mg PO BID 05/25/18 sennosides-docusate sodium [Senna-S] 1 tab PO BID 05/18/21 atorvastatin 20 mg PO QHS #0 tab 05/24/21 lisinopril 5 mg PO DAILY #0 tab 05/24/21 aluminum-magnesium hydroxide 30 ml PO Q4H PRN 07/17/21 cholecalciferol (vitamin D3) 1,250 mcg PO QWEEK 07/17/21 cyanocobalamin (vitamin B-12) 500 mcg PO DAILY 07/17/21 guaifenesin 100 mg PO Q4H PRN 07/17/21 hydrocodone-acetaminophen 1 tab PO Q8H PRN PRN 07/17/21 mirtazapine 7.5 mg PO QHS 07/17/21 multivitamin 1 tab PO DAILY 07/17/21 potassium chloride 10 meq PO DAILY 07/17/21 cefdinir 300 mg PO Q12 4 Days #0 cap 07/20/21 metoprolol tartrate 25 mg PO BID #0 tab 07/20/21 nitrofurantoin monohyd/m-cryst 100 mg PO BID 4 Days #8 cap 07/20/21 Hospital Course Operations None Procedures None Summary of Care Provided Hospital Course: Patient is a 80-year-old male admitted 07/17/21 due to altered mental status. 1. Acute ESBL + UTI-ID consulted during admission. IV meropenem during admission. Transition to Macrobid and Omnicef at discharge per ID recommendations. 2. Acute hypoxia secondary to left-sided pneumonia-acute hypoxic respiratory failure ruled out. IV meropenem per above with transition to oral regimen. Blood cultures with no growth. Speech therapy evaluation to assess for aspiration risk. Continue dietary modifications per speech therapy recommendations. Oxygen stable on room air. 3. Metabolic/infectious encephalopathy-complicated by underlying severe dementia. Treatment of underlying processes including UTI, pneumonia, hypernatremia, LANDON during admission. Mental status at baseline. 4. Paroxysmal atrial fibrillation with RVR with associated demand ischemia-not new onset, documented prior history of A. fib. Rate controlled. Continue oral metoprolol. Due to fall risk/debility/severe dementia, not a candidate for anticoagulation. Recent echocardiogram 05/19/2021 demonstrated an EF of 55 to 60%. 5. Severe Hypovolemic hypernatremia-improved with IV fluids. 6. Hypokalemia- replaced per protocol. Resolved. 7. Thrombocytopenia-likely related to infection. Improved. 8. LANDON-no evidence of CKD. Likely due to dehydration. Resolved with IV fluids. 9. Chronic macrocytic anemia-stable. 10. Hypertension-on lisinopril, metoprolol. 11. Hyperlipidemia-on statin. 12. Alzheimer's dementia, unknown behavioral disturbance history-continue home donepezil, memantine. Resides at SNF. 13. Severe protein calorie malnutrition-as evidenced by cachectic appearance, recent ongoing weight loss and poor oral intake. Continue dietary supplementation per nutrition recommendations. 14. Failure to thrive-daughter reports patient has declined over the past 6 months. Patient was admitted April 2021 for traumatic hip fracture and underwent right hip nailing. Patient has further declined at SNF since that time. Discussed with daughter ongoing plan of care as patient has had fu nctional decline, poor oral intake in the setting of worsening Alzheimer's dementia. Daughter amendable to hospice services upon discharge at SNF. Physical Exam Const alert Nutritional Appearance: cachectic HEENT normocephalic Mouth: dry mucous membranes Eyes PERRL, EOMs intact bilaterally and conjunctivae normal Neck no lymphadenopathy Resp normal respiratory effort and clear to auscultation bilaterally Cardio regular rate, regular rhythm and no murmurs Peripheral Pulses: pulses 2+ throughout GI normal to inspection, nondistended, normoactive bowel sounds, non-tender and non-distended Extremity normal to inspection Skin no rashes or lesions noted Lesions: no lesions Rashes: no rashes Trauma: no lacerations or abrasions Neuro CN's II-XII intact bilaterally, no focal motor deficits, no sensory deficits noted and deep tendon reflexes 2+ bilaterally Psych mental status grossly normal Mood & Affect: flat affect Patient seen and examined prior to discharge. Physical assessment as noted above. Patient is stable for discharge with follow up recommendations as noted above. This patient was seen by LATOYA Combs under the supervision of Dr. Avitia. Medical Records Data Medical Nutrition Assessment Dietitian: Malnutrition Criteria Met Start: 07/17/21 12:14 Freq: Status: Active Protocol: Document 07/19/21 15:21 RMA (Rec: 07/19/21 15:21 RMA [id number]) Nutrition Malnutrition Evidence of Malnutrition Exists Yes Malnutrition (severe): Chronic Evidenced By Suboptimal Energy Intake ( Severe),Weight Loss (Severe) Clinical Problem Chronic Disease or Condition Related Malnutrition Etiology Severe protein-calorie malnutrition in the context of chronic disease related to swallowing difficulty and inadequate oral intake Signs/Symptoms as evidenced by ~12% wt loss x past 2 months, need for mechanically altered food and PO meeting less than 50% estimated nutrition needs Status Active Problem Recommendation Dietitian Recommendations/Changes Continue liberalized regular diet with consistency as per PAN DUMPER; currently mechanical ( minced/moist) and thin liquids as tolerated. Continue ensure pudding BID with lunch and dinner as tolerated. Continue 120 ml ensure enlive 4 times per day w/ medpass. May need to consider TF support if PO remains inadequate and weight continues to decline. Hospice referral noted. Weight / BMI Weight Weight: 201 lb 15.095 oz Body Mass Index (BMI) 26.6 ABG / Lab / Microbiology Data Result Diagrams: 07/20/21 04:45 07/20/21 04:45 Laboratory: Laboratory Results - last 24 hr 07/20/21 04:45: Sodium 148 H, Potassium 3.7, Chloride 119 H, Carbon Dioxide 25.0 , Anion Gap 4 L, BUN 25 H, Creatinine 1.15, Estim Creat Clear Calc 58.86, Est GFR (MDRD) Af Amer 79, Est GFR (MDRD) Non-Af 65, BUN/Creatinine Ratio 21.7 H, Glucose 127 H, Calcium 7.5 L, Magnesium 2.3 07/20/21 04:45: WBC 7.3, RBC 3.44 L, Hgb 10.1 L, Hct 33.3 L, MCV 96.8 H, MCH 29.4, MCHC 30.3 L, RDW Std Deviation 65.1 H, RDW Coeff of Anastacia 18.4 H, Plt Count 101 L, MPV 13.5 H, Immature Gran % (Auto) 0.300, Neut % (Auto) 58.6, Lymph % (Auto) 24.5, Rooks % (Auto) 12.5 H, Eos % (Auto) 3.8, Baso % (Auto) 0.3, Absolute Neuts (auto) 4.3, Absolute Lymphs (auto) 1.79, Nucleated RBC % 0, Differential Comment SCANNED, Anisocytosis 1+ Microbiology: Microbiology 07/16/21 22:18 Urine Catheter - Catheter Urine Culture - Final Escherichia coli 07/16/21 22:07 Blood Culture (Wb) - Left Hand Blood Culture - Preliminary No growth in 48 hours. 07/16/21 20:55 Blood Culture (Wb) - Right Forearm Blood Culture - Pr eliminary No growth in 48 hours. 07/17/21 07:55 Urine Catheter - Catheter Legionella Antigen - Final 07/17/21 07:55 Urine Catheter - Catheter Streptococcus pneumoniae Antigen (M - Final Meaningful Use Info Meaningful Use Diagnoses (Choose all that apply): None applicable Discharge Plan Admission Admit Date/Time: 07/17/21 01:31 Primary Reason for Your Visit: ESBL UTI, Pneumonia Attending Provider: Radha Avitia Primary Care Provider: Madhu Coughlin Consulting Providers: Jose Antonio Malik ; Polly Anguiano ; Bala Ring ; Sherita Tovar ; Shamar Hancock ; Kary Monzon ; Sejal Canales ; Agnieszka Castillo ; Caitlyn Grimm ASSET PROTECTION DETECTIVE Discharge Orders/Prescriptions Prescriptions: New cefdinir 300 mg Capsule 300 mg PO Q12 4 Days Qty: 0 RF: 0 metoprolol tartrate 25 mg Tablet 25 mg PO BID Qty: 0 RF: 0 nitrofurantoin monohyd/m-cryst 100 mg Capsule 100 mg PO BID 4 Days Qty: 8 RF: 0 Continued donepezil 10 MG tablet 10 mg PO DAILY RF: 0 fexofenadine [Lisbeth Allergy] 180 MG tablet 60 mg PO DAILY RF: 0 aspirin 81 MG tablet,chewable 81 mg PO DAILY@0800 RF: 0 Hold Instructions: Resume on 06/03/21. escitalopram oxalate 10 MG tablet 10 mg PO DAILY RF: 0 memantine [Namenda] 10 MG tablet 10 mg PO BID RF: 0 acetaminophen [Tylenol] 325 MG capsule 650 mg PO Q4H PRN PRN (Reason: Pain) RF: 0 sennosides-docusate sodium [Senna-S] 8.6-50 mg tablet 1 tab PO BID RF: 0 atorvastatin 20 mg Tablet 20 mg PO QHS Qty: 0 RF: 0 lisinopril 5 mg Tablet 5 mg PO DAILY Qty: 0 RF: 0 cyanocobalamin (vitamin B-12) 500 mcg Tablet 500 mcg PO DAILY RF: 0 aluminum-magnesium hydroxide 225-200 mg/5 mL Suspension 30 ml PO Q4H PRN (Reason: Heartburn) RF: 0 cholecalciferol (vitamin D3) 1,250 mcg (50,000 unit) Capsule 1,250 mcg PO QWEEK RF: 0 guaifenesin 50 mg/5 mL Liquid 100 mg PO Q4H PRN (Reason: Cough) RF: 0 multivitamin Tablet 1 tab PO DAILY RF: 0 hydrocodone-acetaminophen 5-325 mg tablet 1 tab PO Q8H PRN PRN (Reason: Pain) RF: 0 potassium chloride 10 mEq tablet,ER particles/crystals 10 meq PO DAILY RF: 0 mirtazapine 7.5 mg tablet 7.5 mg PO QHS RF: 0 Discontinued metoprolol tartrate 25 mg Tablet 12.5 mg PO BID Qty: 0 RF: 0 Referrals / Follow Up: Madhu Coughlin MD [Primary Care Provider] - See Referral Note (As needed) Disposition Disposition (needs filled in before D/C Order can be placed): Hospice in Medical Facility Documented by User: Dr. Radha Avitia DO 07/20/21 16:09 Providers Date of Admission: 07/17/21 Reason For Visit: PNEUMONIA, UTI, DEHYDRATION, HYPOXIA Medications at Discharge Home Medications acetaminophen [Tylenol] 650 mg PO Q4H PRN PRN 05/25/18 aspirin 81 mg PO DAILY@0800 05/25/18 donepezil 10 mg PO DAILY 05/25/18 escitalopram oxalate 10 mg PO DAILY 05/25/18 fexofenadine [Lisbeth Allergy] 60 mg PO DAILY 05/25/18 memantine [Namenda] 10 mg PO BID 05/25/18 sennosides-docusate sodium [Senna-S] 1 tab PO BID 05/18/21 atorvastatin 20 mg PO QHS #0 tab 05/24/21 lisinopril 5 mg PO DAILY #0 tab 05/24/21 aluminum-magnesium hydroxide 30 ml PO Q4H PRN 07/17/21 cholecalciferol (vitamin D3) 1,250 mcg PO QWEEK 07/17/21 cyanocobalamin (vitamin B-12) 500 mcg PO DAILY 07/17/21 guaifenesin 100 mg PO Q4H PRN 07/17/21 hydrocodone-acetaminophen 1 tab PO Q8H PRN PRN 07/17/21 mirtazapine 7.5 mg PO QHS 07/17/21 multivitamin 1 tab PO DAILY 07/17/21 potassium chloride 10 meq PO DAILY 07/17/21 cefdinir 300 mg PO Q12 4 Days #0 cap 07/20/21 metoprolol tartrate 25 mg PO BID #0 tab 07/20/21 nitrofurantoin monohyd/m-cryst 100 mg PO BID 4 Days #8 cap 07/20/21 Hospital Course Operations None Procedures None Summary of Care Provided Minutes Spent on Discharge: 41 Hospital Course: Mr. Tucker is a 80-year-old [facility] for decreased level of consciousness on 07/17/2021. The patient has a longstanding history of dementia according to his family who was present at admission. According to his daughter he had not been eating or drinking well for several days prior to admission. The patient sustained a hip fracture at the end of April and had been in right residing in assisted living before that time however he has been in a long-term since his fracture. His health has deteriorated since that point time. In the emergency department his chest x-ray showed a infiltrate in the retrocardiac area of the left lung. He had a leukocytosis and his chemistry profile showed a sodium of 162 with a chloride of 131 and a potassium of 3.4. His serum creatinine on admission was 1.4 with a BUN of 37. He had a mildly elevated troponin at 95. His urinalysis was consistent with probable infection showing 10-25 white blood cells, bacteria, nitrites and leukoesterase. His EKG showed atrial fibrillation with a heart rate of 120 and 130 and a chronic left bundle branch block. He was given IV antibiotics as well as IV fluids and admitted to the medical floor. After discussion with the daughter who is his POA, a DNR CC arrest without intubation order was placed. His blood cultures were negative. His strep pneumo and Legionella and symptoms were negative. He had a COVID test which was negative. His urine culture yielded E. coli that was ESBL producing. His antibiotics were changed from ceftriaxone to meropenem at that time and infectious disease was consulted. He was also maintained on IV fluids which we had to change from normal saline to D5W given worsening hypernatremia. His sodium level did decrease and was down from 1 62-1 48 on the day of admission. ID recommendations for antibiotics at discharge were 4 more days of Macrobid and Omnicef. We did discuss the patient's overall prognosis and current function with the daughter and she was amenable to discussion with hospice and probable admission to skilled facility with hospice after discharge. He was evaluated by speech therapy during his hospitalization and his diet recommendation was regular diet with thin liquids but no straws and a one-to-one supervised feed. The patient's overall prognosis is poor but he was discharged in stable condition back to his skilled facility. Discharge diagnoses: Acute E. coli UTI-ESBL producing organism Acute hypoxia secondary to pneumonia Metabolic encephalopathy Hypernatremia Hyperchloremia Hypokalemia-resolved PAF LANDON Thrombocytopenia Hypertension Hyperlipidemia Alzheimer's type dementia Chronic macrocytic anemia Physical Exam Const Constitutional Narrative: Elderly sleeping white male, appears comfortable, does awaken slightly to tactile stimuli however falls back to sleep, unable to follow commands consistently which appears to be his baseline General Appearance: cooperative, comfortable, well kempt and well developed Orientation / Consciousness: other Other Details: Sleeping at the time of my evaluation Exam Limitations: other limitations Nutritional Appearance: thin HEENT normocephalic and head/scalp atraumatic Eyes Eyes Narrative: Unable to evaluate as the patient is sleeping Neck nuchal rigidity, no lymphadenopathy, supple and thyroid normal Neck Narrative: Trachea midline, no thyroid enlargement General: trachea midline Resp normal respiratory effort, no retractions, no use of accessory muscles and clear to auscultation bilaterally Resp Narrative: Diminished at bases however patient is not taking deep breaths on command Auscultation: diminished lung sounds; Negative for crackles, rales, rhonchi or wheezes Cardio regular rate, regular rhythm, S1 normal heart sound, S2 normal heart sound, no murmurs, no rub, no gallops, no clicks and no JVD Peripheral Pulses: pulses 2+ throughout GI normal to inspection, nondistended, normoactive bowel sounds, soft to palpation, non-tender and non-distended; Negative for hepatosplenomegaly Extremity no clubbing, cyanosis or edema Extremity Narrative: 2+ pedal pulses Skin no rashes or lesions noted, no wounds, skin turgor normal and no jaundice Skin Narrative: Skin is pale General Skin Exam: no breakdown Lesions: no lesions Rashes: no rashes Trauma: no lacerations or abrasions Neuro deep tendon reflexes 2+ bilaterally Neuro Narrative: Patient sleeping upon my examination however he does move all extremities spontaneously while sleeping Psych mental status grossly normal Mood & Affect: flat affect ABG / Lab / Microbiology Data Result Diagrams: 07/20/21 04:45 07/20/21 04:45 Discharge Plan Admission Admit Date/Time: 07/17/21 01:31 Primary Reason for Your Visit: ESBL UTI, Pneumonia Attending Provider: Radha Avitia Primary Care Provider: Madhu Coughlin Consulting Providers: Jose Antonio Malik ; Polly Anguiano ; Bala Ring ; Sherita Tovar ; Shamar Hancock ; Kary Monzon ; Sejal Canales ; Agnieszka Castillo ; Caitlyn Grimm ASSET PROTECTION DETECTIVE Discharge Orders/Prescriptions Prescriptions: New cefdinir 300 mg Capsule 300 mg PO Q12 4 Days Qty: 0 RF: 0 metoprolol tartrate 25 mg Tablet 25 mg PO BID Qty: 0 RF: 0 nitrofurantoin monohyd/m-cryst 100 mg Capsule 100 mg PO BID 4 Days Qty: 8 RF: 0 Continued donepezil 10 MG tablet 10 mg PO DAILY RF: 0 fexofenadine [Lisbeth Allergy] 180 MG tablet 60 mg PO DAILY RF: 0 aspirin 81 MG tablet,chewable 81 mg PO DAILY@0800 RF: 0 Hold Instructions: Resume on 06/03/21. escitalopram oxalate 10 MG tablet 10 mg PO DAILY RF: 0 memantine [Namenda] 10 MG tablet 10 mg PO BID RF: 0 acetaminophen [Tylenol] 325 MG capsule 650 mg PO Q4H PRN PRN (Reason: Pain) RF: 0 sennosides-docusate sodium [Senna-S] 8.6-50 mg tablet 1 tab PO BID RF: 0 atorvastatin 20 mg Tablet 20 mg PO QHS Qty: 0 RF: 0 lisinopril 5 mg Tablet 5 mg PO DAILY Qty: 0 RF: 0 cyanocobalamin (vitamin B-12) 500 mcg Tablet 500 mcg PO DAILY RF: 0 aluminum-magnesium hydroxide 225-200 mg/5 mL Suspension 30 ml PO Q4H PRN (Reason: Heartburn) RF: 0 cholecalciferol (vitamin D3) 1,250 mcg (50,000 unit) Capsule 1,250 mcg PO QWEEK RF: 0 guaifenesin 50 mg/5 mL Liquid 100 mg PO Q4H PRN (Reason: Cough) RF: 0 multivitamin Tablet 1 tab PO DAILY RF: 0 hydrocodone-acetaminophen 5-325 mg tablet 1 tab PO Q8H PRN PRN (Reason: Pain) RF: 0 potassium chloride 10 mEq tablet,ER particles/crystals 10 meq PO DAILY RF: 0 mirtazapine 7.5 mg tablet 7.5 mg PO QHS RF: 0 Discontinued metoprolol tartrate 25 mg Tablet 12.5 mg PO BID Qty: 0 RF: 0 Referrals / Follow Up: Madhu Coughlin MD [Primary Care Provider] - See Referral Note (As needed) Disposition Disposition (needs filled in before D/C Order can be placed): Hospice in Medical Facility Charges/Coding Visit Charges Inpatient E&M: 45544 SNF Disch >30 Min
--- NOTE | 2021-07-20 14:22 | CASEMGMT ---
Addendum entered by [facility] 07/20/21 16:50: [facility] scheduled transportation for 2029. Family, CC and nurse updated. SEBASTIAN Alba Addendum entered by Trinity [facility]ital 07/20/21 16:37: Social Work Pt's family has met with [facility] and signed papers to start services. Pt ready for return to [facility] at this time. Transportation arranged with [facility] for [address]30 bead picker via cot. Pt family, nursing and [facility] updated on discharge time. SEBASTIAN Alba Original Note: Social Work Per physician, pt ready for discharge today. Pt and dgt will have meeting with hospice at 3:30 and then pt can discharge after that time. Orders faxed to Betty at [facility] and phone call to Betty informing of discharge plan. Nursing updated. Plan: [facility], intermediate level of care. Hospice Care. Transportation to be arranged after hospice meeting SEBASTIAN Alba
--- NOTE | 2021-07-20 19:57 | NURSING ---
Report called to [facility].
[2021-07-20] MEDS: Atorvastatin Calcium 20 MG Tablet PO (20:54)
[2021-07-20] MEDS: Cefdinir 300 MG Capsule PO (20:55)
[2021-07-20] MEDS: Mirtazapine 15 MG Tablet 7.5 MG PO (20:55)
[2021-07-20] MEDS: Nitrofurantoin Macrocrystals 100 MG Capsule PO (21:45)
== END 2021-07-20 22:39 | disposition hospice, inpatient (51) | DRG 193 ==
LOC: ED 07-17 00:15 → MS3 07-17 01:43
PROVIDERS: Family Medicine; Nurse Practitioner Family; Admitting Provider Internal Medicine; Emergency Provider Emergency Medicine; PCP Family Medicine; Visit Provider Internal Medicine
DX: J18.9 Pneumonia, unspecified organism (principal); G93.41 Metabolic encephalopathy; E43 Unspecified severe protein-calorie malnutrition; N17.9 Acute kidney failure, unspecified; I24.8 Other forms of acute ischemic heart disease; E87.0 Hyperosmolality and hypernatremia; R47.01 Aphasia; N30.00 Acute cystitis without hematuria; Z16.12 Extended spectrum beta lactamase (ESBL) resistance; F02.80 Dementia in other diseases classified elsewhere, unspecified severity, without behavioral disturbance, psychotic disturbance, mood disturbance, and anxiety; G30.9 Alzheimer's disease, unspecified; I48.0 Paroxysmal atrial fibrillation; E86.0 Dehydration; D53.9 Nutritional anemia, unspecified; E78.5 Hyperlipidemia, unspecified; E87.6 Hypokalemia; E87.8 Other disorders of electrolyte and fluid balance, not elsewhere classified; E86.1 Hypovolemia; I10 Essential (primary) hypertension; B96.20 Unspecified Escherichia coli [E. coli] as the cause of diseases classified elsewhere; R62.7 Adult failure to thrive; R09.02 Hypoxemia; Z20.822 Contact with and (suspected) exposure to COVID-19; Z66 Do not resuscitate; Z79.82 Long term (current) use of aspirin; Z79.899 Other long term (current) drug therapy; Z68.26 Body mass index [BMI] 26.0-26.9, adult
CPT/HCPCS: 36415; 70450; 71045; 80048; 80053; 81001; 82962; 83605; 83735; 84443; 84484; 85025; 85610; 85730; 87040; 87077; 87086; 87088; 87186; 87426; 87449; 92526; 92610; 93005; 97110; 97161; 97165; 97802; 99285; J2185; J7030; J7040; J7050; A4216